=== PATIENT | female | born 1960 | race Caucasian/White ===

== ENCOUNTER → 2019-12-03 14:00 | Outpatient (BNVA) | payer MEDICAID, SELFPAY | PROVIDERS: PCP Nurse Practitioner Gerontology; Visit Provider Nurse Practitioner | DX: Z76.89 Persons encountering health services in other specified circumstances (principal) | CPT/HCPCS: 99203 ==

== ENCOUNTER 2019-12-21 09:37 | Outpatient (REF) | payer MEDICAID, SELFPAY ==
--- NOTE | 2019-12-21 09:49 | US_ITS ---
EXAMINATION: US ABDOMEN WITH LIVER ELASTOGRAPHY CLINICAL INFORMATION: Abnormal LFTs COMPARISON: CT abdomen and pelvis without contrast 10/10/2015 TECHNIQUE: Limited right upper abdominal ultrasound was performed FINDINGS: The liver is normal size, shape and contour. Normal average densities noted. Right lobe measures 1.4 cm in length and the left lobe measures 7.7 cm in length. There is no intrahepatic ductal dilatation or solid lesion. No cyst seen either. There is normal hepatopedal flow seen in the portal vein on Doppler exam. On liver Elastography, the median value is 1.31 with an IQR/median of 0.14 cm. The gallbladder has been surgically removed. The CBD measures 0.28 cm. The right kidney measures 11.2 cm. The pancreas is homogeneous in echotexture and appears unremarkable. IMPRESSION: 1. Unremarkable appearing liver, right kidney and pancreas. 2. On Elastography, there is normal to mild fibrosis, stage F0 - F1.
== END 2019-12-21 09:38 | disposition home or self-care (01) ==
LOC: HO.US 09:37
PROVIDERS: Visit Provider Nurse Practitioner
DX: R94.5 Abnormal results of liver function studies (principal)
CPT/HCPCS: 76705; 76981

== ENCOUNTER → 2020-01-24 09:56 | Outpatient (BNVA) | payer MEDICAID, SELFPAY | PROVIDERS: Visit Provider Nurse Practitioner Gerontology | DX: Z76.89 Persons encountering health services in other specified circumstances (principal) ==

== ENCOUNTER 2020-02-03 09:12 | Outpatient (REF) | payer MEDICAID, SELFPAY ==
[2020-02-03 10:30] LABS: Estimated Average Glucose 240 mg/dL
[2020-02-03 10:52] LABS: Alanine Aminotransferase 239 U/L (0-31); Albumin Level 3.8 g/dL (3.5-5.0); Alkaline Phosphatase 137 U/L (39-117); Anion Gap 11 (12-20); Aspartate Amino Transferase 102 U/L (5-31); Bilirubin Total 0.5 mg/dL (0.0-1.0); Blood Urea Nitrogen 26 mg/dL (9-16); Calcium 8.9 mg/dL (8.4-10.2); Carbon Dioxide 27 mmol/L (22-29); Chloride 106 mmol/L (96-108); Estimated Glomerular Filt Rate 53; Glucose Fasting 200 mg/dL (60-99); Potassium 4.9 mmol/l (3.3-5.1); Sodium 139 mmol/L (135-145); Total Protein 6.9 g/dL (6.5-8.0)
[2020-02-03 11:03] LABS: Creatinine Urine 71.16 mg/dL; Ferritin 53 ng/mL (10-250); Microalbum/Creatinine Ratio Ur 46.3 ug/mg cr
[2020-02-03 11:12] LABS: Vitamin D 25-OH Total 33.9 ng/mL (>30)
[2020-02-08 15:13] LABS: Alpha Fetoprotein 3.3 ng/mL
[2020-02-10 14:28] LABS: Fructosamine 354 umol/L (205-285)
== END 2020-02-03 09:13 | disposition home or self-care (01) ==
LOC: HO.LAB 09:12
PROVIDERS: Absent Provider Nurse Practitioner; Visit Provider Nurse Practitioner Gerontology
DX: E11.22 Type 2 diabetes mellitus with diabetic chronic kidney disease (principal); E11.65 Type 2 diabetes mellitus with hyperglycemia; E11.42 Type 2 diabetes mellitus with diabetic polyneuropathy; I12.9 Hypertensive chronic kidney disease with stage 1 through stage 4 chronic kidney disease, or unspecified chronic kidney disease; R79.89 Other specified abnormal findings of blood chemistry; N18.9 Chronic kidney disease, unspecified; E55.9 Vitamin D deficiency, unspecified; Z79.899 Other long term (current) drug therapy; Z79.4 Long term (current) use of insulin
CPT/HCPCS: 80053; 82043; 82105; 82306; 82728; 82985; 83036; 93005; 99212

== ENCOUNTER 2020-02-08 13:27 | Outpatient (REF) | payer MEDICAID, SELFPAY ==
[2020-02-10 14:28] LABS: Anti Nuclear Antibody Screen NEGATIVE (NEGATIVE)
[2020-02-11 08:45] LABS: HBS Num1 0.19 mIU/mL (0-7.99); Hepatitis A Antibody IgM 0.32 Index (0-0.79); ~HepC Num1 0.07 S/CO (0.00-0.79); ~Hepatitis A Antibody IgM Nonreactive (Nonreactive); ~Hepatitis B Surface Antibody NONREACTIVE (Nonreactive); ~Hepatitis C Antibody Nonreactive (Nonreactive)
[2020-02-11 09:35] LABS: HBc Num1 0.12 S/CO (0.00-0.79); HBsAGNum1 0.23 S/CO (0.00-0.99); Hepatitis B Core Antibody Nonreactive (Nonreactive); Hepatitis B Surface Antigen Negative (Negative)
[2020-02-11 15:07] LABS: Mitochondrial Antibodies NEGATIVE (NEGATIVE)
[2020-02-12 13:13] LABS: Smooth Muscle Antibody <20 U (<20)
== END 2020-02-08 13:28 | disposition home or self-care (01) ==
LOC: HO.LAB 13:27
PROVIDERS: Visit Provider Nurse Practitioner
DX: R94.5 Abnormal results of liver function studies (principal); R79.89 Other specified abnormal findings of blood chemistry
CPT/HCPCS: 36415; 86038; 86039; 86255; 86256; 86704; 86706; 86709; 86803; 87340

== ENCOUNTER 2020-02-09 09:33 | Outpatient (REF) | payer MEDICAID, SELFPAY | END 2020-02-09 09:34 | disposition home or self-care (01) | LOC: HO.LNP 09:33 | DX: Z13.89 Encounter for screening for other disorder (principal) | CPT/HCPCS: 86256 ==

== ENCOUNTER 2020-02-15 14:59 | Outpatient (REF) | payer MEDICAID, SELFPAY | END 2020-02-15 15:00 | disposition home or self-care (01) | LOC: HO.LAB 14:59 | PROVIDERS: Visit Provider Internal Medicine | DX: Z20.828 Contact with and (suspected) exposure to other viral communicable diseases (principal) | CPT/HCPCS: C9803; U0003 ==

== ENCOUNTER → 2020-05-11 11:07 | Outpatient (BNVA) | payer MEDICAID, SELFPAY | PROVIDERS: Visit Provider Nurse Practitioner Gerontology ==

== ENCOUNTER → 2020-07-21 11:29 | Outpatient (BNVA) | payer MEDICAID, SELFPAY | PROVIDERS: Visit Provider Nurse Practitioner Gerontology ==

== ENCOUNTER 2020-12-29 08:51 | Outpatient (REF) | payer MEDICAID, SELFPAY ==
[2020-12-29 10:05] LABS: Estimated Average Glucose 203 mg/dL; Hemoglobin A1c % 8.7 %
[2020-12-29 10:06] LABS: Cholesterol 350 mg/dL; Glucose Fasting 120 mg/dL (60-99); HDL Cholesterol 46 mg/dL; LDL Cholesterol Calculated 259 mg/dl; Triglycerides 225 mg/dL
[2020-12-30 09:46] LABS: LDL Cholesterol Direct 256 mg/dL (<100)
[2020-12-31 04:37] LABS: C Peptide 0.56 ng/mL (0.80-3.85)
[2021-01-03 15:21] LABS: Fructosamine 281 umol/L (205-285)
[2021-01-04 21:21] LABS: Glutamic acid decarboxylase Ab <5 IU/mL (<5)
[2021-01-15 01:41] LABS: Islet Cell Antibody Screen NEGATIVE (NEGATIVE)
== END 2020-12-29 08:52 | disposition home or self-care (01) ==
LOC: HO.LAB 08:51
PROVIDERS: Visit Provider Nurse Practitioner Gerontology
DX: E11.42 Type 2 diabetes mellitus with diabetic polyneuropathy (principal); E11.22 Type 2 diabetes mellitus with diabetic chronic kidney disease; N18.9 Chronic kidney disease, unspecified; Z79.4 Long term (current) use of insulin
CPT/HCPCS: 36415; 80061; 82947; 82985; 83036; 83721; 84681; 86255; 86341

== ENCOUNTER 2021-01-15 21:58 | Emergency (ER) | payer MEDICAID, SELFPAY ==
[2021-01-15 22:09] VITALS: BP 176/106; O2SAT 98
--- NOTE | 2021-01-15 22:12 | PC.NURSE ---
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
[2021-01-15 22:14] VITALS: BP 199/88; PULSE 83; RESP 18; TEMP 36.7; O2SAT 98; BMI 47.5
--- NOTE | 2021-01-16 00:54 | ECG_ITS ---
Test Reason : cp Blood Pressure : / mmHG Vent. Rate : 079 BPM Atrial Rate : 079 BPM P-R Int : 164 ms QRS Dur : 080 ms QT Int : 394 ms P-R-T Axes : 049 047 025 degrees QTc Int : 451 ms Normal sinus rhythm Normal ECG When compared with ECG of 17-OCT-2017 20:10, No significant change was found Heart rate has decreased Referred By: Kateryna Vides Electronically Signed By:MARISSA LOO MD
[2021-01-16 01:11] VITALS: BP 176/81; PULSE 79; RESP 18; TEMP 36.9; O2SAT 96
--- NOTE | 2021-01-16 01:45 | PC.NURSE ---
LABS DRAWN TO LAB, MEGAN OBTAINED TO
[2021-01-16 01:46] LABS: MANUAL DIFF FLAG NO
[2021-01-16 01:57] LABS: Basophils Percent Auto 0.2 % (0-2); Eosinophils Percent Auto 0.2 % (0-4); Hematocrit 38.3 % (37.0-47.0); Hemoglobin 12.7 g/dl (12.0-16.0); Imm Gran Abs Auto 0.01 X10*3/uL (0.00-0.03); Imm Gran Pct Auto 0.1 % (0.0-0.4); Lymphocytes Absolute Auto 2.1 X10*3/uL (1.2-4.9); Lymphocytes Percent Auto 26.4 % (20-40); Mean Corpuscular HGB Conc 33.2 g/dl (31.0-35.0); Mean Corpuscular Hemoglobin 28.3 pg (27.0-33.0); Mean Corpuscular Volume 85.5 fL (80.0-98.0); Mean Platelet Volume 9.1 fL (9.4-12.3); Monocytes Absolute Auto 0.5 X10*3/uL (0.1-1.2); Monocytes Percent Auto 6.4 % (2-11); Neutrophils Absolute Auto 5.4 x10*3/uL (2.0-8.3); Neutrophils Percent Auto 66.7 % (45-73); Platelet Count 320 X10*3/uL (160-400); Red Blood Count 4.48 X10*6/uL (4.20-5.50); Red Cell Distribution Width 14.3 % (11.0-16.0); White Blood Count 8.1 X10*3/uL (4.8-10.8)
--- NOTE | 2021-01-16 02:06 | ED.GENADULT ---
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 Currently, patient denies any headache. Related Data Home Medications Medication Instructions Recorded Confirmed aspirin 81 mg tablet,delayed 81 mg PO DAILY 01/24/20 07/21/20 release blood sugar diagnostic (FreeStyle #10 ea 01/24/20 07/21/20 Lite Strips) clonazepam 1 mg tablet 1 mg PO BID 01/24/20 07/21/20 duloxetine 20 mg capsule,delayed 20 mg PO BID 01/24/20 07/21/20 release hydroxyzine pamoate 25 mg capsule 25 mg PO BID PRN 01/24/20 07/21/20 (Vistaril) lancets 28 gauge (FreeStyle #100 ea 01/24/20 07/21/20 Lancets) lisinopril 10 mg tablet 10 mg PO DAILY 01/24/20 07/21/20 metoprolol tartrate 50 mg tablet 50 mg PO BID 01/24/20 07/21/20 mirtazapine 15 mg tablet 15 mg PO BEDTIME 01/24/20 07/21/20 aripiprazole 2 mg tablet 2 mg PO BEDTIME 07/21/20 07/21/20 trazodone 100 mg tablet 100 mg PO BEDTIME 07/21/20 07/21/20 Previous Rx's Medication Instructions Recorded pen needle, diabetic 32 gauge x #120 ea 05/15/20 (BD Ultra-Fine Martha Pen Needle) blood-glucose meter (FreeStyle #1 ea 06/12/20 Lite Meter) insulin aspart U-100 100 unit/mL 10 unit (0.1 mL) SUBCUT TID #15 ml 08/04/20 (3 mL) subcutaneous pen (Novolog Flexpen U-100 Insulin aspart) insulin glargine 100 unit/mL (3 18 unit (0.18 mL) SUBCUT QPM #15 ml 09/20/20 mL) subcutaneous pen (Lantus Solostar U-100 Insulin) cholecalciferol (vitamin D3) 50 50 mcg PO DAILY 30 Days #30 cap 10/18/20 mcg (2,000 unit) capsule rosuvastatin 40 mg tablet 40 mg PO DAILY #30 tab 10/18/20 ezetimibe 10 mg tablet 10 mg PO DAILY #30 tab 12/22/20 gabapentin 600 mg tablet 600 mg PO TID #90 tab 12/22/20 metformin 500 mg tablet,extended 500 mg PO BID #60 tab 12/22/20 release 24 hr hydrochlorothiazide 12.5 mg capsule 12.5 mg PO DAILY #7 cap 01/16/21 Allergies Allergy/AdvReac Type Severity Reaction Status Date / Time No Known Allergies Allergy Verified 01/15/21 22:14 [No Known Allergies*] Review of Systems Review of Systems: Pertinent positives and negatives as stated in HPI 10 point review of systems is otherwise negative. 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 Type 2 diabetes mellitus with hyperglycemia, with long-term current use of insulin Vitamin D deficiency Surgical History History of cholecystectomy Hx of cataract surgery Family History Family History Father Prostate cancer Diabetes Mother Uterine cancer, sarcoma Brain bleed Diabetes CAD (coronary artery disease) Social History Social History Alcohol intake: current Alcohol intake frequency: does not drink Advance Directives: No Advance Directives Information Provided: Yes Physical Exam Vital Signs: Vital Signs: Last Vital Signs Temp 98.5 F 01/16/21 01:11 Pulse 79 01/16/21 03:20 Resp 16 01/16/21 03:20 BP 172/65 H 01/16/21 03:20 Pulse Ox 97 01/16/21 03:20 Body Mass Index 47.5 VITAL SIGNS: Reviewed. GENERAL: Well developed, well nourished, in no acute distress. HEAD: Normocephalic/atraumatic EYES: PERRLA, EOMI OROPHARYNX: no oral lesions noted, posterior pharynx clear NECK: Supple, no adenopathy LUNGS: Normal breath sounds. No adventitious sounds or accessory muscle use. SpO2<96> CARDIOVASCULAR: Regular rate and rhythm without noted murmurs, no JVD or lower extremity edema. ABDOMEN: Soft, non-tender, non-distended with bowel sounds. SKIN: Inspection of the skin reveals no rashes NEUROLOGIC: Alert and oriented x 4. Strength and sensation to light touch were grossly intact x 4, no pronator drift, no facial asymmetry, cranial nerves 2-12 grossly intact. Course Course Course Narrative: This is a 60-year-old female with history and clinical presentation consistent with headache related to high blood pressure without neurological deficits. Review of all investigations otherwise negative for DEVAN, significant protein in the urine, and EKG without acute changes. Serial troponins are detectable but not clinically significant. Patient has follow-up appointment with her primary care provider this Friday. Medical Decision Making Lab Data Result diagrams: 01/16/21 01:41 01/16/21 01:41 Labs: Lab Results 01/16/21 01/16/21 01/16/21 Range/Units 01:41 01:41 01:41 WBC 8.1 (4.8-10.8) X10*3/uL RBC 4.48 (4.20-5.50) X10*6/uL Hgb 12.7 (12.0-16.0) g/dl Hct 38.3 (37.0-47.0) % MCV 85.5 (80.0-98.0) fL MCH 28.3 (27.0-33.0) pg MCHC 33.2 (31.0-35.0) g/dl RDW 14.3 (11.0-16.0) % Plt Count 320 (160-400) X10*3/uL MPV 9.1 L (9.4-12.3) fL Immature Gran % (Auto) 0.1 (0.0-0.4) % Neut % (Auto) 66.7 (45-73) % Lymph % (Auto) 26.4 (20-40) % Edwards % (Auto) 6.4 (2-11) % Eos % (Auto) 0.2 (0-4) % Baso % (Auto) 0.2 (0-2) % Lymph # (Auto) 2.1 (1.2-4.9) X10*3/uL Edwards # (Auto) 0.5 (0.1-1.2) X10*3/uL Eos # (Auto) 0.0 (0.0-0.4) X10*3/uL Baso # (Auto) 0.0 (0.0-0.2) X10*3/uL Abs Immat Gran (auto) 0.01 (0.00-0.03) X10*3/uL Absolute Neuts (auto) 5.4 (2.0-8.3) x10*3/uL Absolute Nucleated RBC 0.000 (0.0-0.012) X10*3/uL Nucleated RBC % (auto) 0.0 (0.0-0.2) /100WBC Sodium 141 (135-145) mmol/L Potassium 3.9 (3.3-5.1) mmol/L Chloride 108 (96-108) mmol/L Carbon Dioxide 19 L (22-29) mmol/L Anion Gap 18 (12-20) BUN 16 (9-16) mg/dL Creatinine 0.94 (0.5-1.4) mg/dL Estim Creat Clear Calc 77.5 Estimated GFR > 60 POC Glucose (60-115) mg/dL Random Glucose 224 H (60-115) mg/dL Calcium 9.4 (8.4-10.2) mg/dL Total Bilirubin 0.3 (0.0-1.0) mg/dL AST 19 D (5-31) U/L ALT 21 (0-31) U/L Alkaline Phosphatase 108 D (39-117) U/L Troponin I High Sens 4.5 (<3.5-17.0) ng/L Total Protein 7.5 (6.5-8.0) g/dL Albumin 4.0 (3.5-5.0) g/dL Urine Color Urine Appearance Urine pH (5.0-8.0) Ur Specific [place] (1.005-1.025) Urine Protein (NEG-TRACE) MG/DL Urine Glucose (UA) (NEG) MG/DL Urine Ketones (NEG) MG/DL Urine Blood (NEG) Urine Nitrite (NEG) Ur Leukocyte Esterase (NEG) Urine RBC (0) /HPF Urine WBC (0-4) /HPF Ur Squamous Epith Cells /LPF Urine Bacteria /LPF 01/16/21 01/16/21 01/16/21 Range/Units 02:39 02:41 03:17 WBC (4.8-10.8) X10*3/uL RBC (4.20-5.50) X10*6/uL Hgb (12.0-16.0) g/dl Hct (37.0-47.0) % MCV (80.0-98.0) fL MCH (27.0-33.0) pg MCHC (31.0-35.0) g/dl RDW (11.0-16.0) % Plt Count (160-400) X10*3/uL MPV (9.4-12.3) fL Immature Gran % (Auto) (0.0-0.4) % Neut % (Auto) (45-73) % Lymph % (Auto) (20-40) % Edwards % (Auto) (2-11) % Eos % (Auto) (0-4) % Baso % (Auto) (0-2) % Lymph # (Auto) (1.2-4.9) X10*3/uL Edwards # (Auto) (0.1-1.2) X10*3/uL Eos # (Auto) (0.0-0.4) X10*3/uL Baso # (Auto) (0.0-0.2) X10*3/uL Abs Immat Gran (auto) (0.00-0.03) X10*3/uL Absolute Neuts (auto) (2.0-8.3) x10*3/uL Absolute Nucleated RBC (0.0-0.012) X10*3/uL Nucleated RBC % (auto) (0.0-0.2) /100WBC Sodium (135-145) mmol/L Potassium (3.3-5.1) mmol/L Chloride (96-108) mmol/L Carbon Dioxide (22-29) mmol/L Anion Gap (12-20) BUN (9-16) mg/dL Creatinine (0.5-1.4) mg/dL Estim Creat Clear Calc Estimated GFR POC Glucose 189 H (60-115) mg/dL Random Glucose (60-115) mg/dL Calcium (8.4-10.2) mg/dL Total Bilirubin (0.0-1.0) mg/dL AST (5-31) U/L ALT (0-31) U/L Alkaline Phosphatase (39-117) U/L Troponin I High Sens 4.3 (<3.5-17.0) ng/L Total Protein (6.5-8.0) g/dL Albumin (3.5-5.0) g/dL Urine Color YELLOW Urine Appearance CLEAR Urine pH 6.0 (5.0-8.0) Ur Specific [place] 1.020 (1.005-1.025) Urine Protein TRACE (NEG-TRACE) MG/DL Urine Glucose (UA) 100 H (NEG) MG/DL Urine Ketones NEG (NEG) MG/DL Urine Blood TRACE (NEG) Urine Nitrite NEG (NEG) Ur Leukocyte Esterase NEG (NEG) Urine RBC 1-4 (0) /HPF Urine WBC 0-2 (0-4) /HPF Ur Squamous Epith Cells 1+ /LPF Urine Bacteria 1+ /LPF ECG Data Attestation: I personally reviewed and interpreted this ECG as follows: Prior ECG tracings: not available for review Interpretation: Normal sinus rhythm, HR-79, no STEMI, NE/QRS/QTC are within normal limits. Discharge Plan Discharge Clinical Impression: Hypertension, Headache Patient Disposition: Home, Self-Care Instructions: DASH Eating Plan (ED), Hypertension (ED) Additional Instructions: Reanude los medicamentos caseros seg?n lo prescrito. Rohit un seguimiento con humphrey proveedor de atenci?n primaria seg?n lo programado. Regrese a la juan de emergencias por un empeoramiento juani de los s?ntomas. Prescriptions: New hydrochlorothiazide 12.5 mg capsule 12.5 mg PO DAILY Qty: 7 RF: 0 No Action (DME) pen needle, diabetic [BD Ultra-Fine Martha Pen Needle] 32 gauge x 5/32 needle See Rx Instructions .ROUTE .MEDSUPPLY Qty: 120 RF: 3 (DME) blood-glucose meter [FreeStyle Lite Meter] Kit See Rx Instructions .ROUTE .MEDSUPPLY Qty: 1 RF: 0 insulin aspart U-100 [Novolog Flexpen U-100 Insulin] 100 unit/mL (3 mL) insulin pen 10 unit subcut TID Qty: 15 RF: 3 insulin glargine [Lantus Solostar U-100 Insulin] 100 unit/mL (3 mL) insulin pen 18 unit subcut QPM Qty: 15 RF: 1 cholecalciferol (vitamin D3) 50 mcg (2,000 unit) capsule 50 mcg PO DAILY 30 Days Qty: 30 RF: 3 rosuvastatin 40 mg tablet 40 mg PO DAILY Qty: 30 RF: 11 ezetimibe 10 mg tablet 10 mg PO DAILY Qty: 30 RF: 3 metformin 500 mg tablet extended release 24 hr 500 mg PO BID Qty: 60 RF: 3 gabapentin 600 mg tablet 600 mg PO TID Qty: 90 RF: 1 (DME) lancets [FreeStyle Lancets] 28 gauge misc See Rx Instructions .ROUTE .MEDSUPPLY Qty: 100 RF: 0 lisinopril 10 mg tablet 10 mg PO DAILY RF: 0 metoprolol tartrate 50 mg tablet 50 mg PO BID RF: 0 aspirin 81 mg tablet,delayed release (DR/EC) 81 mg PO DAILY RF: 0 clonazepam 1 mg tablet 1 mg PO BID RF: 0 hydroxyzine pamoate [Vistaril] 25 mg capsule 25 mg PO BID PRNRF: 0 mirtazapine 15 mg tablet 15 mg PO BEDTIME RF: 0 duloxetine 20 mg capsule,delayed release(DR/EC) 20 mg PO BID RF: 0 (DME) FreeStyle Lite Strips Strip See Rx Instructions .ROUTE .MEDSUPPLY Qty: 10 RF: 0 trazodone 100 mg tablet 100 mg PO BEDTIME RF: 0 aripiprazole 2 mg tablet 2 mg PO BEDTIME RF: 0 Referrals: [facility] [Primary Care Provider] - 2 days Print Language: Yi
[2021-01-16 02:10] LABS: Alanine Aminotransferase 21 U/L (0-31); Alkaline Phosphatase 108 U/L (39-117); Anion Gap 18 (12-20); Aspartate Amino Transferase 19 U/L (5-31); Bilirubin Total 0.3 mg/dL (0.0-1.0); Blood Urea Nitrogen 16 mg/dL (9-16); Calcium 9.4 mg/dL (8.4-10.2); Carbon Dioxide 19 mmol/L (22-29); Chloride 108 mmol/L (96-108); Creatinine Clr Calc Pharmacy 77.5; Estimated Glomerular Filt Rate > 60; Glucose Random 224 mg/dL (60-115); Potassium 3.9 mmol/L (3.3-5.1); Sodium 141 mmol/L (135-145); Total Protein 7.5 g/dL (6.5-8.0)
[2021-01-16 02:43] LABS: Glucose, Whole Blood 189 mg/dL (60-115)
[2021-01-16 02:47] LABS: Appearance Urine CLEAR; Color Urine YELLOW; Glucose Urine UA 100 MG/DL (NEG); Leukocyte Esterase Urine NEG (NEG); Nitrite Urine NEG (NEG); UACC Culture Trigger NO; Urine Blood TRACE (NEG); Urine Ketones NEG (NEG); Urine Protein TRACE MG/DL (NEG-TRACE)
[2021-01-16 02:49] LABS: Troponin-I High Sensitivity 4.5 ng/L (<3.5-17.0)
[2021-01-16 02:58] LABS: Bacteria Urine 1+ /LPF; Squamous Epithelial Cell Urine 1+ /LPF; WBC Urine 0-2 /HPF (0-4)
[2021-01-16] MEDS: hydroCHLOROthiazide 12.5 MG TABLET PO (03:18)
[2021-01-16 03:20] VITALS: BP 172/65; PULSE 79; RESP 16; O2SAT 97
--- NOTE | 2021-01-16 03:20 | PC.NURSE ---
pt medicated as per emar for b/p.
[2021-01-16 03:44] LABS: Troponin-I High Sensitivity 4.3 ng/L (<3.5-17.0)
[2021-01-16 03:54] VITALS: BP 159/48; PULSE 78; RESP 18; O2SAT 98
== END 2021-01-16 03:57 | disposition home or self-care (01) ==
PROVIDERS: Emergency Provider Student in an Organized Health Care Education/Training Program
DX: I10 Essential (primary) hypertension (principal); R51.9 Headache, unspecified; E11.9 Type 2 diabetes mellitus without complications; Z79.4 Long term (current) use of insulin
CPT/HCPCS: 36415; 80053; 81001; 82947; 84484; 85025; 93005; 99283; 99284

== ENCOUNTER → 2021-01-29 13:55 | Outpatient (BNVA) | payer MEDICAID, SELFPAY | PROVIDERS: Visit Provider Nurse Practitioner Gerontology | DX: E11.65 Type 2 diabetes mellitus with hyperglycemia (principal); E11.42 Type 2 diabetes mellitus with diabetic polyneuropathy; E11.21 Type 2 diabetes mellitus with diabetic nephropathy; I10 Essential (primary) hypertension; E78.5 Hyperlipidemia, unspecified; E55.9 Vitamin D deficiency, unspecified; Z79.4 Long term (current) use of insulin; Z79.84 Long term (current) use of oral hypoglycemic drugs; Z79.899 Other long term (current) drug therapy | CPT/HCPCS: 82947; 99212 ==

== ENCOUNTER 2021-04-17 13:50 | Outpatient (REF) | payer MEDICAID, SELFPAY ==
[2021-04-17 16:30] LABS: Vitamin D 25-OH Total 30.7 ng/mL (>30)
[2021-04-17 19:32] LABS: Creatinine Urine 37.32 mg/dL; Microalbum/Creatinine Ratio Ur 182.2 ug/mg cr
== END 2021-04-17 13:51 | disposition home or self-care (01) ==
LOC: HO.LAB 13:50
PROVIDERS: Nurse Practitioner Gerontology; PCP Registered Nurse Community Health; Referring Provider Registered Nurse Community Health; Visit Provider Nurse Practitioner Family
DX: R07.9 Chest pain, unspecified (principal); I10 Essential (primary) hypertension; E78.5 Hyperlipidemia, unspecified; E55.9 Vitamin D deficiency, unspecified; E11.21 Type 2 diabetes mellitus with diabetic nephropathy; Z79.4 Long term (current) use of insulin
CPT/HCPCS: 36415; 82043; 82306; 99212

== ENCOUNTER 2021-07-06 14:35 | Outpatient (REF) | payer MEDICAID, SELFPAY ==
--- NOTE | ~2021-07-06 | MM_ITS ---
EXAMINATION: MM SCREENING DIGITAL BREAST TOMOSYNTHESIS, BILATERAL CLINICAL INFORMATION: Screening. Asymptomatic. Prior outside mammography from [place] currently unavailable. Age 60. No known family history breast cancer. The lifetime risk of breast cancer based on the Tyrer-Cuzick Model is 7%. COMPARISON: None. TECHNIQUE: Digital breast tomosynthesis is performed in both the craniocaudal and mediolateral oblique views along with computer-aided detection (CAD). Synthesized 2D images are generated from the tomosynthesis. FINDINGS: There are scattered areas of fibroglandular density (ACR BI-RADS breast composition Category b). There is fine fibronodular parenchymal pattern. There is no mass or architectural abnormality. The axilla and skin contours are unremarkable. There is parenchymal asymmetry anterior upper outer left breast. This may represent new baseline, patient will be recalled in order to obtain additional views to fully characterize the asymmetry. There are scattered calcifications in each breast. Right breast has grouped calcifications mid 3:00 position, possibly vascular or early ductal secretory. These will also be reassessed at time of recall. MM/MM tomosynthesis screening BI IMPRESSION: Right: -Grouped calcifications mid 3:00 position, possibly vascular or early ductal secretory. Left: -Parenchymal asymmetry anterior upper outer breast. ASSESSMENT: BI-RADS 0: Incomplete - Need Additional Imaging Evaluation RECOMMENDATION: 1. Additional views of the RIGHT breast: Magnification CC, magnification LM. 2. Additional views of the LEFT breast: Rolled CC x2; ML. Targeted ultrasound if warranted after review of the additional views. 3. Radiology department staff will contact the patient for additional imaging. This patient's information was entered into a reminder system with a target due date for their next mammogram.
== END 2021-07-06 14:36 | disposition home or self-care (01) ==
LOC: HO.MAMMO 14:35
PROVIDERS: PCP Registered Nurse Community Health; Visit Provider Registered Nurse Community Health
DX: Z12.31 Encounter for screening mammogram for malignant neoplasm of breast (principal)
CPT/HCPCS: 77063; 77067

== ENCOUNTER 2021-07-24 14:27 | Outpatient (REF) | payer MEDICAID, SELFPAY ==
--- NOTE | ~2021-07-24 | MM_ITS ---
EXAMINATION: MM DIAGNOSTIC DIGITAL BREAST TOMOSYNTHESIS, BILATERAL CLINICAL INFORMATION: Recall from screening for parenchymal asymmetry anterior upper outer left breast and grouped calcifications mid 3:00 right breast. Prior outside mammography from [place] currently unavailable. TC score 7%. COMPARISON: Mammography 07/06/2021. TECHNIQUE: Digital breast tomosynthesis is performed. 2D images are generated from the tomosynthesis. The following views are obtained: Right: Magnification CC, magnification LM x2. Left: Rolled CC x2, ML, spot CC x2, spot MLO. FINDINGS: Additional magnification views right breast demonstrate loosely grouped probable benign calcifications mid inner breast, some may be vascular or early ductal secretory. There are 2 other tightly grouped calcifications in the central inner right breast which are relatively coarse and likely fibroadenomatous change. Additional views left breast demonstrate probable benign parenchymal asymmetry upper outer breast. There is no underlying mass or architectural abnormality. Results are discussed with the patient at time of visit, using an clinical dermatologist. In the absence of prior outside mammography, the bilateral findings will be reassessed again with diagnostic mammography in 6 months. If prior outside mammography is made available, additional comparison will be made in an addendum report. MM/MM tomosynthesis added view BI IMPRESSION: Right: -Probable benign calcifications mid medial right breast and central inner right breast. Chronicity unknown. Left: -Probable benign parenchymal asymmetry anterior upper outer left breast. Chronicity unknown. ASSESSMENT: BI-RADS 3: Probably Benign RECOMMENDATION: Diagnostic bilateral mammography in 6 months. This patient's information was entered into a reminder system with a target due date for their next mammogram.
== END 2021-07-24 14:28 | disposition home or self-care (01) ==
LOC: HO.MAMMO 14:27
PROVIDERS: PCP Registered Nurse Community Health; Visit Provider Registered Nurse Community Health
DX: R92.1 Mammographic calcification found on diagnostic imaging of breast (principal)
CPT/HCPCS: 77062; 77066

== ENCOUNTER 2022-02-19 15:03 | Outpatient (REF) | payer MEDICAID, SELFPAY ==
--- NOTE | ~2022-02-19 | MM_ITS ---
EXAMINATION: MM DIAGNOSTIC DIGITAL BREAST TOMOSYNTHESIS, BILATERAL CLINICAL INFORMATION: Short interval six-month follow-up new baseline mammography for parenchymal asymmetry anterior upper outer left breast and calcifications mid 3:00 right breast. The lifetime risk of breast cancer based on the Tyrer-Cuzick Model is 7%. COMPARISON: Mammography: 07/24/2021, 07/06/2021 (BI-RADS 0, new baseline). TECHNIQUE: Digital breast tomosynthesis is performed in both the craniocaudal and mediolateral oblique views along with computer-aided detection (CAD). Synthesized 2D images are generated from the tomosynthesis. Additional magnification right CC and magnification right LM views are obtained. FINDINGS: There are scattered areas of fibroglandular density (ACR BI-RADS breast composition Category b). Parenchymal pattern is similar to prior studies. The parenchymal asymmetry anterior upper outer left breast is stable. There is no developing density or interval mass or interval architectural abnormality. The axilla and skin contours are unremarkable. Right breast calcifications for follow-up are stable. Both breasts will be reassessed again at time of annual bilateral mammography, due in 6 months. Results are provided to the patient at time of visit by the technologist. MM/MM tomosynthesis diagnostic BI IMPRESSION: No significant changes from prior new baseline exam. ASSESSMENT: BI-RADS 3: Probably Benign RECOMMENDATION: Diagnostic mammography at time of annual bilateral exam, due in 6 months. This patient's information was entered into a reminder system with a target due date for their next mammogram.
== END 2022-02-19 15:04 | disposition home or self-care (01) ==
LOC: HO.MAMMO 15:03
PROVIDERS: PCP Registered Nurse; Visit Provider Registered Nurse
DX: R92.1 Mammographic calcification found on diagnostic imaging of breast (principal)
CPT/HCPCS: 77062; 77066

== ENCOUNTER 2022-08-30 09:25 | Outpatient (REF) | payer MEDICAID, SELFPAY ==
--- NOTE | ~2022-08-30 | US_ITS ---
EXAMINATION: US ABDOMEN COMPLETE CLINICAL INFORMATION: Left-sided abdominal pain. Constipation. COMPARISON: Limited abdominal ultrasound with elastography 12/21/2019. CT abdomen and pelvis 10/09/2017. TECHNIQUE: Real-time imaging of the abdominal viscera. Limited visualization due to bowel gas and body habitus. FINDINGS: PANCREAS: Limited visualization of pancreatic tail and head. Imaged portion of pancreatic body is unremarkable. ABDOMINAL AORTA: Limited visualization. Imaged portions of mid to distal abdominal aorta are nonaneurysmal. INFERIOR VENA CAVA: Visualized portions are normal. LIVER: Severely limited visualization of the liver due to body habitus. Diffuse increase in echogenicity of the liver is characteristic of primary hepatocellular disease, possibly due to hepatic steatosis and further limits visualization. GALLBLADDER: Surgically absent. COMMON BILE DUCT: Normal in caliber measuring 0.5 cm in diameter. RIGHT KIDNEY: Right renal 0.3 cm mid pole echogenic focus may represent a small calculus. No hydronephrosis. Limited visualization.The kidney measures 9.6 cm in maximum dimension. LEFT KIDNEY: No hydronephrosis. No renal calculi. Limited visualization. The kidney measures 10.0 cm in maximum dimension. SPLEEN: Normal. The spleen measures 8.7 cm in maximum dimension. FREE FLUID: None. US/US abdomen complete IMPRESSION: 1. Gallbladder surgically absent. 2. Right renal 0.3 cm mid pole echogenic focus may represent a small calculus. No hydronephrosis. 3. Severely limited visualization of the liver due to body habitus. Diffuse increase in echogenicity of the liver is characteristic of primary hepatocellular disease, possibly due to hepatic steatosis and further limits visualization.
== END 2022-08-30 09:26 | disposition home or self-care (01) ==
LOC: HO.US 09:25
PROVIDERS: PCP Registered Nurse; Visit Provider Registered Nurse
DX: R10.9 Unspecified abdominal pain (principal)
CPT/HCPCS: 76700

== ENCOUNTER 2022-09-12 13:56 | Outpatient (REF) | payer MEDICAID, SELFPAY | END 2022-09-12 13:57 | disposition home or self-care (01) | LOC: HO.HHCL 13:56 | PROVIDERS: Visit Provider Registered Nurse | DX: Z13.89 Encounter for screening for other disorder (principal) ==

== ENCOUNTER 2022-09-12 14:31 | Outpatient (REF) | payer MEDICAID, SELFPAY ==
[2022-09-12 16:05] LABS: Cholesterol 321 mg/dL; HDL Cholesterol 44 mg/dL; LDL Cholesterol Calculated 246 mg/dl; Triglycerides 157 mg/dL
[2022-09-12 16:14] LABS: B Type Natriuretic Peptide 44 pg/mL (<100)
== END 2022-09-12 14:32 | disposition home or self-care (01) ==
LOC: HO.LAB 14:31
PROVIDERS: Visit Provider Registered Nurse
DX: Z00.00 Encounter for general adult medical examination without abnormal findings (principal); M79.89 Other specified soft tissue disorders; E78.2 Mixed hyperlipidemia
CPT/HCPCS: 36415; 80061; 83880

== ENCOUNTER 2022-11-20 12:55 | Outpatient (REF) | payer MEDICAID, SELFPAY ==
--- NOTE | ~2022-11-20 | MM_ITS ---
EXAMINATION: MM DIAGNOSTIC DIGITAL BREAST TOMOSYNTHESIS, BILATERAL CLINICAL INFORMATION: 6 month follow-up for right breast calcifications. Patient also due for bilateral screening mammography. COMPARISON: Mammography: 02/19/2022, 07/24/2021, 07/06/2021. TECHNIQUE: Digital breast tomosynthesis is performed in both the craniocaudal and mediolateral oblique views along with computer-aided detection (CAD). Synthesized 2D images are generated from the tomosynthesis. In addition, 2-D magnification right cc views x2, and right LM views x2 were performed. Additional left CC, right CC, and large paddle spot compression right MLO views were obtained. FINDINGS: There are scattered areas of fibroglandular density (ACR BI-RADS breast composition Category b). The 3 groups of somewhat coarse appearing microcalcifications in the central right breast extending laterally are entirely unchanged from prior examinations in both morphology of calcifications, and number. These remain probably benign. There has been no aggressive change. The left breast demonstrates a stable parenchymal asymmetry in the upper outer quadrant, without change from prior exams. There is otherwise no suspicious abnormality in the left breast. There are no axillary or skin changes. The parenchymal pattern is unchanged from prior exams. MM/MM tomosynthesis diagnostic BI IMPRESSION: There are no significant changes from prior study. Stable probably benign calcifications right breast, for which additional 12 month follow-up magnification views recommended to verify stability. Stable probably benign parenchymal asymmetry upper outer left breast, for which 12 month interval follow-up also recommended to include standard 3-D full-field left CC and MLO views. ASSESSMENT: BI-RADS BI-RADS 3 - Probably benign finding(s) - 12 month follow-up suggested RECOMMENDATION: 12 month diagnostic follow up Results were provided to the patient at time of visit by the technologist. This patient's information was entered into a reminder system with a target due date for their next mammogram.
== END 2022-11-20 12:56 | disposition home or self-care (01) ==
LOC: HO.MAMMO 12:55
PROVIDERS: PCP Registered Nurse; Visit Provider Registered Nurse
DX: R92.1 Mammographic calcification found on diagnostic imaging of breast (principal); N64.89 Other specified disorders of breast
CPT/HCPCS: 77062; 77066

== ENCOUNTER → 2022-11-20 13:00 | Outpatient (BNV) | payer MEDICAID, SELFPAY | PROVIDERS: PCP Registered Nurse; Visit Provider Radiology Diagnostic Radiology | DX: R92.1 Mammographic calcification found on diagnostic imaging of breast (principal); R92.2 Inconclusive mammogram | CPT/HCPCS: 77062; 77066 ==

== ENCOUNTER 2023-12-19 11:02 | Outpatient (REF) | payer MEDICAID, SELFPAY ==
[2023-12-19 12:17] LABS: Hematocrit 38.9 % (37.0-47.0); Hemoglobin 12.4 g/dl (12.0-16.0); Mean Corpuscular HGB Conc 31.9 g/dl (31.0-35.0); Mean Corpuscular Hemoglobin 28.5 pg (27.0-33.0); Mean Corpuscular Volume 89.4 fL (80.0-98.0); Mean Platelet Volume 9.5 fL (9.4-12.3); Platelet Count 375 X10*3/uL (160-400); Red Blood Count 4.35 X10*6/uL (4.20-5.50); Red Cell Distribution Width 13.4 % (11.0-16.0); White Blood Count 6.1 X10*3/uL (4.8-10.8)
[2023-12-19 13:19] LABS: Estimated Average Glucose 180 mg/dL; Hemoglobin A1C 202.2122 umol/L; Hemoglobin A1c % 7.9 % (<6.0); Total Hemoglobin (HGBA1C) 3191.6241 umol/L
[2023-12-19 13:40] LABS: Alanine Aminotransferase 13 U/L (0-31); Albumin Level 3.7 g/dL (3.5-5.0); Alkaline Phosphatase 102 U/L (39-117); Anion Gap 11 (12-20); Aspartate Amino Transferase 16 U/L (5-31); Bilirubin Total 0.3 mg/dL (0.0-1.0); Blood Urea Nitrogen 18 mg/dL (9-16); Calcium 9.5 mg/dL (8.4-10.2); Carbon Dioxide 27 mmol/L (22-29); Chloride 109 mmol/L (96-108); Cholesterol 350 mg/dL (<200); Estimated Glomerular Filt Rate 51; Glucose Random 150 mg/dL (60-115); HDL Cholesterol 47 mg/dL (>40); LDL Cholesterol Calculated 256 mg/dL (<100); Potassium 4.3 mmol/L (3.3-5.1); Sodium 143 mmol/L (135-145); Triglycerides 239 mg/dL (<150)
[2023-12-19 13:43] LABS: Vitamin D 25-OH Total 24.2 ng/mL (>30)
[2023-12-19 14:01] LABS: Folate 10.1 ng/mL (> or = 4.0); Vitamin B12 303 pg/mL (200-900)
[2023-12-19 15:44] LABS: CT PCR NOT DETECTED (Not Detect.); NG PCR NOT DETECTED (Not Detect.)
[2023-12-21 03:50] LABS: Syphilis Screen Nonreactive (Nonreactive)
[2023-12-21 03:57] LABS: HBS Num1 0.12 mIU/mL (0-7.99); HBc Num1 0.12 S/CO (0.00-0.79); HIV AB/AG Nonreactive (Nonreactive); HIV Num 1 0.09 S/CO (0.00-0.99); Hepatitis B Core Antibody Nonreactive (Nonreactive); ~HepC Num1 0.11 S/CO (0.00-0.79); ~Hepatitis B Surface Antibody NONREACTIVE (Nonreactive); ~Hepatitis C Antibody Nonreactive (Nonreactive)
== END 2023-12-19 11:03 | disposition home or self-care (01) ==
LOC: HO.CHCLDS 11:02
PROVIDERS: Visit Provider Student in an Organized Health Care Education/Training Program
DX: Z00.00 Encounter for general adult medical examination without abnormal findings (principal)
CPT/HCPCS: 36415; 80053; 80061; 82306; 82607; 82746; 83036; 84443; 85027; 86704; 86706; 86780; 86803; 87389; 87491; 87591

== ENCOUNTER 2024-01-07 10:05 | Outpatient (REF) | payer MEDICAID, SELFPAY ==
[2024-01-07 12:23] LABS: Alanine Aminotransferase 17 U/L (0-31); Albumin Level 3.8 g/dL (3.5-5.0); Alkaline Phosphatase 108 U/L (39-117); Anion Gap 13 (12-20); Aspartate Amino Transferase 19 U/L (5-31); Bilirubin Total 0.3 mg/dL (0.0-1.0); Blood Urea Nitrogen 22 mg/dL (9-16); Calcium 9.3 mg/dL (8.4-10.2); Carbon Dioxide 25 mmol/L (22-29); Chloride 106 mmol/L (96-108); Estimated Glomerular Filt Rate 59; Glucose Random 231 mg/dL (60-115); Potassium 3.8 mmol/L (3.3-5.1); Sodium 140 mmol/L (135-145); Total Protein 7.6 g/dL (6.5-8.0)
== END 2024-01-07 10:06 | disposition home or self-care (01) ==
LOC: HO.HHCL 10:05
PROVIDERS: Visit Provider Student in an Organized Health Care Education/Training Program
DX: E78.5 Hyperlipidemia, unspecified (principal)
CPT/HCPCS: 36415; 80053

== ENCOUNTER 2024-01-12 12:19 | Outpatient (REF) | payer MEDICAID, SELFPAY ==
--- NOTE | ~2024-01-12 | MM_ITS ---
EXAMINATION: MM DIAGNOSTIC DIGITAL BREAST TOMOSYNTHESIS, BILATERAL CLINICAL INFORMATION: 1 year follow-up for right breast calcifications. Patient also due for bilateral screening mammography. COMPARISON: Mammography: 11/20/2022, 02/19/2022, 07/24/2021, 07/06/2021 (BI-RADS 0). TECHNIQUE: Digital breast tomosynthesis is performed in both the craniocaudal and mediolateral oblique views along with computer-aided detection (CAD). Synthesized 2D images are generated from the tomosynthesis. In addition, 2-D spot magnification right CC x2 and right ML x2 views were also obtained of the calcifications in question. FINDINGS: There are scattered areas of fibroglandular density (ACR BI-RADS breast composition Category b). The 3 groups of somewhat coarse appearing microcalcifications in the central right breast extending laterally are entirely unchanged from prior examinations in both morphology and number. These have been stable over two-year period and are thus benign. No further follow-up recommended. Otherwise, there are stable benign type calcifications in both breasts. There are no suspicious masses, developing suspicious grouped calcifications, or areas of architectural distortion in either breast. The parenchymal pattern is stable from prior exams. There is no skin or axillary abnormality. MM/MM tomosynthesis diagnostic BI IMPRESSION: There are no findings suspicious for malignancy in either breast. -Right breast calcifications have been stable over a two-year period, and are hence benign. No further follow-up recommended. /Recommend the patient resume routine annual screening mammography. ASSESSMENT: BI-RADS BI-RADS 2 - Benign Findings RECOMMENDATION: 1 year F/U Results were provided to the patient at time of visit by the technologist. This patient's information was entered into a reminder system with a target due date for their next mammogram. Electronically signed by: Tio Gilman MD 01/12/2024 02:59 PM [facility]
== END 2024-01-12 12:20 | disposition home or self-care (01) ==
LOC: HO.MAMMO 12:19
PROVIDERS: PCP Student in an Organized Health Care Education/Training Program; Visit Provider Student in an Organized Health Care Education/Training Program
DX: R92.1 Mammographic calcification found on diagnostic imaging of breast (principal)
CPT/HCPCS: 77062; 77066

== ENCOUNTER → 2024-01-12 14:00 | Outpatient (BNV) | payer MEDICAID, SELFPAY | PROVIDERS: PCP Student in an Organized Health Care Education/Training Program; Visit Provider Radiology Diagnostic Radiology | DX: R92.1 Mammographic calcification found on diagnostic imaging of breast (principal) | CPT/HCPCS: 77062; 77066 ==

== ENCOUNTER 2024-04-01 14:42 | Outpatient (AMB) | payer MEDICAID, SELFPAY ==
[2024-04-01 15:25] VITALS: BP 122/62; PULSE 70; BMI 28.5
--- NOTE | 2024-04-01 15:25 | A.OFFVIS_ITS ---
Vital Signs 04/01/24 15:25 Height 5 ft 2 in Weight 155 lb 10.342 oz BMI 28.5 BP 122/62 Blood Pressure Location Lt brachial Position Sitting Pulse 70 Pulse Source Monitor Intake Visit Reasons: f/u appt per pcp dx: hyperlipidemia Program Development Specialist Required: Yes Program Development Specialist Language: Hr Specialist Name: voice Allergies No Known Allergies [No Known Allergies*] Allergy (Verified 04/01/24 15:27) Medication List - Last Reconciled 04/01/24 by YOVANI PichardoC aripiprazole 2 mg PO BEDTIME aspirin 81 mg PO DAILY atorvastatin 20 mg PO DAILY blood sugar diagnostic (FreeStyle Lite Strips) As directed blood-glucose meter (FreeStyle Lite Meter kit) As directed to test blood glucose 4x/day cholecalciferol (vitamin D3) 50 mcg PO DAILY 30 days clonazepam 1 mg PO BID dulaglutide (Trulicity) mg subcut QWEEK duloxetine 20 mg PO BID evolocumab (Repatha SureClick) 140 mg subcut Q2W ezetimibe 10 mg PO DAILY gabapentin 600 mg PO TID insulin aspart U-100 (Novolog FlexPen U-100 Insulin aspart) 8 units (0.08 mL) subcut TID insulin glargine (Lantus Solostar U-100 Insulin) 18 units (0.18 mL) subcut QPM lancets (FreeStyle Lancets) As directed lisinopril 10 mg PO DAILY metformin ER 500 mg PO BID metoprolol tartrate 100 mg PO ONCE pen needle, diabetic (BD Ultra-Fine Martha Pen Needle) As directed three times a day trazodone 100 mg PO BEDTIME HPI HPI f/u appt per pcp dx: hyperlipidemia: Details: Paty is a 63-year-old female with past medical history of hypertension, hyperlipidemia, diabetes, chronic kidney disease, prior reports of chest discomfort who was referred back to Cardiology for evaluation and treatment of her hyperlipidemia. Her last prior visit to our office was 04/17/21. Today she reports she has been feeling well with no concerning symptoms. She has no chest discomfort at rest or with activity. No shortness of breath, palpitations, dizziness, presyncope, syncope, PND, orthopnea or edema. She says her cholesterol has been high for many years. She believes the cholesterol- lowering medications caused issues with her liver. She is taking Repatha shots every 14 days and reports compliance. Certified cut in worker used. [facility] Medical History Type 2 diabetes mellitus with hyperglycemia, with long-term current use of insulin Long-term current use of insulin for diabetes mellitus Type 2 diabetes mellitus with diabetic nephropathy Vitamin D deficiency Hyperlipidemia LDL goal <100 Type 2 diabetes mellitus with diabetic polyneuropathy Palpitations Depression with anxiety Surgical History Hx of cataract surgery History of cholecystectomy Family History Father Prostate cancer Diabetes Mother Uterine cancer, sarcoma Brain bleed Diabetes CAD (coronary artery disease) Social History Household Members: None Alcohol intake: current Alcohol intake frequency: does not drink Patient Tobacco Use Status: Never used Tobacco Review of Systems Const All systems reviewed & are unremarkable except as noted in HPI and below ENT Denies dizziness Card Denies chest pain, Denies chest pain at rest, Denies chest pain with activity, Denies rapid heart rate, Denies pedal edema, Denies edema, Denies leg edema, Denies lightheadedness, Denies palpitations, Denies dyspnea, Denies dyspnea on exertion and Denies orthopnea Resp Denies cough, Denies dyspnea and Denies dyspnea on exertion GI Denies hematochezia and Denies change in stool character Musc Denies abnormal gait, Denies limited range of motion, Denies muscle cramps, Denies muscle weakness, Denies numbness, Denies radiating pain into limb, Denies stiffness and Denies tingling Neuro Denies abnormal gait, Denies dizziness, Denies numbness and Denies tingling Endo Denies palpitations Physical Exam Vital Signs: Last Vital Signs Pulse 70 04/01/24 15:25 BP 122/62 04/01/24 15:25 BMI result Body Mass Index 28.5 Const General: cooperative, healthy appearing, comfortable and no acute distress Orientation/consciousness: patient oriented x3 Neck Neck: Yes normal visual inspection and Yes no JVD Resp Effort & Inspection: normal respiratory effort Auscultation: clear to auscultation bilaterally, no crackles, no rales, no rhonchi and no wheezes Cardio Rate: regular rate Rhythm: regular rhythm Heart sounds: S1 normal heart sound present, S2 normal heart sound present, no murmurs and no rubs Neuro General: patient oriented x3 Extrem General: Yes normal to inspection, No no pedal edema and No calf tenderness Psych Appearance: grossly normal Mental Status: mental status grossly normal Speech and movement: Normal speech and movement present Office Procedures EKG Details: Today, read by me, normal sinus rhythm, rate 70, QTC 442 milliseconds [id number], Complete Assessment & Plan Assessment & Plan (1) Hyperlipidemia LDL goal <100: Code(s): E78.5 - Hyperlipidemia, unspecified Category: Medical Plan: [place] LDL goal less than 70 in patient with diabetes. She is currently on atorvastatin 20 mg daily and Repatha injections Q 14 days. Labs done 12/19/2023 showed LDL 256. Patient reports compliance with her medications. She recalls having liver issues with cholesterol-lowering pills. She does not believe she is taking Zetia. Will need to check with her pharmacy. - at this time I will confirm her medications. Will have her recheck a fasting lipid profile. If her LDL is not controlled then I will consider changing her Repatha to Praluent. - decision to be made once labs are available. (2) Chest pain: Code(s): R07.9 - Chest pain, unspecified Category: Medical Plan: Prior reports of chest discomfort and heart palpitations with cardiac eval 2018 without findings. Nuclear stress test done 12/18/2017 shows normal myocardial perfusion imaging with EF 70%. EKG done 01/16/2021 shows normal sinus rhythm with no acute ST or T-wave abnormalities, rate 79. She does have multiple cardiac risk factors of hypertension, hyperlipidemia, diabetes, chronic kidney disease. She has no known history of coronary artery disease. She has no reports of anginal sounding symptoms at this time. She reports good activity the tolerance. Spent time reviewing the need for cardiac risk factor modification with her. (3) Hypertension: Code(s): I10 - Essential (primary) hypertension Category: Medical Qualifiers: Hypertension type: essential hypertension Qualified Code(s): I10 - Essential (primary) hypertension Plan: Well controlled at present time. No medication changes made Plan Time spent on chart review, documentation, interview and assessment Orders: Orders Lipid Panel Today E78.5 - Hyperlipidemia, unspecified Comprehensive Met. Panel Today E78.5 - Hyperlipidemia, unspecified Coding Level of Care Code Est Pt Level 4 (03222) Complex EM visit Add On G2211 Diagnoses Hyperlipidemia LDL goal <100 E78.5 Chest pain R07.9 Essential hypertension I10 Hypertension type: essential hypertension CPT Codes EKG - CPT: [id number], Complete ([id number]) Time Spent (min) 30
--- OUTSIDE RECORDS SUMMARY | 2024-04-01 18:37 | XMS_ITS | Encounter Summary ---
Author Organization [employer] Address [address] [facility] 7t [place] [address] Care Team Providers Care Community Affairs Director Name Role Phone Neena Machuca Primary Care Provider +1- [phone] Caity Gray MD Primary Care Pro vider Reason for Visit * Reason Onset Date Comments Prior Authorization 06/27/2022 Encounter Details Date Type Department Care Team ([facility] st Contact Info) Description 06/27/2022 Telephone [facility] MEDICINE [address] [place] [address] Neena Machuca FNP [address] [facility] Dept [place] [address] Prior Authorization Social History Tobacco Use Types Packs/Day Years Used Date Smoking Tobacco: Never Assessed Depression Answer Date Recorded Patient Health Questionnaire-9 Score 9 02/27/2023 Patient Health Questionnaire-9 Score 9 02/27/2023 Last PHQ-9: Questionnaire Data Not on file 1 04/30/2022 Housing Stability Answer Date Recorded What is your housing situation today? I have kiran velázquez 12/30/[address] you li ve. Do you have problems with any of the following? None of the above 12/30/2022 Food Insecurity Answer Date Recorded Within the past 12 months, y ou worried that your food would run out before you got money to buy more: Never True 02/27/2023 Within the past 12 months,th e food you bought just didn't last and you didn't have enough money to get more: Never True Transportation Answer Date Recorded In the past 12 months, has l ack of transportation kept you from medical appts, meetings, work or from getting things needed for daily living? No 12/30/2022 Utilities Answer Date Recorded In the past 12 months, has t he electric, gas, oil or water company threatened to shut off services in your home? No 12/30/2022 Depression Answer Date Recorded Patient Health Questionnaire-2 Score 3 02/27/2023 Comments Unknown Sex and Gender Information Value Date Recorded Sex Assigned at Female 12/31/2021 10:33 AM EDT Legal Sex Female 10:33 AM EDT Gender Identity Female 12/31/2021 10:33 AM EDT Sexual Orientation Lesbian or Herman 12/31/2021 10 :33 AM EDT COVID-19 Exposure Response Date Recorded In the last 10 days, have yo u been in contact with someone who was confirmed or suspected to have Coronavirus/COVID-19? No / Unsure 08/15/2022 2:28 PM EDT documented as of this encounter Miscellaneous Notes * Telephone Encounter - Catalino Preciado - 06/27/2022 1:03 PM EDT TC from pt requesting a new script for a BP machine, Pt states current one no longer works. Please contact at [phone] documented in this encounter Plan of Treatment Not on file documented as of this encounter Visit Diagnoses Not on filedocumented in this encounter Care Teams Community Affairs Director Relationship Specialty Start Date End Date Neena Machuca FNP PCP - General Family Medicine 10/30/21 11/12/22 Caity Gray MD [address] [place] [address] PCP - General Internal Medicine 11/13/22 Vero Pineda Historian Dramatic ArtsRubber Off 03/17/24 documented as of this encounter
--- OUTSIDE RECORDS SUMMARY | 2024-04-01 18:37 | XMS_ITS | Encounter Summary ---
Author Organization [employer] Address [address] [facility] 7t [place] [address] Care Team Providers Care Traffic Ii Manager Name Role Phone Caity Gray MD Primary Care Pro vider Reason for Visit * Reason Onset Date Comments Nurse Triage 01/02/2024 Encounter Details Date Type Department Care Team ([facility] st Contact Info) Description 01/02/2024 Telephone [facility] MEDICINE [address] [place] [address] Caity Gray MD [address] [place] [address] Nurse Triage Social History Tobacco Use Types Packs/Day Years Used Date Smoking Tobacco: Never Smokeless Tobacco: Never Alcohol Use Standard Drinks/Week Comments Never 0 (1 standard drink = 0.6 oz pur e alcohol) Depression Answer Date Recorded Patient Health Questionnaire-9 [...] or Herman 12/31/2021 10 :33 AM EDT documented as of this encounter Miscellaneous Notes * Telephone Encounter - Yasmeen Vásquez RN - 01/02/2024 3:13 PM EDT called pt to triage, spoke to pt. through [employer] prosthodontist/owner. pt states had a minor fall yesterday. pt denies significant injury, severe bruising, inability to stand or walk, or other associated symptoms. pt also states missed an appt this morning and would like to reschedule. pt had follow up appt regarding labs and advised [place] will reschedule this visit. will task to team [place] to follow up and reschedule. advised home care: rest, ice, heat, OTC pain reliever as needed, and call back if worsening or new concerns. pt understands and agree with plan. insurance verified. Protocol Used: Falls and Falling (Adult) Protocol-Based Disposition: Home Care Positive Triage Question: * Small bruise is present * All higher-acuity triage questions were negative Care Advice Discussed: * Reassurance and Education - No Injury * Reasons To Call Back - You become worse. * Telephone Encounter - Leonardo Gallegos - 01/02/2024 2:41 PM EDT Symptom: Fall Outcome: Schedule an appointment to be seen within 24 hours Reason: Caller denied all higher acuity questions Bolivian Speaker (Accepted Paint Pourer) documented in this encounter Plan of Treatment Not on file documented as of this encounter Visit Diagnoses Not on filedocumented in this encounter Additional Health Concerns Assessment Noted Time PHQ-9 Depression Total Score: 9 02/28/20 23 2:29 PM EST documented as of this encounter Care Teams Traffic Ii Manager Relationship Specialty Start Date End Date Caity Gray MD [address] [place] [address] PCP - General Internal Medicine 11/13/22 Vero Pineda Power Saw OperatorCrate Icer 03/17/24 documented as of this encounter
--- OUTSIDE RECORDS SUMMARY | 2024-04-01 18:37 | XMS_ITS | Encounter Summary ---
Author Organization [employer] Address 75 [facility] 7 [place] [address] Care Team Providers Care Director Of Collections And Archives Name Role Phone Caity Gray MD Primary Care Pro vider Reason for Visit * Reason Onset Date Comments Care Coordination 03/17/2024 ICP Care Plan Encounter Details Date Type Department Care Team ([facility] st Contact Info) Description 03/17/2024 Telephone [facility] [place] [facility] MEDICINE [address] [place] [address] Caity Gray MD [address] [place] [address] Care Coordination (ICP Care Plan) Social History Tobacco Use Types Packs/Day Years [...] * Telephone Encounter - Catalino Preciado - 03/17/2024 1:36 PM EST PCP Designee has received and reviewed Care Plan from [facility] Partners: Anode Builder: Vero Pineda Contact Information: [phone] Care Plan scanned into patient's EHR and notification sent to PCP. documented in this encounter Plan of Treatment Not on file documented as of this encounter Visit Diagnoses Not on filedocumented in this encounter Additional Health Concerns Assessment Noted Time PHQ-9 Depression Total Score: 9 02/28/20 23 2:29 PM EST documented as of this encounter Care Teams Director Of Collections And Archives Relationship Specialty Start Date End Date Caity Gray MD [address] [place] [address] PCP - General Internal Medicine 11/13/22 Vero Pineda Phosphorus Processing SupervisorTire Mold Tester 03/17/24 documented as of this encounter
--- OUTSIDE RECORDS SUMMARY | 2024-04-01 18:37 | XMS_ITS | Encounter Summary ---
Author Organization [employer] Address [address] [place] [address] 7 [place] [address] Care Team Providers Care Accredited Legal Secretary Name Role Phone Neena Machuca Primary Care Provider + [phone] Caity Gray MD Primary Care Pro vider Reason for Visit * Reason Comments Med Refill Encounter Details Date Type Department Care Team ([facility] st Contact Info) Description 03/20/[address] [facility] MEDICINE [address] [place] [address] Neena Machuca FNP [address] [place] [address] Dept of [place] [address] Diabetic polyneuropathy associated with type 2 diabetes mellitus (CMS/HCC) Social History Tobacco Use Types Packs/Day Years Used Date Smoking Tobacco: Never Assessed Comments Unknown Sex and Gender Information Value Date Recorded Sex Assigned at Female 12/31/2021 10:33 AM EDT Legal Sex Female 10:33 AM EDT Gender Identity Female 12/31/2021 10:33 AM EDT Sexual Orientation Lesbian or Herman 12/31/2021 10 :33 AM EDT documented as of this encounter Plan of Treatment Not on file documented as of this encounter Visit Diagnoses Diagnosis Diabetic polyneuropathy associated with type 2 diabetes mellitus (CMS/HCC) documented in this encounter Care Teams Accredited Legal Secretary Relationship Specialty Start Date End Date Neena Machuca FNP PCP - General Family Medicine 10/30/21 11/12/22 Caity Gray MD [address] [place] [address] PCP - General Internal Medicine 11/13/22 Vero Pineda Laboratory InspectorSupervisor Metal Hanging 03/17/24 documented as of this encounter
--- OUTSIDE RECORDS SUMMARY | 2024-04-01 18:37 | XMS_ITS | Encounter Summary ---
Author Organization [employer] Address 75 [facility] 7 [place] [address] Care Team Providers Care Service Bar Cashier Name Role Phone Neena Machuca Primary Care Provider +- [phone] Caity Gray MD Primary Care Pro vider Reason for Visit * Reason Comments Med Refill Encounter Details Date Type Department Care Team (Late st Contact Info) Description 05/21/2022 Refill [facility] MEDICINE [address] [place] [address] Neena Machuca FNP [address] [place] [address] Dept [place] [address] Essential hypertension Social History Tobacco Use Types Packs/Day Years [...] as of this encounter Visit Diagnoses Diagnosis Essential hypertension Unspecified essential hypertension documented in this encounter Care Teams Service Bar Cashier Relationship Specialty Start Date End Date Neena Machuca FNP PCP - General Family Medicine 10/30/21 11/12/22 Caity Gray MD 230 [place] [address] PCP - General Internal Medicine 11/13/22 Vero Pineda Steam Press OperatorReel Winder 03/17/24 documented as of this encounter
--- OUTSIDE RECORDS SUMMARY | 2024-04-01 18:37 | XMS_ITS | Encounter Summary ---
Author Organization [employer] [facility] Address 75 [facility] 7t [place] [address] Care Team Providers Care Test Operator Name Role Phone Neena Machuca Primary Care Provider +- [phone] Caity Gray MD Primary Care Pro vider Encounter Details Date Type Department Care Team (Late st Contact Info) Description 04/30/2022 Telephone [facility] MEDICINE [address] [place] [address] Neena Machuca FNP [address] [place] [address] Dept [place] [address] Social History Tobacco Use Types Packs/Day Years [...] suspected to have Coronavirus/COVID-19? No / Unsure 04/10/2022 3:04 PM EST documented as of this encounter Plan of Treatment Not on file documented as of this encounter Visit Diagnoses Not on filedocumented in this encounter Care Teams Test Operator Relationship Specialty Start Date End Date Neena Machuca FNP PCP - General Family Medicine 10/30/21 11/12/22 Caity Gray MD [address] [place] [address] PCP - General Internal Medicine 11/13/22 Vero Pineda Smelter OperatorExtern 03/17/24 documented as of this encounter
--- OUTSIDE RECORDS SUMMARY | 2024-04-01 18:37 | XMS_ITS | Encounter Summary ---
Author Organization [employer] Address [address] [facility] 7t [place] [address] Care Team Providers Care Line Installer Name Role Phone Neena Machuca Primary Care Provider +1- [phone] Caity Gray MD Primary Care Pro vider Reason for Visit * Reason Onset Date Comments Med Refill 02/27/2022 Encounter Details Date Type Department Care Team (Late st Contact Info) Description 02/27/[address] [facility] MEDICINE [address] [place] [address] Neena Machuca FNP [address] [facility] Dept [place] [address] Med Refill Social History Tobacco Use Types Packs/Day Years [...] * Telephone Encounter - Catalino Preciado - 02/27/2022 3:32 PM EST Tc from pt requesting a medication refill for Gabapentin 600 mg, States script was prescribed by instant powder supervisor however states provider is no longer working in endro office. Pt would like to know ifPCP can sign off on script. Please contact at [phone] Speaks Japanese. documented in this encounter Plan of Treatment Not on file documented as of this encounter Visit Diagnoses Not on filedocumented in this encounter Care Teams Line Installer Relationship Specialty Start Date End Date Neena Machuca FNP PCP - General Family Medicine 10/30/21 11/12/22 Caity Gray MD [address] [place] [address] PCP - General Internal Medicine 11/13/22 Vero Pineda Cold Rolling Machine SetterHunter Skin Diver 03/17/24 documented as of this encounter
--- OUTSIDE RECORDS SUMMARY | 2024-04-01 18:37 | XMS_ITS | Encounter Summary ---
Author Organization [employer] Address 75 [facility] 7 [place] [address] Care Team Providers Care Applied Researcher Name Role Phone Caiyt Gray MD Primary Care Pro vider Reason for Visit * Reason Onset Date Comments Med Refill 07/24/2023 Encounter Details Date Type Department Care Team ([facility] Contact Info) Description 07/24/2023 Telephone [facility] MEDICINE [address] [place] [address] Caity Gray MD [address] [place] [address] Med Refill Social History Tobacco Use Types [...] encounter Miscellaneous Notes * Telephone Encounter - Claudette Coles LPN - 07/24/2023 3:42 PM EDT Medication was sent to [facility] on 07/16/23 with 2 refills. * Telephone Encounter - Eladio Rowe - 07/24/2023 3:40 PM EDT TC from pt requesting medication refill. Medications needing refill : evolocumab (Repatha SureClick) 140 MG/ML injection To be sent to: [facility] [place], [place] [facility] [address] [facility] documented in this encounter Plan of Treatment Not on file documented as of this encounter Visit Diagnoses Not on filedocumented in this encounter Additional Health Concerns Assessment Noted Time PHQ-9 Depression Total Score: 9 02/28/20 2:29 PM EST documented as of this encounter Care Teams Applied Researcher Relationship Specialty Start Date End Date Caity Gray MD [address] [place] [address] PCP - General Internal Medicine 11/13/22 Vero Pineda Onion TopperBill Hiker 03/17/24 documented as of this encounter
--- OUTSIDE RECORDS SUMMARY | 2024-04-01 18:37 | XMS_ITS | Encounter Summary ---
Author Organization [employer] Address [address] [place] [address] 7 [place] [address] Care Team Providers Care Rocket Engine Component Mechanic Name Role Phone Neena Machuca Primary Care Provider + [phone] Caity Gray MD Primary Care Pro vider Reason for Visit * Reason Comments Med Refill Encounter Details Date Type Department Care Team ([facility] st Contact Info) Description 06/24/2022 Refill [facility] MEDICINE [address] [place] [address] Neena Machuca FNP [address] [place] [address] Dept [place] [address] Diabetic polyneuropathy associated with type 2 diabetes [...] (CMS/HCC) documented in this encounter Care Teams Rocket Engine Component Mechanic Relationship Specialty Start Date End Date Neena Machuca FNP PCP - General Family Medicine 10/30/21 11/12/22 Caity Gray MD [address] [place] [address] PCP - General Internal Medicine 11/13/22 Vero Pineda Tongue And Groove Machine SetterMutuel Department Manager 03/17/24 documented as of this encounter
--- OUTSIDE RECORDS SUMMARY | 2024-04-01 18:37 | XMS_ITS | Encounter Summary ---
Author Organization [employer] Address [address] [facility] 7t [place] [address] Care Team Providers Care Melter Supervisor Electric Arc Furnace Name Role Phone Caity Gray MD Primary Care Pro vider Reason for Visit * Reason Comments Med Refill Encounter Details Date Type Department Care Team ([facility] Contact Info) Description 04/01/2024 Refill [facility] MEDICINE [address] [place] [address] Caity Gray MD [address] [place] [address] Social History Tobacco Use Types Packs/Day Years [...] documented as of this encounter Care Teams Melter Supervisor Electric Arc Furnace Relationship Specialty Start Date End Date Caity Gray MD [address] [place] [address] PCP - General Internal Medicine 11/13/22 Vero Pineda Spool SanderAssessment Consultant 03/17/24 documented as of this encounter
--- OUTSIDE RECORDS SUMMARY | 2024-04-01 18:37 | XMS_ITS | Encounter Summary ---
Author Organization [employer] Address [address] [facility] [address] [place] [address] Care Team Providers Care Marketing Finance Manager Name Role Phone Caity Gray MD Primary Care Pro vider Reason for Visit * Reason Onset Date Comments Medication Question 08/14/2023 Encounter Details Date Type Department Care Team ([facility] Contact Info) Description 08/14/2023 Telephone [facility] MEDICINE [address] [place] [address] Caity Gray MD [address] [place] [address] Medication Question Social History Tobacco Use Types Packs/Day Years [...] encounter Miscellaneous Notes * Telephone Encounter - Vivian Toribio RN - 08/18/2023 11:02 AM EDT TC placed to [facility], [place] to update and clarify on pt prescription for NovoLOG 100 UNIT/ML. RN told [place] that per PCP the pt was to start on Trulicity. If the pt is on Trulicity 0.75 mg weekly then continue Novolog 8 units in the AM and decrease to 4 from 6 in the PM. Continue Lantus 16 units. If pt has not started Trulicity then keep Insulin script as before which is 8 units with breakfastand 6 at night. The pt has reported to not be using the Trulicity due to side effects. [place] is requesting an updated prescription for the Novolog stating the dose without Trulicity usage and also a max dose of insulin the pt can take in one day. [place] also wants to inform that the prescription for Repatha was denied a PA. * Telephone Encounter - Catalino Preciado - 08/14/2023 3:00 PM EDT Tc from [facility] with [place] requesting clarification on script for insulin aspart FlexPen (NovoLOG)100 UNIT/ML pen, states per pt they were advised pt does 8 units throughout the day and 6 units at bed time and another couple units as needed if sugars are high, states attempted to override howeverinsurance declined. Please contact at [phone] documented in this encounter Plan of Treatment Not on file documented as of this encounter Visit Diagnoses Not on filedocumented in this encounter Additional Health Concerns Assessment Noted Time PHQ-9 Depression Total Score: 9 02/28/20 23 2:29 PM EST documented as of this encounter Care Teams Marketing Finance Manager Relationship Specialty Start Date End Date Caity Gray MD [address] [place] [id number] PCP - General Internal Medicine 11/13/22 documented as of this encounter
--- OUTSIDE RECORDS SUMMARY | 2024-04-01 18:37 | XMS_ITS | Encounter Summary ---
Author Organization [employer] Address [address] [facility] [address] [place] [address] Care Team Providers Care Pressure Tester Name Role Phone Caity Gray MD Primary Care Pro vider Reason for Visit * Reason Onset Date Comments PT-1 09/17/2023 Encounter Details Date Type Department Care Team ([facility] st Contact Info) Description 09/17/2023 Telephone [facility] MEDICINE [address] [place] [address] Caity Gray MD [address] [place] [address] PT-1 Social History Tobacco Use Types Packs/Day Years [...] encounter Miscellaneous Notes * Telephone Encounter - Leonardo Gallegos - 09/17/2023 11:11 AM EDT Patient calling requesting PT1 Home Address verified: Y/N: Yes Provider name or facility name: [facility] Facility Address: [address] [facility] Escort needed: Y/N: No Do you have a wheelchair: Y/N: No If yes- Manual or electric: (Uses Cane) Visits: 6 Times yearly Patient calling requesting PT1 Home Address verified: Y/N: Yes Provider name or facility name: [facility] Facility Address: [address] [facility] Escort needed: Y/N: No Do you have a wheelchair: Y/N: No If yes- Manual or electric: Uses cane Visits: 6 times yearly Patient calling requesting PT1 Home Address verified: Y/N: Yes Provider name or facility name: [facility] Facility Address: [address] [facility] Escort needed: Y/N: No Do you have a wheelchair: Y/N: No If yes- Manual or electric: Uses Cane Visits: Every 3 months documented in this encounter Plan of Treatment Not on file documented as of this encounter Visit Diagnoses Not on filedocumented in this encounter Additional Health Concerns Assessment Noted Time PHQ-9 Depression Total Score: 9 02/28/20 23 2:29 PM EST documented as of this encounter Care Teams Pressure Tester Relationship Specialty Start Date End Date Caity Gray MD [address] [place] [id number] PCP - General Internal Medicine 11/13/22 Vero Pineda Supervisor [employer] 03/17/24 documented as of this encounter
--- OUTSIDE RECORDS SUMMARY | 2024-04-01 18:37 | XMS_ITS | Clinical Summary ---
Author Organization [employer] Address [address] [place] [address] Care Team Providers Care Isotope Hydrologist Name Role Phone Caity Gray MD Primary Care Pro vider Allergies No known active allergies Medications aspirin 81 MG EC tablet Take 1 tablet by mouth in the morning. 018 Active clonazePAM (KlonoPIN) 1 MG tablet Take 1 tablet by mouth if needed each day for anxiety. Active DULoxetine (Cymbalta) [address] capsule Take 1 capsule by mouth at bed time. Active hydrOXYzine pamoate (Vistaril) 25 MG capsule Take 1 capsule by mouth every 6 (six) hours. Active traZODone (Desyrel) 50 MG tablet Take 1 tablet by mouth at bed time. Active zoster vaccine-recombina nt adjuvanted (Shingrix) 50 MCG/0.5ML vaccine Inject 0.5 mL into the shoulder, thigh, or buttocks. 022 Active Alcohol Swabs (Alcohol Prep) 70 % padsIndications:T ype 2 diabetes mellitus with diabetic polyneuropathy, with long-term current use of insulin ([facility]) Use 5 times a day when checking blood sugar 100 each 11 022 Active Blood Pressure Monitor kit 1 each 2 times daily. 1 kit 023 Active triamcinolone (Kenalog) 0.1 % creamIndications: Lichen nitidus Apply topically 2 times daily. Mix with CeraVe cream as directed and use after bathing. 80 g 2 023 Active Continuous Blood Gluc Analytics Analyst ([employer]Style Daryn 2 [place]) deviceIndications :Type 2 diabetes mellitus without complication, unspecified whether joint terminal attack controller insulin use ([facility]) 1 EACH IF NEEDED EACH DAY (GLUCOSE CONTROL). 1 each 023 Active docusate sodium (Colace) 100 MG capsule Take 1 tab po bid prn constipation 60 capsule 3 023 Active glucose blood (FREESTYLE LITE) test strip USE TO TEST BLOOD SUGAR THREE TIMES DAILY 100 each 3 024 Active Continuous Glucose Sensor (FreeStyle Daryn 2 Sensor) miscIndications:T ype 2 diabetes mellitus without complication, unspecified whether joint terminal attack controller insulin use ([facility]) 1 each if needed (Glucose control). 4 each 5 024 Active glucose 4 g chewable tablet Chew 4 tablets (16 g) if needed for low blood sugar. 50 tablet 12 024 2024 Active lidocaine (Lidoderm) 5 % patch Apply 1 patch topically Once per day. Remove & discard patch within 12 hours or as directed by MD. 30 patch 1 Active lisinopril-hydroC HLOROthiazide 10-12.5 MG tabletIndications :Essential hypertension TAKE 1 TABLET BY MOUTH DAILY 90 tablet 1 024 Active metoprolol succinate XL (Toprol-XL) 100 MG 24 hr tabletIndications :Essential hypertension TAKE 1 TABLET BY MOUTH EVERY MORNING 90 tablet 1 024 Active cholecalciferol (Vitamin D3) 25 MCG (1000 UT) tabletIndications :Vitamin D deficiency Take 1 tablet (1,000 Units) by mouth Once per day. 90 tablet 1 024 Active psyllium (Metamucil Smooth Texture) 58.6 % powder Take 5.12 g (3 g of fiber) by mouth 2 times daily. 283 g 2 024 2024 Active evolocumab (Repatha SureClick) 140 MG/ML injectionIndicati ons:Type 2 diabetes mellitus with diabetic nephropathy, with long-term current use of insulin ([facility]) INJECT 1 ML (140MG) UNDER THE SKIN EVERY 14 DAYS 2.1 mL 2 Active atorvastatin (Lipitor) 20 MG tabletIndications :Hyperlipidemia, unspecified hyperlipidemia type Take 1 tablet (20 mg) by mouth Once per day. 90 tablet 024 2024 Active insulin aspart FlexPen (NovoLOG) 100 UNIT/ML penIndications:Di abetic polyneuropathy associated with type 2 diabetes mellitus (CMS/HCC) INJECT 8 UNITS SUBCUTANEOUSLY WITH BREAKFAST AND 6 UNITS AT NIGHT 15 mL 3 024 Active gabapentin (Neurontin) 600 MG tabletIndications :Diabetic polyneuropathy associated with type 2 diabetes mellitus (CMS/HCC) TAKE 1 TABLET BY MOUTH THREE TIMES A DAY 90 tablet 2 024 Active insulin glargine (Lantus SoloStar) 100 UNIT/ML penIndications:Di abetic polyneuropathy associated with type 2 diabetes mellitus (CMS/HCC) Inject 12 Units under the skin at bedtime. INJECT 12 UNITS SUBCUTANEOUSLY EVERY NIGHT 15 mL 5 024 Active Trulicity 3 MG/0.5ML solution auto-injector INJECT ONE PEN (= 3MG) SUBCUTANEOUSLY ONCE A WEEK DIRECTED 2 mL 2 025 Active Dulaglutide 3 MG/0.5ML solution auto-injector Inject 3 mg under the skin 1 (one) time per week. 0.5 mL 2 024 2024 Discontinued Active Problems Problem Noted Date Diagnosed Date Chronic lower back pain 10/21/2023 Overweight (BMI 25.0-29.9) 01/11/2023 Lichen nitidus 01/11/2023 History of uterine fibroid 01/11/2023 Mixed hyperlipidemia 09/01/2022 Overview (09/01/2022): Treating with Repatha 140mg every 2 weeks Assessment & Plan (11/13/2022 12:15 PM EDT): Will task RN to check on Repatha Rx at [facility] Previous PA approved by insurance Unknown why not filling F/u PRN Assessment & Plan (09/22/2022 11:39 PM EDT): Holding repatha did not improve rash Will restart repatha, sent refill F/U PRN Assessment & Plan (09/01/2022 10:09 PM EDT): Possible rash on forearms reported Educated pt to hold Repatha x 1 month = 2 injections to see if rash improves Notify clinic if rash has no improvement Followup 1 month or sooner PRN Constipation 09/01/2022 Overview (11/13/2022): Chronic constipation Chronic abd pain US 08/30/22 1. Gallbladder surgically absent. 2. Right renal 0.3 cm mid pole echogenic focus may represent a small calculus. No hydronephrosis. 3. Severely limited visualization of the liver due to body habitus. Diffuse increase in echogenicity of the liver is characteristic of primary hepatocellular disease, possibly due to hepatic steatosis and further limits visualization. Treating with Miralax Assessment & Plan (11/13/2022 12:19 PM EDT): Educated pt and family to use Miralax daily If stooling daily this may help abd pain RTC if pain continues May need further eval of liver per US 08/30/22 Assessment & Plan (09/01/2022 10:11 PM EDT): Rx miralax for constipation Followup 1 month or sooner PRN Health care maintenance 09/01/2022 Overview (09/22/2022): Routine Health Maintenance: Immunizations: Due PCV 20, discuss next visit HIV: Nonreactive 04/02/2017 Hep C: Nonreactive 04/02/2017 Hepatitis B: Nonreactive surface antibodies 04/02/2017, due booster vaccine series Pap Smear: Shared decision-making guidelines. ACS: age 25-65 HPV swab every 5 years. USPSTF: age 21-25 cytology only q 3 y; age 25-29 cytology w/ reflex HPV q 3 y; age 30-65 PAP w/ HPV cotest q 5 years. Mammogram: 02/19/22 BIRADS 3, repeat 6 months BMD: >age 65 Colonoscopy: FIT 04/10/22, pending. Will order again for [facility] lab 09/12/22 Lung cancer: Never smoker, no screening necessary CKD stage 3 due to type 2 diabetes mellitus 08/03 Overview (08/30/2022): Confirmed w/ CMP on 08/15/22 Diabetic retinopathy 01/07/2022 Diabetic polyneuropathy 03/31/2017 Assessment & Plan (09/01/2022 10:19 PM EDT): Treating w/ Gabapentin 600 mg TID Followup 1 month or sooner PRN Essential hypertension 03/31/2017 Mixed anxiety and depressive disorder 03/31/2017 Type 2 diabetes mellitus 03/31/2017 Overview (11/13/2022): A1c 8.7 08/15/22; 8.6 on 03/26/22; 8.4 on 08/10/21 Glucose 217 08/15/22; 182 on 04/10/22 Pt having episodes of hypoglycemia Current Regimen - Decreased Lantus to 18 units at bedtime - Decrease Novolog to 6 units with each meals. Educated Pt needs to take Novolog with each meal Glucose tabs not covered by insurance in the case of hypoglycemia < 70, eat candies, applie juice. recheck sugars in 15 minutes Discontinue Metformin due to GI upset on 04/10/22 -Continue regular BS monitoring. CGM approved -C/W to adhere to a low sugar diet, encourage about medication compliance, counseled about weight loss. Microalbumin/Cr:Alb: Normal to mild 04/24/22 Lipids: Elevated TC 325 04/24/22 Eye exam: last seen December 2020, needs eye exam PNA (PPSV, then PCV 13): PPSV23 administered 08/10/21, PCV 20 discuss at next visit TDap/Td: administered 08/10/21 Foot exam/peripheral pulses: significant loss of sensation bilaterally 08/10/21 ERIKA/ARB: lisinopril 10 mg Statin: no, previous elevation in LFTs. Approved repatha Assessment & Plan (11/13/2022 12:13 PM EDT): Educated pt on hypoglycemia care 10/16/22 Decrease Lantus to 18 units Decrease Novolog 10 units before each meal Labile readings Refer Endo for management STAT F/u with PCP in 2-3 months Assessment & Plan (09/01/2022 10:19 PM EDT): Order CMP, notify results Increase Lantus to 25 units to improve fasting AM glucose Increase 10 units before each meal Followup 1 month or sooner PRN Encounters Date Type Department Care Team Description 04/01/2024 Refill [facility] [address], [place] [address] Caity Gray MD 03/17/2024 Telephone [facility] [address] [place] [address] Caity Gray MD Care Coordination (ICP Care Plan) 03/02/2024 Telephone [facility] [address], [place] [address] Caity Gray MD 02/05/2024 Orders Only [facility] [address] [place] [address] Caity Gray MD Diabetic polyneuropathy associated with type 2 diabetes mellitus ([facility]/HCC) 02/05/2024 Refill [facility] [address] [place] [address] Caity Gray MD Diabetic polyneuropathy associated with type 2 diabetes mellitus ([facility]/HCC) 01/23/2024 Refill [facility] [address], [place] [address] Caity Gray MD Diabetic polyneuropathy associated with type 2 diabetes mellitus ([facility]) 01/22/2024 Telephone [facility] [address], [place] [address] Caity Gray MD Med Refill 01/22/2024 Refill [facility] [address], [place] [address] Caity Gray MD Diabetic polyneuropathy associated with type 2 diabetes mellitus ([facility]/HCC) 01/12/2024 Orders Only [facility] [address], [place] [address] Caity Gray MD 01/07/2024 9:00 AM EST Office Visit [facility] [address] [place] [address] Caity Gray MD Essential hypertension (Primary Dx); Type 2 diabetes mellitus with diabetic nephropathy, with long-term current use of insulin ([facility]); Hyperlipidemia, unspecified hyperlipidemia type; CKD stage 3 due to type 2 diabetes mellitus ([facility]); Health care maintenance; Mixed anxiety and depressive disorder; Mixed hyperlipidemia 01/07/2024 Travel 01/02/2024 Telephone [facility] [address] [place] [address] Caity Gray MD Nurse Triage 01/02/2024 Telephone [facility] [address] [place], [place] [phone] Caity Gray MD No Show 12/31/2023 Telephone [facility] [address] [place] [address], [place] [phone] Caity Gray MD Prior Authorization ( PA: Pito 3MG) from Last 3 Months Immunizations Name Administration Dates Next Due Influenza Injectable Quadriv alant Preservative Free IIV4 MDCK 01/08/2021,02/01/2020 Influenza injectable quadrivalent preservative f ree 01/08/2023 Influenza, seasonal, injectable, preservative fr ee 12/25/2023 Pfizer Covid-19 Vaccine 12+ 12/25/2023, Pneumococcal Conjugate PCV 20 01/08/2023 Pneumococcal Polysaccharide PPSV23 08/10/2021 RSV Bivalent 12/25/2023 TD (adult), 2 Lf tetanus tox oid, preservative free, adsorbed 08/10/2021 Zoster, Recombinant 07/17/2023,08/16/2021 Family History Medical History Relation Name Comments DM2,prostate ca Father Uterine cancer Mother Relation Name Status Comments Father Mother Social History Tobacco Use Types Packs/Day Years Used Date Smoking Tobacco: Never Smokeless Tobacco: Never Tobacco Cessation:Counseling Given: Not Answered Alcohol Use Standard Drinks/Week Comments Never 0 [...] or Herman 12/31/2021 10 :33 AM EDT Last Filed Vital Signs Vital Sign Reading Time Taken Comments Blood Pressure 126/69 01/07/2024 9:07 AM EST Pulse 75 01/07/2024 9:07 AM EST Temperature 36.3 ??C (97.4 ??F) 01/07/2024 9:07 AM ES T Respiratory Rate 20 01/07/2024 9:07 AM EST Oxygen Saturation 98% 01/07/2024 9:07 AM EST Inhaled Oxygen Concentration - - Weight 70.1 kg (154 lb 9.6 oz) 01/07/2024 9:07 A M EST Height 160 cm (5' 3 ) 01/07/2024 9:07 AM EST Body Mass Index 27.39 01/07/2024 9:07 AM EST Plan of Treatment Health Maintenance Due Date Last Done Comments CT Colonography 1960 Colonoscopy 1960 FIT 1960 FOBT 1960 Sigmoidoscopy 1960 Diabetes: Foot Exam 1970 Eye Exam 1970 Alcohol/Substance Use Screening 1972 Pap Smear 1981 Cervical Cancer Screening 1990 HPV/Cotest 1990 DTaP/Tdap/Td Vaccines (1 - Tdap) 08/11/2021 08/10/2021 Depression Monitoring (PHQ-9) 08/29/2023 02/27/2023, 02/27/2023 Depression Screening 02/28/2024 02/27/2023, 02/28/20 SDOH Screening 02/28/2024 02/27/2023 Diabetes: Hemoglobin A1C 03/20/2024 024, 01/08/2023, 08/15/2022, Additional history exists Mammogram 07/11/2024 01/12/2024, 11/02, 02/19/2022, Additional history exists Lipid Panel 12/18/2024 12/19/2023, 0705/2022, 04/24/2022, Additional history exists Tobacco Screening 01/06/2025 01/07/2024 Colorectal Cancer Screening 11/17/2026 FIT DNA/Cologuard 11/17/2026 11/18/2023 Pneumococcal Vaccine: 50+ Years Completed 01/08/2023, 08/10/2021 Zoster Vaccines Completed 07/17/2023, 08/16/2021 HIV Screening Completed 12/19/2023 Hepatitis C Screening Completed 12/19/2023 COVID-19 Vaccine Completed 12/25/2023, , 01/28/2022, Additional history exists Influenza Vaccine Completed 12/25/2023, , 01/08/2021, Additional history exists RSV Patients and Patients Aged 60 years or older Completed 12/25/2023 HIB Vaccines Aged Out No longer eligi ble based on patient's age to complete this topic HPV Vaccines Aged Out No longer eligi ble based on patient's age to complete this topic Hepatitis A Vaccines Aged Out No long er eligible based on patient's age to complete this topic Hepatitis B Vaccines Aged Out No long er eligible based on patient's age to complete this topic IPV Vaccines Aged Out No longer eligi ble based on patient's age to complete this topic Meningococcal Vaccine Aged Out No pinky froilan eligible based on patient's age to complete this topic RSV under 20 months Aged Out No longe r eligible based on patient's age to complete this topic Rotavirus Vaccines Aged Out No longer eligible based on patient's age to complete this topic Procedures Procedure Name Priority Date/Time Associated Diagnosis Comments BI MAMMOGRAM DIAGNOSTIC TOMOSYNTHESIS BILATERAL Routine 01/12/2024 2:00 PM EST COMPREHENSIVE METABOLIC PANEL Routine 01/07/2024 10:12 AM EST Hyperlipidemia, unspecified hyperlipidemia type HEPATITIS C AB W/REFL TO HCV RNA, QN, PCR Routine 12/19/2023 11:05 AM EDT Annual physical exam HIV 1/2 ANTIGEN/ANTIBODY, FOURTH GENERATION W/RFL Routine 12/19/2023 11:05 AM EDT Annual physical exam HEMOGLOBIN A1C Routine 12/19/2023 11:05 AM EDT Annual physical exam LIPID PANEL, STANDARD Routine 12/19/2023 11:05 AM EDT Annual physical exam LAB COLOGUARD?? COLON CANCER SCREEN Routine 11/18/2023 12:00 AM EDT Colon cancer screening from Last 3 Months or Most Recently Relevant to Health Maintenance Results * BI Mammogram Diagnostic Tomosynthesis Bilateral (01/12/2024 2:00 PM EST) Anatomical Region Laterality Modality Breast Bilateral Mammography 01/12/2024 2:00 PM EST Narrative 01/12/2024 3:02 PM EST ? [facility] ? [address] ?[place] [address] ? Mammography Report ? Signed ? Patient: Aurelio,Payt ?MR#: [id number] ?? [id number] ? : 1960 ?Acct:[id number] ? Age/Sex: 63 / F ?ADM Date: 11/11/24 ? Loc: HO.MAMMO ? Attending Dr: Caity Birnk MD ? Ordering Physician: Caity Gray MD ?Re ?? sults: 2Benign Findings ? Date of Service: 01/12/24 ?Follow Up: 1 Year From Orig ?? inal Mammogram ? Procedure(s): MM tomosynthesis diagnostic BI ?? Accession Number(s): [id number] ? cc: Caity Gray MD ? EXAMINATION: ?? MM DIAGNOSTIC DIGITAL BREAST TOMOSYNTHESIS, BILATERAL ? CLINICAL INFORMATION: ? 1 year follow-up for right breast calcifications. Patient also due for ?? bilateral screening mammography. ? COMPARISON: ?? Mammography: 11/20/2022, 02/19/2022, 07/24/2021, 07/06/2021 (BI-RADS 0). ? TECHNIQUE: ?? Digital breast tomosynthesis is performed in both the craniocaudal and ?? mediolateral oblique views along with computer-aided detection (CAD). ?? Synthesized 2D images are generated from the tomosynthesis. In ?? addition, 2-D spot magnification right CC x2 and right ML x2 views were ?? also obtained of the calcifications in question. ? FINDINGS: ?? There are scattered areas of fibroglandular density (ACR BI-RADS breast ?? composition Category b). ? The 3 groups of somewhat coarse appearing microcalcifications in the ?? central right breast extending laterally are entirely unchanged from ?? prior examinations in both morphology and number. These have been ?? stable over two-year period and are thus benign. No further follow-up ?? recommended. ? Otherwise, there are stable benign type calcifications in both breasts. ?? There are no suspicious masses, developing suspicious grouped ?? calcifications, or areas of architectural distortion in either breast. ?? The parenchymal pattern is stable from prior exams. There is no skin or ?? axillary abnormality. ? MM/MM tomosynthesis diagnostic BI ?? IMPRESSION: ?? There are no findings suspicious for malignancy in either breast. ? -Right breast calcifications have been stable over a two-year period, ?? and are hence benign. No further follow-up recommended. ? /Recommend the patient resume routine annual screening mammography. ? ASSESSMENT: ? BI-RADS BI-RADS 2 - Benign Findings ? RECOMMENDATION: ?? 1 year F/U ? Results were provided to the patient at time of visit by the ?? technologist. ? This patient's information was entered into a reminder system with a ?? target due date for their next mammogram. ? Electronically signed by: ??Tio Gilman MD ??01/12/2024 02:59 PM EST RP ? Dictated By: ?Tio Gilman MD ? Signed By: ?<Electronically signed by Tio Gilman MD in OV> ?01/12/24 1459 ? DD/ 1400 ? TD/TT: 01/12/24 1422 ? Timber Setter: ? Procedure Note Everettvaishalijenniferjaden, Image - 01/12/2024 [facility] [address] [place] [address] Mammography Report Signed Patient: Paty Carey#: [id number] : 1960cct:[id number] Age/Sex: 63 / FADM Date: 01/12/24 Loc: RL Attending Dr: Caity Brink MD Ordering Physician: Caity Gray sults: 2Benign Findings Date of Service: 01/12/24Follow Up: 1 Year From Orig inal Mammogram Procedure(s): MM tomosynthesis diagnostic BI Accession Number(s): [id number] cc: Caity Gray MD EXAMINATION: MM DIAGNOSTIC DIGITAL BREAST TOMOSYNTHESIS, BILATERAL CLINICAL INFORMATION: 1 year follow-up for right breast calcifications. Patient also due for bilateral screening mammography. COMPARISON: Mammography: 11/20/2022, 02/19/2022, 07/24/2021, 07/06/2021 (BI-RADS 0). TECHNIQUE: Digital breast tomosynthesis is performed in both the craniocaudal and mediolateral oblique views along with computer-aided detection (CAD). Synthesized 2D images are generated from the tomosynthesis. In addition, 2-D spot magnification right CC x2 and right ML x2 views were also obtained of the calcifications in question. FINDINGS: There are scattered areas of fibroglandular density (ACR BI-RADS breast composition Category b). The 3 groups of somewhat coarse appearing microcalcifications in the central right breast extending laterally are entirely unchanged from prior examinations in both morphology and number. These have been stable over two-year period and are thus benign. No further follow-up recommended. Otherwise, there are stable benign type calcifications in both breasts. There are no suspicious masses, developing suspicious grouped calcifications, or areas of architectural distortion in either breast. The parenchymal pattern is stable from prior exams. There is no skin or axillary abnormality. MM/MM tomosynthesis diagnostic BI IMPRESSION: There are no findings suspicious for malignancy in either breast. -Right breast calcifications have been stable over a two-year period, and are hence benign. No further follow-up recommended. /Recommend the patient resume routine annual screening mammography. ASSESSMENT: BI-RADS BI-RADS 2 - Benign Findings RECOMMENDATION: 1 year F/U Results were provided to the patient at time of visit by the technologist. This patient's information was entered into a reminder system with a target due date for their next mammogram. Electronically signed by: Tio Gilman MD 01/12/2024 02:59 PM [facility] Dictated By: Tio Gilman MD Signed By: <Electronically signed by Tio Gilman MD in OV> 01/12/24 1459 DD/ 1400 TD/TT: 01/12/24 1422 Timber Setter: Caity Brink MD IMG BI PROCEDURES Final Result * (ABNORMAL) Comprehensive Metabolic Panel (01/07/2024 10:12 AM EST) Sodium 140 135 - 145 mmol/L [facility] Potassium 3.8 3.3 - 5.1 mmol/L [facility] Chloride 106 96 - 108 mmol/L [facility] Carbon Dioxide 25 22 - 29 mmol/L [facility] Anion Gap 13 12 - 20 [facility] Urea Nitrogen (BUN) 22(H) 9 - 16 mg/dL [facility] Creatinine, Serum 0.95 0.5 - 1.4 mg/dL [facility] Estimated Glomerular Filt Rate 59 [facility] Comment:NOTE: For -Am erican individuals, multiply the result by 1.210.Chronic Kidney Disease: Estimated GFR < 60 mL/min/1.48m2Ycqfna Kidney Disease: Estimated GFR < 15 mL/min/1.73m2 Glucose 231(H) 60 - 115 mg/dL [facility] Calcium 9.3 8.4 - 10.2 mg/dL [facility] Bilirubin, Total 0.3 0.0 - 1.0 mg/dL [facility] Aspartate Amino Transferase 19 5 - 31 U/L [facility] Alanine Aminotransferase 17 0 - 31 U/L [facility] Total Protein 7.6 6.5 - 8.0 g/dL [facility] Albumin Level 3.8 3.5 - 5.0 g/dL [facility] Alkaline Phosphatase 108 39 - 117 U/L [facility] Blood Venous blood specimen / Unknown 01/07/2024 10:12 AM EST 01/07/2024 11:32 AM EST us Caity Brink MD LAB BLOOD ORDERAB LES Final Result [facility] [address] [place] [phone] * Hepatitis C Antibody with Reflex to HCV, RNA, Quantitative, Real-Time PCR (12/19/2023 11:05 AM EDT) Hepatitis C Antibody Nonreactive Nonreactive [facility] Comment:Antibodies to HCV no t detected; does not exclude early acuteHCV infection. Blood Venous blood specimen / Unknown 12/19/2023 11:05 AM EDT 12/19/2023 11:42 AM EDT Caity Brink MD LAB BLOOD ORDERAB LES Final Result Performing Organization Address City/[facility]/ZIP Co de Phone Number [facility] [address] [place] [phone] * HIV-1/2 Antigen and Antibodies, Fourth Generation, with Reflexes (12/19/2023 11:05 AM EDT) [facility] HIV AB/AG Nonreactive Nonreactive [facility] Comment:HIV-1 p24 Ag and/or HIV-1/HIV-2 Ab not detected.A test result that is nonreactive does not exclude thepossibility of exposure to or infection with HIV-1 and/orHIV-2. Nonreactive results in this assay for individualswith prior exposure to HIV-1 and/or HIV-2 may be due toantigen and antibody levels that are below the limit ofdetection of this assay.The [employer]stream MedianiNexamp HIV Ag/Ab Combo assay result andsupplemental assay results should be interpreted inconjunction with the patient's clinical presentation,history and other laboratory results. If the results areinconsistent with clinical evidence, additional testing issuggested to confirm the result. Blood Venous blood specimen / Unknown 12/19/2023 11:05 AM EDT 12/19/2023 11:42 AM EDT Caity Brink MD LAB BLOOD ORDERAB LES Final Result Performing Organization Address City/[facility]/ZIP Co de Phone Number [facility] [address] [place] [address] [phone] * (ABNORMAL) Hemoglobin A1c (12/19/2023 11:05 AM EDT) [facility] Hemoglobin A1c 7.9(H) <6.0 % [facility] Comment:Hemoglobin A1C Refer ence Range Adults: 4.8 - 6.0 % Non diabetic: < 6.0 % Goal: < 7.0 %Additional Action Suggested: > 8.0 %Note: Hemoglobin A1c results are invalid for patients with abnormal amounts of HbF. Blood transfusions may impact the HbA1c concentration in the patient sample. Estimated Average Glucose 180 mg/dL [facility] Comment:eAG = Estimated ave rage glucose which is %A1C expressed asaverage glucose, using the formula of the Y2L-EwspnjyScqcruw Glucose study (ADAG), Diabetes Care, Vol.31,#8,Oct. 2007 Blood Venous blood specimen / Unknown 12/19/2023 11:05 AM EDT 12/19/2023 11:42 AM EDT us Caity Brink MD LAB BLOOD ORDERAB LES Final Result [facility] [address] [place] [phone] * (ABNORMAL) Lipid Panel, Standard (12/19/2023 11:05 AM EDT) Triglycerides 239(H) <150 mg/dL [facility] Comment:Desirable Triglyceri de: less than 150 mg/dLBorderline High Triglyceride 150-199 mg/dLHigh Triglyceride: 200-499 mg/dLVery High Triglyceride: greater than or equal to 5OO mg/dL Cholesterol 350(H) <200 mg/dL [facility] Comment:Desirable Cholestero l: less than 200 mg/dLBorderline High Cholesterol: 200-239 mg/dLHigh Cholesterol: greater than 239 mg/dL LDL Cholesterol Calculated 256(H) <100 mg/dL [facility] Comment:Desirable LDL: less than 100 mg/dLNear Optimal/Above Optimal LDL: 110- 129 mg/dLBorderline High LDL: 130-159 mg/dLHigh LDL: 160-189 mg/dLVery High LDL: greater than or equal to 190 mg/dL HDL Cholesterol 47 >40 mg/dL [facility] Comment:Desirable HDL: great er than 40 mg/dL Note: This HDL assay may give artificially low results in patients with liver disease. Blood Venous blood specimen / Unknown 12/19/2023 11:05 AM EDT 12/19/2023 11:42 AM EDT Caity Brink MD LAB BLOOD ORDERAB LES Final Result [facility] [address] [place] [phone] * Cologuard?? colon cancer screening (11/18/2023 12:00 AM EDT) Cologuard Result Negative Negative 11/26/19 5:47 PM EDT [employer] (CLIA #:[id number]) Comment: NEGATIVE TEST RESULT. A negative Cologuard result indicates a low likelihood that a colorectal cancer (CRC) or advanced adenoma (adenomatous polyps with more advanced pre-malignant features) ??is present. The chance that a person with a negative Cologuard test has a colorectal cancer is less than 1 in 1500 (negative predictive value >99.9%) or has an ??advanced adenoma is less than ??5.3% (negative predictive value 94.7%). These data are based on a prospective cross-sectional study of 10,000 individuals at average risk for colorectal cancer who were screened with both Cologuard and colonoscopy. (Enmanuel Lee. et al, N Engl J Med 2014;370(14):1286- 1297) The normal value (reference range) for this assay is negative. COLOGUARD RE-SCREENING RECOMMENDATION: Periodic colorectal cancer screening is an important part of preventive healthcare for asymptomatic individuals at average risk for colorectal cancer. ??Following a negative Cologuard result, the [place] Cancer Society and U.S. Multi-Society Task Force screening guidelines recommend a Cologuard re-screening interval of 3 years. References: [place] [employer] Guideline for Colorectal Cancer Screening: https://www.cancer.org/cancer/btkot-mekvcz-imxfal/hwecplwli-yowngompk-rxoavsp/ac s-rec ommendations.html.; [place] DK, Liang CLOUD, Edda AnayaK, Colorectal Cancer Screening: Recommendations for Physicians and Patients from the U.S. Multi-Society Task Force on Colorectal Cancer Screening , Am J Gastroenterology 2017; 112:1927-1437. TEST DESCRIPTION: Composite algorithmic analysis of stool DNA-biomarkers with hemoglobin immunoassay. ?? Quantitative values of individual biomarkers are not reportable and are not associated with individual biomarker result reference ranges. Cologuard is intended for colorectal cancer screening of adults of either sex, 45 years or older, who are at average-risk for colorectal cancer (CRC). Cologuard has been approved for use by the U.S. FDA. The performance of Cologuard was established in a cross sectional study of average-risk adults aged 50-84. Cologuard performance in patients ages 45 to 49 years was estimated by sub-group analysis of near-age groups. Colonoscopies performed for a positive result may find as the most clinically significant lesion: colorectal cancer [4.0%], advanced adenoma (including sessile serrated polyps greater than or equal to 1cm diameter) [20%] or non- advanced adenoma [31%]; or no colorectal neoplasia [45%]. These estimates are derived from a prospective cross-sectional screening study of 10,000 individuals at average risk for colorectal cancer who were screened with both Cologuard and colonoscopy. (Enmanuel Coy al, N Engl J Med 2014;370(14):9231-2454.) Cologuard may produce a false negative or false positive result (no colorectal cancer or precancerous polyp present at colonoscopy follow up). A negative Cologuard test result does not guarantee the absence of CRC or advanced adenoma (pre-cancer). The current Cologuard screening interval is every 3 years. ([place] Cancer Society and U.S. Multi-Society Task Force). Cologuard performance data in a 10,000 patient pivotal study using colonoscopy as the reference method can be accessed at the following location: www.[employer]/results. Additional description of the Cologuard test process, warnings and precautions can be found at www.Medication Reviewrd.com. Stool specimen (specimen) Rectal contents / Unknown 11/18/2023 11/19/2023 2:41 PM EDT Caity Brink MD LAB MOLECULAR PEDRO GNOSTICS ORDERABLES Final Result [employer] (CLIA #:[id number]) [place] [address], [place] [phone] from Last 3 Months or Most Recently Relevant to Health Maintenance Insurance [employer] C3 Care Teams Isotope Hydrologist Relationship Specialty Start Date End Date Caity Gray MD [address] [place] [phone] PCP - General Internal Medicine 11/13/22 Vero Pineda City Carrier AssistantStone Unloader 03/17/24
--- OUTSIDE RECORDS SUMMARY | 2024-04-01 18:37 | XMS_ITS | Encounter Summary ---
Author Organization [employer] Address [address] [facility] 7 [place] [address] Care Team Providers Care Green Meat Packer Name Role Phone Caity Gray MD Primary Care Pro vider Reason for Visit * Reason Onset Date Comments Appointment Request 04/07/2023 Encounter Details Date Type Department Care Team ([facility] Contact Info) Description 04/07/2023 Telephone [facility] [address] [place] [address] Caity Gray MD [address] [place] [address] Appointment Request Social History Tobacco Use Types Packs/Day Years [...] encounter Miscellaneous Notes * Telephone Encounter - Eladio Rowe - 04/07/2023 12:10 PM EST Tc from patient calling to cancel and reschedule appt for 2/5 states is not feeling well comic book writer didcancel however there was no availability at the moment comic book writer did ask if the patient would like a message to be sent to triage but patient refuses. documented in this encounter Plan of Treatment Not on file documented as of this encounter Visit Diagnoses Not on filedocumented in this encounter Additional Health Concerns Assessment Noted Time PHQ-9 Depression Total Score: 9 02/28/20 23 2:29 PM EST documented as of this encounter Care Teams Green Meat Packer Relationship Specialty Start Date End Date Caity Gray MD [address] [place] [phone] PCP - General Internal Medicine 11/13/22 Vero Pineda Skiff OperatorGizzard Skin Remover 03/17/24 documented as of this encounter
--- OUTSIDE RECORDS SUMMARY | 2024-04-01 18:37 | XMS_ITS | Encounter Summary ---
Author Organization [employer] Address [address] [facility] 7 [place] [address] Care Team Providers Care Ivory Carver Name Role Phone Caity Gray MD Primary Care Pro vider Reason for Visit * Reason Onset Date Comments PT1 04/10/2023 Encounter Details Date Type Department Care Team ([facility] st Contact Info) Description 04/10/2023 Telephone [facility] MEDICINE [address] [place] [address] Caity Gray MD [address] [place] [address] PT1 Social History Tobacco Use Types Packs/Day Years [...] encounter Miscellaneous Notes * Telephone Encounter - Marsha Marino - 04/10/2023 12:27 PM EST PT1 needed Date: waiting for appt date Time: n/a Visits: every 2 months Address: [address] [place] [address] [address] [address] Facility: [facility] Wheel Chair: no Framework Developer Needed: no Date: 05/07/23 Time: 1:30 pm Visits: her fist appt and is unsure Address: [address] [place] [address] [address] [place] [address] Facility: [facility] Wheel Chair: no Framework Developer Needed: no Date: 05/08/23 Time: 2:15 pm Visits: yearly Address: [address] [place] [address] Facility: [facility] Wheel Chair: no Framework Developer Needed: no documented in this encounter Plan of Treatment Not on file documented as of this encounter Visit Diagnoses Not on filedocumented in this encounter Additional Health Concerns Assessment Noted Time PHQ-9 Depression Total Score: 9 02/28/20 23 2:29 PM EST documented as of this encounter Care Teams Ivory Carver Relationship Specialty Start Date End Date Caity Gray MD [address] [place] [phone] PCP - General Internal Medicine 11/13/22 Vero Pineda Lamp MechanicSoft Work Wrapper Examiner 03/17/24 documented as of this encounter
--- OUTSIDE RECORDS SUMMARY | 2024-04-01 18:37 | XMS_ITS | Encounter Summary ---
Author Organization [employer] Address [address] [facility] 7t [place] [address] Care Team Providers Care Claims Sorter Name Role Phone Caity Gray MD Primary Care Pro vider Encounter Details Date Type Department Care Team ([facility] st Contact Info) Description 03/02/2024 Telephone [facility] MEDICINE [address] [place] [address] Caity Gray MD [address] [place] [address] Social History Tobacco Use Types Packs/Day Years [...] documented as of this encounter Care Teams Claims Sorter Relationship Specialty Start Date End Date Caity Gray MD [address] [place] [phone] PCP - General Internal Medicine 11/13/22 documented as of this encounter
--- OUTSIDE RECORDS SUMMARY | 2024-04-01 18:37 | XMS_ITS | Encounter Summary ---
Author Organization [employer] Address [address] [facility] 7t [place] [address] Care Team Providers Care Real Estate Agency Principal Name Role Phone Caity Gray MD Primary Care Pro vider Reason for Visit * Reason Comments Med Refill Encounter Details Date Type Department Care Team ([facility] Contact Info) Description 02/27/2023 Refill [facility] MED[facility]INE [address] [place] [address] Caity Gray MD [address] [place] [address] Diabetic polyneuropathy associated with type 2 diabetes [...] encounter Miscellaneous Notes * Telephone Encounter - Caity Brink MD - 02/27/2023 6:01 PM EST Med already sent today documented in this encounter Plan of Treatment Not on file documented as of this encounter Visit Diagnoses Diagnosis Diabetic polyneuropathy associated with type 2 diabetes mellitus (CMS/HCC) documented in this encounter Additional Health Concerns Assessment Noted Time PHQ-9 Depression Total Score: 9 02/28/20 23 2:29 PM EST documented as of this encounter Care Teams Real Estate Agency Principal Relationship Specialty Start Date End Date Caity Gray MD [address] [place] [phone] PCP - General Internal Medicine 11/13/22 Vero Pineda Commission AssociateBass Viol Repairer 03/17/24 documented as of this encounter
== END 2024-04-01 15:59 | disposition home or self-care (01) ==
PROVIDERS: PCP Student in an Organized Health Care Education/Training Program; Visit Provider Nurse Practitioner Family
DX: E78.5 Hyperlipidemia, unspecified (principal); R07.9 Chest pain, unspecified; I10 Essential (primary) hypertension
CPT/HCPCS: 93010; 99214

== ENCOUNTER → 2024-04-01 14:42 | Outpatient (BNVA) | payer MEDICAID, SELFPAY | PROVIDERS: PCP Student in an Organized Health Care Education/Training Program; Visit Provider Nurse Practitioner Family | DX: I12.9 Hypertensive chronic kidney disease with stage 1 through stage 4 chronic kidney disease, or unspecified chronic kidney disease (principal); E78.5 Hyperlipidemia, unspecified; E11.22 Type 2 diabetes mellitus with diabetic chronic kidney disease; N18.9 Chronic kidney disease, unspecified; R07.9 Chest pain, unspecified | CPT/HCPCS: 93005; 99212 ==

== ENCOUNTER 2024-07-06 12:31 | Outpatient (AMB) | payer MEDICAID, SELFPAY ==
[2024-07-06 12:49] VITALS: BP 132/60; PULSE 67; BMI 27.1
--- NOTE | 2024-07-06 12:49 | A.OFFVIS_ITS ---
Vital Signs 07/06/24 12:49 Height 5 ft 2 in Weight 148 lb 2.41 oz BMI 27.1 BP 132/60 Blood Pressure Location Lt brachial Position Sitting Pulse 67 Pulse Source Pulse Oximeter Intake Visit Reasons: r/s 06/24-07/02 2-3 mos followup Sand Conditioner Required: Yes Sand Conditioner Language: Opener Tender Name: voice flores [phone] Allergies No Known Allergies [No Known Allergies*] Allergy (Verified 07/06/24 12:53) Medication List - Last Reconciled 07/06/24 by MARIN Pichardo aripiprazole 2 mg PO BEDTIME aspirin 81 mg PO DAILY atorvastatin 20 mg PO DAILY blood sugar diagnostic (FreeStyle Lite Strips) As directed blood-glucose meter (FreeStyle Lite Meter kit) As directed to test blood glucose 4x/day cholecalciferol (vitamin D3) 50 mcg PO DAILY 30 days clonazepam 1 mg PO BID dulaglutide (Trulicity) mg subcut QWEEK duloxetine 20 mg PO BID evolocumab (Repatha SureClick) 140 mg subcut Q2W gabapentin 600 mg PO TID insulin aspart U-100 (Novolog FlexPen U-100 Insulin aspart) 8 units (0.08 mL) subcut TID insulin glargine (Lantus Solostar U-100 Insulin) 18 units (0.18 mL) subcut QPM lancets (FreeStyle Lancets) As directed lisinopril 10 mg PO DAILY metformin ER 500 mg PO BID metoprolol tartrate 100 mg PO ONCE pen needle, diabetic (BD Ultra-Fine Martha Pen Needle) As directed three times a day trazodone 100 mg PO BEDTIME HPI HPI r/s 06/24-07/02 2-3 mos followup: Details: Paty is a 63-year-old female with past medical history of hypertension, hyperlipidemia, diabetes, chronic kidney disease, prior evaluation for chest discomfort without cardiac findings who was recently who was referred back to Cardiology for evaluation and treatment of her hyperlipidemia. On last visit she was instructed to have lipids rechecked and this was not completed. Today she reports she has been feeling physically well. She has been experiencing depression and has a counselor that she is seeling. She has no chest discomfort at rest or with activity. No shortness of breath, palpitations, dizziness, presyncope, syncope, PND, orthopnea or edema. She reports compliance with meds including Repatha and atorvastatin. She believes the cholesterol-lowering medications caused issues with her liver in the past. She goes for walks frequently, which she tolerates well. Certified bindery machine feeder offbearer used. [facility] Medical History Type 2 diabetes mellitus with hyperglycemia, with long-term current use of insulin Long-term current use of insulin for diabetes mellitus Type 2 diabetes mellitus with diabetic nephropathy Vitamin D deficiency Hyperlipidemia LDL goal <100 Type 2 diabetes mellitus with diabetic polyneuropathy Palpitations Depression with anxiety Surgical History Hx of cataract surgery History of cholecystectomy Family History Father Prostate cancer Diabetes Mother Uterine cancer, sarcoma Brain bleed Diabetes CAD (coronary artery disease) Social History Household Members: None Alcohol intake: current Alcohol intake frequency: does not drink Patient Tobacco Use Status: Never used Tobacco Review of Systems Const All systems reviewed & are unremarkable except as noted in HPI and below ENT Denies dizziness Card Denies chest pain, Denies chest pain at rest, Denies chest pain with activity, Denies rapid heart rate, Denies pedal edema, Denies edema, Denies leg edema, Denies lightheadedness, Denies palpitations, Denies dyspnea, Denies dyspnea on exertion and Denies orthopnea Resp Denies cough, Denies dyspnea and Denies dyspnea on exertion GI Denies hematochezia and Denies change in stool character Musc Denies abnormal gait, Denies limited range of motion, Reports muscle cramps, Denies muscle weakness, Denies numbness, Denies radiating pain into limb, Denies stiffness and Denies tingling Neuro Denies abnormal gait, Denies dizziness, Denies numbness and Denies tingling Endo Denies palpitations Physical Exam Vital Signs: BMI result Body Mass Index 27.1 Const General: cooperative, healthy appearing, comfortable and no acute distress Orientation/consciousness: patient oriented x3 Neck Neck: Yes normal visual inspection and Yes no JVD Resp Effort & Inspection: normal respiratory effort Auscultation: clear to auscultation bilaterally, no crackles, no rales, no rhonchi and no wheezes Cardio Rate: regular rate Rhythm: regular rhythm Heart sounds: S1 normal heart sound present, S2 normal heart sound present, no murmurs and no rubs Neuro General: patient oriented x3 Extrem General: Yes normal to inspection, No no pedal edema and No calf tenderness Psych Appearance: grossly normal Mental Status: mental status grossly normal Speech and movement: Normal speech and movement present Assessment & Plan Assessment & Plan (1) Hyperlipidemia LDL goal <100: Code(s): E78.5 - Hyperlipidemia, unspecified Category: Medical Plan: [employer] LDL goal less than 70 in patient with diabetes. She is currently on atorvastatin 20 mg daily and Repatha injections Q 14 days. Labs done 12/19/2023 showed LDL 256. Patient reports compliance with her medications. She recalls having liver issues with cholesterol-lowering pills. Will have her recheck a lipid profile today. Changes to med management will be made based on readings. Plan to call her with results. Reviewed low fat diet, weigth control and staying physically active. (2) Chest pain: Code(s): R07.9 - Chest pain, unspecified Category: Medical Plan: Nuclear stress test done for chest discomfort 12/18/2017 shows normal myocardial perfusion imaging with EF 70%. She does have multiple cardiac risk factors of hypertension, hyperlipidemia, diabetes, chronic kidney disease. She has no known history of coronary artery disease. Discussed ongoing cardiac risk factor modification with her. (3) Hypertension: Code(s): I10 - Essential (primary) hypertension Category: Medical Qualifiers: Hypertension type: essential hypertension Qualified Code(s): I10 - Essential (primary) hypertension Plan: BP goal < 130/80. Well controlled at present time. No medication changes made Plan Time spent on chart review, documentation, interview and assessment Medications: Discontinued ezetimibe Discontinued Reason: Patient no longer taking 10 mg PO DAILY 30 tabs 5RF Patient Instructions: - After this visit, go to the hospital?s registration desk for blood testing. - Continue taking your medications as prescribed. - Remain active and adjust your walking as needed for comfort. - Follow up with your psychiatrist or counselor as scheduled. - Report any new or worsening symptoms to your healthcare provider. Coding Level of Care Code Est Pt Level 3 (51828) Complex EM visit Add On G2211 Diagnoses Hyperlipidemia LDL goal <100 E78.5 Chest pain R07.9 Essential hypertension I10 Hypertension type: essential hypertension Time Spent (min) 24
--- OUTSIDE RECORDS SUMMARY | 2024-07-06 13:47 | XMS_ITS | Encounter Summary ---
Author Organization [employer] Address [address] [facility] 7t [place] [address] Care Team Providers Care Bike Mechanic Name Role Phone Caity Gray MD Primary Care Pro vider Reason for Visit * Reason Onset Date Comments Nurse Triage 01/02/2024 Encounter Details Date Type Department Care Team ([facility] Contact Info) Description 01/02/2024 Telephone [facility] [address] [place] [address] Caity Gray MD [address] [place] [address] Nurse Triage Social History Tobacco Use Types [...] pt to triage, spoke to pt. through [email or web address] non destructive testing supervisor. pt states had a minor fall yesterday. [...] Reason: Caller denied all higher acuity questions Mohawk Speaker (Accepted Analyst Microbiology Lab) documented in this encounter Plan of Treatment Upcoming Encounters Date Type Department Care Team (Late st Contact Info) Description 08/12/2024 11:15 AM EDT Office Visit [facility] [address] [place] [address] Caity Gray MD [address] [place] [address] documented as of this encounter Visit Diagnoses Not on filedocumented in this encounter Additional Health Concerns Assessment Noted Time PHQ-9 Depression Total Score: 9 02/28/20 23 2:29 PM EST documented as of this encounter Care Teams Bike Mechanic Relationship Specialty Start Date End Date Caity Gray MD [address] [place] [address] [phone] PCP - General Internal Medicine 11/13/22 Vero Pineda Dough Mixer HelperCharter Representative 03/17/24 documented as of this encounter
--- OUTSIDE RECORDS SUMMARY | 2024-07-06 13:47 | XMS_ITS | Encounter Summary ---
Author Organization [employer] Address [address] [facility] 7t [place] [address] Care Team Providers Care Fork Operator Name Role Phone Caity Gray MD Primary Care Pro vider Reason for Visit * Reason Onset Date Comments Appointment Request 04/07/2023 Encounter Details Date Type Department Care Team ([facility] Contact Info) Description 04/07/2023 Telephone [facility] MEDICINE [address] [place] [address] Caity Gray MD [address] [place] [address] Appointment Request Social History Tobacco Use Types [...] for 2/5 states is not feeling well junior underwriter didcancel however there was no availability at the moment junior underwriter did ask if the patient would like a message to be sent to triage but patient refuses. documented in this encounter Plan of Treatment Upcoming Encounters Date Type Department Care Team (Late st Contact Info) Description 08/12/2024 11:15 AM EDT Office Visit [facility] MED[facility]INE [address] [place] [phone] Caity Gray MD [address] [place] [phone] documented as of this encounter Visit Diagnoses Not on filedocumented in this encounter Additional Health Concerns Assessment Noted Time PHQ-9 Depression Total Score: 9 02/28/20 23 2:29 PM EST documented as of this encounter Care Teams Fork Operator Relationship Specialty Start Date End Date Caity Gray MD [address] [place] [phone] PCP - General Internal Medicine 11/13/22 Vero Pineda Intellectual Property Legal AssistantFruit Bar Maker 03/17/24 documented as of this encounter
--- OUTSIDE RECORDS SUMMARY | 2024-07-06 13:47 | XMS_ITS | Encounter Summary ---
Author Organization [employer] Address [address] [facility] 7 [place] [address] Care Team Providers Care Noc Engineer Name Role Phone Caity Gray MD Primary Care Pro vider Reason for Visit * Reason Onset Date Comments PT-1 09/17/2023 Encounter Details Date Type Department Care Team ([facility] Contact Info) Description 09/17/2023 Telephone [facility] [address] [place] [address] Caity Gray MD [address] [place] [address] PT-1 Social History Tobacco Use Types Packs/Day [...] Y/N: Yes Provider name or facility name: [facility] Facility Address: [address] [facility] Escort needed: Y/N: No Do you have a wheelchair: Y/N: No If yes- Manual or electric: (Uses Cane) Visits: 6 Times yearly Patient calling requesting PT1 Home Address verified: Y/N: Yes Provider name or facility name: [facility] Facility Address: [address] [facility] Escort needed: Y/N: No Do you have a wheelchair: Y/N: No If yes- Manual or electric: Uses cane Visits: 6 times yearly Patient calling requesting PT1 Home Address verified: Y/N: Yes Provider name or facility name: [facility] Facility Address: [address] [facility] Escort needed: Y/N: No Do you have a wheelchair: Y/N: No If yes- Manual or electric: Uses Cane Visits: Every 3 months documented in this encounter Plan of Treatment Upcoming Encounters Date Type Department Care Team ([facility] st Contact Info) Description 08/12/2024 11:15 AM EDT Office Visit [facility] [address] [place] [address] Caity Gray MD [address] [place] [address] documented as of this encounter Visit Diagnoses Not on filedocumented in this encounter Additional Health Concerns Assessment Noted Time PHQ-9 Depression Total Score: 9 02/28/20 23 2:29 PM EST documented as of this encounter Care Teams Noc Engineer Relationship Specialty Start Date End Date Caity Gray MD [address] [place] [address] PCP - General Internal Medicine 11/13/22 Vero Pineda Detention AttendantInspector Golf Ball 03/17/24 documented as of this encounter
--- OUTSIDE RECORDS SUMMARY | 2024-07-06 13:47 | XMS_ITS | Encounter Summary ---
Author Organization [employer] Address [address] [place] [address] 7 [place] [address] Care Team Providers Care Clock Repair Technician Name Role Phone Neena Machuca Primary Care Provider +- [phone] Caity Gray MD Primary Care Pro vider Reason for Visit * Reason Comments Med Refill Encounter Details Date Type Department Care Team (Late st Contact Info) Description 05/21/2022 Refill [facility] [address] [place] [address] Neena Machuca FNP [address] [place] [address] Dept [place] [address] Essential hypertension Social History Tobacco Use Types Packs/Day Years Used Date Smoking Tobacco: Never Assessed Comments Unknown Sex and Gender Information Value Date Recorded Sex Assigned at Female 12/31/2021 10:33 AM EDT Legal Sex Female 10:33 AM EDT Gender Identity Female 12/31/2021 10:33 AM EDT Sexual Orientation Lesbian or Herman 12/31/2021 10 :33 AM EDT documented as of this encounter Plan of Treatment Upcoming Encounters Date Type Department Care Team (Late st Contact Info) Description 08/12/2024 11:15 AM EDT Office Visit [facility] [address] [place] [address] [phone] Caity Gray MD [address] [place], [place] [phone] documented as of this encounter Visit Diagnoses Diagnosis Essential hypertension Unspecified essential hypertension documented in this encounter Care Teams Clock Repair Technician Relationship Specialty Start Date End Date Neena Machuca FNP PCP - General Family Medicine 10/30/21 11/12/22 Caity Gray MD [address] [place] [address] PCP - General Internal Medicine 11/13/22 Vero Pineda Test And Turn Up TechnicianRoving Frame Tender 03/17/24 documented as of this encounter
--- OUTSIDE RECORDS SUMMARY | 2024-07-06 13:47 | XMS_ITS | Encounter Summary ---
Author Organization [employer] Address [address] [facility] 7t [place] [address] Care Team Providers Care Relief Map Modeler Name Role Phone Caity Gray MD Primary Care Pro vider Reason for Visit * Reason Onset Date Comments PT1 04/10/2023 Encounter Details Date Type Department Care Team ([facility] Contact Info) Description 04/10/2023 Telephone [facility] [address] [place] [address] Caity Gray MD [address] [place] [address] PT1 Social History Tobacco Use Types Packs/Day [...] Time: n/a Visits: every 2 months Address: [address] [place] [address] [address] [address] Facility: [facility] Wheel Chair: no Disease Management Nurse Needed: no Date: 05/07/23 Time: 1:30 pm Visits: her fist appt and is unsure Address: [address] [place] [address] Dr [address] Floor, [place] [address] Facility: [facility] Wheel Chair: no Disease Management Nurse Needed: no Date: 05/08/23 Time: 2:15 pm Visits: yearly Address: [address] [place] [address] Facility: [facility] Wheel Chair: no Disease Management Nurse Needed: no documented in this encounter Plan of Treatment Upcoming Encounters Date Type Department Care Team (Late st Contact Info) Description 08/12/2024 11:15 AM EDT Office Visit [facility] [address] [place] [address] [phone] Caity Gray MD [address] [place] [address] documented as of this encounter Visit Diagnoses Not on filedocumented in this encounter Additional Health Concerns Assessment Noted Time PHQ-9 Depression Total Score: 9 02/28/20 23 2:29 PM EST documented as of this encounter Care Teams Relief Map Modeler Relationship Specialty Start Date End Date Caity Gray MD [address] [place] [address] PCP - General Internal Medicine 11/13/22 Vero Pineda Business Area ManagerDomestic Maid 03/17/24 documented as of this encounter
--- OUTSIDE RECORDS SUMMARY | 2024-07-06 13:47 | XMS_ITS | Encounter Summary ---
Author Organization [employer] Address [address] [facility] 7 [place] [address] Care Team Providers Care Transaction Advisory Services Manager Name Role Phone Caity Gray MD Primary Care Pro vider Reason for Visit * Reason Onset Date Comments Med Refill 07/24/2023 Encounter Details Date Type Department Care Team ([facility] Contact Info) Description 07/24/2023 Telephone [facility] [address] [place] [address] Caity Gray MD [address] [place] [address] Med Refill Social History Tobacco Use Types [...] 3:42 PM EDT Medication was sent to [facility] on 07/16/23 with 2 refills. * Telephone Encounter - Eladio Rowe - 07/24/2023 3:40 PM EDT TC from pt requesting medication refill. Medications needing refill : evolocumab (Repatha SureClick) 140 MG/ML injection To be sent to: [facility] [place] [address] - [address] documented in this encounter Plan of Treatment Upcoming Encounters Date Type Department Care Team (Late st Contact Info) Description 08/12/2024 11:15 AM EDT Office Visit [facility] [address] [place] [address] Caity Gray MD [address] [place] [address] documented as of this encounter Visit Diagnoses Not on filedocumented in this encounter Additional Health Concerns Assessment Noted Time PHQ-9 Depression Total Score: 9 02/28/20 23 2:29 PM EST documented as of this encounter Care Teams Transaction Advisory Services Manager Relationship Specialty Start Date End Date Caity Gray MD [address] [place] [address] PCP - General Internal Medicine 11/13/22 Vero Pineda Roll CarrierLeather Production Worker 03/17/24 documented as of this encounter
--- OUTSIDE RECORDS SUMMARY | 2024-07-06 13:47 | XMS_ITS | Encounter Summary ---
Author Organization [employer] Address [address] [place] [address] 7 [place] [address] Care Team Providers Care Manager Managed Care Name Role Phone Neena Machuca Primary Care Provider +1- [phone] Caity Gray MD Primary Care Pro vider Reason for Visit * Reason Comments Med Refill Encounter Details Date Type Department Care Team ([facility] Contact Info) Description 03/20/2022 Refill [facility] MED[facility]INE [address] [place] [address] Neena Machuca FNP [address] [place] [address] Dept [place] [address] Diabetic polyneuropathy associated with type 2 diabetes [...] Upcoming Encounters Date Type Department Care Team ([facility] Contact Info) Description 08/12/2024 11:15 AM EDT Office Visit [facility] [address] [place] [address] [phone] Caity Gray MD [address] [place], [place] [phone] documented as of this encounter Visit Diagnoses Diagnosis Diabetic polyneuropathy associated with type 2 diabetes mellitus (CMS/HCC) documented in this encounter Care Teams Manager Managed Care Relationship Specialty Start Date End Date Neena Machuca FNP PCP - General Family Medicine 10/30/21 11/12/22 Caity Gray MD [address] [place] [address] PCP - General Internal Medicine 11/13/22 Vero Pineda Commission Agent LivestockFacilities Locator 03/17/24 documented as of this encounter
--- OUTSIDE RECORDS SUMMARY | 2024-07-06 13:47 | XMS_ITS | Encounter Summary ---
Author Organization [employer] Address [address] [facility] 7t [place] [address] Care Team Providers Care 2Nd Grade Teacher Name Role Phone Caity Gray MD Primary Care Pro vider Reason for Visit * Reason Comments Med Refill Encounter Details Date Type Department Care Team ([facility] Contact Info) Description 06/25/2024 Refill [facility] [address] [place] [address] Caiyt Gray MD [address] [place] [address] Hyperlipidemia, unspecified hyperlipidemia type Social History Tobacco Use Types Packs/Day Years [...] Description 08/12/2024 11:15 AM EDT Office Visit [facility] MED[facility]INE [address] [place] [address] Caity Gray MD [address] [place] [address] documented as of this encounter Visit Diagnoses Diagnosis Hyperlipidemia, unspecified hyperlipidemia type documented in this encounter Additional Health Concerns Assessment Noted Time PHQ-9 Depression Total Score: 9 02/28/20 23 2:29 PM EST documented as of this encounter Care Teams 2Nd Grade Teacher Relationship Specialty Start Date End Date Caity Gray MD [address] [place] [address] PCP - General Internal Medicine 11/13/22 Vero Pineda Firmware Software Verification EngineerTerminal Computer Operator 03/17/24 documented as of this encounter
--- OUTSIDE RECORDS SUMMARY | 2024-07-06 13:47 | XMS_ITS | Encounter Summary ---
Author Organization [employer] Address [address] [place] [address] 7 [place] [address] Care Team Providers Care Direct Selling Counselor Name Role Phone Neena Machuca PRESS TENDER Primary Care Provider +1- [phone] Caity Gray MD Primary Care Pro vider Encounter Details Date Type Department Care Team (Late Contact Info) Description 04/30/2022 Telephone [facility]INE [address] [place] [phone] Neena Machuca FNP [address] [place] [address] Dept of Internal [place] [address] Social History Tobacco Use Types Packs/Day Years [...] Encounters Date Type Department Care Team (Late Contact Info) Description 08/12/2024 11:15 AM EDT Office Visit [facility] [address] [place] [address] [phone] Caity Gray MD [address] [place] [address] [phone] documented as of this encounter Visit Diagnoses Not on filedocumented in this encounter Care Teams Direct Selling Counselor Relationship Specialty Start Date End Date Neena Machuca FNP PCP - General Family Medicine 10/30/21 11/12/22 Caity Gray MD [address] [place] [address] PCP - General Internal Medicine 11/13/22 Vero Pineda Connection WorkerRobotic Maintenance Technician 03/17/24 documented as of this encounter
--- OUTSIDE RECORDS SUMMARY | 2024-07-06 13:47 | XMS_ITS | Encounter Summary ---
Author Organization [employer] Address [address] [place] [address] 7 [place] [address] Care Team Providers Care Machine Programmer Name Role Phone Neena Machuca Primary Care Provider +1- [phone] Caity Gray MD Primary Care Pro vider Reason for Visit * Reason Comments Med Refill Encounter Details Date Type Department Care Team ([facility] Contact Info) Description 06/24/2022 Refill [facility] MEDICINE [address] [place] [address] Neena Machuca FNP [address] [place] [address] Dept of [place] [address] Diabetic polyneuropathy associated with type 2 diabetes [...] Upcoming Encounters Date Type Department Care Team ([facility] Contact Info) Description 08/12/2024 11:15 AM EDT Office Visit [facility] MEDICINE [address] [place] [address] [phone] Caity Gray MD [address] [place], [place] [phone] documented as of this encounter Visit Diagnoses Diagnosis Diabetic polyneuropathy associated with type 2 diabetes mellitus (CMS/HCC) documented in this encounter Care Teams Machine Programmer Relationship Specialty Start Date End Date Neena Machuca FNP PCP - General Family Medicine 10/30/21 11/12/22 Caity Gray MD [address] [place] [address] PCP - General Internal Medicine 11/13/22 Vero Pineda Landscape Horticulture InstructorCreeler 03/17/24 documented as of this encounter
--- OUTSIDE RECORDS SUMMARY | 2024-07-06 13:47 | XMS_ITS | Clinical Summary ---
Author Organization [employer] Address 75 [facility] 7t [place] [address] Care Team Providers Care Property Consultant Name Role Phone Caity Gray MD Primary [...] by mouth at bed time. Active zoster vaccine-recombin ant adjuvanted (Shingrix) 50 MCG/0.5ML vaccine Inject 0.5 mL into the shoulder, thigh, or buttocks. 022 Active Alcohol Swabs (Alcohol Prep) 70 % padsIndications: Type 2 diabetes mellitus with diabetic polyneuropathy, with long-term current use of insulin ([facility]) Use 5 times a day when checking blood sugar 100 each 022 Active Blood Pressure Monitor kit 1 each 2 times daily. 1 kit 023 Active triamcinolone (Kenalog) 0.1 % creamIndications :Lichen nitidus Apply topically 2 times daily. Mix with CeraVe cream as directed and use after bathing. 80 g 2 023 Active Continuous Blood Gluc Aed Trainer (FreeStyle Daryn 2 Morrison) deviceIndication s:Type 2 diabetes mellitus without complication, unspecified whether shelter insulin use (CMS/HCC) 1 EACH IF NEEDED EACH DAY (GLUCOSE CONTROL). 1 each 023 Active docusate sodium (Colace) 100 MG capsule Take 1 tab po bid prn constipation 60 capsule 3 023 Active glucose blood (FREESTYLE LITE) test strip USE TO TEST BLOOD SUGAR THREE TIMES DAILY 100 each 3 024 Active Continuous Glucose Sensor (FreeStyle Daryn 2 Sensor) miscIndications: Type 2 diabetes mellitus without complication, unspecified whether laborer marine terminal insulin use ([facility]) 1 each if needed (Glucose control). 4 each 5 024 Active glucose 4 g chewable tablet Chew 4 tablets (16 g) if needed for low blood sugar. 50 tablet 12 024 2024 Active lidocaine (Lidoderm) 5 % patch Apply 1 patch topically Once per day. Remove & discard patch within 12 hours or as directed by MD. 30 patch 1 024 Active lisinopril-hydro CHLOROthiazide 10-12.5 MG tabletIndication s:Essential hypertension TAKE 1 TABLET BY MOUTH DAILY 90 tablet 1 024 Active metoprolol succinate XL (Toprol-XL) 100 MG 24 hr tabletIndication s:Essential hypertension TAKE 1 TABLET BY MOUTH EVERY MORNING 90 tablet 1 024 Active cholecalciferol (Vitamin D3) 25 MCG (1000 UT) tabletIndication s:Vitamin D deficiency Take 1 tablet (1,000 Units) by mouth Once per day. 90 tablet 1 024 Active psyllium (Metamucil Smooth Texture) 58.6 % powder Take 5.12 g (3 g of fiber) by mouth 2 times daily. 283 g 2 024 2024 Active insulin aspart FlexPen (NovoLOG) 100 UNIT/ML penIndications:D iabetic polyneuropathy associated with type 2 diabetes mellitus ([facility]) INJECT 8 UNITS SUBCUTANEOUSLY WITH BREAKFAST AND 6 UNITS AT NIGHT 15 mL 3 024 Active insulin glargine (Lantus SoloStar) 100 UNIT/ML penIndications:D iabetic polyneuropathy associated with type 2 diabetes mellitus ([facility]) Inject 12 Units under the skin at bedtime. INJECT 12 UNITS SUBCUTANEOUSLY EVERY NIGHT 15 mL 5 024 Active evolocumab (Repatha SureClick) 140 MG/ML injectionIndicat ions:Type 2 diabetes mellitus with diabetic nephropathy, with long-term current use of insulin (CMS/HCC) INJECT 1 ML SUBCUTANEOUSLY EVERY 14 DAYS 2 mL 2 025 Active gabapentin (Neurontin) 600 MG tabletIndication s:Diabetic polyneuropathy associated with type 2 diabetes mellitus (CMS/HCC) TAKE 1 TABLET BY MOUTH THREE TIMES A DAY 90 tablet 1 025 Active Trulicity 3 MG/0.5ML solution auto-injector INJECT ONE PEN (= 3MG) SUBCUTANEOUSLY ONCE A WEEK DIRECTED 2 mL 2 025 Active atorvastatin (Lipitor) 20 MG tabletIndication s:Hyperlipidemia , unspecified hyperlipidemia type Take 1 tablet (20 mg) by mouth Once per day. 90 tablet 025 2025 Active atorvastatin (Lipitor) 20 MG tabletIndication s:Hyperlipidemia , unspecified hyperlipidemia type Take 1 tablet (20 mg) by mouth Once per day. 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 Will order again for [facility] lab 09/12/22 Lung cancer: Never [...] Encounters Date Type Department Care Team Description 06/28/2024 Refill [facility] [address] [place], [place] [phone] Caity Gray MD Hyperlipidemia, unspecified hyperlipidemia type 06/25/2024 Refill [facility] MEDICINE [address] [place] [address] Caity Gray MD Hyperlipidemia, unspecified hyperlipidemia type 06/25/2024 Refill [facility] [address] [place] [address] Kristopher Serrano MD 05/24/2024 Telephone [facility] [address] [place], [place] [phone] Caity Gray MD chart prep 05/14/2024 Population Health Risk Score [facility] ([facility]) Department [address] [facility] [address] [place] [address] Provider, Population Health Generic 05/04/2024 Refill [facility] MED[facility] [address] [place] [address] Caity Gray MD Hyperlipidemia, unspecified hyperlipidemia type; Diabetic polyneuropathy associated with type 2 diabetes mellitus ([facility]) 04/29/2024 Orders Only [facility] MED[facility] [address] [place], [place] [phone] Mary Haider ANP 04/28/2024 Refill [facility] [address] [place], [place] [phone] Caity Gray MD Type 2 diabetes mellitus with diabetic nephropathy, with long-term current use of insulin ([facility]) from Last 3 Months Immunizations Name Administration [...] 01/07/2024 9:07 AM EST Plan of Treatment Upcoming Encounters Date Type Department Care Team (Late st Contact Info) Description 08/12/2024 11:15 AM EDT Office Visit [facility] [address] [place], [place] [phone] Caity Gray MD [address] [place] [address] Health Maintenance Due Date Last Done Comments CT Colonography 1960 Colonoscopy 1960 FIT 1960 FOBT 1960 Sigmoidoscopy 1960 Diabetes: Foot Exam 1970 Eye Exam 1970 Alcohol/Substance Use Screening 1972 Pap Smear 1981 Cervical Cancer Screening 1990 HPV/Cotest 1990 DTaP/Tdap/Td Vaccines (1 - Tdap) 08/11/2021 08/10/2021 Depression Screening 02/28/2024 02/27/2023, 02/28/20 23 SDOH Screening 02/28/2024 02/27/2023 Diabetes: Hemoglobin A1C [...] TOMOSYNTHESIS BILATERAL Routine 01/12/2024 2:00 PM EST HEPATITIS C AB W/REFL TO HCV RNA, [...] EST Narrative 01/12/2024 3:02 PM EST ? [facility] ? [address] ?[place] [address] ? Mammography Report ? Signed ? Patient: AurelioPaty ?MR#: [id number] ?? [id number] ? : 1960 ?Acct:[id number] ? Age/Sex: 63 / F ?ADM Date: 01/12/24 ? Loc: HO.MAMMO ? Attending Dr: Caity Brink MD ? Ordering Physician: Caity Gray MD ?Re ?? sults: 2Benign Findings ? Date of Service: 01/12/24 ?Follow Up: 1 Year From Orig ?? inal Mammogram ? Procedure(s): MM tomosynthesis diagnostic BI ?? Accession Number(s): [id number] ? cc: Caity Gray MD ? EXAMINATION: [...] signed by Tio Gilman MD in OV> ?01/12/249 ? DD/ 1400 ? TD/TT: 01/12/24 1422 ? Electronic Imaging System Operator: ? Procedure Note Donotuseinterpreter, Image - 01/12/2024 [facility] [address] [place] [address] Mammography Report Signed Patient: Paty CareyMR#: [id number] : 1960cct:[id number] Age/Sex: 63 / FADM Date: 01/12/24 Loc: HO.MAMMO Attending Dr: Caity Brink MD Ordering Physician: Caity Gray sults: 2Benign Findings Date of Service: 01/12/24Follow Up: 1 Year From Orig inal Mammogram Procedure(s): MM tomosynthesis diagnostic BI Accession Number(s): [id number] cc: Caity Gray MD EXAMINATION: MM DIAGNOSTIC [...] by: Tio Gilman MD 01/12/2024 02:59 PM [facility] Dictated By: Tio Gilman MD Signed By: <Electronically signed by Tio Gilman MD in OV> 01/12/24 1459 DD/ 1400 TD/TT: 01/12/24 1422 Electronic Imaging System Operator: us Caity Brink MD IMG BI PROCEDURES Final Result * Hepatitis C Antibody with Reflex to HCV, RNA, Quantitative, Real-Time PCR (12/19/2023 11:05 AM EDT) Hepatitis C Antibody Nonreactive Nonreactive [facility] Comment:Antibodies to HCV no t detected; does not exclude early acuteHCV infection. Blood Venous blood specimen / Unknown 12/19/2023 11:05 AM EDT 12/19/2023 11:42 AM EDT us Caity Brink MD LAB BLOOD ORDERAB LES Final Result [facility] [address] [place] [phone] * HIV-1/2 Antigen and Antibodies, Fourth Generation, with Reflexes (12/19/2023 11:05 AM EDT) HIV AB/AG Nonreactive Nonreactive [facility] Comment:HIV-1 p24 Ag and/or HIV-1/HIV-2 Ab not detected.A test result that is nonreactive does not exclude thepossibility of exposure to or infection with HIV-1 and/orHIV-2. Nonreactive results in this assay for individualswith prior exposure to HIV-1 and/or HIV-2 may be due toantigen and antibody levels that are below the limit ofdetection of this assay.The [employer]ated World HIV Ag/Ab Combo assay result andsupplemental assay results should be interpreted inconjunction with the patient's clinical presentation,history and other laboratory results. If the results areinconsistent with clinical evidence, additional testing issuggested to confirm the result. Blood Venous blood specimen / Unknown 12/19/2023 11:05 AM EDT 12/19/2023 11:42 AM EDT Caity Brink MD LAB BLOOD ORDERAB LES Final Result [facility] [address] [place] [phone] * (ABNORMAL) Hemoglobin A1c (12/19/2023 11:05 AM EDT) Hemoglobin A1c 7.9(H) <6.0 % [facility] Comment:Hemoglobin A1C Refer ence Range Adults: 4.8 - 6.0 % Non diabetic: < 6.0 % Goal: < 7.0 %Additional Action Suggested: > 8.0 %Note: Hemoglobin A1c results are invalid for patients with abnormal amounts of HbF. Blood transfusions may impact the HbA1c concentration in the patient sample. Estimated Average Glucose 180 mg/dL [facility] Comment:eAG = Estimated ave rage glucose which is %A1C expressed asaverage glucose, using the formula of the X2M-WzzhywsXvejqgj Glucose study (ADAG), Diabetes Care, Vol.31,#8,Oct. 2007 Blood Venous blood specimen / Unknown 12/19/2023 11:05 AM EDT 12/19/2023 11:42 AM EDT us Caity Brink MD LAB BLOOD ORDERAB LES Final Result [facility] [address] [place] [phone] * (ABNORMAL) Lipid Panel, Standard (12/19/2023 11:05 AM EDT) Triglycerides 239(H) <150 mg/dL [facility] Comment:Desirable Triglyceri de: less than 150 mg/dLBorderline High Triglyceride 150-199 mg/dLHigh Triglyceride: 200-499 mg/dLVery High Triglyceride: greater than or equal to 5OO mg/dL Cholesterol 350(H) <200 mg/dL [facility] Comment:Desirable Cholestero l: less than 200 mg/dLBorderline High Cholesterol: 200-239 mg/dLHigh Cholesterol: greater than 239 mg/dL LDL Cholesterol Calculated 256(H) <100 mg/dL [facility] Comment:Desirable LDL: less than 100 mg/dLNear Optimal/Above Optimal LDL: 110- 129 mg/dLBorderline High LDL: 130-159 mg/dLHigh LDL: 160-189 mg/dLVery High LDL: greater than or equal to 190 mg/dL HDL Cholesterol 47 >40 mg/dL [facility] Comment:Desirable HDL: great er than 40 mg/dL Note: This HDL assay may give artificially low results in patients with liver disease. Blood Venous blood specimen / Unknown 12/19/2023 11:05 AM EDT 12/19/2023 11:42 AM EDT us Caity Brink MD LAB BLOOD ORDERAB LES Final Result [facility] [address] [place] [phone] * Cologuard?? colon cancer screening (11/18/2023 12:00 AM EDT) Cologuard Result Negative Negative 11/26/19 24 5:47 PM EDT [facility] (CLIA #:[id number]) Comment: NEGATIVE TEST RESULT. A negative Cologuard [...] (Enmanuel Coy al, N Engl J Med 2014;370(14):1286- 1297) The normal value (reference range) for this assay is negative. COLOGUARD RE-SCREENING RECOMMENDATION: Periodic colorectal cancer screening is an important part of preventive healthcare for asymptomatic individuals at average risk for colorectal cancer. ??Following a negative Cologuard result, the British Cancer Society and U.S. Multi-Society Task Force screening guidelines recommend a Cologuard re-screening interval of 3 years. References: British Cancer Society Guideline for Colorectal Cancer Screening: https://www.cancer.org/cancer/fwhef-gwtscq-nwibnn/tyhgcwdwk-uezsffxgh-pctkolq/ac s-rec ommendations.html.; [place] DK, Liang CR, Edda AnayaK, Colorectal Cancer Screening: Recommendations for Physicians and Patients from the U.S. Multi-Society Task Force on Colorectal Cancer Screening , Am J Gastroenterology 2017; 112:4121-7019. TEST DESCRIPTION: Composite algorithmic analysis of stool [...] screened with both Cologuard and colonoscopy. (Enmanuel Seymour et al, N Engl J Med 2014;370(14):8722-3202.) Cologuard may produce a false negative or false positive result (no colorectal cancer or precancerous polyp present at colonoscopy follow up). A negative Cologuard test result does not guarantee the absence of CRC or advanced adenoma (pre-cancer). The current Cologuard screening interval is every 3 years. (British Cancer Society and U.S. Multi-Society Task Force). Cologuard performance data in a 10,000 patient pivotal study using colonoscopy as the reference method can be accessed at the following location: www.The Exchange.Enviance/results. Additional description of the Cologuard test process, warnings and precautions can be found at www.Biocontrolrd.Enviance. Stool specimen (specimen) Rectal contents / Unknown 11/18/2023 11/19/2023 2:41 PM EDT Caity Brink MD LAB MOLECULAR PEDRO GNOSTICS ORDERABLES Final Result [facility] (CLIA #:[id number]) [place] [address] [address], [place] [phone] from Last 3 Months or Most Recently Relevant to Health Maintenance Insurance [address] [place] [id number] [email or web address] Care Teams Property Consultant Relationship Specialty Start Date End Date Caity Gray MD [address] [place] [address] PCP - General Internal Medicine 11/13/22 Vero Pineda Certified Scrub TechFulfillment Specialist 03/17/24
--- OUTSIDE RECORDS SUMMARY | 2024-07-06 13:47 | XMS_ITS | Encounter Summary ---
Author Organization [employer] Address [address] [facility] 7t [place] [address] Care Team Providers Care Precision Lens Technician Name Role Phone Caity Gray MD Primary Care Pro vider Reason for Visit * Reason Comments Med Refill Encounter Details Date Type Department Care Team ([facility] Contact Info) Description 02/27/2023 Refill [facility] MED[facility] [address] [place] [address] Caity Gray MD [address] [place] [address] Diabetic polyneuropathy associated with type 2 diabetes [...] 10:33 AM EDT Sexual Orientation Lesbian or Hreman 12/31/2021 10 :33 AM EDT documented as of this encounter Miscellaneous Notes * Telephone Encounter - Caity Brink MD - 02/27/2023 6:01 PM EST Med already sent today documented in this encounter Plan of Treatment Upcoming Encounters Date Type Department Care Team (Late st Contact Info) Description 08/12/2024 11:15 AM EDT Office Visit [facility] MEDICINE [address] [place] [address] Caity Gray MD [address] [place] [phone] documented as of this encounter Visit Diagnoses Diagnosis Diabetic polyneuropathy associated with type 2 diabetes mellitus (CMS/HCC) documented in this encounter Additional Health Concerns Assessment Noted Time PHQ-9 Depression Total Score: 9 02/28/20 23 2:29 PM EST documented as of this encounter Care Teams Precision Lens Technician Relationship Specialty Start Date End Date Caity Gray MD [address] [place] [address] [phone] PCP - General Internal Medicine 11/13/22 Vero Pineda Quality Assurance AssociateTelecommunications Network Engineer 03/17/24 documented as of this encounter
--- OUTSIDE RECORDS SUMMARY | 2024-07-06 13:47 | XMS_ITS | Encounter Summary ---
Author Organization [employer] Address [address] [facility] [address]t [place] [address] Care Team Providers Care Reel Fed Printer Name Role Phone Caity Gray MD Primary Care Pro vider Encounter Details Date Type Department Care Team ([facility] Contact Info) Description 04/29/2024 Orders Only [facility] MEDICINE [address] [place] [address] Mary Haider, ANP [address] [place] [address] Social History Tobacco Use Types Packs/Day Years [...] Description 08/12/2024 11:15 AM EDT Office Visit [facility] MEDICINE [address] [place] [phone] Caity Gray MD [address] [place] [phone] documented as of this encounter Visit Diagnoses Not on filedocumented in this encounter Additional Health Concerns Assessment Noted Time PHQ-9 Depression Total Score: 9 02/28/20 23 2:29 PM EST documented as of this encounter Care Teams Reel Fed Printer Relationship Specialty Start Date End Date Caity Gray MD [address] [place] [phone] PCP - General Internal Medicine 11/13/22 Vero Pineda Demurrage ClerkCloth Neutralizer 03/17/24 documented as of this encounter
== END 2024-07-06 13:12 | disposition home or self-care (01) ==
LOC: HO.HCS 12:32
PROVIDERS: PCP Student in an Organized Health Care Education/Training Program; Visit Provider Nurse Practitioner Family
DX: E78.5 Hyperlipidemia, unspecified (principal); R07.9 Chest pain, unspecified; I10 Essential (primary) hypertension
CPT/HCPCS: 99213

== ENCOUNTER 2024-07-06 12:31 | Outpatient (REF) | payer MEDICAID, SELFPAY ==
--- OUTSIDE RECORDS SUMMARY | 2024-07-06 14:36 | XMS_ITS | Encounter Summary ---
Author Organization [employer] Address [address] [facility] [address] [place] [address] Care Team Providers Care Engineering And Development Director Name Role Phone Caity Gray MD Primary Care Pro vider Encounter Details Date Type Department Care Team ([facility] Contact Info) Description 04/29/2024 Orders Only [facility] MEDICINE [address] [place] [address] Mary Haider, ANP [address] [place] [address] Social History Tobacco Use Types Packs/Day Years [...] Office Visit [facility] MEDICINE [address] [place] [address] Caity Gray MD [address] [place] [phone] documented as of this encounter Visit Diagnoses Not on filedocumented in this encounter Additional Health Concerns Assessment Noted Time PHQ-9 Depression Total Score: 9 02/28/20 23 2:29 PM EST documented as of this encounter Care Teams Engineering And Development Director Relationship Specialty Start Date End Date Caity Gray MD [address] [place] [phone] PCP - General Internal Medicine 11/13/22 Vero Pineda Dial MounterLicensed Bondsman 03/17/24 documented as of this encounter
--- OUTSIDE RECORDS SUMMARY | 2024-07-06 14:36 | XMS_ITS | Encounter Summary ---
Author Organization [facility] [employer] Address [address] [place] [address] 7 [place] [address] Care Team Providers Care Greens Or Grounds Superintendent Name Role Phone Neena Machcua Primary Care Provider [phone]- [phone] Caity Gray MD Primary Care Pro vider Reason for Visit * Reason Comments Med Refill Encounter Details Date Type Department Care Team (Late st Contact Info) Description 05/21/2022 Refill [facility] MEDICINE [address] [place] [phone] Neena Machuca FNP [address] [place] [address] Dept [place] [address] Essential hypertension Social History Tobacco Use Types [...] Description 08/12/2024 11:15 AM EDT Office Visit [facility] MEDICINE [address] [place] [address] [phone] Caity Gray MD [address] [place], [place] [phone] documented as of this encounter Visit Diagnoses Diagnosis Essential hypertension Unspecified essential hypertension documented in this encounter Care Teams Greens Or Grounds Superintendent Relationship Specialty Start Date End Date Neena Machuca FNP PCP - General Family Medicine 10/30/21 11/12/22 Caity Gray MD [address] [place] [phone] PCP - General Internal Medicine 11/13/22 Vero Pineda Lead TeacherChemical Laboratory Tester 03/17/24 documented as of this encounter
--- OUTSIDE RECORDS SUMMARY | 2024-07-06 14:36 | XMS_ITS | Encounter Summary ---
Author Organization [employer] Address 75 [facility] 7t [place] [address] Care Team Providers Care Benefits Coordinator Name Role Phone Caity Gray MD Primary Care Pro vider Reason for Visit * Reason Onset Date Comments Nurse Triage 01/02/2024 Encounter Details Date Type Department Care Team ([facility] Contact Info) Description 01/02/[address] [facility] MEDICINE [address] [place] [address] Caity Gray MD [address] [place] [address] Nurse Triage Social History Tobacco Use Types [...] pt to triage, spoke to pt. through Pain Doctor language interpreter. pt states had a minor fall yesterday. [...] Reason: Caller denied all higher acuity questions Telugu Speaker (Accepted Hose Coupling Joiner) documented in this encounter Plan of Treatment Upcoming Encounters Date Type Department Care Team (Late st Contact Info) Description 08/12/2024 11:15 AM EDT Office Visit [facility] MEDICINE [address] [place] [address] Caity Gray MD [address] [place] [address] documented as of this encounter Visit Diagnoses Not on filedocumented in this encounter Additional Health Concerns Assessment Noted Time PHQ-9 Depression Total Score: 9 02/28/20 23 2:29 PM EST documented as of this encounter Care Teams Benefits Coordinator Relationship Specialty Start Date End Date Caity Gray MD [address] [place] [phone] PCP - General Internal Medicine 11/13/22 Vero Pineda Authorization RepWindow Air Conditioner Installer 03/17/24 documented as of this encounter
--- OUTSIDE RECORDS SUMMARY | 2024-07-06 14:36 | XMS_ITS | Encounter Summary ---
Author Organization [employer] Address [address] [facility] 7t [place] [address] Care Team Providers Care Security Orderly Name Role Phone Caity Gray MD Primary Care Pro vider Reason for Visit * Reason Onset Date Comments PT1 04/10/2023 Encounter Details Date Type Department Care Team ([facility] Contact Info) Description 04/10/2023 Telephone [facility] [address] [place] [address] Caity Gray MD [address] [place] [address] PT1 Social History Tobacco Use Types Packs/Day [...] Time: n/a Visits: every 2 months Address: [address] [place] [address] [address] [address] Facility: [facility] Wheel Chair: no Conservation Science Teacher Needed: no Date: 05/07/23 Time: 1:30 pm Visits: her fist appt and is unsure Address: [address] [place] [address] Dr [address] Floor, [place] [address] Facility: [facility] Gastroenterology Wheel Chair: no Conservation Science Teacher Needed: no Date: 05/08/23 Time: 2:15 pm Visits: yearly Address: [address] [place] [address] Facility: [facility] Wheel Chair: no Conservation Science Teacher Needed: no documented in this encounter Plan of Treatment Upcoming Encounters Date Type Department Care Team (Late st Contact Info) Description 08/12/2024 11:15 AM EDT Office Visit [facility] [address] [place] [address] [phone] Caity Gray MD [address] [place] [address] documented as of this encounter Visit Diagnoses Not on filedocumented in this encounter Additional Health Concerns Assessment Noted Time PHQ-9 Depression Total Score: 9 02/28/20 23 2:29 PM EST documented as of this encounter Care Teams Security Orderly Relationship Specialty Start Date End Date Caity Gray MD [address] [place] [phone] PCP - General Internal Medicine 11/13/22 Vero Pineda Alarm SignalerUltrasound Coordinator 03/17/24 documented as of this encounter
--- OUTSIDE RECORDS SUMMARY | 2024-07-06 14:36 | XMS_ITS | Encounter Summary ---
Author Organization [employer] Address [address] [facility] 7t [place] [address] Care Team Providers Care Chisel Grinder Name Role Phone Caity Gray MD Primary Care Pro vider Reason for Visit * Reason Comments Med Refill Encounter Details Date Type Department Care Team ([facility] Contact Info) Description 02/27/2023 Refill [facility] [address] [place] [address] Caity Gray MD [address] [place] [address] Diabetic polyneuropathy associated with type 2 diabetes [...] Description 08/12/2024 11:15 AM EDT Office Visit [facility] [address] [place] [address] Caity Gray MD [address] [place] [address] documented as of this encounter Visit Diagnoses Diagnosis Diabetic polyneuropathy associated with type 2 diabetes mellitus (CMS/HCC) documented in this encounter Additional Health Concerns Assessment Noted Time PHQ-9 Depression Total Score: 9 02/28/20 23 2:29 PM EST documented as of this encounter Care Teams Chisel Grinder Relationship Specialty Start Date End Date Caity Gray MD [address] [place] [address] [phone] PCP - General Internal Medicine 11/13/22 Vero Pineda Sql Report WriterAuto Service Representative 03/17/24 documented as of this encounter
--- OUTSIDE RECORDS SUMMARY | 2024-07-06 14:36 | XMS_ITS | Encounter Summary ---
Author Organization [employer] Address [address] [facility] 7t [place] [address] Care Team Providers Care Code Official Name Role Phone Caity Gray MD Primary Care Pro vider Reason for Visit * Reason Onset Date Comments Appointment Request 04/07/2023 Encounter Details Date Type Department Care Team ([facility] Contact Info) Description 04/07/2023 Telephone [facility] [address] [place] [address] Caity Gray MD [address] [place] [address] Appointment Request Social History Tobacco Use Types [...] for 2/5 states is not feeling well radio news writer didcancel however there was no availability at the moment radio news writer did ask if the patient would like a message to be sent to triage but patient refuses. documented in this encounter Plan of Treatment Upcoming Encounters Date Type Department Care Team (Late st Contact Info) Description 08/12/2024 11:15 AM EDT Office Visit [facility] [address] [place] [address] Caity Gray MD [address] [place] [phone] documented as of this encounter Visit Diagnoses Not on filedocumented in this encounter Additional Health Concerns Assessment Noted Time PHQ-9 Depression Total Score: 9 02/28/20 23 2:29 PM EST documented as of this encounter Care Teams Code Official Relationship Specialty Start Date End Date Caity Gray MD [address] [place] [phone] PCP - General Internal Medicine 11/13/22 Vero Pineda Drugless PhysicianOven Press Tender 03/17/24 documented as of this encounter
--- OUTSIDE RECORDS SUMMARY | 2024-07-06 14:36 | XMS_ITS | Encounter Summary ---
Author Organization [employer] Address [address] [place] [address] 7 [place] [address] Care Team Providers Care Director Process Name Role Phone Neena Machuca Primary Care Provider +1- [phone] Caity Gray MD Primary Care Pro vider Reason for Visit * Reason Comments Med Refill Encounter Details Date Type Department Care Team ([facility] Contact Info) Description 03/20/2022 Refill [facility] [address] [place] [address] Neena Machuca FNP [address] [place] [address] Dept [place] [address] Diabetic polyneuropathy associated with type 2 diabetes [...] Upcoming Encounters Date Type Department Care Team ([facility] Contact Info) Description 08/12/2024 11:15 AM EDT Office Visit [facility] [address] [place] [address] [phone] Caity Gray MD [address] [place], [place] [phone] documented as of this encounter Visit Diagnoses Diagnosis Diabetic polyneuropathy associated with type 2 diabetes mellitus (CMS/HCC) documented in this encounter Care Teams Director Process Relationship Specialty Start Date End Date Neena Machuca FNP PCP - General Family Medicine 10/30/21 11/12/22 Caity Gray MD [address] [place] [address] PCP - General Internal Medicine 11/13/22 Vero Pineda Service CaptainCloud Consultant 03/17/24 documented as of this encounter
--- OUTSIDE RECORDS SUMMARY | 2024-07-06 14:36 | XMS_ITS | Clinical Summary ---
Author Organization [employer] Address 75 [facility] 7t [place] [address] Care Team Providers Care Freight Checker Name Role Phone Caity Gray MD Primary [...] polyneuropathy, with long-term current use of insulin ([facility]) Use 5 times a day when checking blood sugar 100 each 022 Active Blood Pressure Monitor kit 1 each 2 times daily. 1 kit 023 Active triamcinolone (Kenalog) 0.1 % creamIndications :Lichen nitidus Apply topically 2 times daily. Mix with CeraVe cream as directed and use after bathing. 80 g 2 023 Active Continuous Blood Gluc Seat Nailer (FreeStyle Daryn 2 [place]) deviceIndication s:Type 2 diabetes mellitus without complication, unspecified whether chcf insulin use (CMS/HCC) 1 EACH IF NEEDED [...] 2 diabetes mellitus without complication, unspecified whether terminal make up operator insulin use ([facility]) 1 each if needed (Glucose control). 4 [...] polyneuropathy associated with type 2 diabetes mellitus ([facility]) INJECT 8 UNITS SUBCUTANEOUSLY WITH BREAKFAST AND 6 UNITS AT NIGHT 15 mL 3 024 Active insulin glargine (Lantus SoloStar) 100 UNIT/ML penIndications:D iabetic polyneuropathy associated with type 2 diabetes mellitus ([facility]) Inject 12 Units under the skin at [...] RN to check on Repatha Rx at [place] [facility] Previous PA approved by insurance Unknown [...] FIT 04/10/22, pending. Will order again for [facility] 09/12/22 Lung cancer: Never smoker, no [...] Type Department Care Team Description 06/28/2024 Refill [facility] [address] [place], [place] [phone] Caity Gray MD Hyperlipidemia, unspecified hyperlipidemia type 06/25/2024 Refill [facility] [address] [place] [address] Caity Gray MD Hyperlipidemia, unspecified hyperlipidemia type 06/25/2024 Refill [facility] [address] [place] [address] Kristopher Serrano MD 05/24/2024 Telephone [facility] [address] [place], [place] [phone] Caity Gray MD chart prep 05/14/2024 Population Health Risk Score Community [facility] (C[facility]) Department [address] [facility] 7 [place] [address] Provider, Population Health Generic 05/04/2024 Refill [facility] [address] [place] [address] Caity Gray MD Hyperlipidemia, unspecified hyperlipidemia type; Diabetic polyneuropathy associated with type 2 diabetes mellitus ([facility]) 04/29/2024 Orders Only [facility] [address] [place], [place] [phone] Mary Haider ANP 04/28/2024 Refill [facility] [address] [place], [place] [phone] Caity Gray MD Type 2 diabetes mellitus with diabetic nephropathy, with long-term current use of insulin ([facility]) from Last 3 Months Immunizations Name Administration [...] Description 08/12/2024 11:15 AM EDT Office Visit [facility] [address] [place], [place] [phone] Caity Gray MD [address] [place] [address] Health Maintenance Due Date Last Done Comments [...] EST Narrative 01/12/2024 3:02 PM EST ? [facility] ? [address] ?[place] [address] ? Mammography Report ? Signed ? Patient: AurelioPaty ?MR#: [id number] ?? [id number] ? : 1960 ?Acct:[id number] ? Age/Sex: 63 / F ?ADM Date: 01/12/24 ? Loc: HO.MAMMO ? Attending Dr: Caity Brink MD ? Ordering Physician: Caity Gray MD ?Re ?? sults: 2Benign Findings ? Date of Service: 01/12/24 ?Follow Up: 1 Year From Orig ?? inal Mammogram ? Procedure(s): MM tomosynthesis diagnostic BI ?? Accession Number(s): [id number] ? cc: Caity Gray MD ? EXAMINATION: [...] DD/ 1400 ? TD/TT: 01/12/24 1422 ? Software Requirements Engineer: ? Procedure Note Donotuseinterpreter, Image - 01/12/2024 [facility] [address] [place] [address] Mammography Report Signed Patient: Paty CareyMR#: [id number] : 1960cct:[id number] Age/Sex: 63 / FADM Date: 01/12/24 Loc: HO.MAMMO Attending Dr: Caity Brink MD Ordering Physician: Caity Gray sults: 2Benign Findings Date of Service: 01/12/24Follow Up: 1 Year From Orig inal Mammogram Procedure(s): MM tomosynthesis diagnostic BI Accession Number(s): [id number] cc: Caity Gray MD EXAMINATION: MM DIAGNOSTIC [...] by: Tio Gilman MD 01/12/2024 02:59 PM [facility] Dictated By: Tio Gilman MD Signed By: <Electronically signed by Tio Gilman MD in OV> 01/12/24 1459 DD/ 1400 TD/TT: 01/12/24 1422 Software Requirements Engineer: us Caity Birnk MD IMG BI PROCEDURES Final Result * Hepatitis C Antibody with Reflex to HCV, RNA, Quantitative, Real-Time PCR (12/19/2023 11:05 AM EDT) Hepatitis C Antibody Nonreactive Nonreactive [facility] Comment:Antibodies to HCV no t detected; does not exclude early acuteHCV infection. Blood Venous blood specimen / Unknown 12/19/2023 11:05 AM EDT 12/19/2023 11:42 AM EDT us Caity Brink MD LAB BLOOD ORDERAB LES Final Result [facility] [address] [place] [phone] * HIV-1/2 Antigen and Antibodies, Fourth Generation, with Reflexes (12/19/2023 11:05 AM EDT) HIV AB/AG Nonreactive Nonreactive [facility] Comment:HIV-1 p24 Ag and/or HIV-1/HIV-2 Ab not detected.A test result that is nonreactive does not exclude thepossibility of exposure to or infection with HIV-1 and/orHIV-2. Nonreactive results in this assay for individualswith prior exposure to HIV-1 and/or HIV-2 may be due toantigen and antibody levels that are below the limit ofdetection of this assay.The [employer] HIV Ag/Ab Combo assay result andsupplemental assay results should be interpreted inconjunction with the patient's clinical presentation,history and other laboratory results. If the results areinconsistent with clinical evidence, additional testing issuggested to confirm the result. Blood Venous blood specimen / Unknown 12/19/2023 11:05 AM EDT 12/19/2023 11:42 AM EDT Caity Brink MD LAB BLOOD ORDERAB LES Final Result [facility] [address] [place] [phone] * (ABNORMAL) Hemoglobin A1c (12/19/2023 11:05 AM EDT) Hemoglobin A1c 7.9(H) <6.0 % [facility] Comment:Hemoglobin A1C Refer ence Range Adults: 4.8 - 6.0 % Non diabetic: < 6.0 % Goal: < 7.0 %Additional Action Suggested: > 8.0 %Note: Hemoglobin A1c results are invalid for patients with abnormal amounts of HbF. Blood transfusions may impact the HbA1c concentration in the patient sample. Estimated Average Glucose 180 mg/dL [facility] Comment:eAG = Estimated ave rage glucose which is %A1C expressed asaverage glucose, using the formula of the G3Y-WrjesxqQnkkoez Glucose study (ADAG), Diabetes Care, Vol.31,#8,Oct. 2007 Blood Venous blood specimen / Unknown 12/19/2023 11:05 AM EDT 12/19/2023 11:42 AM EDT us Caity Brink MD LAB BLOOD ORDERAB LES Final Result [facility] [address] [place] [phone] [phone] * (ABNORMAL) Lipid Panel, Standard (12/19/2023 11:05 AM EDT) Triglycerides 239(H) <150 mg/dL [facility] Comment:Desirable Triglyceri de: less than 150 mg/dLBorderline High Triglyceride 150-199 mg/dLHigh Triglyceride: 200-499 mg/dLVery High Triglyceride: greater than or equal to 5OO mg/dL Cholesterol 350(H) <200 mg/dL [facility] Comment:Desirable Cholestero l: less than 200 mg/dLBorderline High Cholesterol: 200-239 mg/dLHigh Cholesterol: greater than 239 mg/dL LDL Cholesterol Calculated 256(H) <100 mg/dL [facility] Comment:Desirable LDL: less than 100 mg/dLNear Optimal/Above Optimal LDL: 110- 129 mg/dLBorderline High LDL: 130-159 mg/dLHigh LDL: 160-189 mg/dLVery High LDL: greater than or equal to 190 mg/dL HDL Cholesterol 47 >40 mg/dL [facility] Comment:Desirable HDL: great er than 40 mg/dL Note: This HDL assay may give artificially low results in patients with liver disease. Blood Venous blood specimen / Unknown 12/19/2023 11:05 AM EDT 12/19/2023 11:42 AM EDT us Caity Brink MD LAB BLOOD ORDERAB LES Final Result [facility] [address] [place] [address] [phone] * Cologuard?? colon cancer screening (11/18/2023 12:00 AM EDT) Cologuard Result Negative Negative 11/26/19 24 5:47 PM EDT [facility] (CLIA #:[id number]) Comment: NEGATIVE TEST RESULT. A negative Cologuard [...] cancer. ??Following a negative Cologuard result, the [place] Cancer Society and U.S. Multi-Society Task Force screening guidelines recommend a Cologuard re-screening interval of 3 years. References: [place] Cancer Society Guideline for Colorectal Cancer Screening: https://www.cancer.org/cancer/bedud-hooxvf-tdecna/rrlhebyjo-zgvdhlaqg-przysud/ac s-rec ommendations.html.; [place] DK, Liang CR, Edda AnayaK, Colorectal Cancer Screening: Recommendations for Physicians and Patients from the U.S. Multi-Society Task Force on Colorectal Cancer Screening , Am J Gastroenterology 2017; 112:8064-4804. TEST DESCRIPTION: Composite algorithmic analysis of stool [...] Seymour et al, N Engl J Med 2014;370(14):2770-0407.) Cologuard may produce a false negative or false positive result (no colorectal cancer or precancerous polyp present at colonoscopy follow up). A negative Cologuard test result does not guarantee the absence of CRC or advanced adenoma (pre-cancer). The current Cologuard screening interval is every 3 years. ([place] Cancer Society and U.S. Multi-Society Task Force). Cologuard performance data in a 10,000 patient pivotal study using colonoscopy as the reference method can be accessed at the following location: www.[employer]aptee[employer]Mind Candy/results. Additional description of the Cologuard test process, warnings and precautions can be found at www.ActiveTrakrd.Mind Candy. Stool specimen (specimen) Rectal contents / Unknown 11/18/2023 11/19/2023 2:41 PM EDT Caity Brink MD LAB MOLECULAR PEDRO GNOSTICS ORDERABLES Final Result [facility] (CLIA #:[id number]) [place] [address], [place] [phone] from Last 3 Months or Most Recently Relevant to Health Maintenance Insurance [address] [place] [id number] [facility] Care Teams Freight Checker Relationship Specialty Start Date End Date Caity Gray MD [address] [place] [address] PCP - General Internal Medicine 11/13/22 Vero Pineda Protein ScientistBiodiesel Processing Technician 03/17/24
--- OUTSIDE RECORDS SUMMARY | 2024-07-06 14:36 | XMS_ITS | Encounter Summary ---
Author Organization [employer] Address [address] [place] [address] 7 [place] [address] Care Team Providers Care Auto Engine Mechanic Name Role Phone Neena Machuca Primary Care Provider +1- [phone] Caity Gray MD Primary Care Pro vider Reason for Visit * Reason Comments Med Refill Encounter Details Date Type Department Care Team ([facility] Contact Info) Description 06/24/2022 Refill [facility] [address] [place] [phone] Neena Machuca FNP [address] [place] [address] Dept [place] [address] Diabetic polyneuropathy associated with type 2 diabetes [...] Upcoming Encounters Date Type Department Care Team ([facility] Contact Info) Description 08/12/2024 11:15 AM EDT Office Visit [facility] [address] [place] [address] [phone] Ciaty Gray MD [address] [place], [place] [phone] documented as of this encounter Visit Diagnoses Diagnosis Diabetic polyneuropathy associated with type 2 diabetes mellitus (CMS/HCC) documented in this encounter Care Teams Auto Engine Mechanic Relationship Specialty Start Date End Date Neena Machuca FNP PCP - General Family Medicine 10/30/21 11/12/22 Caity Gray MD [address] [place] [address] PCP - General Internal Medicine 11/13/22 Vero Pineda Robotic Weld TechnicianBag Worker 03/17/24 documented as of this encounter
--- OUTSIDE RECORDS SUMMARY | 2024-07-06 14:36 | XMS_ITS | Encounter Summary ---
Author Organization [employer] Address [address] [facility] 7 [place] [address] Care Team Providers Care Distribution Tech Name Role Phone Caity Gray MD Primary Care Pro vider Reason for Visit * Reason Onset Date Comments PT-1 09/17/2023 Encounter Details Date Type Department Care Team ([facility] Contact Info) Description 09/17/2023 Telephone [facility] [address] [place] [address] Caity Gray MD [address] [place] [address] PT-1 Social History Tobacco Use Types Packs/Day [...] Y/N: Yes Provider name or facility name: [facility] Facility Address: [address] [facility] Escort needed: Y/N: No Do you have a wheelchair: Y/N: No If yes- Manual or electric: (Uses Cane) Visits: 6 Times yearly Patient calling requesting PT1 Home Address verified: Y/N: Yes Provider name or facility name: [facility] Facility Address: [address] [facility] Escort needed: Y/N: No Do you have a wheelchair: Y/N: No If yes- Manual or electric: Uses cane Visits: 6 times yearly Patient calling requesting PT1 Home Address verified: Y/N: Yes Provider name or facility name: [facility] Facility Address: [address] [facility] Escort needed: Y/N: No Do you have a wheelchair: Y/N: No If yes- Manual or electric: Uses Cane Visits: Every 3 months documented in this encounter Plan of Treatment Upcoming Encounters Date Type Department Care Team ([facility] st Contact Info) Description 08/12/2024 11:15 AM EDT Office Visit [facility] [address] [place] [address] Caity Gray MD [address] [place] [address] documented as of this encounter Visit Diagnoses Not on filedocumented in this encounter Additional Health Concerns Assessment Noted Time PHQ-9 Depression Total Score: 9 02/28/20 23 2:29 PM EST documented as of this encounter Care Teams Distribution Tech Relationship Specialty Start Date End Date Caity Gray MD [address] [place] [address] PCP - General Internal Medicine 11/13/22 Vero Pineda School Bus Driver/CustodianFurniture Rental Consultant 03/17/24 documented as of this encounter
--- OUTSIDE RECORDS SUMMARY | 2024-07-06 14:36 | XMS_ITS | Encounter Summary ---
Author Organization [employer] Address [address] [place] [address] 7 [place] [address] Care Team Providers Care Hand Printed Circuit Board Assembler Name Role Phone Neena Machuca DISPENSARY ATTENDANT Primary Care Provider +1- [phone] Caity Gray MD Primary Care Pro vider Encounter Details Date Type Department Care Team (Late Contact Info) Description 04/30/2022 Telephone [facility] [address] [place] [phone] Neena Machuca FNP [address] [place] [address] [place] [address] Social History Tobacco Use Types Packs/Day Years [...] AM EDT Office Visit [facility] [address] [place] [address] [phone] Caity Gray MD [address] [place] [address] [phone] documented as of this encounter Visit Diagnoses Not on filedocumented in this encounter Care Teams Hand Printed Circuit Board Assembler Relationship Specialty Start Date End Date Neena Machuca FNP PCP - General Family Medicine 10/30/21 11/12/22 Caity Gray MD [address] [place] [address] PCP - General Internal Medicine 11/13/22 Vero Pineda Camp Maintenance SupervisorHandle Sander Operator 03/17/24 documented as of this encounter
--- OUTSIDE RECORDS SUMMARY | 2024-07-06 14:36 | XMS_ITS | Encounter Summary ---
Author Organization [employer] Address 75 [facility] 7 [place] [address] Care Team Providers Care Electrical Accessories Assembler Name Role Phone Caity Gray MD Primary Care Pro vider Reason for Visit * Reason Onset Date Comments Med Refill 07/24/2023 Encounter Details Date Type Department Care Team ([facility] Contact Info) Description 07/24/2023 Telephone [facility] [address] [place] [address] Caity Gray MD 230 [place] [address] Med Refill Social History Tobacco Use Types [...] 3:42 PM EDT Medication was sent to [facility] on 07/16/23 with 2 refills. * Telephone Encounter - Eladio Rowe - 07/24/2023 3:40 PM EDT TC from pt requesting medication refill. Medications needing refill : evolocumab (Repatha SureClick) 140 MG/ML injection To be sent to: [facility] [place] [address] - [address] documented in this encounter Plan of Treatment Upcoming Encounters Date Type Department Care Team (Late st Contact Info) Description 08/12/2024 11:15 AM EDT Office Visit [facility] [address] [place] [address] Caity Gray MD 230 [place] [address] documented as of this encounter Visit Diagnoses Not on filedocumented in this encounter Additional Health Concerns Assessment Noted Time PHQ-9 Depression Total Score: 9 02/28/20 23 2:29 PM EST documented as of this encounter Care Teams Electrical Accessories Assembler Relationship Specialty Start Date End Date Caity Gray MD [address] [place] [address] PCP - General Internal Medicine 11/13/22 Vero Pineda Rail Car Painter/SandblasterMechanical Shop Laborer 03/17/24 documented as of this encounter
--- OUTSIDE RECORDS SUMMARY | 2024-07-06 14:36 | XMS_ITS | Encounter Summary ---
Author Organization [employer] Address 75 [facility] 7t [place] [address] Care Team Providers Care Supervisor Gate Services Name Role Phone Caity Gray MD Primary Care Pro vider Reason for Visit * Reason Comments Med Refill Encounter Details Date Type Department Care Team ([facility] Contact Info) Description 06/25/2024 Refill [facility] [address] [place] [address] Caity Gray MD 230 [place] [address] Hyperlipidemia, unspecified hyperlipidemia type Social History Tobacco [...] Description 08/12/2024 11:15 AM EDT Office Visit [facility] [address] [place] [address] Caity Gray MD [address] [place] [address] documented as of this encounter Visit Diagnoses Diagnosis Hyperlipidemia, unspecified hyperlipidemia type documented in this encounter Additional Health Concerns Assessment Noted Time PHQ-9 Depression Total Score: 9 02/28/20 23 2:29 PM EST documented as of this encounter Care Teams Supervisor Gate Services Relationship Specialty Start Date End Date Caity Gray MD [address] [place] [address] PCP - General Internal Medicine 11/13/22 Vero Pineda Windows Technical SpecialistPorter Baggage 03/17/24 documented as of this encounter
[2024-07-06 18:22] LABS: Alanine Aminotransferase 23 U/L (0-31); Alkaline Phosphatase 105 U/L (39-117); Anion Gap 12 (12-20); Aspartate Amino Transferase 28 U/L (5-31); Bilirubin Total 0.2 mg/dL (0.0-1.0); Blood Urea Nitrogen 26 mg/dL (9-16); Calcium 9.4 mg/dL (8.4-10.2); Carbon Dioxide 26 mmol/L (22-29); Chloride 107 mmol/L (96-108); Cholesterol 228 mg/dL (<200); Estimated Glomerular Filt Rate 46; Glucose Random 169 mg/dL (60-115); HDL Cholesterol 49 mg/dL (>40); LDL Cholesterol Calculated 154 mg/dL (<100); Potassium 4.2 mmol/L (3.3-5.1); Sodium 141 mmol/L (135-145); Total Protein 7.5 g/dL (6.5-8.0); Triglycerides 127 mg/dL (<150)
== END 2024-07-06 12:32 | disposition home or self-care (01) ==
LOC: HO.LAB 12:31
PROVIDERS: PCP Student in an Organized Health Care Education/Training Program; Visit Provider Nurse Practitioner Family
DX: E78.5 Hyperlipidemia, unspecified (principal); I10 Essential (primary) hypertension; R07.9 Chest pain, unspecified
CPT/HCPCS: 36415; 80053; 80061; 99212

== ENCOUNTER 2024-07-12 15:12 | Outpatient (REF) | payer MEDICAID, SELFPAY ==
--- NOTE | ~2024-07-12 | XR_ITS ---
EXAMINATION: XR ABDOMEN KUB CLINICAL INDICATION: constipation burden? COMPARISON: None available. TECHNIQUE: AP view of the abdomen. FINDINGS: Abundant stool, right hemicolon. No intestinal dilatation. No air-fluid levels. Punctate calcifications overlapping the sacrococcyx. Vascular clips in the right upper quadrant abdomen. Marginal osteophyte formation L4-5. XR/XR KUB IMPRESSION: No intestinal obstruction pattern. Consider calcified uterine fibroids. Probable status post post cholecystectomy. Electronically signed by: Juan Jenkins MD 07/12/2024 03:52 PM EDT RP
--- OUTSIDE RECORDS SUMMARY | 2024-07-12 15:16 | XMS_ITS | Encounter Summary ---
Author Organization [employer] Address [address] [place] [address] 7t [place] [address] Care Team Providers Care Steel Rule Die Maker Name Role Phone Neena Machuca Primary Care Provider +1- [phone] Caity Gray MD Primary Care Pro vider Reason for Visit * Reason Comments Med Refill Encounter Details Date Type Department Care Team ([facility] Contact Info) Description 06/24/2022 Refill [facility] [address] [place] [phone] Neena Machuca FNP [address] [place] [address] Dept [place] [address] Diabetic polyneuropathy associated with type 2 diabetes mellitus ([facility]) Social History Tobacco Use Types Packs/Day Years [...] Encounters Date Type Department Care Team ([facility] Contact Info) Description 07/12/2024 3:20 PM EDT Office Visit [facility] [address] [place] [address] [phone] Abdominal pain, unspecified abdominal location (Primary Dx); Dietary counseling; Exercise counseling; Overweight; Screening for cervical cancer 08/12/2024 11:15 AM EDT Office Visit [facility] [address] [place] [address] [phone] Caity Gray MD 230 [place] [address] documented as of this encounter Visit Diagnoses Diagnosis Diabetic polyneuropathy associated with type 2 diabetes mellitus (CMS/HCC) Abdominal pain, unspecified abdominal location- Primary Dietary counseling Dietary surveillance and counseling Exercise counseling Overweight Screening for cervical cancer Screening for malignant neoplasm of the cervix documented in this encounter Care Teams Steel Rule Die Maker Relationship Specialty Start Date End Date Neena Machuca FNP PCP - General Family Medicine 10/30/21 11/12/22 Caity Gray MD 230 [place] [address] PCP - General Internal Medicine 11/13/22 Vero Pineda Cap Machine OperatorFurnace Filler 03/17/24 documented as of this encounter
--- OUTSIDE RECORDS SUMMARY | 2024-07-12 15:16 | XMS_ITS | Encounter Summary ---
Author Organization [employer] Address [address] [facility] [address] 7t [place] [address] Care Team Providers Care Riverboat Captain Name Role Phone Caity Gray MD Primary Care Pro vider Reason for Visit * Reason Comments Abdominal Pain Encounter Details Date Type Department Care Team ([facility] Contact Info) Description 07/12/2024 3:20 PM EDT Office Visit [facility] 230 [place] [address] Abdominal pain, unspecified abdominal location (Primary Dx); Dietary counseling; Exercise counseling; Overweight; Screening for cervical cancer Social History Tobacco Use Types Packs/Day Years [...] AM EDT documented as of this encounter Last Filed Vital Signs Vital Sign Reading Time Taken Comments Blood Pressure 146/80 07/12/2024 2:26 PM EDT Pulse 64 07/12/2024 2:26 PM EDT Temperature 36.8 ??C (98.3 ??F) 07/12/2024 2:26 PM ED T Respiratory Rate 17 07/12/2024 2:26 PM EDT Oxygen Saturation 98% 07/12/2024 2:26 PM EDT Inhaled Oxygen Concentration - - Weight 67.9 kg (149 lb 12.8 oz) 07/12/2024 2:26 PM EDT Height - - Body Mass Index 26.54 01/07/2024 9:07 AM EST documented in this encounter Plan of Treatment Upcoming Encounters Date Type Department Care Team (Late st Contact Info) Description 08/12/2024 11:15 AM EDT Office Visit [facility] [address] [place] [address] Caity Gray MD 230 [place] [address] Scheduled Orders Name Type Priority Associated Diagnoses Order Schedule XR KUB and Upright 2 Views Imaging Routine Abdominal pain, unspecified abdominal location Expected: 07/12/2024, Expires: 07/12/2025 ThinPrep Imaging Pap and HPV mRNA E6/E7 with Reflex to HPV 16,18/45 Pathology and Cytology Routine Screening for cervical cancer Expected: 07/12/2024 (Approximate), Expires: 07/12/2025 Chlamydia/N. Gonorrhoeae RNA, TMA, Urogenitial Microbiology Routine Screening for cervical cancer Ordered: 07/12/2024 documented as of this encounter Visit Diagnoses Diagnosis Abdominal pain, unspecified abdominal location- Primary Dietary counseling Dietary surveillance and counseling Exercise counseling Overweight Screening for cervical cancer Screening for malignant neoplasm of the cervix documented in this encounter Additional Health Concerns Assessment Noted Time PHQ-9 Depression Total Score: 9 02/28/20 23 2:29 PM EST documented as of this encounter Care Teams Riverboat Captain Relationship Specialty Start Date End Date Caity Gray MD [address] [place] [address] PCP - General Internal Medicine 11/13/22 Vero Pineda HammererBlender Conveyor Operator 03/17/24 documented as of this encounter
--- OUTSIDE RECORDS SUMMARY | 2024-07-12 15:16 | XMS_ITS | Encounter Summary ---
Author Organization [employer] Address [address] [facility] [address] 7t [place] [address] Care Team Providers Care Supervisor Ski Production Name Role Phone Caity Gray MD Primary Care Pro vider Encounter Details Date Type Department Care Team ([facility] Contact Info) Description 04/29/2024 Orders Only [facility] 230 [place] [address] Mray Haider, ANP [address] [place] [address] Social History Tobacco Use Types Packs/Day Years [...] Care Team (Late st Contact Info) Description 07/12/2024 3:20 PM EDT Office Visit [facility] [address] [place] [phone] Abdominal pain, unspecified abdominal location (Primary Dx); Dietary counseling; Exercise counseling; Overweight; Screening for cervical cancer 08/12/2024 11:15 AM EDT Office Visit [facility] [address] [place] [address] Caity Gray MD [address] [place] [address] documented as of this encounter Visit Diagnoses Not on filedocumented in this encounter Additional Health Concerns Assessment Noted Time PHQ-9 Depression Total Score: 9 02/28/20 23 2:29 PM EST documented as of this encounter Care Teams Supervisor Ski Production Relationship Specialty Start Date End Date Caity Gray MD [address] [place] [address] PCP - General Internal Medicine 11/13/22 Vero Pineda Leather TogglerFuneral Driver 03/17/24 documented as of this encounter
--- OUTSIDE RECORDS SUMMARY | 2024-07-12 15:16 | XMS_ITS | Encounter Summary ---
Author Organization [employer] Address [address] [place] [address] 7 [place] [address] Care Team Providers Care Bread Wrapper Operator Name Role Phone Neena Machuca Primary Care Provider +1- [phone] Caity Gray MD Primary Care Pro vider Reason for Visit * Reason Comments Med Refill Encounter Details Date Type Department Care Team (Late st Contact Info) Description 05/21/2022 Refill [facility] [address] [place] [address] Neena Machuca FNP [address] [place] [address] Dept [place] [address] Essential hypertension Social History Tobacco Use Types [...] Department Care Team (Late Contact Info) Description 07/12/2024 3:20 PM EDT Office Visit [facility] [address] [place] [address] [phone] Abdominal pain, unspecified abdominal location (Primary Dx); Dietary counseling; Exercise counseling; Overweight; Screening for cervical cancer 08/12/2024 11:15 AM EDT Office Visit [facility] [address] [place] [address] Caity Gray MD [address] [place] [address] [place] [address] documented as of this encounter Visit Diagnoses Diagnosis Essential hypertension Unspecified essential hypertension Abdominal pain, unspecified abdominal location- Primary Dietary counseling Dietary surveillance and counseling Exercise counseling Overweight Screening for cervical cancer Screening for malignant neoplasm of the cervix documented in this encounter Care Teams Bread Wrapper Operator Relationship Specialty Start Date End Date Neena Machuca FNP PCP - General Family Medicine 10/30/21 11/12/22 Caity Gray MD 230 [place] [address] PCP - General Internal Medicine 11/13/22 Vero Pineda Instrumentation Engineering TechnicianHealthcare Consulting Manager 03/17/24 documented as of this encounter
--- OUTSIDE RECORDS SUMMARY | 2024-07-12 15:16 | XMS_ITS | Encounter Summary ---
Author Organization [employer] Address 75 [facility] 7t [place] [address] Care Team Providers Care Support Manager Name Role Phone Caity Gray MD Primary Care Pro vider Reason for Visit * Reason Onset Date Comments Appointment Request 04/07/2023 Encounter Details Date Type Department Care Team ([facility] Contact Info) Description 04/07/2023 Telephone [facility] 230 [place] [address] Caity Gray MD 230 [place] [address] Appointment Request Social History Tobacco Use Types [...] for 2/5 states is not feeling well science writer didcancel however there was no availability at the moment science writer did ask if the patient would like a message to be sent to triage but patient refuses. documented in this encounter Plan of Treatment Upcoming Encounters Date Type Department Care Team (Late st Contact Info) Description 07/12/2024 3:20 PM EDT Office Visit [facility] [address] [place] [address] [phone] Abdominal pain, unspecified abdominal location (Primary Dx); Dietary counseling; Exercise counseling; Overweight; Screening for cervical cancer 08/12/2024 11:15 AM EDT Office Visit [facility] [address] [place] [address] [phone] Caity Gray MD [address] [place] [address] [phone] documented as of this encounter Visit Diagnoses Not on filedocumented in this encounter Additional Health Concerns Assessment Noted Time PHQ-9 Depression Total Score: 9 02/28/20 23 2:29 PM EST documented as of this encounter Care Teams Support Manager Relationship Specialty Start Date End Date Caity Gray MD [address] [place] [address] PCP - General Internal Medicine 11/13/22 Vero Pineda Aboriginal Community Council MemberBeater Engineer [place]per 03/17/24 documented as of this encounter
--- OUTSIDE RECORDS SUMMARY | 2024-07-12 15:16 | XMS_ITS | Encounter Summary ---
Author Organization [employer] Address 75 [facility] 7t [place] [address] Care Team Providers Care Canvassing Manager Name Role Phone Caity Gray MD Primary Care Pro vider Reason for Visit * Reason Onset Date Comments PT1 04/10/2023 Encounter Details Date Type Department Care Team ([facility] Contact Info) Description 04/10/2023 Telephone [facility] 230 [place] [address] Caity Gray MD 230 [place] [address] PT1 Social History Tobacco Use Types Packs/Day [...] Time: n/a Visits: every 2 months Address: [address] [place] [address] [address] [address] Facility: [facility] Wheel Chair: no Pediatric Hospitalist Needed: no Date: 05/07/23 Time: 1:30 pm Visits: her fist appt and is unsure Address: [address] [place] [address] Dr [address] Floor, [place] [address] Facility: [facility] Wheel Chair: no Pediatric Hospitalist Needed: no Date: 05/08/23 Time: 2:15 pm Visits: yearly Address: [address] [place] [address] Facility: [facility] Wheel Chair: no Pediatric Hospitalist Needed: no documented in this encounter Plan of Treatment Upcoming Encounters Date Type Department Care Team (Late st Contact Info) Description 07/12/2024 3:20 PM EDT Office Visit [facility] [address] [place] [address] [phone] Abdominal pain, unspecified abdominal location (Primary Dx); Dietary counseling; Exercise counseling; Overweight; Screening for cervical cancer 08/12/2024 11:15 AM EDT Office Visit [facility] [address] [place] [address] [phone] Caity Gray MD [address] [place] [address] documented as of this encounter Visit Diagnoses Not on filedocumented in this encounter Additional Health Concerns Assessment Noted Time PHQ-9 Depression Total Score: 9 02/28/20 23 2:29 PM EST documented as of this encounter Care Teams Canvassing Manager Relationship Specialty Start Date End Date Caity Gray MD [address] [place] [address] [place] [address] PCP - General Internal Medicine 11/13/22 Vero Pineda Straddle Truck DriverCoding Assistant 03/17/24 documented as of this encounter
--- OUTSIDE RECORDS SUMMARY | 2024-07-12 15:16 | XMS_ITS | Encounter Summary ---
Author Organization [employer] Address 75 [facility] 7t [place] [address] Care Team Providers Care Acute Coordinator Name Role Phone Neena Machuca Primary Care Provider +1- [phone] Caity Gray MD Primary Care Pro vider Encounter Details Date Type Department Care Team (Late Contact Info) Description 04/30/2022 Telephone [facility] [address] [place] [address] Neena Machuca FNP [address] [place] [address] Dept [place] [address] Social History Tobacco Use Types Packs/Day Years [...] Description 07/12/2024 3:20 PM EDT Office Visit [facility] 230 [place] [address] Abdominal pain, unspecified abdominal location (Primary Dx); Dietary counseling; Exercise counseling; Overweight; Screening for cervical cancer 08/12/2024 11:15 AM EDT Office Visit [facility] [address] [place] [address] Caity Gray MD 230 [place] [address] documented as of this encounter Visit Diagnoses Not on filedocumented in this encounter Care Teams Acute Coordinator Relationship Specialty Start Date End Date Neena Machuca FNP PCP - General Family Medicine 10/30/21 11/12/22 Caity Gray MD 230 [place] [address] PCP - General Internal Medicine 11/13/22 Vero Pineda Ferry OperatorManager Books 03/17/24 documented as of this encounter
--- OUTSIDE RECORDS SUMMARY | 2024-07-12 15:16 | XMS_ITS | Encounter Summary ---
Author Organization [employer] Address 75 [facility] 7t [place] [address] Care Team Providers Care Construction Stonemason Name Role Phone Caity Gray MD Primary Care Pro vider Reason for Visit * Reason Comments Med Refill Encounter Details Date Type Department Care Team ([facility] Contact Info) Description 06/25/2024 Refill [facility] 230 [place] [address] Caity Gray MD 230 [place] [address] Hyperlipidemia, unspecified hyperlipidemia type Social History Tobacco [...] Description 07/12/2024 3:20 PM EDT Office Visit [facility] [address] [place] [address] Abdominal pain, unspecified abdominal location (Primary Dx); Dietary counseling; Exercise counseling; Overweight; Screening for cervical cancer 08/12/2024 11:15 AM EDT Office Visit [facility] [address] [place] [address] Caity Gray MD [address] [place] [address] documented as of this encounter Visit Diagnoses Diagnosis Hyperlipidemia, unspecified hyperlipidemia type Abdominal pain, unspecified abdominal location- Primary Dietary counseling Dietary surveillance and counseling Exercise counseling Overweight Screening for cervical cancer Screening for malignant neoplasm of the cervix documented in this encounter Additional Health Concerns Assessment Noted Time PHQ-9 Depression Total Score: 9 02/28/20 23 2:29 PM EST documented as of this encounter Care Teams Construction Stonemason Relationship Specialty Start Date End Date Caity Gray MD [address] [place] [address] PCP - General Internal Medicine 11/13/22 Vero Pineda Water Taxi CaptainReal Estate Listing Consultant 03/17/24 documented as of this encounter
--- OUTSIDE RECORDS SUMMARY | 2024-07-12 15:16 | XMS_ITS | Encounter Summary ---
Author Organization [employer] Address 75 [facility] 7 [place] [address] Care Team Providers Care Textile Converter Name Role Phone Caity Gray MD Primary Care Pro vider Reason for Visit * Reason Onset Date Comments Med Refill 07/24/2023 Encounter Details Date Type Department Care Team ([facility] Contact Info) Description 07/24/2023 Telephone [facility] 230 [place] [address] Caity Gray MD 230 [place] [address] Med Refill Social History Tobacco Use Types [...] 3:42 PM EDT Medication was sent to [facility] on 07/16/23 with 2 refills. * Telephone Encounter - Eladio Rowe - 07/24/2023 3:40 PM EDT TC from pt requesting medication refill. Medications needing refill : evolocumab (Repatha SureClick) 140 MG/ML injection To be sent to: [facility] [place] [address] - [address] [facility] documented in this encounter Plan of Treatment Upcoming Encounters Date Type Department Care Team (Late st Contact Info) Description 07/12/2024 3:20 PM EDT Office Visit [facility] [address] [place] [phone] Abdominal pain, unspecified abdominal location (Primary Dx); Dietary counseling; Exercise counseling; Overweight; Screening for cervical cancer 08/12/2024 11:15 AM EDT Office Visit [facility] [address] [place] [address] Caity Gray MD [address] [place] [address] documented as of this encounter Visit Diagnoses Not on filedocumented in this encounter Additional Health Concerns Assessment Noted Time PHQ-9 Depression Total Score: 9 02/28/20 23 2:29 PM EST documented as of this encounter Care Teams Textile Converter Relationship Specialty Start Date End Date Caity Gray MD [address] [place] [address] [phone] PCP - General Internal Medicine 11/13/22 Vero Pineda Fitter MechanicDirector Of Rehabilitative Services 03/17/24 documented as of this encounter
--- OUTSIDE RECORDS SUMMARY | 2024-07-12 15:16 | XMS_ITS | Encounter Summary ---
Author Organization [employer] Address 75 [facility] 7t [place] [address] Care Team Providers Care Cook Frozen Dessert Name Role Phone Caity Gray MD Primary Care Pro vider Reason for Visit * Reason Onset Date Comments PT-1 09/17/2023 Encounter Details Date Type Department Care Team ([facility] Contact Info) Description 09/17/2023 Telephone [facility] [address] [place] [address] Caity Gray MD 230 [place] [address] PT-1 Social History Tobacco Use Types Packs/Day [...] Y/N: Yes Provider name or facility name: [facility] Facility Address: [address] [facility] Escort needed: Y/N: No Do you have a wheelchair: Y/N: No If yes- Manual or electric: (Uses Cane) Visits: 6 Times yearly Patient calling requesting PT1 Home Address verified: Y/N: Yes [facility] Address: [address] [facility] Escort needed: Y/N: No Do you have a wheelchair: Y/N: No If yes- Manual or electric: Uses cane Visits: 6 times yearly Patient calling requesting PT1 Home Address verified: Y/N: Yes Provider name or facility name: [facility] Facility Address: [address] [place] [address] Escort needed: Y/N: No Do you have a wheelchair: Y/N: No If yes- Manual or electric: Uses Cane Visits: Every 3 months documented in this encounter Plan of Treatment Upcoming Encounters Date Type Department Care Team ([facility] st Contact Info) Description 07/12/2024 3:20 PM EDT Office Visit [facility] [address] [place] [address] [phone] Abdominal pain, unspecified abdominal location (Primary Dx); Dietary counseling; Exercise counseling; Overweight; Screening for cervical cancer 08/12/2024 11:15 AM EDT Office Visit [facility] [address] [place] [address] Caity Gray MD 230 [place] [address] documented as of this encounter Visit Diagnoses Not on filedocumented in this encounter Additional Health Concerns Assessment Noted Time PHQ-9 Depression Total Score: 9 02/28/20 23 2:29 PM EST documented as of this encounter Care Teams Cook Frozen Dessert Relationship Specialty Start Date End Date Caity Gray MD [address] [place] [address] PCP - General Internal Medicine 11/13/22 Vero Pineda Drug Abuse Treatment SpecialistSales Development Manager 03/17/24 documented as of this encounter
--- OUTSIDE RECORDS SUMMARY | 2024-07-12 15:16 | XMS_ITS | Encounter Summary ---
Author Organization [employer] Address [address] [facility] 7t [place] [address] Care Team Providers Care Fur Floor Worker Name Role Phone Caity Gray MD Primary Care Pro vider Reason for Visit * Reason Comments Med Refill Encounter Details Date Type Department Care Team ([facility] Contact Info) Description 02/27/2023 Refill [facility] [address] [place] [address] Caity Gray MD [address] [place] [address] Diabetic polyneuropathy associated with type 2 diabetes [...] Description 07/12/2024 3:20 PM EDT Office Visit [facility] [address] [place] [phone] Abdominal pain, unspecified abdominal location (Primary Dx); Dietary counseling; Exercise counseling; Overweight; Screening for cervical cancer 08/12/2024 11:15 AM EDT Office Visit [facility] [address] [place] [address] Caity Gray MD [address] [place] [phone] documented as of this encounter Visit Diagnoses [...] documented as of this encounter Care Teams Fur Floor Worker Relationship Specialty Start Date End Date Caity Gray MD [address] [place] [phone] PCP - General Internal Medicine 11/13/22 Vero Pineda Ophthalmic TechnologistWraparound Facilitator 03/17/24 documented as of this encounter
--- OUTSIDE RECORDS SUMMARY | 2024-07-12 15:16 | XMS_ITS | Clinical Summary ---
Author Organization [employer] Address [address] [facility] 7t [place] [address] Care Team Providers Care Fire Claims Adjuster Name Role Phone Caity Gray MD Primary [...] tablet by mouth at bed time. Active Alcohol Swabs (Alcohol Prep) 70 % padsIndications: Type 2 diabetes mellitus with diabetic polyneuropathy, with long-term current use of insulin (CMS/HCC) Use 5 times a day when checking blood sugar 100 each 11 022 Active Blood Pressure Monitor kit 1 each 2 times daily. 1 kit 023 Active triamcinolone (Kenalog) 0.1 % creamIndications :Lichen nitidus Apply topically 2 times daily. Mix with CeraVe cream as directed and use after bathing. 80 g 2 023 Active Continuous Blood Gluc Clinical Psychologist (FreeStyle Daryn 2 [place]) deviceIndication s:Type 2 diabetes mellitus without complication, [...] 2 diabetes mellitus without complication, unspecified whether marketing sales supervisor insulin use ([facility]) 1 each if needed (Glucose control). 4 [...] polyneuropathy associated with type 2 diabetes mellitus ([facility]) INJECT 8 UNITS SUBCUTANEOUSLY WITH BREAKFAST AND 6 UNITS AT NIGHT 15 mL 3 024 Active insulin glargine (Lantus SoloStar) 100 UNIT/ML penIndications:D iabetic polyneuropathy associated with type 2 diabetes mellitus ([facility]) Inject 12 Units under the skin at bedtime. INJECT 12 UNITS SUBCUTANEOUSLY EVERY NIGHT 15 mL 5 024 Active evolocumab (Repatha SureClick) 140 MG/ML injectionIndicat ions:Type 2 diabetes mellitus with diabetic nephropathy, with long-term current use of insulin ([facility]) INJECT 1 ML SUBCUTANEOUSLY EVERY 14 DAYS 2 mL 2 025 Active gabapentin (Neurontin) 600 MG tabletIndication s:Diabetic polyneuropathy associated with type 2 diabetes mellitus ([facility]) TAKE 1 TABLET BY MOUTH THREE TIMES A DAY 90 tablet 1 025 Active Trulicity 3 MG/0.5ML solution auto-injector INJECT ONE PEN (= 3MG) SUBCUTANEOUSLY ONCE A WEEK DIRECTED 2 mL 2 025 Active atorvastatin (Lipitor) 20 MG tabletIndication s:Hyperlipidemia , unspecified hyperlipidemia type Take 1 tablet (20 mg) by mouth Once per day. 90 tablet 025 2025 Active brimonidine (AlphaGAN) 0.2 % ophthalmic solution instill 1 drop in each eye twice daily 025 Active latanoprost (Xalatan) 0.005 % ophthalmic solution INSTILL 1 DROP IN EACH EYE EVERY NIGHT 025 Active Pred Forte 1 % ophthalmic suspension INSTILL 1 DROP INTO IN THE RIGHT EYE FOUR TIMES DAILY FOR 14 DAYS 024 Active zoster vaccine-recombin ant adjuvanted (Shingrix) 50 MCG/0.5ML vaccine Inject 0.5 mL into the shoulder, thigh, or buttocks. 022 2024 Discontinued(T herapy completed) atorvastatin (Lipitor) 20 MG tabletIndication s:Hyperlipidemia , [...] RN to check on Repatha Rx at [place] [facility] Previous PA approved by insurance Unknown [...] FIT 04/10/22, pending. Will order again for [facility] 09/12/22 Lung cancer: Never smoker, no [...] Encounters Date Type Department Care Team Description 07/12/2024 3:20 PM EDT Office Visit [facility] [address] [place] [address] Abdominal pain, unspecified abdominal location (Primary Dx); Dietary counseling; Exercise counseling; Overweight; Screening for cervical cancer 07/06/2024 Orders Only GENERIC EXTERNAL DATA DEPARTMENT Provider, Generic External Data 06/28/2024 Refill [facility] [address] [place], [place] [phone] Caity Gray MD Hyperlipidemia, unspecified hyperlipidemia type 06/25/2024 Refill [facility] [address] [place] [address] Caity Gray MD Hyperlipidemia, unspecified hyperlipidemia type 06/25/2024 Refill [facility] [address] [place] [address] Kristopher Serrano MD 05/24/2024 Telephone [facility] [address] [place] [address] Caity Gray MD chart prep 05/14/2024 Population Health Risk Score [facility] Department [address] [phone] Provider, Population Health Generic 05/04/2024 Refill [facility] [address] [place] [address] Caity Gray MD Hyperlipidemia, unspecified hyperlipidemia type; Diabetic polyneuropathy associated with type 2 diabetes mellitus ([facility]) 04/29/2024 Orders Only [facility] [address] [place] [address] Mary Haider ANP 04/28/2024 Refill [facility] [address] [place] [address] Caity Gray MD Type 2 diabetes mellitus with diabetic nephropathy, with long-term current use of insulin ([facility]) from Last 3 Months Immunizations Name Administration [...] 12.8 oz) 07/12/2024 2:26 PM EDT Height 160 cm (5' 3 ) 01/07/2024 9:07 AM EST Body Mass Index 26.54 01/07/2024 9:07 AM EST Plan of Treatment Upcoming Encounters Date Type Department Care Team (Late st Contact Info) Description 07/12/2024 3:20 PM EDT Office Visit [facility] [address] [place] [phone] Abdominal pain, unspecified abdominal location (Primary Dx); Dietary counseling; Exercise counseling; Overweight; Screening for cervical cancer 08/12/2024 11:15 AM EDT Office Visit [facility] [address] [place] [address] Caity Gray MD [address] [place] [address] Health Maintenance Due Date Last Done Comments [...] 11/02, 02/19/2022, Additional history exists Lipid Panel 07/06/2025 07/06/2024, 12/01, 09/12/2022, Additional history exists Tobacco Screening 07/12/2025 07/12/2024 Colorectal Cancer Screening 11/17/2026 FIT DNA/Cologuard 11/17/2026 [...] Procedure Name Priority Date/Time Associated Diagnosis Comments LIPID PANEL, STANDARD Routine 07/06/2024 1:27 PM EDT COMPREHENSIVE METABOLIC PANEL Routine 07/06/2024 1:27 PM EDT BI MAMMOGRAM DIAGNOSTIC TOMOSYNTHESIS BILATERAL Routine 01/12/2024 [...] Recently Relevant to Health Maintenance Results * (ABNORMAL) Lipid Panel, Standard (07/06/2024 1:27 PM EDT) Triglycerides 127 <150 mg/dL [facility] Comment:Desirable Triglyceri de: less than 150 mg/dLBorderline High Triglyceride 150-199 mg/dLHigh Triglyceride: 200-499 mg/dLVery High Triglyceride: greater than or equal to 5OO mg/dL Cholesterol 228(H) <200 mg/dL [facility] Comment:Desirable Cholestero l: less than 200 mg/dLBorderline High Cholesterol: 200-239 mg/dLHigh Cholesterol: greater than 239 mg/dL LDL Cholesterol Calculated 154(H) <100 mg/dL [facility] Comment:Desirable LDL: less than 100 mg/dLNear Optimal/Above Optimal LDL: 110- 129 mg/dLBorderline High LDL: 130-159 mg/dLHigh LDL: 160-189 mg/dLVery High LDL: greater than or equal to 190 mg/dL HDL Cholesterol 49 >40 mg/dL [facility] Comment:Desirable HDL: great er than 40 mg/dL Note: This HDL assay may give artificially low results in patients with liver disease. 07/06/2024 1:27 PM EDT 07/06/2024 1:27 PM EDT us Generic External Data Provider LAB BLOOD ORDERAB LES Final Result [facility] [address] [place] [address] [phone] * (ABNORMAL) Comprehensive Metabolic Panel (07/06/2024 1:27 PM EDT) Sodium 141 135 - 145 mmol/L [facility] Potassium 4.2 3.3 - 5.1 mmol/L [facility] Chloride 107 96 - 108 mmol/L [facility] Carbon Dioxide 26 22 - 29 mmol/L [facility] Anion Gap 12 12 - 20 [facility] Urea Nitrogen (BUN) 26(H) 9 - 16 mg/dL [facility] Creatinine, Serum 1.18 0.5 - 1.4 mg/dL [facility] Estimated Glomerular Filt Rate 46 [facility] Comment:Chronic Kidney Disea se: Estimated GFR < 60 mL/min/1.51d3Nzpixj Kidney Disease: Estimated GFR < 15 mL/min/1.73m2 Glucose 169(H) 60 - 115 mg/dL [facility] Calcium 9.4 8.4 - 10.2 mg/dL [facility] Bilirubin, Total 0.2 0.0 - 1.0 mg/dL [facility] Aspartate Amino Transferase 28 5 - 31 U/L [facility] Alanine Aminotransferase 23 0 - 31 U/L [facility] Total Protein 7.5 6.5 - 8.0 g/dL [facility] Albumin Level 4.0 3.5 - 5.0 g/dL [facility] Alkaline Phosphatase 105 39 - 117 U/L [facility] 07/06/2024 1:27 PM EDT 07/06/2024 1:27 PM EDT us Generic External Data Provider LAB BLOOD ORDERAB LES Final Result [facility] [address] [place] [address] [phone] * BI Mammogram Diagnostic Tomosynthesis Bilateral (01/12/2024 2:00 PM EST) Anatomical Region Laterality Modality Breast Bilateral Mammography 01/12/2024 2:00 PM EST Narrative 01/12/2024 3:02 PM EST ? [facility] [place] ? [address] ?[place] [address] ? Mammography Report ? Signed ? Patient: Aurelio,Paty ?MR#: [id number] ?? [id number] ? : 1960 ?Acct:[id number] ? Age/Sex: 63 / F ?ADM Date: 01/12/24 ? Loc: HO.MAMMO ? Attending Dr: Caity Brink MD ? Ordering Physician: Caity Gray MD ?Re ?? sults: 2Benign Findings ? Date of Service: 01/12/24 ?Follow Up: 1 Year From Orig ?? inal Mammogram ? Procedure(s): MM tomosynthesis diagnostic BI ?? Accession Number(s): [id number] ? cc: Caity Gray MD ? EXAMINATION: [...] DD/ 1400 ? TD/TT: 01/12/24 1422 ? Prepared Foods Team Leader: ? Procedure Note Avilater, Image - [facility] [address] [place] [address] Mammography Report Signed Patient: Paty CareyMR#: [id number] : 1960cct:[id number] Age/Sex: 63 / FADM Date: 01/12/24 Loc: [facility] Attending Dr: Caity Brink MD Ordering Physician: Caity Gray sults: 2Benign Findings Date of Service: 01/12/24Follow Up: 1 Year From Orig inal Mammogram Procedure(s): MM tomosynthesis diagnostic BI Accession Number(s): [id number] cc: Caity Gray MD EXAMINATION: MM DIAGNOSTIC [...] by: Tio Gilman MD 01/12/2024 02:59 PM [facility] Dictated By: Tio Gilman MD Signed By: <Electronically signed by Tio Gilman MD in OV> 01/12/24 1459 DD/ 1400 TD/TT: 01/12/24 1422 Prepared Foods Team Leader: Caity Brink MD IMG BI PROCEDURES Final Result * Hepatitis C Antibody with Reflex to HCV, RNA, Quantitative, Real-Time PCR (12/19/2023 11:05 AM EDT) Hepatitis C Antibody Nonreactive Nonreactive [facility] Comment:Antibodies to HCV no t detected; does not exclude early acuteHCV infection. Blood Venous blood specimen / Unknown 12/19/2023 11:05 AM EDT 12/19/2023 11:42 AM EDT Caity Brink MD LAB BLOOD ORDERAB LES Final Result Performing Organization Address City/[facility]/ZIP Co de Phone Number [facility] [address] [place] [address] [phone] * HIV-1/2 Antigen and Antibodies, Fourth Generation, with Reflexes (12/19/2023 11:05 AM EDT) HIV AB/AG Nonreactive Nonreactive [facility] Comment:HIV-1 p24 Ag and/or HIV-1/HIV-2 Ab not detected.A test result that is nonreactive does not exclude thepossibility of exposure to or infection with HIV-1 and/orHIV-2. Nonreactive results in this assay for individualswith prior exposure to HIV-1 and/or HIV-2 may be due toantigen and antibody levels that are below the limit ofdetection of this assay.[employer] HIV Ag/Ab Combo assay result andsupplemental assay results should be interpreted inconjunction with the patient's clinical presentation,history and other laboratory results. If the results areinconsistent with clinical evidence, additional testing issuggested to confirm the result. Blood Venous blood specimen / Unknown 12/19/2023 11:05 AM EDT 12/19/2023 11:42 AM EDT us Caity Brink MD LAB BLOOD ORDERAB LES Final Result Performing Organization Address [facility]/ZIP Co de Phone Number [facility] [address] [place] [address] [phone] * (ABNORMAL) Hemoglobin A1c (12/19/2023 11:05 AM EDT) Hemoglobin A1c 7.9(H) <6.0 % [facility] Comment:Hemoglobin A1C Refer ence Range Adults: 4.8 - 6.0 % Non diabetic: < 6.0 % Goal: < 7.0 %Additional Action Suggested: > 8.0 %Note: Hemoglobin A1c results are invalid for patients with abnormal amounts of HbF. Blood transfusions may impact the HbA1c concentration in the patient sample. Estimated Average Glucose 180 mg/dL [facility] Comment:eAG = Estimated ave rage glucose which is %A1C expressed asaverage glucose, using the formula of the H5U-VggpedjMlogqaw Glucose study (ADAG), Diabetes Care, Vol.31,#8,Oct. 2007 Blood Venous blood specimen / Unknown 12/19/2023 11:05 AM EDT 12/19/2023 11:42 AM EDT Caity Brink MD LAB BLOOD ORDERAB LES Final Result [facility] [address] [place] [address] [phone] * Cologuard?? colon cancer screening (11/18/2023 12:00 AM EDT) Cologuard Result Negative Negative 11/26/19 5:47 PM EDT [facility] (CLIA #:[id number]) Comment: NEGATIVE TEST RESULT. A negative Cologuard [...] ??Following a negative Cologuard result, the [place] [employer] and U.S. Multi-Society Task Force screening guidelines recommend a Cologuard re-screening interval of 3 years. References: [place] [employer] Guideline for Colorectal Cancer Screening: https://www.cancer.org/cancer/gdgdx-icznsw-hxtgdh/nwwndmeuh-wyantheve-mlqwqns/ac s-rec ommendations.html.; [place] DK, Liang CR, Edda AnayaK, Colorectal Cancer Screening: Recommendations for Physicians and Patients from the U.S. Multi-Society Task Force on Colorectal Cancer Screening , Am J Gastroenterology 2017; 112:4811-4280. TEST DESCRIPTION: Composite algorithmic analysis of stool [...] Seymour et al, N Engl J Med 2014;370(14):2306-0767.) Cologuard may produce a false negative or false positive result (no colorectal cancer or precancerous polyp present at colonoscopy follow up). A negative Cologuard test result does not guarantee the absence of CRC or advanced adenoma (pre-cancer). The current Cologuard screening interval is every 3 years. ([place] [employer] and U.S. Multi-Society Task Force). Cologuard performance data in a 10,000 patient pivotal study using colonoscopy as the reference method can be accessed at the following location: www.Breadtrip.CorkShare/results. Additional description of the Cologuard test process, warnings and precautions can be found at www.BovControl.com. Stool specimen (specimen) Rectal contents / Unknown 11/18/2023 11/19/2023 2:41 PM EDT Caity Brink MD LAB MOLECULAR PEDRO GNOSTICS ORDERABLES Final Result [facility] (CLIA #:[id number]) [place] [address], from Last 3 Months or Most Recently Relevant to Health Maintenance Insurance [employer] C3 Care Teams Fire Claims Adjuster Relationship Specialty Start Date End Date Caity Gray MD [address] [place] [address] PCP - General Internal Medicine 11/13/22 Vero Pineda Settlement WorkerCullet Washer 03/17/24
--- OUTSIDE RECORDS SUMMARY | 2024-07-12 15:16 | XMS_ITS | Encounter Summary ---
Author Organization [employer] Address [address] [facility] 7t [place] [address] Care Team Providers Care Tiller Worker Name Role Phone Caity Gray MD Primary Care Pro vider Reason for Visit * Reason Onset Date Comments Nurse Triage 01/02/2024 Encounter Details Date Type Department Care Team ([facility] Contact Info) Description 01/02/2024 Telephone [facility] [address] [place] [address] Caity Gray MD [address] [place] [address] Nurse Triage Social History Tobacco Use Types [...] pt to triage, spoke to pt. through appCREAR aviation electrical technician. pt states had a minor fall yesterday. [...] Reason: Caller denied all higher acuity questions Palauan Speaker (Accepted Patent Prosecution Paralegal) documented in this encounter Plan of Treatment Upcoming Encounters Date Type Department Care Team (Late st Contact Info) Description 07/12/2024 3:20 PM EDT Office Visit [facility] [address] [place] [phone] Abdominal pain, unspecified abdominal location (Primary Dx); Dietary counseling; Exercise counseling; Overweight; Screening for cervical cancer 08/12/2024 11:15 AM EDT Office Visit [facility] [address] [place] [address] Caity Gray MD [address] [place] [phone] documented as of this encounter Visit Diagnoses Not on filedocumented in this encounter Additional Health Concerns Assessment Noted Time PHQ-9 Depression Total Score: 9 02/28/20 23 2:29 PM EST documented as of this encounter Care Teams Tiller Worker Relationship Specialty Start Date End Date Caity Gray MD [address] [place] [phone] PCP - General Internal Medicine 11/13/22 Vero Pineda Insurance Examining ClerkChopper Feeder 03/17/24 documented as of this encounter
--- OUTSIDE RECORDS SUMMARY | 2024-07-12 15:16 | XMS_ITS | Encounter Summary ---
Author Organization [employer] Address [address] [place] [address] 7t [place] [address] Care Team Providers Care Channel Lip Wetter Name Role Phone Neena Machuca Primary Care Provider [phone] Caity Gray MD Primary Care Pro vider Reason for Visit * Reason Comments Med Refill Encounter Details Date Type Department Care Team ([facility] Contact Info) Description 03/20/2022 Refill [facility] [address] [place] [phone] Neena Machuca FNP [address] [place] [address] Dept [place] [address] Diabetic polyneuropathy associated with type 2 diabetes mellitus ([facility]) Social History Tobacco Use Types Packs/Day Years [...] Upcoming Encounters Date Type Department Care Team ([facility] Contact Info) Description 07/12/2024 3:20 PM EDT Office Visit [facility] [address] [place] [address] [phone] Abdominal pain, unspecified abdominal location (Primary Dx); Dietary counseling; Exercise counseling; Overweight; Screening for cervical cancer 08/12/2024 11:15 AM EDT Office Visit [facility] [address] [place] [address] [phone] aCity Gray MD [address] [place] [address] documented as of this encounter Visit Diagnoses Diagnosis Diabetic polyneuropathy associated with type 2 diabetes mellitus (CMS/HCC) Abdominal pain, unspecified abdominal location- Primary Dietary counseling Dietary surveillance and counseling Exercise counseling Overweight Screening for cervical cancer Screening for malignant neoplasm of the cervix documented in this encounter Care Teams Channel Lip Wetter Relationship Specialty Start Date End Date Neena Machuca FNP PCP - General Family Medicine 10/30/21 11/12/22 Caity Gray MD [address] [place] [address] PCP - General Internal Medicine 11/13/22 Vero Pineda Melt House Centrifugal OperatorZigzagger 03/17/24 documented as of this encounter
== END 2024-07-12 15:13 | disposition home or self-care (01) ==
LOC: HO.HHCX 15:12
PROVIDERS: Visit Provider General Practice
DX: R10.9 Unspecified abdominal pain (principal)
CPT/HCPCS: 74018

== ENCOUNTER → 2024-07-12 15:12 | Outpatient (BNV) | payer MEDICAID, SELFPAY | PROVIDERS: Visit Provider Radiology Diagnostic Radiology | DX: K59.00 Constipation, unspecified (principal) | CPT/HCPCS: 74018 ==

== ENCOUNTER 2024-07-12 16:36 | Outpatient (REF) | payer MEDICAID, SELFPAY ==
--- OUTSIDE RECORDS SUMMARY | 2024-07-12 16:38 | XMS_ITS | Encounter Summary ---
Author Organization [employer] Address [address] [facility] 7t [place] [address] Care Team Providers Care Sales Assoc Name Role Phone Caity Gray MD Primary Care Pro vider Reason for Visit * Reason Onset Date Comments PT-1 09/17/2023 Encounter Details Date Type Department Care Team ([facility] Contact Info) Description 09/17/2023 Telephone [facility] [address] [place] [address] Caity Gray MD [address] [place] [address] PT-1 Social History Tobacco Use Types Packs/Day [...] Y/N: Yes Provider name or facility name: [facility] Facility Address: [address] [facility] Escort needed: Y/N: No Do you have a wheelchair: Y/N: No If yes- Manual or electric: (Uses Cane) Visits: 6 Times yearly Patient calling requesting PT1 Home Address verified: Y/N: Yes Provider name or facility name: [facility] Facility Address: [address] [facility] Escort needed: Y/N: No Do you have a wheelchair: Y/N: No If yes- Manual or electric: Uses cane Visits: 6 times yearly Patient calling requesting PT1 Home Address verified: Y/N: Yes Provider name or facility name: [facility] Facility Address: [address] [facility] Escort needed: Y/N: No Do you have a wheelchair: Y/N: No If yes- Manual or electric: Uses Cane Visits: Every 3 months documented in this encounter Plan of Treatment Upcoming Encounters Date Type Department Care Team ([facility] st Contact Info) Description 08/12/2024 11:15 AM EDT Office Visit [facility] [address] [place] [phone] Caity Gray MD [address] [place] [address] documented as of this encounter Visit Diagnoses Not on filedocumented in this encounter Additional Health Concerns Assessment Noted Time PHQ-9 Depression Total Score: 9 02/28/20 23 2:29 PM EST documented as of this encounter Care Teams Sales Assoc Relationship Specialty Start Date End Date Caity Gray MD [address] [place] [address] PCP - General Internal Medicine 11/13/22 Vero Pineda Job Order ClerkModel Home Sales Greeter 03/17/24 documented as of this encounter
--- OUTSIDE RECORDS SUMMARY | 2024-07-12 16:38 | XMS_ITS | Clinical Summary ---
Author Organization [employer] Address [address] [facility] 7t [place] [address] Care Team Providers Care Obstetric Anaesthetist Name Role Phone Caity Gray MD Primary [...] g 2 023 Active Continuous Blood Gluc Lens Grinder (FreeStyle Daryn 2 [place]) deviceIndication s:Type 2 diabetes mellitus without complication, unspecified whether halfway insulin use (CMS/HCC) 1 EACH IF NEEDED [...] 2 diabetes mellitus without complication, unspecified whether longshore equipment operator insulin use ([facility]) 1 each if needed (Glucose control). 4 [...] polyneuropathy associated with type 2 diabetes mellitus ([facility]) INJECT 8 UNITS SUBCUTANEOUSLY WITH BREAKFAST AND 6 UNITS AT NIGHT 15 mL 3 024 Active insulin glargine (Lantus SoloStar) 100 UNIT/ML penIndications:D iabetic polyneuropathy associated with type 2 diabetes mellitus ([facility]) Inject 12 Units under the skin at bedtime. INJECT 12 UNITS SUBCUTANEOUSLY EVERY NIGHT 15 mL 5 024 Active evolocumab (Repatha SureClick) 140 MG/ML injectionIndicat ions:Type 2 diabetes mellitus with diabetic nephropathy, with long-term current use of insulin ([facility]) INJECT 1 ML SUBCUTANEOUSLY EVERY 14 DAYS 2 mL 2 025 Active gabapentin (Neurontin) 600 MG tabletIndication s:Diabetic polyneuropathy associated with type 2 diabetes mellitus ([facility]) TAKE 1 TABLET BY MOUTH THREE TIMES [...] RN to check on Repatha Rx at [place] [facility] Previous PA approved by insurance Unknown [...] FIT 04/10/22, pending. Will order again for [facility] [place] 09/12/22 Lung cancer: Never [...] Description 07/12/2024 3:20 PM EDT Office Visit [facility] [address] [place] [address] Abdominal pain, unspecified abdominal location (Primary Dx); Dietary counseling; Exercise counseling; Overweight; Screening for cervical cancer 07/06/2024 Orders Only GENERIC EXTERNAL DATA DEPARTMENT Provider, Generic External Data 06/28/[address] [facility] [address] [place], [place] [phone] Caity Gray MD Hyperlipidemia, unspecified hyperlipidemia type 06/25/[address] [facility] [address] [place] [address] Caity Gray MD Hyperlipidemia, unspecified hyperlipidemia type 06/25/[address] [facility] [address] [place] [address] Kristopher Serrano MD 05/24/[address] [facility] [address] [place] [address] Caity Gray MD chart prep 05/14/2024 Population Health Risk Score [facility] Department [address] [phone] Provider, Population Health Generic 05/04/[address] [facility] [address] [place] [address] Caity Gray MD Hyperlipidemia, unspecified hyperlipidemia type; Diabetic polyneuropathy associated with type 2 diabetes mellitus ([facility]) 04/29/[address] [facility] [address] [place] [address] Mary Haider ANP 04/28/[address] [facility] [address] [place] [address] Caity Gray MD Type 2 diabetes mellitus with diabetic nephropathy, with long-term current use of insulin ([facility]) from Last 3 Months Immunizations Name Administration [...] Description 08/12/2024 11:15 AM EDT Office Visit [facility] [address] [place] [phone] Caity Gray MD [address] [place] [address] Health Maintenance Due Date Last Done Comments CT Colonography 1960 Colonoscopy 1960 FIT 1960 FOBT 1960 Sigmoidoscopy 1960 Diabetes: Foot Exam 1970 Eye Exam 1970 Alcohol/Substance Use Screening 1972 Pap Smear 1981 Cervical Cancer Screening 1990 HPV/Cotest 1990 DTaP/Tdap/Td Vaccines (1 - Tdap) 08/11/2021 08/10/2021 Depression Screening 02/28/2024 02/27/2023, 02/28/20 SDOH Screening [...] Procedure Name Priority Date/Time Associated Diagnosis Comments XR KUB AND UPRIGHT 2 VIEWS Routine 07/12/2024 3:12 PM EDT Abdominal pain, unspecified abdominal location LIPID PANEL, STANDARD Routine 07/06/2024 1:27 PM [...] Recently Relevant to Health Maintenance Results * XR KUB and Upright 2 Views (07/12/2024 3:12 PM EDT) Anatomical Region Laterality Modality Radiographic Constance ging 07/12/2024 3:12 PM EDT Narrative 07/12/2024 3:55 PM EDT ?[facility] ?[address] ?[place] [address] ?XRay Report ? Signed ? Patient: Aurelio,Paty ?MR#: [id number] ?? [id number] ? : 1960 ?Acct:[id number] ? Age/Sex: 63 / F ?ADM Date: 05/12/25 ? Loc: HO.HHCX ? Attending Dr: Laura Gallardo MD ? Ordering Physician: Laura Gallardo ?? Date of Service: 07/12/24 ?? Procedure(s): XR KUB ?? Accession Number(s): [id number] ? cc: Laura Gallardo ? EXAMINATION: ?? XR ABDOMEN KUB ? CLINICAL INDICATION: ?? constipation burden? COMPARISON: ?? None available. ? TECHNIQUE: ?? AP view of the abdomen. ? FINDINGS: ?? Abundant stool, right hemicolon. ?? No intestinal dilatation. ?? No air-fluid levels. ?? Punctate calcifications overlapping the sacrococcyx. ?? Vascular clips in the right upper quadrant abdomen. ?? Marginal osteophyte formation L4-5. ? XR/XR KUB ?? IMPRESSION: ?? No intestinal obstruction pattern. ?? Consider calcified uterine fibroids. ?? Probable status post post cholecystectomy. ? Electronically signed by: ??Juan Jenkins MD ??07/12/2024 03:52 PM ?? EDT RP ? Dictated By: ?Juan Roajs MD ? Signed By: ?<Electronically signed by Juan Moctezuma MD in OV> ? 07/12/24 1552 ? DD/ 1512 ? TD/TT: 07/12/24 1546 ? Melon Packer: ? Procedure Note Rinku, Ebony - 07/12/[address] [address] XRay Report Signed Patient: Paty CareyMR#: [id number] : 1960cct:[id number] Age/Sex: 63 / FADM Date: 07/12/24 Loc: HO.HHCX Attending Dr: Laura Gallardo MD Ordering Physician: Laura Gallardo Date of Service: 07/12/24 Procedure(s): XR KUB Accession Number(s): [id number] cc: Laura Gallardo EXAMINATION: XR ABDOMEN KUB CLINICAL INDICATION: constipation burden? COMPARISON: None available. TECHNIQUE: AP view of the abdomen. FINDINGS: Abundant stool, right hemicolon. No intestinal dilatation. No air-fluid levels. Punctate calcifications overlapping the sacrococcyx. Vascular clips in the right upper quadrant abdomen. Marginal osteophyte formation L4-5. XR/XR KUB IMPRESSION: No intestinal obstruction pattern. Consider calcified uterine fibroids. Probable status post post cholecystectomy. Electronically signed by: uJan Jenkins MD 07/12/2024 03:52 PM EDT RP Dictated By: Juan Rojas MD Signed By: <Electronically signed by Juan Moctezuma MDin OV> 07/12/24 1552 DD/ 1512 TD/TT: 07/12/24 1546 Melon Packer: us Laura Gallardo MD IMG XR PROCEDURES Final Result * (ABNORMAL) Lipid Panel, Standard (07/06/2024 1:27 PM EDT) Triglycerides 127 <150 mg/dL [facility] Comment:Desirable Triglyceri de: less than 150 mg/dLBorderline High Triglyceride 150-199 mg/dLHigh Triglyceride: 200-499 mg/dLVery High Triglyceride: greater than or equal to 5OO mg/dL Cholesterol 228(H) <200 mg/dL [facility] Comment:Desirable Cholestero l: less than 200 mg/dLBorderline High Cholesterol: 200-239 mg/dLHigh Cholesterol: greater than 239 mg/dL LDL Cholesterol Calculated 154(H) <100 mg/dL [facility] Comment:Desirable LDL: less than 100 mg/dLNear Optimal/Above Optimal LDL: 110- 129 mg/dLBorderline High LDL: 130-159 mg/dLHigh LDL: 160-189 mg/dLVery High LDL: greater than or equal to 190 mg/dL HDL Cholesterol 49 >40 mg/dL [facility] Comment:Desirable HDL: great er than 40 mg/dL Note: This HDL assay may give artificially low results in patients with liver disease. 07/06/2024 1:27 PM EDT 07/06/2024 1:27 PM EDT us Generic External Data Provider LAB BLOOD ORDERAB LES Final Result [facility] [address] [place] [phone] * (ABNORMAL) Comprehensive Metabolic Panel (07/06/2024 1:27 PM EDT) Sodium 141 135 - 145 mmol/L [facility] Potassium 4.2 3.3 - 5.1 mmol/L [facility] Chloride 107 96 - 108 mmol/L [facility] Carbon Dioxide 26 22 - 29 mmol/L [facility] Anion Gap 12 12 - 20 [facility] Urea Nitrogen (BUN) 26(H) 9 - 16 mg/dL [facility] Creatinine, Serum 1.18 0.5 - 1.4 mg/dL [facility] Estimated Glomerular Filt Rate 46 [facility] Comment:Chronic Kidney Disea se: Estimated GFR < 60 mL/min/1.58c9Flspsi Kidney Disease: Estimated GFR < 15 mL/min/1.73m2 Glucose 169(H) 60 - 115 mg/dL [facility] Calcium 9.4 8.4 - 10.2 mg/dL [facility] Bilirubin, Total 0.2 0.0 - 1.0 mg/dL [facility] Aspartate Amino Transferase 28 5 - 31 U/L [facility] Alanine Aminotransferase 23 0 - 31 U/L [facility] Total Protein 7.5 6.5 - 8.0 g/dL [facility] Albumin Level 4.0 3.5 - 5.0 g/dL [facility] Alkaline Phosphatase 105 39 - 117 U/L [facility] 07/06/2024 1:27 PM EDT 07/06/2024 1:27 PM EDT us Generic External Data Provider LAB BLOOD ORDERAB LES Final Result [facility] [address] [place] [phone] * BI Mammogram Diagnostic Tomosynthesis Bilateral (01/12/2024 2:00 PM EST) Anatomical Region Laterality Modality Breast Bilateral Mammography 01/12/2024 2:00 PM EST Narrative 01/12/2024 3:02 PM EST ? [facility] ? [address] ?[place], [place] [address] ? Mammography Report ? Signed ? Patient: Aurelio,Paty ?MR#: [id number] ?? [id number] ? : 1960 ?Acct:[id number] ? Age/Sex: 63 / F ?ADM Date: 01/12/24 ? Loc: HO.MAMMO ? Attending Dr: Caity Brink MD ? Ordering Physician: Caity Gray MD ?Re ?? sults: 2Benign Findings ? Date of Service: 01/12/24 ?Follow Up: 1 Year From Orig ?? inal Mammogram ? Procedure(s): MM tomosynthesis diagnostic BI ?? Accession Number(s): [id number] ? cc: Caity Gray MD ? EXAMINATION: [...] DD/ 1400 ? TD/TT: 01/12/24 1422 ? Melon Packer: ? Procedure Note Rinku, Ebony - 01/12/2024 [facility] [address] [place] [address] [place], [place] [address] Mammography Report Signed Patient: Paty CareyMR#: [id number] : 1Acct:[id number] Age/Sex: 63 / FADM Date: 01/12/24 Loc: HO.MAMMO Attending Dr: Caity Brink MD Ordering Physician: Caity Gray sults: 2Benign Findings Date of Service: 01/12/24Follow Up: 1 Year From Orig ina Mammogram Procedure(s): MM tomosynthesis diagnostic BI Accession Number(s): [id number] cc: Caity Gray MD EXAMINATION: MM DIAGNOSTIC [...] by: Tio Gilman MD 01/12/2024 02:59 PM EST Dictated By: Tio Gilman MD Signed By: <Electronically signed by Tio Gilman MD in OV> 01/12/24 1459 DD/ 1400 TD/TT: 01/12/24 1422 Melon Packer: Caity Brink MD IMG BI PROCEDURES Final Result * Hepatitis C Antibody with Reflex to HCV, RNA, Quantitative, Real-Time PCR (12/19/2023 11:05 AM EDT) Hepatitis C Antibody Nonreactive Nonreactive [facility] Comment:Antibodies to HCV no t detected; does not exclude early acuteHCV infection. Blood Venous blood specimen / Unknown 12/19/2023 11:05 AM EDT 12/19/2023 11:42 AM EDT us Caity Brink MD LAB BLOOD ORDERAB LES Final Result [facility] [address] [place] [phone] * HIV-1/2 Antigen and Antibodies, Fourth Generation, with Reflexes (12/19/2023 11:05 AM EDT) HIV AB/AG Nonreactive Nonreactive [facility] Comment:HIV-1 p24 Ag and/or HIV-1/HIV-2 Ab not detected.A test result that is nonreactive does not exclude thepossibility of exposure to or infection with HIV-1 and/orHIV-2. Nonreactive results in this assay for individualswith prior exposure to HIV-1 and/or HIV-2 may be due toantigen and antibody levels that are below the limit ofdetection of this assay.The [email or web address] HIV Ag/Ab Combo assay result andsupplemental assay results should be interpreted inconjunction with the patient's clinical presentation,history and other laboratory results. If the results areinconsistent with clinical evidence, additional testing issuggested to confirm the result. Blood Venous blood specimen / Unknown 12/19/2023 11:05 AM EDT 12/19/2023 11:42 AM EDT us Caity Brink MD LAB BLOOD ORDERAB LES Final Result Performing Organization Address [facility] Co de Phone Number [facility] [address] [place] [phone] * (ABNORMAL) Hemoglobin A1c (12/19/2023 11:05 AM EDT) Hemoglobin A1c 7.9(H) <6.0 % [facility] Comment:Hemoglobin A1C Refer ence Range Adults: 4.8 - 6.0 % Non diabetic: < 6.0 % Goal: < 7.0 %Additional Action Suggested: > 8.0 %Note: Hemoglobin A1c results are invalid for patients with abnormal amounts of HbF. Blood transfusions may impact the HbA1c concentration in the patient sample. Estimated Average Glucose 180 mg/dL [facility] Comment:eAG = Estimated ave rage glucose which is %A1C expressed asaverage glucose, using the formula of the Y6Y-QuhvnvoBartixj Glucose study (ADAG), Diabetes Care, Vol.31,#8,Oct. 2007 Blood Venous blood specimen / Unknown 12/19/2023 11:05 AM EDT 12/19/2023 11:42 AM EDT us Caity Brink MD LAB BLOOD ORDERAB LES Final Result Performing Organization Address [facility] Co de Phone Number [facility] [address] [place] [phone] * Cologuard?? colon cancer screening (11/18/2023 12:00 AM EDT) Cologuard Result Negative Negative 11/26/19 24 5:47 PM EDT [facility] (CLIA #:[id number]) Comment: NEGATIVE TEST RESULT. A negative Cologuard [...] cancer. ??Following a negative Cologuard result, the [place] [employer] Society and U.S. Multi-Society Task Force screening guidelines recommend a Cologuard re-screening interval of 3 years. References: [place] [employer] Guideline for Colorectal Cancer Screening: https://www.cancer.org/cancer/gihzf-nploqn-kbjiqj/lptzpeoep-kbxizugfm-xmnrsss/ac s-rec ommendations.html.; [place] DK, Liang CR, Edda AnayaK, Colorectal Cancer Screening: Recommendations for Physicians and Patients from the U.S. Multi-Society Task Force on Colorectal Cancer Screening , Am J Gastroenterology 2017; 112:3776-9162. TEST DESCRIPTION: Composite algorithmic analysis of stool [...] (Enmanuel Coy al, N Engl J Med 2014;370(14):5222-0776.) Cologuard may produce a false negative or false positive result (no colorectal cancer or precancerous polyp present at colonoscopy follow up). A negative Cologuard test result does not guarantee the absence of CRC or advanced adenoma (pre-cancer). The current Cologuard screening interval is every 3 years. ([place] [employer] Society and U.S. Multi-Society Task Force). Cologuard performance data in a 10,000 patient pivotal study using colonoscopy as the reference method can be accessed at the following location: www.[employer]/results. Additional description of the Cologuard test process, warnings and precautions can be found at [email or web address]. Stool specimen (specimen) Rectal contents / Unknown 11/18/2023 11/19/2023 2:41 PM EDT Caity Brink MD LAB MOLECULAR PEDRO GNOSTICS ORDERABLES Final Result [facility] (CLIA #:[id number]) [place] [address] [place] [address], [place] [phone] from Last 3 Months or Most Recently Relevant to Health Maintenance Insurance [facility] C3 Care Teams Obstetric Anaesthetist Relationship Specialty Start Date End Date Caity Gray MD [address] [place] [address] PCP - General Internal Medicine 11/13/22 Vero Pineda Desktop Support SpecialistBag End Sewer 03/17/24
--- OUTSIDE RECORDS SUMMARY | 2024-07-12 16:38 | XMS_ITS | Encounter Summary ---
Author Organization [employer] Address [address] [facility] 7t [place] [address] Care Team Providers Care Maintenance Manager Name Role Phone Caity Gray MD Primary Care Pro vider Reason for Visit * Reason Onset Date Comments Nurse Triage 01/02/2024 Encounter Details Date Type Department Care Team ([facility] Contact Info) Description 01/02/2024 Telephone [facility] [address] [place] [address] Caity Gray MD [address] [place] [address] Nurse Triage Social History Tobacco Use Types [...] pt to triage, spoke to pt. 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 pt states had a minor fall yesterday. [...] Reason: Caller denied all higher acuity questions Comoran Speaker (Accepted Bench Worker Apprentice) documented in this encounter Plan of Treatment Upcoming Encounters Date Type Department Care Team (Late st Contact Info) Description 08/12/2024 11:15 AM EDT Office Visit [facility] [address] [place] [address] Caity Gray MD [address] [place] [address] documented as of this encounter Visit Diagnoses Not on filedocumented in this encounter Additional Health Concerns Assessment Noted Time PHQ-9 Depression Total Score: 9 02/28/20 23 2:29 PM EST documented as of this encounter Care Teams Maintenance Manager Relationship Specialty Start Date End Date Caity Gray MD [address] [place] [address] [phone] PCP - General Internal Medicine 11/13/22 Vero Pineda Investor Relations DirectorFundraising Officer 03/17/24 documented as of this encounter
--- OUTSIDE RECORDS SUMMARY | 2024-07-12 16:38 | XMS_ITS | Encounter Summary ---
Author Organization [employer] Address [address] [facility] 7 [place] [address] Care Team Providers Care Receiving Checker Name Role Phone Caity Gray MD Primary Care Pro vider Reason for Visit * Reason Onset Date Comments Med Refill 07/24/2023 Encounter Details Date Type Department Care Team ([facility] Contact Info) Description 07/24/2023 Telephone [facility] [address] [place] [address] Caity Gray MD [address] [place] [address] Med Refill Social History Tobacco Use Types [...] 3:42 PM EDT Medication was sent to [facility] on 07/16/23 with 2 refills. * Telephone Encounter - Eladio Rowe - 07/24/2023 3:40 PM EDT TC from pt requesting medication refill. Medications needing refill : evolocumab (Repatha SureClick) 140 MG/ML injection To be sent to: [facility] [place] [address] - [address] documented in this encounter Plan of Treatment Upcoming Encounters Date Type Department Care Team (Late st Contact Info) Description 08/12/2024 11:15 AM EDT Office Visit [facility] [address] [place] [address] Caity Gray MD [address] [place] [address] documented as of this encounter Visit Diagnoses Not on filedocumented in this encounter Additional Health Concerns Assessment Noted Time PHQ-9 Depression Total Score: 9 02/28/20 23 2:29 PM EST documented as of this encounter Care Teams Receiving Checker Relationship Specialty Start Date End Date Caity Gray MD [address] [place] [phone] PCP - General Internal Medicine 11/13/22 Vero Pineda Manager SoftwareManager Port 03/17/24 documented as of this encounter
--- OUTSIDE RECORDS SUMMARY | 2024-07-12 16:38 | XMS_ITS | Encounter Summary ---
Author Organization [employer] Address [address] [facility] 7t [place] [address] Care Team Providers Care Jewel Lathe Operator Name Role Phone Caity Gray MD Primary Care Pro vider Reason for Visit * Reason Comments Med Refill Encounter Details Date Type Department Care Team ([facility] Contact Info) Description 06/25/2024 Refill [facility] [address] [place] [address] Caity Gray MD [address] [place] [address] Hyperlipidemia, unspecified hyperlipidemia type Social History Tobacco [...] 08/12/2024 11:15 AM EDT Office Visit [facility] [address] [place] [phone] Caity Gray MD [address] [place] [phone] documented as of this encounter Visit Diagnoses Diagnosis Hyperlipidemia, unspecified hyperlipidemia type documented in this encounter Additional Health Concerns Assessment Noted Time PHQ-9 Depression Total Score: 9 02/28/20 23 2:29 PM EST documented as of this encounter Care Teams Jewel Lathe Operator Relationship Specialty Start Date End Date Caity Gray MD [address] [place] [phone] PCP - General Internal Medicine 11/13/22 Vero Pineda Content AdministratorTeacher Public Health 03/17/24 documented as of this encounter
--- OUTSIDE RECORDS SUMMARY | 2024-07-12 16:38 | XMS_ITS | Encounter Summary ---
Author Organization [employer] Address [address] [place] [address] 7 [place] [address] Care Team Providers Care Line Department Supervisor Name Role Phone Neena Machuca Primary Care Provider [phone] Caity Gray MD Primary Care Pro vider Reason for Visit * Reason Comments Med Refill Encounter Details Date Type Department Care Team ([facility] Contact Info) Description 03/20/2022 Refill [facility] [address] [place] [phone] Neena Machuca FNP [address] [place] [address] Dept [place] [address] Diabetic polyneuropathy associated with type 2 diabetes [...] Upcoming Encounters Date Type Department Care Team ([facility] Contact Info) Description 08/12/2024 11:15 AM EDT Office Visit [facility] [address] [place] [phone] Caity Gray MD [address] [place], [place] [phone] documented as of this encounter Visit Diagnoses Diagnosis Diabetic polyneuropathy associated with type 2 diabetes mellitus (CMS/HCC) documented in this encounter Care Teams Line Department Supervisor Relationship Specialty Start Date End Date Neena Machuca FNP PCP - General Family Medicine 10/30/21 11/12/22 Caity Gray MD [address] [place] [phone] PCP - General Internal Medicine 11/13/22 Vero Pineda Financial Services OfficerHalf Backer 03/17/24 documented as of this encounter
--- OUTSIDE RECORDS SUMMARY | 2024-07-12 16:38 | XMS_ITS | Encounter Summary ---
Author Organization [employer] Address [address] [facility] [place] [address] Care Team Providers Care Labor Relations Supervisor Name Role Phone Caity Gray MD Primary Care Pro vider Encounter Details Date Type Department Care Team ([facility] Contact Info) Description 04/29/2024 Orders Only [facility] [address] [place] [address] Mary Haider, ANP [address] [place] [address] Social History Tobacco Use Types Packs/Day Years [...] Description 08/12/2024 11:15 AM EDT Office Visit [facility] [address] [place] [phone] Caity Gray MD [address] [place] [address] documented as of this encounter Visit Diagnoses Not on filedocumented in this encounter Additional Health Concerns Assessment Noted Time PHQ-9 Depression Total Score: 9 02/28/20 23 2:29 PM EST documented as of this encounter Care Teams Labor Relations Supervisor Relationship Specialty Start Date End Date Caity Gray MD [address] [place] [phone] PCP - General Internal Medicine 11/13/22 Vero Pineda Director Of Mechanical EngineeringSales Account Leader 03/17/24 documented as of this encounter
--- OUTSIDE RECORDS SUMMARY | 2024-07-12 16:39 | XMS_ITS | Encounter Summary ---
Author Organization [employer] Address [address] [place] [address] 7 [place] [address] Care Team Providers Care Beaver Trapper Name Role Phone Neena Machuca Primary Care Provider +- [phone] Caity Gray MD Primary Care Pro vider Reason for Visit * Reason Comments Med Refill Encounter Details Date Type Department Care Team (Late st Contact Info) Description 05/21/2022 Refill [facility] MEDICINE [address] [place] [phone] Neena Machuca FNP [address] [place] [address] Dept [place] [address] Essential hypertension Social History Tobacco Use Types [...] 11:15 AM EDT Office Visit [facility] MEDICINE [address] [place] [address] [phone] Caity Gray MD 230 [place], [place] [phone] documented as of this encounter Visit Diagnoses Diagnosis Essential hypertension Unspecified essential hypertension documented in this encounter Care Teams Beaver Trapper Relationship Specialty Start Date End Date Neena Machuca FNP PCP - General Family Medicine 10/30/21 11/12/22 Caity Gray MD [address] [place] [address] PCP - General Internal Medicine 11/13/22 Vero Pineda Motor Tune Up SpecialistGeriatric Physical Therapist 03/17/24 documented as of this encounter
--- OUTSIDE RECORDS SUMMARY | 2024-07-12 16:39 | XMS_ITS | Encounter Summary ---
Author Organization [employer] Address [address] [facility] 7t [place] [address] Care Team Providers Care Staffing Associate Name Role Phone Caity Gray MD Primary Care Pro vider Reason for Visit * Reason Onset Date Comments Appointment Request 04/07/2023 Encounter Details Date Type Department Care Team ([facility] Contact Info) Description 04/07/2023 Telephone [facility] MEDICINE 230 [place] [address] Caity Gray MD 230 [place] [address] Appointment Request Social History Tobacco Use Types [...] for 2/5 states is not feeling well mortgage loan underwriter didcancel however there was no availability at the moment mortgage loan underwriter did ask if the patient would like a message to be sent to triage but patient refuses. documented in this encounter Plan of Treatment Upcoming Encounters Date Type Department Care Team (Late st Contact Info) Description 08/12/2024 11:15 AM EDT Office Visit [facility] MEDICINE [address] [place] [address] Caity Gray MD [address] [place] [address] documented as of this encounter Visit Diagnoses Not on filedocumented in this encounter Additional Health Concerns Assessment Noted Time PHQ-9 Depression Total Score: 9 02/28/20 23 2:29 PM EST documented as of this encounter Care Teams Staffing Associate Relationship Specialty Start Date End Date Caity Gray MD [address] [place] [address] PCP - General Internal Medicine 11/13/22 Vero Pineda Driver/GuideWater Truck Driver 03/17/24 documented as of this encounter
--- OUTSIDE RECORDS SUMMARY | 2024-07-12 16:39 | XMS_ITS | Encounter Summary ---
Author Organization [employer] Address [address] [place] [address] 7 [place] [address] Care Team Providers Care Custom Bow Maker Name Role Phone Neena Machuca Primary Care Provider +1- [phone] Caity Gray MD Primary Care Pro vider Reason for Visit * Reason Comments Med Refill Encounter Details Date Type Department Care Team ([facility] Contact Info) Description 06/24/2022 Refill [facility] MEDICINE [address] [place] [phone] Neena Machuca FNP [address] [place] [address] Dept [place] [address] Diabetic polyneuropathy associated with type 2 diabetes [...] Upcoming Encounters Date Type Department Care Team ([facility] Contact Info) Description 08/12/2024 11:15 AM EDT Office Visit [facility] MEDICINE [address] [place] [address] [phone] Caity Gray MD 230 [place], [place] [phone] documented as of this encounter Visit Diagnoses Diagnosis Diabetic polyneuropathy associated with type 2 diabetes mellitus (CMS/HCC) documented in this encounter Care Teams Custom Bow Maker Relationship Specialty Start Date End Date Neena Machuca FNP PCP - General Family Medicine 10/30/21 11/12/22 Caity Gray MD [address] [place] [address] PCP - General Internal Medicine 11/13/22 Vero Pineda Employment CoordinatorCampaign Associate 03/17/24 documented as of this encounter
--- OUTSIDE RECORDS SUMMARY | 2024-07-12 16:39 | XMS_ITS | Encounter Summary ---
Author Organization [employer] Address [address] [facility] 7t [place] [address] Care Team Providers Care Rejogger Name Role Phone Caity Gray MD Primary Care Pro vider Reason for Visit * Reason Onset Date Comments PT1 04/10/2023 Encounter Details Date Type Department Care Team ([facility] Contact Info) Description 04/10/2023 Telephone [facility] MEDICINE 230 [place] [address] Caity Gray MD 230 [place] [address] PT1 Social History Tobacco Use Types Packs/Day [...] Time: n/a Visits: every 2 months Address: [address] [place] [address] [address] [address] Facility: [facility] Wheel Chair: no Real Estate Acquisition Analyst Needed: no Date: 05/07/23 Time: 1:30 pm Visits: her fist appt and is unsure Address: [address] [place] [address] Dr [address] Floor, [place] [address] Facility: [facility] Wheel Chair: no Real Estate Acquisition Analyst Needed: no Date: 05/08/23 Time: 2:15 pm Visits: yearly Address: [address] [place] [address] Facility: [facility] Wheel Chair: no Real Estate Acquisition Analyst Needed: no documented in this encounter Plan of Treatment Upcoming Encounters Date Type Department Care Team (Late st Contact Info) Description 08/12/2024 11:15 AM EDT Office Visit [facility] MEDICINE [address] [place] [address] [phone] Caity Gray MD 230 [place] [address] documented as of this encounter Visit Diagnoses Not on filedocumented in this encounter Additional Health Concerns Assessment Noted Time PHQ-9 Depression Total Score: 9 02/28/20 23 2:29 PM EST documented as of this encounter Care Teams Rejogger Relationship Specialty Start Date End Date Caity Gray MD [address] [place] [phone] PCP - General Internal Medicine 11/13/[address] OperatorSteam Blocker 03/17/24 documented as of this encounter
--- OUTSIDE RECORDS SUMMARY | 2024-07-12 16:39 | XMS_ITS | Encounter Summary ---
Author Organization [employer] Address [address] [place] [address] 7 [place] [address] Care Team Providers Care Distillery Worker General Name Role Phone Neena Machuca PULPWOOD CONTRACTOR Primary Care Provider +1- [phone] Caity Gray MD Primary Care Pro vider Encounter Details Date Type Department Care Team (Late Contact Info) Description 04/30/2022 Telephone [facility] MEDICINE [address] [place] [phone] Neena Machuca FNP [address] [place] [address] Dept [place] [address] Social History Tobacco Use Types Packs/Day Years [...] Description 08/12/2024 11:15 AM EDT Office Visit [facility] MEDICINE [address] [place] [address] [phone] Caity Gray MD [address] [place] [address] [phone] documented as of this encounter Visit Diagnoses Not on filedocumented in this encounter Care Teams Distillery Worker General Relationship Specialty Start Date End Date Neena Machuca FNP PCP - General Family Medicine 10/30/21 11/12/22 Caity Gray MD [address] [place] [address] PCP - General Internal Medicine 11/13/22 Vero Pineda Senior Enterprise ArchitectCollar Trimmer 03/17/24 documented as of this encounter
--- OUTSIDE RECORDS SUMMARY | 2024-07-12 16:39 | XMS_ITS | Encounter Summary ---
Author Organization [employer] Address [address] [facility] 7t [place] [address] Care Team Providers Care Sole Stitcher Hand Name Role Phone Caity Gray MD Primary Care Pro vider Reason for Visit * Reason Comments Med Refill Encounter Details Date Type Department Care Team ([facility] Contact Info) Description 02/27/2023 Refill [facility] MEDICINE 230 [place] [address] Caity Gray MD 230 [place] [address] Diabetic polyneuropathy associated with type 2 diabetes [...] Office Visit [facility] MEDICINE [address] [place] [address] Caity Gray MD [address] [place] [address] documented as of this encounter Visit Diagnoses Diagnosis Diabetic polyneuropathy associated with type 2 diabetes mellitus (CMS/HCC) documented in this encounter Additional Health Concerns Assessment Noted Time PHQ-9 Depression Total Score: 9 02/28/20 23 2:29 PM EST documented as of this encounter Care Teams Sole Stitcher Hand Relationship Specialty Start Date End Date Caity Gray MD [address] [place] [address] [phone] PCP - General Internal Medicine 11/13/22 Vero Pineda Control Center OperatorBottle Selector 03/17/24 documented as of this encounter
[2024-07-14 20:18] LABS: C. trachomatis RNA TMA NOT DETECTED (NOT DETECTED); N. gonorrhoeae RNA TMA NOT DETECTED (NOT DETECTED); Trichomonas (NAAT) NOT DETECTED (NOT DETECTED)
[2024-07-15 13:54] LABS: HPV Genotype 16 Negative (Negative); HPV Genotype 18 Negative (Negative); HPV High Risk Negative (Negative)
== END 2024-07-12 16:37 | disposition home or self-care (01) ==
LOC: HO.HHCLNP 16:36
PROVIDERS: Visit Provider General Practice
DX: Z12.4 Encounter for screening for malignant neoplasm of cervix (principal)
CPT/HCPCS: 87491; 87591; 87626; 87661; 88175

== ENCOUNTER 2024-08-12 14:40 | Outpatient (REF) | payer MEDICAID, SELFPAY ==
--- NOTE | ~2024-08-12 | XR_ITS ---
EXAMINATION: XR HIP 2 OR MORE VIEWS LEFT HISTORY: left hip pain COMPARISON: There are no prior studies available for comparison. FINDINGS: Two views of the left hip are submitted. Osseous mineralization is normal. There is no fracture or dislocation. There is mild joint space narrowing. Multiple calcified masses in the pelvis likely represent uterine fibroids. There are vascular calcifications. XR/XR hip LT min 2V IMPRESSION: Mild joint space narrowing. Electronically signed by: Deo Ireland MD 08/12/2024 03:19 PM EDT
--- NOTE | ~2024-08-12 | XR_ITS ---
EXAMINATION: XR KNEE 3 VIEWS LEFT HISTORY: left knee pain COMPARISON: Comparison is made with the prior examination dated 01/26/2019. FINDINGS: Three views of the left knee are submitted. Osseous mineralization is normal. There is no fracture or dislocation. The joint spaces are preserved. There are vascular calcifications. There is no joint effusion. XR/XR knee LT 3V IMPRESSION: Unremarkable examination of the left knee. Electronically signed by: Deo Ireland MD 08/12/2024 03:20 PM EDT
--- OUTSIDE RECORDS SUMMARY | 2024-08-12 17:15 | XMS_ITS | Encounter Summary ---
Author Organization [employer] Address [address] [place] [address] 7 [place] [address] Care Team Providers Care Aircraft Engine Assembler Name Role Phone Neena Machuca MARKETING SALES SUPERVISOR Primary Care Provider +1- [phone] Caity Gray MD Primary Care Pro vider Reason for Visit * Reason Comments Med Refill Encounter Details Date Type Department Care Team (Late st Contact Info) Description 03/20/2022 Refill [facility] MEDICINE [address] [place] [address] Neena Machuca [address] Dept [place] [address] Diabetic polyneuropathy associated with type 2 diabetes mellitus ([facility]) Social History Tobacco Use Types Packs/Day Years [...] Care Team (Late st Contact Info) Description 09/24/2024 10:30 AM EDT Medication Management [facility] MEDICINE [address] [place] [address] Christina Schmitz, PharmD 230 [place] [address] 10/15/2024 1:00 PM EDT Office Visit [facility] MEDICINE [address] [place] [address] Caity Gray MD 230 [place] [address] documented as of this encounter Visit Diagnoses Diagnosis Diabetic polyneuropathy associated with type 2 diabetes mellitus ([facility]) documented in this encounter Care Teams Aircraft Engine Assembler Relationship Specialty Start Date End Date Neena Machuca FNP PCP - General Family Medicine 10/30/21 11/12/22 Caity Gray MD 230 [place], [place] [phone] PCP - General Internal Medicine 11/13/22 Vero Pineda Tobacco Warehouse AgentDental Biller 03/17/24 documented as of this encounter
== END 2024-08-12 14:41 | disposition home or self-care (01) ==
LOC: HO.HHCX 14:40
PROVIDERS: Visit Provider Student in an Organized Health Care Education/Training Program
DX: M25.552 Pain in left hip (principal); M25.562 Pain in left knee
CPT/HCPCS: 73502; 73562

== ENCOUNTER → 2024-08-12 14:41 | Outpatient (BNV) | payer MEDICAID, SELFPAY | PROVIDERS: Visit Provider Radiology Diagnostic Radiology | DX: M25.552 Pain in left hip (principal); M25.562 Pain in left knee | CPT/HCPCS: 73502; 73562 ==

== ENCOUNTER 2024-08-30 12:04 | Outpatient (REF) | payer MEDICAID, SELFPAY ==
--- NOTE | ~2024-08-30 | US_ITS ---
EXAMINATION: US PELVIS TRANSABDOMINAL AND TRANSVAGINAL HISTORY: pelvic pain, calcified uterus COMPARISON: Correlation is made with an unenhanced CT of the pelvis dated 10/19/2017. TECHNIQUE: Transabdominal real-time 2D lees-scale ultrasound was performed. FINDINGS: Uterus: The uterus measures approximately 10.2 x 7.5 x 9.8 cm. There is diffuse shadowing from the uterus consistent with multiple calcified fibroids. Individual fibroids are not discernible. Endometrium: The endometrial stripe not identified. Right ovary: The right ovary is not identified. Left ovary: The left ovary is not identified. Pelvic fluid: none. US/US pelvic and transvaginal IMPRESSION: Diffuse shadowing from the uterus consistent with multiple calcified fibroids. Individual fibroids cannot be discerned. If evaluation of the uterine fibroids is necessary, MRI could be performed. The ovaries are not identified. Electronically signed by: Deo Ireland MD 08/30/2024 01:04 PM EDT
--- OUTSIDE RECORDS SUMMARY | 2024-08-30 12:43 | XMS_ITS | Encounter Summary ---
Author Organization [employer] Address [address] [place] [address] 7 [place] [address] Care Team Providers Care Physical Education Teacher Name Role Phone Neena Machuca HEALTH TYPE TECHNICIAN Primary Care Provider +1- [phone] Caity Gray MD Primary Care Pro vider Reason for Visit * Reason Comments Med Refill Encounter Details Date Type Department Care Team (Late st Contact Info) Description 03/20/2022 Refill [facility] MEDICINE [address] [place] [address] Neena Machuca [address] Dept [place] [address] Diabetic polyneuropathy associated with type 2 diabetes mellitus ([facility]) Social History Tobacco Use Types Packs/Day Years [...] Description 09/24/2024 10:30 AM EDT Medication Management [facility] MEDICINE [address] [place] [phone] Christina Schmitz, PharmD 230 [place] [address] 10/15/2024 1:00 PM EDT Office Visit [facility] MEDICINE [address] [place] [address] Caity Gray MD 230 [place] [address] documented as of this encounter Visit Diagnoses Diagnosis Diabetic polyneuropathy associated with type 2 diabetes mellitus ([facility]) documented in this encounter Care Teams Physical Education Teacher Relationship Specialty Start Date End Date Neena Machuca FNP PCP - General Family Medicine 10/30/21 11/12/22 Caity Gray MD [address] [place], [place] [phone] PCP - General Internal Medicine 11/13/22 Vero Pineda Duct LayerTerritory Account Executive 03/17/24 documented as of this encounter
== END 2024-08-30 12:05 | disposition home or self-care (01) ==
LOC: HO.US 12:04
PROVIDERS: Visit Provider General Practice
DX: R10.9 Unspecified abdominal pain (principal)
CPT/HCPCS: 76830; 76856

== ENCOUNTER → 2024-08-30 12:11 | Outpatient (BNV) | payer MEDICAID, SELFPAY | PROVIDERS: Visit Provider Radiology Diagnostic Radiology | DX: N85.8 Other specified noninflammatory disorders of uterus (principal) | CPT/HCPCS: 76830; 76856 ==

== ENCOUNTER 2024-09-17 14:53 | Outpatient (AMB) | payer MEDICAID, SELFPAY ==
--- NOTE | 2024-09-17 14:55 | A.OFFVIS_ITS ---
Vital Signs 09/17/24 14:58 Height 5 ft 2 in Weight 145 lb 8.081 oz BMI 26.6 BP 126/70 Blood Pressure Location Rt brachial Position Sitting Pulse 75 Pulse Source Pulse Oximeter Pulse Oximetry (%) 99 Oxygen Delivery Method Room Air Intake Visit Reasons: T2DM w/diabetic nephropahy Intake Note: NEW Patient presents today to establish treatment for Type 2 Diabetes Mellitus/ Diabetic Nephropathy: Last Diabetic eye exam was on: 08/2024, has an liz coming up 09/27/2024, patient has glaucoma Last Podiatry exam was on: Patient has an appt coming soon in Sep Most recent HbA1c: 8.0%, 09/17/2024 Random Glucose: 109 mg/dL Mds Manager Required: Yes Mds Manager Language: Machine Maintenance Mechanic Name: NICHOLE Hdez Accompanied by: Self / Same As Patient Allergies No Known Allergies (No Known Allergies*) Allergy (Verified 07/06/24 12:53) Medication List - Last Reconciled 09/17/24 by Carol Reyes PA-C aripiprazole 2 mg PO BEDTIME aspirin 81 mg PO DAILY atorvastatin 20 mg PO DAILY blood sugar diagnostic (FreeStyle Lite Strips) As directed blood-glucose meter (FreeStyle Lite Meter kit) As directed to test blood glucose 4x/day cholecalciferol (vitamin D3) 50 mcg PO DAILY 30 days clonazepam 1 mg PO BID dulaglutide (Trulicity) 3 mg subcut QWEEK duloxetine 20 mg PO BID evolocumab (Repatha SureClick) 140 mg subcut Q2W ezetimibe (Zetia) 10 mg PO DAILY gabapentin 600 mg PO TID insulin aspart U-100 (Novolog FlexPen U-100 Insulin aspart) 8 units (0.08 mL) subcut TID insulin glargine (Lantus Solostar U-100 Insulin) 16 units subcut QPM lancets (FreeStyle Lancets) As directed lisinopril 10 mg PO DAILY metoprolol tartrate 100 mg PO ONCE pen needle, diabetic (BD Ultra-Fine Martha Pen Needle) As directed three times a day trazodone 100 mg PO BEDTIME HPI HPI T2DM w/diabetic nephropahy: Details: Patient is a 63-year-old female with a significant past medical history of type 2 diabetes, hyperlipidemia, hypertension, polyneuropathy and nephropathy presenting today to establish care regarding her diabetes. Becka here today for translation. Endo: Was diagnosed with diabetes 40 years ago. Her A1c today is 8. Currently Lantus 18 units nightly, NovoLog 8 units 3 times a day, Trulicity 3 mg weekly. -in the past treated with metformin but it caused a lot of GI discomfort. She does not like taking the Trulicity as it does cause some nausea. She states that despite taking the insulin her blood sugars remain just very elevated. Sometimes at night they do go low. CGM-very hyperglycemic 100% Has had hypoglycemia in the past and treats his glucose tabs. Has this at home. Understands the rule of 15. States that most of her family members are diabetics. She has a couple type 2 diabetics but most of them are type 1 diabetics. She states that her diet is overall very balanced. She does not want to see a dietitian or inclusion paraeducator. She is up-to-date with Ophthalmology. Has an appointment scheduled with Podiatry in November. Has 2 calluses on her feet. The skin she says is intact but the calluses are uncomfortable. CV: Blood pressure today in the office is 126/70. She is currently on lisinopril 10 mg daily, metoprolol 100 mg. Cholesterol is managed with Repatha, atorvastatin and Zetia. She follows closely with Cardiology as she has significant hyperlipidemia. [facility]MERLY [facility], [facility] Medical History Type 2 diabetes mellitus with hyperglycemia, with long-term current use of insulin Long-term current use of insulin for diabetes mellitus Type 2 diabetes mellitus with diabetic nephropathy Vitamin D deficiency Hyperlipidemia LDL goal <100 Type 2 diabetes mellitus with diabetic polyneuropathy Palpitations Depression with anxiety Surgical History Hx of cataract surgery History of cholecystectomy Family History Father Prostate cancer Diabetes Mother Uterine cancer, sarcoma Brain bleed Diabetes CAD (coronary artery disease) Social History Household Members: None Alcohol intake: current Alcohol intake frequency: does not drink Patient Tobacco Use Status: Never used Tobacco Physical Exam Vital Signs: Last Vital Signs Pulse 75 09/17/24 14:58 BP 126/70 09/17/24 14:58 Pulse Ox 99 09/17/24 14:58 Oxygen Delivery Method Room Air 09/17/24 14:58 BMI result Body Mass Index 26.6 Const Orientation/consciousness: patient oriented x3 Neck Neck: Yes no lymphadenopathy Thyroid: Thyroid normal Carotids: no bruits Resp Auscultation: clear to auscultation bilaterally Cardio Rate: regular rate Rhythm: regular rhythm Heart sounds: S1 normal heart sound present and S2 normal heart sound present Peripheral pulses: dorsalis pedis present Neuro General: patient oriented x3, gait normal and no focal motor deficits Extrem Other: Monofilament sensation diminished bilaterally. Vibratory sensation intact bilaterally. Skin intact. callus noted on plantar aspect bilaterally. General: Yes normal to inspection Results AMB Hemoglobin A1c AMB Hemoglobin A1c 8.0 % Last Edit by NICHOLE Hdez on 09/17/24 15:37 Assessment & Plan Assessment & Plan (1) Type 2 diabetes mellitus with diabetic polyneuropathy: Code(s): E11.42 - Type 2 diabetes mellitus with diabetic polyneuropathy Category: Medical Qualifiers: Diabetes mellitus long term care pharmacist insulin use: with penitentiary use Qualified Code(s): E11.42 - Type 2 diabetes mellitus with diabetic polyneuropathy; Z79.4 - USP (current) use of insulin Plan: 50 minutes spent in [id number] time reviewing diabetes, the differences between type 1 and type 2 diabetes, the pathophysiology of diabetes and complications associated with diabetes including but not limited to increased risk of stroke, heart attack, blindness, kidney disease, neuropathy etc.. Labs ordered today given the extensive family history of type 1 diabetes switch from trulicity (ineffective and nausea) to ozempic increase lantus to 25 units increase humalog to 10 units TID reviewed rule of 15s has glucose tabs at home Ordered sensors today. We will upgrade to the 3+. Back up testing supplies ordered Short term follow up in 3-4 weeks. Sooner if needed. (2) Type 2 diabetes mellitus with diabetic nephropathy: Code(s): E11.21 - Type 2 diabetes mellitus with diabetic nephropathy Category: Medical Qualifiers: Diabetes mellitus long term care pharmacist insulin use: with long term care pharmacist use Qualified Code(s): E11.21 - Type 2 diabetes mellitus with diabetic nephropathy; Z79.4 - equipment operator intermodal yard (current) use of insulin Plan: Labs ordered. We will follow up pending test results. Discussed possibly adding SGLT2 pending labs. This has been stable. (3) Hypertension: Code(s): I10 - Essential (primary) hypertension Category: Medical Qualifiers: Hypertension type: essential hypertension Qualified Code(s): I10 - Essential (primary) hypertension Plan: WNL. Continue current regimen (4) High cholesterol: Code(s): E78.00 - Pure hypercholesterolemia, unspecified Category: Medical Plan: Following with cardiology Orders: Orders C Peptide Today E11.21 - Type 2 diabetes mellitus with diabetic nephropathy, E11.42 - Type 2 diabetes mellitus with diabetic polyneuropathy, Z79.4 - USP (current) use of insulin Islet Cell Antibody Scrn/Titer Today E11.21 - Type 2 diabetes mellitus with diabetic nephropathy, E11.42 - Type 2 diabetes mellitus with diabetic polyneuropathy, Z79.4 - USP (current) use of insulin Glutamic acid decarboxylase Ab Today E11.21 - Type 2 diabetes mellitus with di abetic nephropathy, E11.42 - Type 2 diabetes mellitus with diabetic polyneuropathy, Z79.4 - equipment operator intermodal yard (current) use of insulin AMB Hemoglobin A1c Today E11.42 - Type 2 diabetes mellitus with diabetic polyneuropathy, Z79.4 - equipment operator intermodal yard (current) use of insulin Basic Metabolic Panel Today E11.21 - Type 2 diabetes mellitus with diabetic nephropathy, E11.42 - Type 2 diabetes mellitus with diabetic polyneuropathy, Z79.4 - equipment operator intermodal yard (current) use of insulin Medications: New semaglutide (Ozempic) 0.25 mg (0.368 mL) subcut QWEEK 3 mL 4RF semaglutide (Ozempic) 0.25 mg (0.368 mL) subcut QWEEK 3 mL 4RF blood-glucose sensor (FreeStyle Daryn 3 Plus Sensor device) Use daily As directed to monitor glucose 2 ea 5RF E08.29 - Diabetes mellitus due to underlying condition with other diabetic kidney complication, R80.9 - Proteinuria, unspecified, Z79.4 - USP (current) use of insulin lancets (FreeStyle Lancets) use daily as directed to check blood glucose 100 ea 3RF E11.65 - Type 2 diabetes mellitus with hyperglycemia blood sugar diagnostic (FreeStyle Lite Strips) Use daily As directed to check blood glucose 100 ea 3RF E11.9 - Type 2 diabetes mellitus without complications insulin glargine (Lantus Solostar U-100 Insulin) 25 units (0.25 mL) subcut QPM 15 mL 4RF E11.65 - Type 2 diabetes mellitus with hyperglycemia, Z79.4 - equipment operator intermodal yard (current) use of insulin Changed From insulin aspart U-100 (Novolog FlexPen U-100 Insulin aspart) + 2 units for blood glucose >200 8 units (0.08 mL) subcut TID 15 mL 4RF E11.65 - Type 2 diabetes mellitus with hyperglycemia, Z79.4 - USP (current) use of insulin To insulin aspart U-100 (Novolog FlexPen U-100 Insulin aspart) + 2 units for blood glucose >200 10 units (0.1 mL) subcut TID 15 mL 4RF E11.65 - Type 2 diabetes mellitus with hyperglycemia, Z79.4 - equipment operator intermodal yard (current) use of insulin Refilled insulin aspart U-100 (Novolog FlexPen U-100 Insulin aspart) + 2 units for blood glucose >200 10 units (0.1 mL) subcut TID 15 mL 4RF E11.65 - Type 2 diabetes mellitus with hyperglycemia, Z79.4 - equipment operator intermodal yard (current) use of insulin Coding Level of Care Code New Pt Level 5 (68999) Complex EM visit Add On G2211 Diagnoses Type 2 diabetes mellitus with diabetic polyneuropathy, with long-term current use of insulin E11.42; Z79.4 Diabetes mellitus long term care pharmacist insulin use: with long term care pharmacist use Type 2 diabetes mellitus with diabetic nephropathy, with long-term current use of insulin E11.21; Z79.4 Diabetes mellitus penitentiary insulin use: with penitentiary use Essential hypertension I10 Hypertension type: essential hypertension High cholesterol E78.00
[2024-09-17 14:58] VITALS: BP 126/70; PULSE 75; O2SAT 99; BMI 26.6
[2024-09-17 15:07] LABS: Glucose, Whole Blood 105 mg/dL (60-115)
== END 2024-09-17 15:41 | disposition home or self-care (01) ==
LOC: HO.ENCR 14:53
PROVIDERS: PCP Student in an Organized Health Care Education/Training Program; Visit Provider Physician Assistant
DX: E11.42 Type 2 diabetes mellitus with diabetic polyneuropathy (principal); Z79.4 Long term (current) use of insulin; E11.21 Type 2 diabetes mellitus with diabetic nephropathy; I10 Essential (primary) hypertension; E78.00 Pure hypercholesterolemia, unspecified

== ENCOUNTER → 2024-09-17 14:53 | Outpatient (BNVA) | payer MEDICAID, SELFPAY | PROVIDERS: PCP Student in an Organized Health Care Education/Training Program; Visit Provider Physician Assistant | DX: E11.42 Type 2 diabetes mellitus with diabetic polyneuropathy (principal); E11.21 Type 2 diabetes mellitus with diabetic nephropathy; I10 Essential (primary) hypertension; E78.00 Pure hypercholesterolemia, unspecified; Z79.4 Long term (current) use of insulin; Z79.84 Long term (current) use of oral hypoglycemic drugs | CPT/HCPCS: 82947; 83036; 99212 ==

== ENCOUNTER 2024-10-25 14:12 | Outpatient (AMB) | payer MEDICAID, SELFPAY ==
[2024-10-25 14:16] VITALS: BP 116/64; PULSE 75; O2SAT 99; BMI 26.4
--- NOTE | 2024-10-25 14:16 | MHC.OFFVIS ---
Vital Signs 10/25/24 14:16 Height 5 ft 2 in Weight 144 lb 9.972 oz BMI 26.4 BP 116/64 Blood Pressure Location Lt brachial Position Sitting Pulse 75 Pulse Source Pulse Oximeter Pulse Oximetry (%) 99 Oxygen Delivery Method Room Air Intake Visit Reasons: dm Intake Note: Patient present today for Type 2 Diabetes Mellitus Last Diabetic eye exam: 10/18/2024 Last Podiatry Visit: Has first appt coming up in November Random Glucose: 148 mg/dl HgA1C: 8.0% 09/17/24 Inside Sales Advertising Executive Required: Yes Inside Sales Advertising Executive Language: Business Operations Director Services: Inside Sales Advertising Executive Present Inside Sales Advertising Executive Name: Dean [id number] Information Interpreted: non-clinical & clinical Accompanied by: Self / Same As Patient Allergies No Known Allergies (No Known Allergies*) Allergy (Verified 10/25/24 14:21) Medication List - Last Reconciled 10/25/24 by Carol Reyes PA-C aripiprazole 2 mg PO BEDTIME aspirin 81 mg PO DAILY atorvastatin 20 mg PO DAILY blood sugar diagnostic (FreeStyle Lite Strips) As directed blood sugar diagnostic (FreeStyle Lite Strips) Use daily As directed to check blood glucose blood-glucose meter (FreeStyle Lite Meter kit) As directed to test blood glucose 4x/day blood-glucose sensor (FreeStyle Daryn 3 Plus Sensor device) Use daily As directed to monitor glucose cholecalciferol (vitamin D3) 50 mcg PO DAILY 30 days clonazepam 1 mg PO BID duloxetine 20 mg PO BID evolocumab (Repatha SureClick) 140 mg subcut Q2W ezetimibe (Zetia) 10 mg PO DAILY gabapentin 600 mg PO TID insulin aspart U-100 (Novolog FlexPen U-100 Insulin aspart) 10 units (0.1 mL) subcut TID insulin glargine (Lantus Solostar U-100 Insulin) 25 units (0.25 mL) subcut QPM lancets (FreeStyle Lancets) As directed lancets (FreeStyle Lancets) use daily as directed to check blood glucose lisinopril 10 mg PO DAILY metoprolol tartrate 100 mg PO ONCE pen needle, diabetic (BD Ultra-Fine Martha Pen Needle) As directed three times a day semaglutide (Ozempic) 0.25 mg (0.368 mL) subcut QWEEK trazodone 100 mg PO BEDTIME HPI HPI dm: Details: Patient is a 63-year-old female with a significant past medical history of type 2 diabetes, hyperlipidemia, hypertension, polyneuropathy and nephropathy presenting today to establish care regarding her diabetes. -forgot to get labs done Phone: Tulio today for translation. Endo: Was diagnosed with diabetes 40 years ago. Her most recent A1c today was 8. Currently Lantus 16 units (supposed to be taking 25 units nightly), NovoLog 4-8 (supposed to take 10 units) 3 times a day, and trulicity (she was supposed to be on ozempic 0.25 mg weekly) -never started the ozempic. states the pharmacy told her she only had trulicity. She did not call us. -in the past treated with metformin but it caused a lot of GI discomfort. She does not like taking the Trulicity as it does cause some nausea. She states that despite taking the insulin her blood sugars remain just very elevated. Sometimes at night they do go low. CGM- hyperglycemic 29%, in range 71 %, 0% hypoglycemic --last visit she was 100% hyperglycemic -notes that blood sugars first thing in the morning feel low sometimes and will respond to food. Has had hypoglycemia in the past and treats his glucose tabs. Has this at home. Understands the rule of 15. States that most of her family members are diabetics. She has a couple type 2 diabetics but most of them are type 1 diabetics. She states that her diet is overall very balanced. She does not want to see a dietitian or operations supervisor 2nd shift. She is up-to-date with Ophthalmology. Has an appointment scheduled with Podiatry in November. CV: Blood pressure today in the office is 116/64. She is currently on lisinopril 10 mg daily, metoprolol 100 mg. Cholesterol is managed with Repatha, atorvastatin and Zetia. She follows closely with Cardiology as she has significant hyperlipidemia. [facility] Medical History Type 2 diabetes mellitus with hyperglycemia, with long-term current use of insulin Long-term current use of insulin for diabetes mellitus Type 2 diabetes mellitus with diabetic nephropathy Vitamin D deficiency Hyperlipidemia LDL goal <100 Type 2 diabetes mellitus with diabetic polyneuropathy Palpitations Depression with anxiety Surgical History Hx of cataract surgery History of cholecystectomy Family History Father Prostate cancer Diabetes Mother Uterine cancer, sarcoma Brain bleed Diabetes CAD (coronary artery disease) Social History Household Members: None Alcohol intake: current Alcohol intake frequency: does not drink Patient Tobacco Use Status: Never used Tobacco Physical Exam Vital Signs: Last Vital Signs Pulse 75 10/25/24 14:16 BP 116/64 10/25/24 14:16 Pulse Ox 99 10/25/24 14:16 Oxygen Delivery Method Room Air 10/25/24 14:16 BMI result Body Mass Index 26.4 Assessment & Plan Assessment & Plan (1) Type 2 diabetes mellitus with diabetic nephropathy: Code(s): E11.21 - Type 2 diabetes mellitus with diabetic nephropathy Category: Medical Qualifiers: Diabetes mellitus long distance operator insulin use: with mcc use Qualified Code(s): E11.21 - Type 2 diabetes mellitus with diabetic nephropathy; Z79.4 - terminal operations supervisor (current) use of insulin Plan: increase lantus to 20 units reduce novolog 4 with meals start ozempic 0.25 mg weekly stop trulicity short term follow up 2-3 or sooner if needed months reminded to get labs (2) Hypertension: Code(s): I10 - Essential (primary) hypertension Category: Medical Qualifiers: Hypertension type: essential hypertension Qualified Code(s): I10 - Essential (primary) hypertension Plan: WNL. Continue current regimen Medications: Changed From insulin glargine (Lantus Solostar U-100 Insulin) 25 units (0.25 mL) subcut QPM 15 mL 4RF E11.65 - Type 2 diabetes mellitus with hyperglycemia, Z79.4 - terminal operations supervisor (current) use of insulin To insulin glargine (Lantus Solostar U-100 Insulin) 20 units (0.2 mL) subcut QPM 15 mL 4RF E11.65 - Type 2 diabetes mellitus with hyperglycemia, Z79.4 - jail (current) use of insulin From insulin aspart U-100 (Novolog FlexPen U-100 Insulin aspart) + 2 units for blood glucose >200 10 units (0.1 mL) subcut TID 15 mL 4RF E11.65 - Type 2 diabetes mellitus with hyperglycemia, Z79.4 - jail (current) use of insulin To insulin aspart U-100 (Novolog FlexPen U-100 Insulin aspart) 4 units (0.04 mL) subcut TID 15 mL 4RF E11.65 - Type 2 diabetes mellitus with hyperglycemia, Z79.4 - jail (current) use of insulin Refilled semaglutide (Ozempic) 0.25 mg (0.368 mL) subcut QWEEK 3 mL 4RF Coding Level of Care Code Est Pt Level 4 (01952) Complex EM visit Add On G2211 Diagnoses Type 2 diabetes mellitus with diabetic nephropathy, with long-term current use of insulin E11.21; Z79.4 Diabetes mellitus long distance operator insulin use: with long distance operator use Essential hypertension I10 Hypertension type: essential hypertension
[2024-10-25 14:29] LABS: Glucose, Whole Blood 148 mg/dL (60-115)
--- OUTSIDE RECORDS SUMMARY | 2024-10-25 15:39 | XMS_ITS | Encounter Summary ---
Author Organization [employer] Address [address] [place] [address] 7 [place] [address] Care Team Providers Care Engine Testing Supervisor Name Role Phone Neena Machuca Primary Care Provider Caity Cortez MD Primary Care Pro vider Reason for Visit * Reason Comments Med Refill Encounter Details Date Type Department Care Team ([facility] Contact Info) Description 03/20/2022 Refill [facility] [address] [place] [id number] Neena Machuca FNP Diabetic polyneuropathy associated with type 2 diabetes [...] Upcoming Encounters Date Type Department Care Team ([facility] Contact Info) Description 12/23/2024 10:30 AM EDT Office Visit [facility] [address] [place] [address] [phone] Caity Gray MD [address] [place], [place] [phone] documented as of this encounter Visit Diagnoses Diagnosis Diabetic polyneuropathy associated with type 2 diabetes mellitus (CMS/HCC) documented in this encounter Care Teams Engine Testing Supervisor Relationship Specialty Start Date End Date Neena Machuca FNP PCP - General Family Medicine 8/30/22 9/12/23 Caity Gray MD [address] [place] [id number] PCP - General Internal Medicine 11/13/22 Vero Pineda Medical Equipment RepairerCrop Specialist 03/17/24 documented as of this encounter
--- OUTSIDE RECORDS SUMMARY | 2024-10-25 15:39 | XMS_ITS | Encounter Summary ---
Author Organization [employer] Address [address] [place] [address] Care Team Providers Care Database Dba Name Role Phone Caity Gray MD Primary Care Pro vider Reason for Visit * Reason Onset Date Comments PT1 09/15/2024 Encounter Details Date Type Department Care Team ([facility] Contact Info) Description 09/15/2024 Telephone [facility] [address] [place], [place] [phone] Caity Gray MD [address] [place] [address] PT1 Social History Tobacco Use Types Packs/Day Years Used Date Smoking Tobacco: Never Passive Smoke Exposure: Never Smokeless Tobacco: Never Alcohol Use Standard Drinks/Week Comments Never 0 (1 standard drink = 0.6 oz pur e alcohol) Depression Answer Date Recorded Patient Health Questionnaire-9 Score 4 08/12/2024 Patient Health Questionnaire-9 Score 4 08/12/2024 Last PHQ-9: Questionnaire Data Not on file 0 08/12/2024 Housing Stability Answer Date Recorded What is your housing situation today? I have kiran velázquez 08/12/[address] you li ve. Do you have problems with any of the following? None of the above 08/12/2024 Food Insecurity Answer Date Recorded Within the past 12 months, y ou worried that your food would run out before you got money to buy more: Never True 08/12/2024 Within the past 12 months,th e food you bought just didn't last and you didn't have enough money to get more: Never True 01/2025 Transportation Answer Date Recorded In the past 12 months, has l ack of transportation kept you from medical appts, meetings, work or from getting things needed for daily living? No 08/12/2024 Utilities Answer Date Recorded In the past 12 months, has t he electric, gas, oil or water company threatened to shut off services in your home? No 08/12/2024 Depression Answer Date Recorded Patient Health Questionnaire-2 Score 1 08/12/2024 Internet Access Answer Date Recorded Internet Access Q1 No 08/12/2024 Internet Access Q2 I do not want or need it 08/01 Comments Unknown Sex and Gender Information Value Date Recorded Sex Assigned at Female 12/31/2021 10:33 AM EDT Legal Sex Female 10:33 AM EDT Gender Identity Female 12/31/2021 10:33 AM EDT Sexual Orientation Lesbian or Herman 12/31/2021 10 :33 AM EDT documented as of this encounter Miscellaneous Notes * Telephone Encounter - Mark Roberts - 09/15/2024 10:02 AM EDT Patient calling requesting PT1 Home Address verified: Y/N: Yes Provider name or facility name: [facility] Escort needed: Y/N: No Do you have a wheelchair: Y/N: No Visits: (2x month ) documented in this encounter Plan of Treatment Upcoming Encounters Date Type Department Care Team (Late st Contact Info) Description 12/23/2024 10:30 AM EDT Office Visit [facility] [address] [place] [address] Caity Gray MD [address] [place] [address] documented as of this encounter Visit Diagnoses Not on filedocumented in this encounter Additional Health Concerns Assessment Noted Time PHQ-9 Depression Total Score: 4 08/13/19 25 11:28 AM EDT documented as of this encounter Care Teams Database Dba Relationship Specialty Start Date End Date Caity Gray MD [address] [place] [id number] PCP - General Internal Medicine 11/13/22 Vero Pineda Electric Motor RepairerKerfer Machine Operator 03/17/24 documented as of this encounter
--- OUTSIDE RECORDS SUMMARY | 2024-10-25 15:39 | XMS_ITS | Clinical Summary ---
Author Organization [employer] Address [address] [facility] [address] [place] [address] Care Team Providers Care Scrap Hooker Name Role Phone Caity Gray MD Primary [...] polyneuropathy, with long-term current use of insulin ([facility]) Use 5 times a day when checking blood sugar 100 each 11 022 Active Blood Pressure Monitor kit 1 each 2 times daily. 1 kit 023 Active glucose blood (FREESTYLE LITE) test strip USE TO TEST BLOOD SUGAR THREE TIMES DAILY 100 each 3 024 Active lidocaine (Lidoderm) 5 % patch Apply 1 patch topically Once per day. Remove & discard patch within 12 hours or as directed by MD. 30 patch 1 024 Active Trulicity 3 MG/0.5ML solution auto-injector INJECT ONE PEN (= 3MG) SUBCUTANEOUSLY ONCE A WEEK DIRECTED 2 mL 2 025 Active brimonidine (AlphaGAN) 0.2 % ophthalmic solution instill 1 drop in each eye twice daily Active latanoprost (Xalatan) 0.005 % ophthalmic solution INSTILL 1 DROP IN EACH EYE EVERY NIGHT Active Pred Forte 1 % ophthalmic suspension INSTILL 1 DROP INTO IN THE RIGHT EYE FOUR TIMES DAILY FOR 14 DAYS Active psyllium (Metamucil Smooth Texture) 58.6 % powder Take 5.12 g (3 g of fiber) by mouth 2 times daily. 283 g 2 025 2025 Active docusate sodium (Colace) 100 MG capsule Take 1 capsule (100 mg) by mouth 2 times daily. 90 capsule 3 025 2024 Active cholecalciferol (Vitamin D3) 25 MCG (1000 UT) tabletIndication s:Vitamin D deficiency Take 1 tablet (1,000 Units) by mouth Once per day. 90 tablet 1 Active lisinopril-hydro CHLOROthiazide 10-12.5 MG tabletIndication s:Essential hypertension Take 1 tablet by mouth Once per day. 90 tablet 1 Active Repatha SureClick 140 MG/ML injectionIndicat ions:Type 2 diabetes mellitus with diabetic nephropathy, with long-term current use of insulin ([facility]) INJECT 1 ML SUBCUTANEOUSLY EVERY 14 DAYS 2 mL 2 Active pen needle 32G x 4 mm misc Use as instructed 100 each 2 Active ezetimibe (Zetia) 10 MG tablet Take 10 mg by mouth Once per day. Active glucose 4 g chewable tablet Chew 4 tablets (16 g) if needed for low blood sugar. 50 tablet 12 025 2025 Active Continuous Glucose Workers Compensation Coordinator (FreeStyle Daryn 3 [place]) device 1 each Once per day. Use as directed for CGM 1 each Active Continuous Glucose Sensor (FreeStyle Daryn 3 Plus Sensor) misc 1 each every 15 days. Apply 1 every 15 days as directed for CGM 2 each Active Diclofenac Sodium 1 % gel Apply 1 Application topically if needed each day (knee pain). 50 g 025 Active insulin aspart FlexPen (NovoLOG) 100 UNIT/ML penIndications:D iabetic polyneuropathy associated with type 2 diabetes mellitus (CMS/HCC) INJECT 10 UNITS SUBCUTANEOUSLY WITH Breakfast AND 6 UNITS AT NIGHT 15 mL 3 025 Active insulin glargine (Lantus SoloStar) 100 UNIT/ML penIndications:D iabetic polyneuropathy associated with type 2 diabetes mellitus (CMS/HCC) INJECT 14 UNITS SUBCUTANEOUSLY EVERY NIGHT 15 mL 5 025 Active metoprolol succinate XL (Toprol-XL) 50 MG 24 hr tabletIndication s:Essential hypertension Take 1 tablet (50 mg) by mouth in the morning. 90 tablet 025 Active atorvastatin (Lipitor) 20 MG tabletIndication s:Hyperlipidemia , unspecified hyperlipidemia type TAKE 1 TABLET BY MOUTH EVERY DAY 90 tablet 1 025 Active Blood Glucose Monitoring Suppl (FreeStyle [place] Lite) w/Device kitIndications:T ype 2 diabetes mellitus with retinopathy, with long-term current use of insulin, macular edema presence unspecified, unspecified laterality, unspecified retinopathy severity ([facility]) Use to test blood sugar 3 times daily 1 kit 025 Active FREESTYLE LITE test stripIndications :Type 2 diabetes mellitus with retinopathy, with long-term current use of insulin, macular edema presence unspecified, unspecified laterality, unspecified retinopathy severity ([facility]/HCC) Use to test blood sugar 3 times daily 100 each 12 025 2025 Active Alcohol Swabs 70 % padsIndications: Type 2 diabetes mellitus with retinopathy, with long-term current use of insulin, macular edema presence unspecified, unspecified laterality, unspecified retinopathy severity ([facility]/HCC) Use to test blood sugar 3 times daily 100 each 025 Active Lancets miscIndications: Type 2 diabetes mellitus with retinopathy, with long-term current use of insulin, macular edema presence unspecified, unspecified laterality, unspecified retinopathy severity (CMS/HCC) Use to test blood sugar 3 times daily 100 each 025 Active gabapentin (Neurontin) 600 MG tabletIndication s:Diabetic polyneuropathy associated with type 2 diabetes mellitus (CMS/HCC) TAKE 1 TABLET BY MOUTH THREE TIMES A DAY 90 tablet 2 025 Active gabapentin (Neurontin) 600 MG tabletIndication s:Diabetic polyneuropathy associated with type 2 diabetes mellitus (CMS/HCC) TAKE 1 TABLET BY MOUTH THREE TIMES A DAY 90 tablet 1 025 2024 Discontinued(R eorder (will not trigger notification to Pharmacy)) Active Problems Problem Noted Date Diagnosed Date Left hip pain 08/12/2024 Left knee pain 08/12/2024 Abdominal pain 07/12/2024 Assessment & Plan (07/15/2024 11:27 AM EDT): Likely combination of constipation and fibroids - will recommend Colace and fiber daily - Miralax prn - repeat pelvic US, consider surgical consult - pap smear negative for HPV/normal cells Chronic lower back pain 10/21/2023 Overweight (BMI 25.0-29.9) 01/11/2023 Lichen nitidus 01/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 Will order again for [facility] lab 09/12/22 Lung cancer: Never [...] Encounters Date Type Department Care Team Description 10/25/2024 Orders Only GENERIC EXTERNAL DATA DEPARTMENT Provider, Generic External Data 10/20/2024 Refill [facility] [address] [place] [phone] Caity Gray MD Diabetic polyneuropathy associated with type 2 diabetes mellitus ([facility]) 10/15/2024 Telephone [facility] [address] [place] [phone] Caity Gray MD No Show 10/14/[address] [address] Caity Gray MD Chart Prep 09/29/[address] [address] Caity Gray MD Type 2 diabetes mellitus with retinopathy, with long-term current use of insulin, macular edema presence unspecified, unspecified laterality, unspecified retinopathy severity (CMS/HCC) 09/29/2024 Results Follow-Up [address] [address] Laura Gallardo MD US Pelvis Transvaginal 09/19/2024 Refill [facility] [address] [place], [place] [phone] Paz Sutherland MD Hyperlipidemia, unspecified hyperlipidemia type 09/17/2024 Orders Only GENERIC EXTERNAL DATA DEPARTMENT Provider, Generic External Data 09/15/2024 Patient Outreach [address] [address] Caity Gray MD Care Coordination ([facility] outreach for SDOH PT-1 and food needs-referral completed /) 09/15/[address] [address] Caity Gray MD PT1 08/12/2024 11:15 AM EDT Office Visit [address] [address] Caity Gray MD Foot callus (Primary Dx); Type 2 diabetes mellitus with diabetic nephropathy, with long-term current use of insulin (CMS/HCC); Knee pain, unspecified chronicity, unspecified laterality; Left hip pain; Diabetic polyneuropathy associated with type 2 diabetes mellitus (CMS/HCC); Essential hypertension; History of uterine fibroid; Abdominal pain, unspecified abdominal location; Health care maintenance; Chronic pain of left knee 08/12/2024 Results Follow-Up [address] [phone] Caity Gray MD XR Knee 3 Views Left 08/12/2024 Telephone [facility] [address] [place] [address] Caity Gray MD 08/12/2024 Travel 08/11/2024 Telephone [facility] [address] [place] [address] Eloisa Buchanan MA chart prep 08/09/2024 Refill [facility] [address] [place] [address] Caity Gray MD Type 2 diabetes mellitus without complication, unspecified whether intermediate insulin use ([facility]) 07/30/2024 Orders Only [facility] [address] [place] [address] Caity Gray MD from Last 3 Months Immunizations Immunization Administration Dates Next Due Influenza Injectable Quadriv alant Preservative Free IIV4 MDCK 01/08/2021,02/01/2020 Influenza injectable quadrivalent preservative f ree 01/08/2023 Influenza, seasonal, injectable, preservative fr ee 12/25/2023 Pfizer Covid-19 Vaccine 12+ 12/25/2023, 3 Pneumococcal Conjugate PCV 20 01/08/2023 Pneumococcal Polysaccharide [...] Passive Smoke Exposure: Never Smokeless Tobacco: Never Tobacco Cessation:Counseling Given: [...] Sign Reading Time Taken Comments Blood Pressure 119/60 08/12/2024 11:05 AM EDT Pulse 74 08/12/2024 11:05 AM EDT Temperature 37 C (98.6 F) 08/12/2024 11:05 AM EDT Respiratory Rate 17 08/12/2024 11:0 5 AM EDT Oxygen Saturation 98% 08/12/2024 11: 05 AM EDT Inhaled Oxygen Concentration - - Weight 67.5 kg (148 lb 12.8 oz) 025 11:05 AM EDT Height 160 cm (5' 3 ) 08/12/2024 11:05 AM EDT Body Mass Index 26.36 08/12/2024 11:05 AM EDT Plan of Treatment Upcoming Encounters Date Type Department Care Team (Late st Contact Info) Description 12/23/2024 10:30 AM EDT Office Visit [facility] [address] [place] [address] Caity Gray MD [address] [place], [place] [phone] Health Maintenance Due Date Last Done Comments CT Colonography 1960 Colonoscopy 1960 FIT 1960 FOBT 1960 Sigmoidoscopy 1960 Disability Screening 1960 Diabetes: Foot Exam 1970 Eye Exam 1970 DTaP/Tdap/Td Vaccines (1 - Tdap) 08/11/2021 08/10/2021 Mammogram 07/11/2024 01/12/2024, 11/02, 02/19/2022, Additional history exists Influenza Vaccine (#1) 2024 , 01/08/2023, 01/08/2021, Additional history exists Diabetes: Hemoglobin A1C 11/12/2024 025, 12/19/2023, 01/08/2023, Additional history exists Lipid Panel 07/06/2025 07/06/2024, 12/01, 09/12/2022, Additional history exists Alcohol/Substance Use Screening 08/12/2025 08/12/2024 Depression Screening 08/12/2025 08/12/2024, 08/13/19 25 SDOH Screening 08/12/2025 08/12/2024 Tobacco Screening 08/12/2025 08/12/2024 Colorectal Cancer Screening 11/17/2026 FIT DNA/Cologuard 11/17/2026 11/18/2023 Pap Smear 07/13/2027 07/12/2024 Cervical Cancer Screening 07/12/2029 HPV/Cotest 07/12/2029 07/12/2024 Pneumococcal Vaccine: 50+ Years Completed 01/08/2023, 08/10/2021 Zoster Vaccines Completed 07/17/2023, 08/16/2021 HIV Screening Completed 12/19/2023 Hepatitis C Screening Completed 12/19/2023 COVID-19 Vaccine Completed 12/25/2023, , 01/28/2022, Additional history exists RSV Patients and Patients [...] patient's age to complete this topic Meningococcal B Vaccine Aged Out No l onger eligible based on patient's age to complete [...] Procedure Name Priority Date/Time Associated Diagnosis Comments GLUCOSE, WHOLE BLOOD Routine 10/25/2024 2:23 PM EDT GLUCOSE, WHOLE BLOOD Routine 09/17/2024 3:03 PM EDT US PELVIS TRANSVAGINAL Routine 12:39 PM EDT Abdominal pain, unspecified abdominal location XR KNEE 3 VIEWS LEFT Routine 08/12/2024 2:03 PM EDT Knee pain, unspecified chronicity, unspecified laterality XR HIP 2 OR 3 VIEWS LEFT Routine 08/12/2024 2:00 PM EDT Left hip pain ECG 12-LEAD Routine 08/12/2024 12:03 PM EDT Type 2 diabetes mellitus with diabetic nephropathy, with long-term current use of insulin ([facility]) POCT GLYCATED HEMOGLOBIN, TOTAL Routine 08/12/2024 11:07 AM EDT Type 2 diabetes mellitus with diabetic nephropathy, with long-term current use of insulin ([facility]) POCT GLUCOSE Routine 08/12/2024 11:06 AM EDT Type 2 diabetes mellitus with diabetic nephropathy, with long-term current use of insulin (CMS/HCC) ECG 12-LEAD Routine 08/12/2024 Type 2 diabetes mellitus with diabetic nephropathy, with long-term current use of insulin (CMS/HCC) HPV DNA, LOW/HIGH RISK Routine 3:25 PM EDT PAP SMEAR Routine 07/12/2024 3:25 PM EDT LIPID PANEL, STANDARD Routine 07/06/2024 1:27 PM EDT BI MAMMOGRAM DIAGNOSTIC TOMOSYNTHESIS BILATERAL Routine 01/12/2024 2:00 PM EST HEPATITIS C AB W/REFL TO HCV RNA, QN, PCR Routine 12/19/2023 11:05 AM EDT Annual physical exam HIV 1/2 ANTIGEN/ANTIBODY, FOURTH GENERATION W/RFL Routine 12/19/2023 11:05 AM EDT Annual physical exam LAB COLOGUARD COLON CANCER SCREEN Routine 11/18/2023 12:00 AM EDT Colon cancer screening from Last 3 Months or Most Recently Relevant to Health Maintenance Results * (ABNORMAL) Glucose, Whole Blood (10/25/2024 2:23 PM EDT) Only the most recent of2 resultswithin the time period is included. Glucose, Whole Blood 148(H) 60 - 115 mg/dL [facility] Comment:METER #: [id number] 0Testing performed in the Endocrinology Department [address] , [address], [place]. 10/25/2024 2:23 PM EDT 10/25/2024 2:29 PM EDT us Generic External Data Provider LAB BLOOD ORDERAB LES Final Result [facility] [address] [place] [phone] * US Pelvis Transvaginal (08/30/2024 12:39 PM EDT) Anatomical Region Laterality Modality Pelvis Ultrasound 08/30/2024 12:3 9 PM EDT Narrative 08/30/2024 1:07 PM EDT [address] [address] Ultrasound Report Signed Patient: Paty Carey MR#: [id number] : 1960 Acct:[id number] Age/Sex: 63 / F ADM Date: 08/30/24 Loc: HO.US Attending Dr: Lauar Gallardo MD Ordering Physician: Laura Gallardo Date of Service: 08/30/24 Procedure(s): US pelvic and transvaginal Accession Number(s): [id number] cc: Laura Gallardo EXAMINATION: US PELVIS TRANSABDOMINAL AND TRANSVAGINAL HISTORY: pelvic pain, calcified uterus COMPARISON: Correlation is made with an unenhanced CT of the pelvis dated 10/19/2017. TECHNIQUE: Transabdominal real-time 2D lees-scale ultrasound was performed. FINDINGS: Uterus: The uterus measures approximately 10.2 x 7.5 x 9.8 cm. There is diffuse shadowing from the uterus consistent with multiple calcified fibroids. Individual fibroids are not discernible. Endometrium: The endometrial stripe not identified. Right ovary: The right ovary is not identified. Left ovary: The left ovary is not identified. Pelvic fluid: none. US/US pelvic and transvaginal IMPRESSION: Diffuse shadowing from the uterus consistent with multiple calcified fibroids. Individual fibroids cannot be discerned. If evaluation of the uterine fibroids is necessary, MRI could be performed. The ovaries are not identified. Electronically signed by: Deo Ireland MD 08/30/2024 01:04 PM EDT Dictated By: Deo Ireland MD Signed By: <Electronically signed by Deo Ireland MD in OV> 08/30/24 1304 DD/ 1239 TD/TT: 08/30/24 1242 Counter Waitress/Waiter: Procedure Note Donotuseinterpreter, Image - 08/30/[address] [address] Ultrasound Report Signed Patient: Paty CareyMR#: [id number] : 1960cct:[id number] Age/Sex: 63 / FADM Date: 08/30/24 Loc: HO.US Attending Dr: Laura Gallardo MD Ordering Physician: Laura Gallardo Date of Service: 08/30/24 Procedure(s): US pelvic and transvaginal Accession Number(s): [id number] cc: Laura Gallardo EXAMINATION: US PELVIS TRANSABDOMINAL AND TRANSVAGINAL HISTORY: pelvic pain, calcified uterus COMPARISON: Correlation is made with an unenhanced CT of the pelvis dated 10/19/2017. TECHNIQUE: Transabdominal real-time 2D lees-scale ultrasound was performed. FINDINGS: Uterus: The uterus measures approximately 10.2 x 7.5 x 9.8 cm. There is diffuse shadowing from the uterus consistent with multiple calcified fibroids. Individual fibroids are not discernible. Endometrium: The endometrial stripe not identified. Right ovary: The right ovary is not identified. Left ovary: The left ovary is not identified. Pelvic fluid: none. US/US pelvic and transvaginal IMPRESSION: Diffuse shadowing from the uterus consistent with multiple calcified fibroids. Individual fibroids cannot be discerned. If evaluation of the uterine fibroids is necessary, MRI could be performed. The ovaries are not identified. Electronically signed by: Deo Ireland MD 08/30/2024 01:04 PM EDT Dictated By: Deo Ireland MD Signed By: <Electronically signed by Deo Ireland MD in OV> 08/30/24 1304 DD/ 1239 TD/TT: 08/30/24 1242 Counter Waitress/Waiter: us Laura Gallardo MD IMG US PROCEDURES Final Result * XR Knee 3 Views Left (08/12/2024 2:03 PM EDT) Anatomical Region Laterality Modality Lower Extremities, Knee Left Radiogra phic Imaging 08/12/2024 2:03 PM EDT Narrative 08/12/2024 3:22 PM EDT [address] [address] XRay Report Signed Patient: Paty Carey MR#: [id number] : 1960 Acct:[id number] Age/Sex: 63 / F ADM Date: 08/12/24 Loc: .HHCX Attending Dr: Caity Brink MD Ordering Physician: Caity Gray MD Date of Service: 08/12/24 Procedure(s): XR knee LT 3V Accession Number(s): [id number] cc: Caity Gray MD EXAMINATION: XR KNEE 3 VIEWS LEFT HISTORY: left knee pain COMPARISON: Comparison is made with the prior examination dated 01/26/2019. FINDINGS: Three views of the left knee are submitted. Osseous mineralization is normal. There is no fracture or dislocation. The joint spaces are preserved. There are vascular calcifications. There is no joint effusion. XR/XR knee LT 3V IMPRESSION: Unremarkable examination of the left knee. Electronically signed by: Deo Ireland MD 08/12/2024 03:20 PM EDT Dictated By: Deo Ireland MD Signed By: <Electronically signed by Deo Ireland MD in OV> 08/12/24 1520 DD/ 1403 TD/TT: 08/12/24 1420 Counter Waitress/Waiter: Procedure Note Donotuseinterpreter, Image - 08/12/[address] [address] XRay Report Signed Patient: Paty CareyMR#: [id number] : 1960cct:[id number] Age/Sex: 63 / FADM Date: 08/12/24 Loc: HO.CX Attending Dr: Caity Brink MD Ordering Physician: Caity Gray MD Date of Service: 08/12/24 Procedure(s): XR knee LT 3V Accession Number(s): [id number] cc: Caity Gray MD EXAMINATION: XR KNEE 3 VIEWS LEFT HISTORY: left knee pain COMPARISON: Comparison is made with the prior examination dated 01/26/2019. FINDINGS: Three views of the left knee are submitted. Osseous mineralization is normal. There is no fracture or dislocation. The joint spaces are preserved. There are vascular calcifications. There is no joint effusion. XR/XR knee LT 3V IMPRESSION: Unremarkable examination of the left knee. Electronically signed by: Deo Ireland MD 08/12/2024 03:20 PM EDT RP Dictated By: Deo Ireland MD Signed By: <Electronically signed by Deo Ireland MD in OV> 08/12/24 1520 DD/ 1403 TD/TT: 08/12/24 1420 Counter Waitress/Waiter: Caity Brink MD IMG XR PROCEDURES Final Result * XR Hip 2 or 3 Views Left (08/12/2024 2:00 PM EDT) Anatomical Region Laterality Modality Lower Extremities, Hip Left Radiograp hic Imaging 08/12/2024 2:00 PM EDT Narrative 08/12/2024 3:21 PM EDT [address] [address] XRay Report Signed Patient: Paty Carey MR#: [id number] : 1960 Acct:[id number] Age/Sex: 63 / F ADM Date: 08/12/24 Loc: HO.HHCX Attending Dr: Caity Brink MD Ordering Physician: Caity Gray MD Date of Service: 08/12/24 Procedure(s): XR hip LT min 2V Accession Number(s): [id number] cc: Caity Gray MD EXAMINATION: XR HIP 2 OR MORE VIEWS LEFT HISTORY: left hip pain COMPARISON: There are no prior studies available for comparison. FINDINGS: Two views of the left hip are submitted. Osseous mineralization is normal. There is no fracture or dislocation. There is mild joint space narrowing. Multiple calcified masses in the pelvis likely represent uterine fibroids. There are vascular calcifications. XR/XR hip LT min 2V IMPRESSION: Mild joint space narrowing. Electronically signed by: Deo Ireland MD 08/12/2024 03:19 PM EDT RP Dictated By: Deo Ireland MD Signed By: <Electronically signed by Deo Ireland MD in OV> 08/12/24 1519 DD/ 1400 TD/TT: 08/12/24 1420 Counter Waitress/Waiter: Procedure Note Donotuseinterpreter, Image - 08/12/2024 [place] [address] XRay Report Signed Patient: Paty CareyMR#: [id number] : 1960cct:[id number] Age/Sex: 63 / FADM Date: 08/12/24 Loc: HO.HHCX Attending Dr: Caity Brink MD Ordering Physician: Caity Gray MD Date of Service: 08/12/24 Procedure(s): XR hip LT min 2V Accession Number(s): [id number] cc: Caity Gray MD EXAMINATION: XR HIP 2 OR MORE VIEWS LEFT HISTORY: left hip pain COMPARISON: There are no prior studies available for comparison. FINDINGS: Two views of the left hip are submitted. Osseous mineralization is normal. There is no fracture or dislocation. There is mild joint space narrowing. Multiple calcified masses in the pelvis likely represent uterine fibroids. There are vascular calcifications. XR/XR hip LT min 2V IMPRESSION: Mild joint space narrowing. Electronically signed by: Deo Ireland MD 08/12/2024 03:19 PM EDT RP Dictated By: Deo Ireland MD Signed By: <Electronically signed by Deo Ireland MD in OV> 08/12/24 1519 DD/ 1400 TD/TT: 08/12/24 1420 Counter Waitress/Waiter: Caity Brink MD IMG XR PROCEDURES Final Result * ECG 12 lead (08/12/2024 12:03 PM EDT) Only the most recent of2 resultswithin the time period is included. Narrative Caity Gray MD - 08/12/2024 12:03 PM EDT EKG today: NSR,HR 75 , Qtc 414, no ischemic findings Caity Brink MD ECG ORDERABLES F inal Result * (ABNORMAL) POCT HGB A1C (08/12/2024 11:07 AM EDT) Pathologist [facility] Hemoglobin A1C 8.4(A) 4.0 - 6.0 % QC Media Lot # [id number] Lot# Expiration Date Blood 08/12/2024 11:0 7 AM EDT Caity Brink MD POINT OF CARE ISABELLE T ENTER/EDIT ORDERABLES Final Result * (ABNORMAL) POCT Glucose (08/12/2024 11:06 AM EDT) Pathologist [facility] Glucose Blood, POC 240(A) 60 - 200 mg/dL Comment:RANDOM QC Media Lot # [id number] Lot# Expiration Date 167 Blood Capillary blood specimen / Unknown 08/12/2024 11:06 AM EDT Caity Brink MD POINT OF CARE ISABELLE T ENTER/EDIT ORDERABLES Final Result * HPV DNA, Low/High Risk (07/12/2024 3:25 PM EDT) HPV High Risk Negative Negative [facility] HPV Genotype 16 Negative Negative [facility] HPV Genotype 18 Negative Negative [facility] Comment:HPV testing performe d at [facility] (CLIA#[id number]), [address] [place] [phone].Testing for HPV was performed using the Nick BRYCE 6800system. The presence of HPV in the female genital tract isassociated with a number of diseases, including cervicalcarcinoma. The HPV DNA high risk pool tests for HPV 31, 33,35, 39, 45, 51, 52, 56, 58, 59, 66 and 68. The testing forHPV 16 and 18 genotypes has also been performed. A positiveresult indicates detection of nucleic acid sequences fromone or more subtypes, whereas a negative result indicatessuch sequences were not detected. 07/12/2024 3:25 PM EDT 07/13/2024 6:00 AM EDT us Laura Gallardo MD LAB BLOOD ORDERABLES Final Res ult [facility] [address] [place] [phone] * Pap Smear (07/12/2024 3:25 PM EDT) 07/12/2024 3:25 PM EDT 07/13/2024 6:00 AM EDT Narrative [facility] - 07/15/2024 11:08 AM EDT ----- ------- Name: Paty Carey Age/Sex: 63/F : 1960 Unit#: [id number] Attend Dr: Laura Gallardo Re07/12/24 Status: DEP REF Location: HO.HHCLNP Disch: ----- ------- SPEC : [id number] RECD: 07/13/24 STATUS: SEUN LOBO NUM: [id number] CHI: 07/12/[address] [facility] [address]: Laura Gallardo ENTERED: 07/13/24 SP TYPE: Pap Smr OTHR DR: ORDERED: Pap Smear Interpretation Satisfactory for evaluation. Negative for intraepithelial lesion or malignancy. No endocervical cells seen. HPV High Risk: Negative HPV Genotyping 16: Negative HPV Genotyping 18: Negative Clinical Information LMP:Unknown date Previous PAP test: Initial PAP Material Received ThinPrep-Cervical ----- ------- Signed (signature on file) TYLER Tesfaye (ASCP) 07/15/24 1108 ----- ------- END OF REPORT Laura Gallardo MD LAB CYTOLOGY ORDERABLES Final Result [facility] [address] [place] [phone] * (ABNORMAL) Lipid Panel, Standard (07/06/2024 1:27 PM EDT) Triglycerides 127 <150 mg/dL [facility] Comment:Desirable Triglyceri de: less than 150 mg/dLBorderline High Triglyceride 150-199 mg/dLHigh Triglyceride: 200-499 mg/dLVery High Triglyceride: greater than or equal to 5OO mg/dL Cholesterol 228(H) <200 mg/dL [facility] Comment:Desirable Cholestero l: less than 200 mg/dLBorderline High Cholesterol: 200-239 mg/dLHigh Cholesterol: greater than 239 mg/dL LDL Cholesterol Calculated 154(H) <100 mg/dL [facility] Comment:Desirable LDL: less than 100 mg/dLNear Optimal/Above Optimal LDL: 110- 129 mg/dLBorderline High LDL: 130-159 mg/dLHigh LDL: 160-189 mg/dLVery High LDL: greater than or equal to 190 mg/dL HDL Cholesterol 49 >40 mg/dL [facility] Comment:Desirable HDL: great er than 40 mg/dL Note: This HDL assay may give artificially low results in patients with liver disease. 07/06/2024 1:27 PM EDT 07/06/2024 1:27 PM EDT us Generic External Data Provider LAB BLOOD ORDERAB LES Final Result [facility] [address] [place] [phone] * BI Mammogram Diagnostic Tomosynthesis Bilateral (01/12/2024 2:00 PM EST) Anatomical Region Laterality Modality Breast Bilateral Mammography 01/12/2024 2:00 PM EST Narrative 01/12/2024 3:02 PM EST [facility] [address] [place] [address] Mammography Report Signed Patient: Paty Carey MR#: [id number] : 1960 Acct:[id number] Age/Sex: 63 / F ADM Date: 01/12/24 Loc: HO.MAMMO Attending Dr: Caity Brink MD Ordering Physician: Caity Gray MD Re sults: 2Benign Findings Date of Service: 01/12/24 Follow Up: 1 Year From Orig [facility] Mammogram Procedure(s): MM tomosynthesis diagnostic BI Accession Number(s): [id number] cc: Caity Gray MD EXAMINATION: MM DIAGNOSTIC [...] 01/12/24 1459 DD/ 1400 TD/TT: 01/12/24 1422 Counter Waitress/Waiter: Procedure Note Donotuseinterpreter, Image - 01/12/[facility] [address] [place] [address] Mammography Report Signed Patient: Paty CareyMR#: [id number] : 1960cct:[id number] Age/Sex: 63 / FADM Date: 01/12/24 Loc: HO.MAMMO Attending Dr: Caity Brink MD Ordering Physician: Caity Gray sults: 2Benign Findings Date of Service: 01/12/24Follow Up: 1 Year From Orig inal Mammogram Procedure(s): MM tomosynthesis diagnostic BI Accession Number(s): [id number] cc: Caity Gary MD EXAMINATION: MM DIAGNOSTIC DIGITAL BREAST TOMOSYNTHESIS, [...] 01/12/2024 02:59 PM [facility] Dictated By: Tio Gilman MD Signed By: <Electronically signed by Tio Gilman MD in OV> 01/12/24 1459 DD/ 1400 TD/TT: 01/12/24 1422 Counter Waitress/Waiter: us Caity Brink MD IMG BI PROCEDURES Final Result * Hepatitis C Antibody with Reflex to HCV, RNA, Quantitative, Real-Time PCR (12/19/2023 11:05 AM EDT) Hepatitis C Antibody Nonreactive Nonreactive [facility] Comment:Antibodies to HCV no t detected; does not exclude early acuteHCV infection. Blood Venous blood specimen / Unknown 12/19/2023 11:05 AM EDT 12/19/2023 11:42 AM EDT Caity Brink MD LAB BLOOD ORDERAB LES Final Result [facility] [address] [place] [address] [phone] * HIV-1/2 Antigen and Antibodies, Fourth Generation, with Reflexes (12/19/2023 11:05 AM EDT) HIV AB/AG Nonreactive Nonreactive [facility] Comment:HIV-1 p24 Ag and/or HIV-1/HIV-2 Ab not detected.A test result that is nonreactive does not exclude thepossibility of exposure to or infection with HIV-1 and/orHIV-2. Nonreactive results in this assay for individualswith prior exposure to HIV-1 and/or HIV-2 may be due toantigen and antibody levels that are below the limit ofdetection of this assay.The [facility] HIV Ag/Ab Combo assay result andsupplemental assay results should be interpreted inconjunction with the patient's clinical presentation,history and other laboratory results. If the results areinconsistent with clinical evidence, additional testing issuggested to confirm the result. Blood Venous blood specimen / Unknown 12/19/2023 11:05 AM EDT 12/19/2023 11:42 AM EDT Caity Brink MD LAB BLOOD ORDERAB LES Final Result [facility] [address] [place] [phone] * Cologuard?? colon cancer screening (11/18/2023 12:00 AM EDT) Cologuard Result Negative Negative 11/26/19 24 5:47 PM EDT [facility] (CLIA #:[id number]) Comment: NEGATIVE TEST RESULT. A negative Cologuard result indicates a low likelihood that a colorectal cancer (CRC) or advanced adenoma (adenomatous polyps with more advanced pre-malignant features) is present. The chance that a person with a negative Cologuard test has a colorectal cancer is less than 1 in 1500 (negative predictive value >99.9%) or has an advanced adenoma is less than 5.3% (negative predictive value 94.7%). These data are based on a prospective cross-sectional study of 10,000 individuals at average risk for colorectal cancer who were screened with both Cologuard and colonoscopy. (Enmanuel Coy al, N Engl J Med 2014;370(14):6508-9050) The normal value (reference range) for this assay is negative. COLOGUARD RE-SCREENING RECOMMENDATION: Periodic colorectal cancer screening is an important part of preventive healthcare for asymptomatic individuals at average risk for colorectal cancer. Following a negative Cologuard result, the [place] [employer] and U.S. Multi-Society Task Force screening guidelines recommend a Cologuard re-screening interval of 3 years. References: [place] [employer] Guideline for Colorectal Cancer Screening: https://www.cancer.org/cancer/wctcj-fvcrwz-iuurzv/cnvosisjg-wxhursrwi-vmiqpvm/ac s-rec ommendations.html.; [place] DK, Liang CLOUD, Edda AnayaK, Colorectal Cancer Screening: Recommendations for Physicians and Patients from the U.S. Multi-Society Task Force on Colorectal Cancer Screening , Am J Gastroenterology 2017; 112:2805-1340. TEST DESCRIPTION: Composite algorithmic analysis of stool DNA-biomarkers with hemoglobin immunoassay. Quantitative values of individual biomarkers are not [...] (Enmanuel Coy al, N Engl J Med 2014;370(14):9690-4212.) Cologuard may produce a false negative or false positive result (no colorectal cancer or precancerous polyp present at colonoscopy follow up). A negative Cologuard test result does not guarantee the absence of CRC or advanced adenoma (pre-cancer). The current Cologuard screening interval is every 3 years. ([place] [employer] and U.S. Multi-Society Task Force). Cologuard performance data in a 10,000 patient pivotal study using colonoscopy as the reference method can be accessed at the following location: www.[employer]/results. Additional description of the Cologuard test process, warnings and precautions can be found at www.cologuard.com. Stool specimen (specimen) Rectal contents / Unknown 11/18/2023 11/19/2023 2:41 PM EDT Caity Brink MD LAB MOLECULAR PEDRO GNOSTICS ORDERABLES Final Result [facility] (CLIA #:[id number]) [address] [place] [address], from Last 3 Months or Most Recently Relevant to Health Maintenance Insurance [employer] [address] [place] [address] Care Teams Scrap Hooker Relationship Specialty Start Date End Date Caity Gray MD [address] [place] [address] PCP - General Internal Medicine 11/13/22 Vero Pineda Procedures NurseDishtank Operator 03/17/24
--- OUTSIDE RECORDS SUMMARY | 2024-10-25 15:39 | XMS_ITS | Encounter Summary ---
Author Organization [employer] Address [address] [facility] 7t [place] [address] Care Team Providers Care Chief Communications Officer Name Role Phone Caity Gray MD Primary Care Pro vider Reason for Visit * Reason Onset Date Comments Nurse Triage 01/02/2024 Encounter Details Date Type Department Care Team ([facility] st Contact Info) Description 01/02/2024 Telephone [facility] [address] [place], [place] [phone] Caity Gray MD [address] [place] [address] Nurse Triage Social History Tobacco Use Types [...] is your housing situation today? I have kiranamilcar velázquez 12/30/[address] you [...] pt to triage, spoke to pt. through [employer] solar sales specialist. pt states had a minor fall yesterday. [...] Reason: Caller denied all higher acuity questions Greenlandic Speaker (Accepted Cutter V Groove) documented in this encounter Plan of Treatment Upcoming Encounters Date Type Department Care Team (Late st Contact Info) Description 12/23/2024 10:30 AM EDT Office Visit [facility] [address] [place], [place] [phone] Caity Gray MD [address] [place] [phone] documented as of this encounter Visit Diagnoses Not on filedocumented in this encounter Additional Health Concerns Assessment Noted Time PHQ-9 Depression Total Score: 9 02/28/20 23 2:29 PM EST documented as of this encounter Care Teams Chief Communications Officer Relationship Specialty Start Date End Date Caity Gray MD [address] [place] [address] PCP - General Internal Medicine 11/13/22 Vero Pineda Contact Worker LithographyBending Machine Operator 03/17/24 documented as of this encounter
--- OUTSIDE RECORDS SUMMARY | 2024-10-25 15:40 | XMS_ITS | Encounter Summary ---
Author Organization [employer] Address [address] [facility] 7t [place] [address] Care Team Providers Care Solder Making Supervisor Name Role Phone Caity Gray MD Primary Care Pro vider Encounter Details Date Type Department Care Team ([facility] Contact Info) Description 10/25/2024 Orders Only GENERIC EXTERNAL DATA DEPARTMENT Provider, Generic External Data Social History Tobacco Use Types Packs/Day Years [...] Description 12/23/2024 10:30 AM EDT Office Visit [facility] [address] [place], [place] [phone] Caity Gray MD [address] [place], [place] [phone] documented as of this encounter Procedures Procedure Name Priority Date/Time Associated Diagnosis Comments GLUCOSE, WHOLE BLOOD Routine 10/25/2024 2:23 PM EDT documented in this encounter Results * (ABNORMAL) Glucose, Whole Blood (10/25/2024 2:23 PM EDT) Glucose, Whole Blood 148(H) 60 - 115 mg/dL [facility] Comment:METER #: [id number] 0Testing performed in the Endocrinology Department [address] , [address], [facility]. 10/25/2024 2:23 PM EDT 10/25/2024 2:29 PM EDT us Generic External Data Provider LAB BLOOD ORDERAB LES Final Result [facility] [address] [place] [address] [phone] documented in this encounter Visit Diagnoses Not on filedocumented in this encounter Additional Health Concerns Assessment Noted Time PHQ-9 Depression Total Score: 4 08/13/19 25 11:28 AM EDT documented as of this encounter Care Teams Solder Making Supervisor Relationship Specialty Start Date End Date Caity Gray MD [address] [place] [phone] PCP - General Internal Medicine 11/13/22 Vero Pineda Call Or Contact Centre Team LeaderEbd Special Education Teacher 03/17/24 documented as of this encounter
--- OUTSIDE RECORDS SUMMARY | 2024-10-25 15:40 | XMS_ITS | Encounter Summary ---
Author Organization [employer] Address [address] [facility] 7t [place] [address] Care Team Providers Care Line Assembler Name Role Phone Caity Gray MD Primary Care Pro vider Reason for Visit * Reason Comments Med Refill Encounter Details Date Type Department Care Team ([facility] st Contact Info) Description 06/25/2024 Refill [facility] [address] [place] [address] Caity Gray MD [address] [place] [address] Hyperlipidemia, unspecified hyperlipidemia type Social History Tobacco [...] Description 12/23/2024 10:30 AM EDT Office Visit [facility] [address] [place] [phone] Caity Gray MD [address] [place] [address] documented as of this encounter Visit Diagnoses Diagnosis Hyperlipidemia, unspecified hyperlipidemia type documented in this encounter Additional Health Concerns Assessment Noted Time PHQ-9 Depression Total Score: 9 02/28/20 23 2:29 PM EST documented as of this encounter Care Teams Line Assembler Relationship Specialty Start Date End Date Caity Gray MD [address] [place] [address] PCP - General Internal Medicine 11/13/22 Vero Pineda Business Management InternCommercial Review Appraiser 03/17/24 documented as of this encounter
--- OUTSIDE RECORDS SUMMARY | 2024-10-25 15:40 | XMS_ITS | Encounter Summary ---
Author Organization [employer] Address [address] [facility] 7t [place] [address] Care Team Providers Care Hazardous Materials Analyst Name Role Phone Caity Gray MD Primary Care Pro vider Reason for Visit * Reason Comments Med Refill Encounter Details Date Type Department Care Team ([facility] st Contact Info) Description 02/27/2023 Refill [facility] [address] [place] [address] Caity Gray MD [address] [place] [address] Diabetic polyneuropathy associated with type 2 diabetes [...] AM EDT documented as of this encounter Functional Status * Over the past 2 weeks, how often have you been bothered by any of the following problems? Question Answer Date of Assessment Author Patient Health Questionnaire -2 Score 3 02/27/2023 2:29 PM Francoise Young MA * If you checked off any problems on this questionnaire so far, Question Answer Date of Assessment Author How difficult have these problems made it for you to do your work, take care of things at home, or get along with other people? Not difficult at all 02/27/2023 2:29 PM Justino Young MA * Over the last 2 weeks, how often have you been bothered by any of the following problems? Question Answer Date of Assessment Author Feeling nervous, anxious, or on edge 3 02/27/2023 2:29 PM Francoise Yuong MA Not being able to stop or control worrying 3 02/27/2023 2:29 PM Francoise Young MA Worrying too much about different things 3 02/27/2023 2:29 PM Francoise Young MA Trouble relaxing 3 02/27/2023 2:29 PM Justino Lewis MA Being so restless that it is hard to sit still 3 02/27/2023 2:29 PM Francoise Young MA Becoming easily annoyed or irritable 3 02/27/2023 2:29 PM Francoise Young MA Feeling afraid as if somethi ng awful might happen 0 02/27/2023 2:29 PM Francoise Young MA BRIGIDO-7 Total Score 18 02/27/2023 2:29 PM Justino Young MA * Over the past 2 weeks, how often have you been bothered by any of the following problems? Question Answer Date of Assessment Author Little interest or pleasure in doing things More than half the days 02/27/2023 2:29 PM Justino Young MA Feeling down, depressed, or hopeless Several days 02/27/2023 2:29 PM Justino Young MA Trouble falling or staying asleep, or sleeping too much Several days 02/27/2023 2:29 PM Justino Young MA Feeling tired or having little energy Several days 02/27/2023 2:29 PM Justino Young MA Poor appetite or overeating More than half the days 02/27/2023 2:29 PM Justino Young MA Feeling bad about yourself - or that you are a failure or have let yourself or your family down Several days 02/27/2023 2:29 PM Justino Young MA Trouble concentrating on things, such as reading the newspaper or watching television Not at all 02/27/2023 2:29 PM Justino Young MA Moving or speaking so slowly that other people could have noticed? Or the opposite - being so fidgety or restless that you have been moving around a lot more than usual. Several days 02/27/2023 2:29 PM Justino Young MA Thoughts that you would be better off or hurting yourself in some way Not at all 02/27/2023 2:29 PM Justino Young MA Patient Health Questionnaire-9 Score 9 02/27/2023 2:29 PM Justino Young MA documented as of this encounter Miscellaneous Notes * Telephone Encounter - Caity Brink MD - 02/27/2023 6:01 PM EST Med already sent today documented in this encounter Plan of Treatment Upcoming Encounters Date Type Department Care Team (Late st Contact Info) Description 12/23/2024 10:30 AM EDT Office Visit [facility] [address] [place], [place] [phone] Caity Gray MD [address] [place], [place] [phone] documented as of this encounter Visit Diagnoses Diagnosis Diabetic polyneuropathy associated with type 2 diabetes mellitus (CMS/HCC) documented in this encounter Additional Health Concerns Assessment Noted Time PHQ-9 Depression Total Score: 9 02/28/20 23 2:29 PM EST documented as of this encounter Care Teams Hazardous Materials Analyst Relationship Specialty Start Date End Date Caity Gray MD [address] [place] [address] [phone] PCP - General Internal Medicine 11/13/22 Vero Pineda Bait MakerApparatus Operator 03/17/24 documented as of this encounter
--- OUTSIDE RECORDS SUMMARY | 2024-10-25 15:40 | XMS_ITS | Encounter Summary ---
Author Organization [employer] Address [address] [facility] 7t [place] [address] Care Team Providers Care Auto Damage Trainee Name Role Phone Caity Gray MD Primary Care Pro vider Reason for Visit * Reason Onset Date Comments PT-1 09/17/2023 Encounter Details Date Type Department Care Team ([facility] Contact Info) Description 09/17/2023 Telephone [facility] [address] [place], [place] [phone] Caity Gray MD [address] [place] [address] PT-1 Social History Tobacco Use Types Packs/Day [...] Y/N: Yes Provider name or facility name: [facility] Facility Address: [address] [place] [address] Escort needed: Y/N: No Do you have a wheelchair: Y/N: No If yes- Manual or electric: (Uses Cane) Visits: 6 Times yearly Patient calling requesting PT1 Home Address verified: Y/N: Yes Provider name or facility name: [facility] Facility Address: [address] [facility] Escort needed: Y/N: No Do you have a wheelchair: Y/N: No If yes- Manual or electric: Uses cane Visits: 6 times yearly Patient calling requesting PT1 Home Address verified: Y/N: Yes Provider name or facility name: [facility] Facility Address: [address] [place] [address] Escort needed: Y/N: No Do you have a wheelchair: Y/N: No If yes- Manual or electric: Uses Cane Visits: Every 3 months documented in this encounter Plan of Treatment Upcoming Encounters Date Type Department Care Team ([facility] st Contact Info) Description 12/23/2024 10:30 AM EDT Office Visit [facility] [address] [place] [phone] Caity Gray MD [address] [place] [phone] documented as of this encounter Visit Diagnoses Not on filedocumented in this encounter Additional Health Concerns Assessment Noted Time PHQ-9 Depression Total Score: 9 02/28/20 23 2:29 PM EST documented as of this encounter Care Teams Auto Damage Trainee Relationship Specialty Start Date End Date Caity Gray MD [address] [place] [address] PCP - General Internal Medicine 11/13/22 Vero Pineda Metal Door AssemblerSolar Sales Estimator 03/17/24 documented as of this encounter
--- OUTSIDE RECORDS SUMMARY | 2024-10-25 15:40 | XMS_ITS | Encounter Summary ---
Author Organization [employer] Address [address] [facility] 7t [place] [address] Care Team Providers Care Fuse Cup Expander Name Role Phone Caity Gray MD Primary Care Pro vider Reason for Visit * Reason Onset Date Comments PT1 04/10/2023 Encounter Details Date Type Department Care Team ([facility] st Contact Info) Description 04/10/2023 Telephone [facility] [address] [place], [place] [phone] Caity Gray MD [address] [place] [address] PT1 Social History Tobacco Use Types Packs/Day [...] is your housing situation today? I have kiranamilcra velázquez 12/30/[address] you [...] Time: n/a Visits: every 2 months Address: [address] [place] [address] [address] [address] Facility: [facility] Wheel Chair: no Prospecting Driller Needed: no Date: 05/07/23 Time: 1:30 pm Visits: her fist appt and is unsure Address: [address] [place] [address] Dr [address] Floor, [place] [address] Facility: [facility] Wheel Chair: no Prospecting Driller Needed: no Date: 05/08/23 Time: 2:15 pm Visits: yearly Address: [address] [place] [address] Facility: [facility] Wheel Chair: no Prospecting Driller Needed: no documented in this encounter Plan of Treatment Upcoming Encounters Date Type Department Care Team (Late st Contact Info) Description 12/23/2024 10:30 AM EDT Office Visit [facility] [address] [place] [address] Caity Gray MD [address] [place] [phone] documented as of this encounter Visit Diagnoses Not on filedocumented in this encounter Additional Health Concerns Assessment Noted Time PHQ-9 Depression Total Score: 9 02/28/20 23 2:29 PM EST documented as of this encounter Care Teams Fuse Cup Expander Relationship Specialty Start Date End Date Caity Gray MD [address] [place] [address] PCP - General Internal Medicine 11/13/22 Vero Pineda Paper TwisterFirst Line Production Supervisor 03/17/24 documented as of this encounter
--- OUTSIDE RECORDS SUMMARY | 2024-10-25 15:40 | XMS_ITS | Encounter Summary ---
Author Organization [employer] Address [address] [place] [address] 7 [place] [address] Care Team Providers Care Concrete Mixer Operator Helper Name Role Phone Neena Machuca Primary Care Provider Caity Cortez MD Primary Care Pro vider Reason for Visit * Reason Comments Med Refill Encounter Details Date Type Department Care Team (Late Contact Info) Description 05/21/2022 Refill [facility] [address] [place] [phone] Neena Machuca FNP Essential hypertension Social History Tobacco Use Types [...] Upcoming Encounters Date Type Department Care Team ([facility] Contact Info) Description 12/23/2024 10:30 AM EDT Office Visit [facility] [address] [place] [phone] Caity Gray MD [address] [place], [place] [phone] documented as of this encounter Visit Diagnoses Diagnosis Essential hypertension Unspecified essential hypertension documented in this encounter Care Teams Concrete Mixer Operator Helper Relationship Specialty Start Date End Date Neena Machuca FNP PCP - General Family Medicine 10/30/21 11/12/22 Caity Gray MD [address] [place] [address] PCP - General Internal Medicine 11/13/22 Vero Pineda Card MakerHigh School English Teacher 03/17/24 documented as of this encounter
--- OUTSIDE RECORDS SUMMARY | 2024-10-25 15:40 | XMS_ITS | Encounter Summary ---
Author Organization [employer] Address [address] [place] [address] 7t [place] [address] Care Team Providers Care Cognos Bi Developer Name Role Phone Neena Machuca MANUFACTURING COORDINATOR Primary Care Provider Caity Cortez MD Primary Care Pro vider Encounter Details Date Type Department Care Team ([facility] Contact Info) Description 04/30/2022 Telephone [facility] MED[facility]INE [address] [place] [address] [phone] Neena Machuca FNP Social History Tobacco Use Types Packs/Day Years [...] Upcoming Encounters Date Type Department Care Team ([facility] Contact Info) Description 12/23/2024 10:30 AM EDT Office Visit [facility] [address] [place] [address] [phone] Caity Gray MD [address] [place], [place] [phone] documented as of this encounter Visit Diagnoses Not on filedocumented in this encounter Care Teams Cognos Bi Developer Relationship Specialty Start Date End Date Neena Machuca FNP PCP - General Family Medicine 10/30/21 11/12/22 Caity Gray MD [address] [place] [address] PCP - General Internal Medicine 11/13/22 Vero Pineda Hydraulic Jack OperatorLineman Apprentice 03/17/24 documented as of this encounter
--- OUTSIDE RECORDS SUMMARY | 2024-10-25 15:40 | XMS_ITS | Encounter Summary ---
Author Organization [employer] Address [address] [facility] 7 [place] [address] Care Team Providers Care Right Of Way Worker Name Role Phone Caity Gray MD Primary Care Pro vider Reason for Visit * Reason Onset Date Comments Med Refill 10/20/2024 Encounter Details Date Type Department Care Team ([facility] st Contact Info) Description 10/20/2024 Refill [facility] [address] [place] [address] Caity Gray MD [address] [place] [address] Diabetic polyneuropathy associated with type 2 diabetes [...] Telephone Encounter - Claudette Coles LPN - 10/20/2024 10:35 AM EDT SUPERVISOR NUTRITIONAL YEAST checked on 10/20/24. Last seen 08/12/24. All other meds have refills. * Telephone Encounter - Alaina Triana - 10/20/2024 10:25 AM EDT TC from pt requesting medication refill. Medications needing refill : - gabapentin (Neurontin) 600 MG tablet - lisinopril-hydroCHLOROthiazide 10-12.5 MG tablet - metoprolol succinate XL (Toprol-XL) 50 MG 24 hr tablet - ezetimibe (Zetia) 10 MG tablet - atorvastatin (Lipitor) 20 MG tablet - cholecalciferol (Vitamin D3) 25 MCG (1000 UT) tablet To be sent to: - [facility] - [place], [place] - [address] documented in this encounter Plan of Treatment Upcoming Encounters Date Type Department Care Team (Late st Contact Info) Description 12/23/2024 10:30 AM EDT Office Visit [facility] [address] [place] [address] Caity Gray MD [address] [place] [address] documented as of this encounter Visit Diagnoses Diagnosis Diabetic polyneuropathy associated with type 2 diabetes mellitus (CMS/HCC) documented in this encounter Additional Health Concerns Assessment Noted Time PHQ-9 Depression Total Score: 4 08/13/19 25 11:28 AM EDT documented as of this encounter Care Teams Right Of Way Worker Relationship Specialty Start Date End Date Caity Gray MD [address] [place] [address] PCP - General Internal Medicine 11/13/22 Vero Pineda Fur OperatorPie Crust Mixer 03/17/24 documented as of this encounter
--- OUTSIDE RECORDS SUMMARY | 2024-10-25 15:40 | XMS_ITS | Encounter Summary ---
Author Organization [employer] Address [address] [address] 7t [place] [address] Care Team Providers Care Chief Sustainability Officer Name Role Phone Caity Gray MD Primary Care Pro vider Encounter Details Date Type Department Care Team ([facility] Contact Info) Description 04/29/2024 Orders Only [facility] [address] [place], [place] [phone] Mary Haider ANP [address] [place], [place] [phone] Social History Tobacco Use Types Packs/Day Years [...] Description 12/23/2024 10:30 AM EDT Office Visit [facility] [address] [place] [address] Caity Gray MD [address] [place] [address] documented as of this encounter Visit Diagnoses Not on filedocumented in this encounter Additional Health Concerns Assessment Noted Time PHQ-9 Depression Total Score: 9 02/28/20 23 2:29 PM EST documented as of this encounter Care Teams Chief Sustainability Officer Relationship Specialty Start Date End Date Caity Gray MD [address] [place] [address] PCP - General Internal Medicine 11/13/22 Vero Pineda Dairy Bar ManagerCar Sweeper 03/17/24 documented as of this encounter
--- OUTSIDE RECORDS SUMMARY | 2024-10-25 15:40 | XMS_ITS | Encounter Summary ---
Author Organization [employer] Address [address] [facility] 7t [place] [address] Care Team Providers Care Lighting Fixture Installer Name Role Phone Caity Gray MD Primary Care Pro vider Reason for Visit * Reason Onset Date Comments Med Refill 07/24/2023 Encounter Details Date Type Department Care Team ([facility] Contact Info) Description 07/24/2023 Telephone [facility] [address] [place], [place] [phone] Caity Gray MD 230 [place] [address] Med Refill Social History Tobacco Use Types [...] 3:42 PM EDT Medication was sent to [facility] on 07/16/23 with 2 refills. * Telephone Encounter - Eladio Rowe - 07/24/2023 3:40 PM EDT TC from pt requesting medication refill. Medications needing refill : evolocumab (Repatha SureClick) 140 MG/ML injection To be sent to: [facility] [place]-[address] [place] [address] - [address] documented in this encounter Plan of Treatment Upcoming Encounters Date Type Department Care Team (Late st Contact Info) Description 12/23/2024 10:30 AM EDT Office Visit [facility] [address] [place] [address] Caity Gray MD [address] [place] [address] documented as of this encounter Visit Diagnoses Not on filedocumented in this encounter Additional Health Concerns Assessment Noted Time PHQ-9 Depression Total Score: 9 02/28/20 23 2:29 PM EST documented as of this encounter Care Teams Lighting Fixture Installer Relationship Specialty Start Date End Date Caity Gray MD [address] [place] [address] PCP - General Internal Medicine 11/13/22 Vero Pineda Fondant CookerBilling Assistant 03/17/24 documented as of this encounter
--- OUTSIDE RECORDS SUMMARY | 2024-10-25 15:40 | XMS_ITS | Encounter Summary ---
Author Organization [employer] Address [address] [facility] 7 [place] [address] Care Team Providers Care Gaming Director Name Role Phone Caity Gray MD Primary Care Pro vider Reason for Visit * Reason Onset Date Comments Appointment Request 04/07/2023 Encounter Details Date Type Department Care Team ([facility] Contact Info) Description 04/07/2023 Telephone [facility] MED[facility]INE 230 [place], [place] [phone] Caity Gray MD 230 [place] [address] Appointment Request Social History Tobacco Use Types [...] Description 12/23/2024 10:30 AM EDT Office Visit [facility] [address] [place] [address] Caity Gray MD [address] [place] [address] documented as of this encounter Visit Diagnoses Not on filedocumented in this encounter Additional Health Concerns Assessment Noted Time PHQ-9 Depression Total Score: 9 02/28/20 23 2:29 PM EST documented as of this encounter Care Teams Gaming Director Relationship Specialty Start Date End Date Caity Gray MD [address] [place] [address] PCP - General Internal Medicine 11/13/22 Vero Pineda Bistro AttendantHunting Sales Associate 03/17/24 documented as of this encounter
--- OUTSIDE RECORDS SUMMARY | 2024-10-25 15:40 | XMS_ITS | Encounter Summary ---
Author Organization [employer] Address [address] [place] [address] 7 [place] [address] Care Team Providers Care Healthcare Technician Name Role Phone Neena Machuca Primary Care Provider Caity Cortez MD Primary Care Pro vider Reason for Visit * Reason Comments Med Refill Encounter Details Date Type Department Care Team ([facility] Contact Info) Description 06/24/2022 Refill [facility] [address] [place] [address] Neena Machuca FNP Diabetic polyneuropathy associated with [...] Upcoming Encounters Date Type Department Care Team ([facility] Contact Info) Description 12/23/2024 10:30 AM EDT Office Visit [facility] [address] [place] [address] [phone] Caity Gray MD 230 [place], [place] [phone] documented as of this encounter Visit Diagnoses Diagnosis Diabetic polyneuropathy associated with type 2 diabetes mellitus (CMS/HCC) documented in this encounter Care Teams Healthcare Technician Relationship Specialty Start Date End Date Neena Machuca FNP PCP - General Family Medicine 8/30/22 9/12/23 Caity Gray MD [address] [place] [address] PCP - General Internal Medicine 11/13/22 Vero Pineda Guide DelegateHorticultural Specialty Grower Field 03/17/24 documented as of this encounter
== END 2024-10-25 14:43 | disposition home or self-care (01) ==
LOC: HO.ENCR 14:12
PROVIDERS: PCP Student in an Organized Health Care Education/Training Program; Visit Provider Physician Assistant
DX: E11.21 Type 2 diabetes mellitus with diabetic nephropathy (principal); Z79.4 Long term (current) use of insulin; I10 Essential (primary) hypertension

== ENCOUNTER → 2024-10-25 14:12 | Outpatient (BNVA) | payer MEDICAID, SELFPAY | PROVIDERS: PCP Student in an Organized Health Care Education/Training Program; Visit Provider Physician Assistant | DX: E11.21 Type 2 diabetes mellitus with diabetic nephropathy (principal); E11.65 Type 2 diabetes mellitus with hyperglycemia; E11.42 Type 2 diabetes mellitus with diabetic polyneuropathy; E78.5 Hyperlipidemia, unspecified; I10 Essential (primary) hypertension; Z79.4 Long term (current) use of insulin | CPT/HCPCS: 82947; 99212 ==

== ENCOUNTER 2024-10-27 09:25 | Outpatient (REF) | payer MEDICAID, SELFPAY ==
--- OUTSIDE RECORDS SUMMARY | 2024-10-27 10:00 | XMS_ITS | Encounter Summary ---
Author Organization [employer] Address [address] [facility] 7t [place] [address] Care Team Providers Care Curing Supervisor Name Role Phone Caity Gray MD Primary Care Pro vider Reason for Visit * Reason Comments Med Refill Encounter Details Date Type Department Care Team ([facility] st Contact Info) Description 06/25/2024 Refill [facility] [address] [place] [address] Caity Gray MD [address] [place] [address] Hyperlipidemia, unspecified hyperlipidemia type Social History Tobacco [...] Description 12/23/2024 10:30 AM EDT Office Visit [facility] [address] [place] [address] Caity Gray MD [address] [place] [address] documented as of this encounter Visit Diagnoses Diagnosis Hyperlipidemia, unspecified hyperlipidemia type documented in this encounter Additional Health Concerns Assessment Noted Time PHQ-9 Depression Total Score: 9 02/28/20 23 2:29 PM EST documented as of this encounter Care Teams Curing Supervisor Relationship Specialty Start Date End Date Caity Gray MD [address] [place] [address] PCP - General Internal Medicine 11/13/22 Vero Pineda Carbon Paper Machine OperatorStation Engineer 03/17/24 documented as of this encounter
--- OUTSIDE RECORDS SUMMARY | 2024-10-27 10:00 | XMS_ITS | Encounter Summary ---
Author Organization [employer] Address [address] [facility] 7t [place] [address] Care Team Providers Care Breast Puller Name Role Phone Caity Gray MD Primary Care Pro vider Reason for Visit * Reason Onset Date Comments PT1 04/10/2023 Encounter Details Date Type Department Care Team ([facility] st Contact Info) Description 04/10/2023 Telephone [facility] MED[facility]INE 230 [place], [place] [phone] Caity Gray MD 230 [place] [address] PT1 Social History Tobacco Use Types Packs/Day [...] Time: n/a Visits: every 2 months Address: [address] [place] [address] [address], [place] [address] Facility: [facility] Wheel Chair: no Emergency Management Specialist Needed: no Date: 05/07/23 Time: 1:30 pm Visits: her fist appt and is unsure Address: [address] [place] [address] Dr [address] Floor, [place] [address] Facility: [facility] Wheel Chair: no Emergency Management Specialist Needed: no Date: 05/08/23 Time: 2:15 pm Visits: yearly Address: [address] [place] [address] Facility: [facility] Wheel Chair: no Emergency Management Specialist Needed: no documented in this encounter Plan of Treatment Upcoming Encounters Date Type Department Care Team (Late st Contact Info) Description 12/23/2024 10:30 AM EDT Office Visit [facility] [address] [place] [phone] Caity Gray MD [address] [place] [address] documented as of this encounter Visit Diagnoses Not on filedocumented in this encounter Additional Health Concerns Assessment Noted Time PHQ-9 Depression Total Score: 9 02/28/20 23 2:29 PM EST documented as of this encounter Care Teams Breast Puller Relationship Specialty Start Date End Date Caity Gray MD [address] [place] [address] PCP - General Internal Medicine 11/13/22 Vero Pineda Can Machine OperatorCommunication Professor 03/17/24 documented as of this encounter
--- OUTSIDE RECORDS SUMMARY | 2024-10-27 10:00 | XMS_ITS | Encounter Summary ---
Author Organization [employer] Address [address] [facility] 7 [place] [address] Care Team Providers Care Group Account Director Name Role Phone Caity Gray MD Primary Care Pro vider Reason for Visit * Reason Onset Date Comments Appointment Request 04/07/2023 Encounter Details Date Type Department Care Team ([facility] Contact Info) Description 04/07/2023 Telephone [facility] 230 [place], [place] [phone] Caity Gray MD [address] [place] [address] Appointment Request Social History Tobacco Use Types [...] for 2/5 states is not feeling well flex o writer operator didcancel however there was no availability at the moment flex o writer operator did ask if the patient would like a message to be sent to triage but patient refuses. documented in this encounter Plan of Treatment Upcoming Encounters Date Type Department Care Team (Late st Contact Info) Description 12/23/2024 10:30 AM EDT Office Visit [facility] [address] [place] [address] Caity Gray MD [address] [place] [address] documented as of this encounter Visit Diagnoses Not on filedocumented in this encounter Additional Health Concerns Assessment Noted Time PHQ-9 Depression Total Score: 9 02/28/20 23 2:29 PM EST documented as of this encounter Care Teams Group Account Director Relationship Specialty Start Date End Date Caity Gray MD [address] [place] [address] PCP - General Internal Medicine 11/13/22 Vero Pineda Softball UmpireConstruction Craft Laborer 03/17/24 documented as of this encounter
--- OUTSIDE RECORDS SUMMARY | 2024-10-27 10:00 | XMS_ITS | Encounter Summary ---
Author Organization [employer] Address [address] [place] [address] 7t [place] [address] Care Team Providers Care Director Teen Post Name Role Phone Neena Machuca RESEARCH ASSISTANT Primary Care Provider Caity Cortez MD Primary Care Pro vider Encounter Details Date Type Department Care Team ([facility] Contact Info) Description 04/30/2022 Telephone [facility] [address] [place] [address] [phone] Neena Machuca FNP Social History Tobacco Use [...] Upcoming Encounters Date Type Department Care Team ([facility] Contact Info) Description 12/23/2024 10:30 AM EDT Office Visit [facility] [address] [place] [address] [phone] Caity Gray MD 230 [place], [place] [phone] documented as of this encounter Visit Diagnoses Not on filedocumented in this encounter Care Teams Director Teen Post Relationship Specialty Start Date End Date Neena Machuca FNP PCP - General Family Medicine 10/30/21 11/12/22 Caity Gray MD [address] [place] [address] PCP - General Internal Medicine 11/13/22 Vero Pineda Supervisor ReworkClinical Documentation Specialist 03/17/24 documented as of this encounter
--- OUTSIDE RECORDS SUMMARY | 2024-10-27 10:00 | XMS_ITS | Encounter Summary ---
Author Organization [employer] Address [address] [place] [address] 7 [place] [address] Care Team Providers Care Street Car Mechanic Name Role Phone Neena Machuca Primary Care Provider Caity Cortez MD Primary Care Pro vider Reason for Visit * Reason Comments Med Refill Encounter Details Date Type Department Care Team (Late Contact Info) Description 05/21/2022 Refill [facility] MED[facility]INE [address] [place] [phone] Neena Machuca FNP Essential hypertension Social History [...] Upcoming Encounters Date Type Department Care Team ([facility] Contact Info) Description 12/23/2024 10:30 AM EDT Office Visit [facility] MED[facility]INE [address] [place] [address] Caity Gray MD 230 [place], [place] [phone] documented as of this encounter Visit Diagnoses Diagnosis Essential hypertension Unspecified essential hypertension documented in this encounter Care Teams Street Car Mechanic Relationship Specialty Start Date End Date Neena Machuca FNP PCP - General Family Medicine 10/30/21 11/12/22 Caity Gray MD [address] [place] [address] PCP - General Internal Medicine 11/13/22 Vero Pineda Creasing And Cutting Press FeederLobby Concierge 03/17/24 documented as of this encounter
--- OUTSIDE RECORDS SUMMARY | 2024-10-27 10:00 | XMS_ITS | Clinical Summary ---
Author Organization [employer] Address [address] [facility] 7t [place] [address] Care Team Providers Care Dye Colorist Formulator Name Role Phone Caity Gray MD Primary [...] polyneuropathy, with long-term current use of insulin ([facility]) Use 5 times a day when checking [...] nephropathy, with long-term current use of insulin ([facility]) INJECT 1 ML SUBCUTANEOUSLY EVERY 14 DAYS 2 mL 2 Active pen needle 32G x 4 mm misc Use as instructed 100 each 2 Active ezetimibe (Zetia) 10 MG tablet Take 10 mg by mouth Once per day. Active glucose 4 g chewable tablet Chew 4 tablets (16 g) if needed for low blood sugar. 50 tablet 12 025 2025 Active Continuous Glucose Alloy Weigher (FreeStyle Daryn 3 [place]) device 1 each Once per day. Use as directed for CGM 1 each Active Continuous Glucose Sensor (FreeStyle Darny 3 Plus Sensor) misc 1 each every [...] 025 Active Blood Glucose Monitoring Suppl (FreeStyle [place] Lite) w/Device kitIndications:T ype 2 diabetes mellitus with retinopathy, with long-term current use of insulin, macular edema presence unspecified, unspecified laterality, unspecified retinopathy severity ([facility]) Use to test blood sugar 3 times daily 1 kit 025 Active FREESTYLE LITE test stripIndications :Type 2 diabetes mellitus with retinopathy, with long-term current use of insulin, macular edema presence unspecified, unspecified laterality, unspecified retinopathy severity ([facility]/HCC) Use to test blood sugar 3 times daily 100 each 12 025 2025 Active Alcohol Swabs 70 % padsIndications: Type 2 diabetes mellitus with retinopathy, with long-term current use of insulin, macular edema presence unspecified, unspecified laterality, unspecified retinopathy severity ([facility]/HCC) Use to test blood sugar 3 times [...] RN to check on Repatha Rx at [facility] Previous PA approved by insurance Unknown [...] FIT 04/10/22, pending. Will order again for [facility] lab 09/12/22 Lung [...] DEPARTMENT Provider, Generic External Data 10/20/2024 Refill [facility] [address] [place] [phone] Caity Gray MD Diabetic polyneuropathy associated with type 2 diabetes mellitus ([facility]) 10/15/2024 Telephone [facility] [address] [place] [phone] Caity Gray MD No Show 10/14/[address] [address] Caity Gray MD Chart Prep 09/29/[address] [address] Caity Gray MD Type 2 diabetes mellitus with retinopathy, with long-term current use of insulin, macular edema presence unspecified, unspecified laterality, unspecified retinopathy severity (CMS/HCC) 09/29/2024 Results Follow-Up [address] [address] Laura Gallardo MD US Pelvis Transvaginal 09/19/2024 Refill [facility] [address] [place], [place] [phone] Paz Sutherland MD Hyperlipidemia, unspecified hyperlipidemia type 09/17/2024 Orders Only GENERIC EXTERNAL DATA DEPARTMENT Provider, Generic External Data 09/15/2024 Patient Outreach [address] [address] Caity Gray MD Care Coordination (CHW outreach for SDOH PT-1 and food needs-referral completed /) 09/15/[address] [address] Caity Gray MD PT1 08/12/2024 11:15 AM EDT Office Visit [address] [address] Caity Gray MD Foot callus (Primary Dx); Type 2 diabetes mellitus with diabetic nephropathy, with long-term current use of insulin (CMS/HCC); Knee pain, unspecified chronicity, unspecified laterality; Left hip pain; Diabetic polyneuropathy associated with type 2 diabetes mellitus (CMS/HCC); Essential hypertension; History of uterine fibroid; Abdominal pain, unspecified abdominal location; Health care maintenance; Chronic pain of left knee 08/12/2024 Results Follow-Up [address] [phone] Caity Gray MD XR Knee 3 Views Left 08/12/2024 Telephone [facility] [address] [place] [address] Caity Gray MD 08/12/2024 Travel 08/11/2024 Telephone [facility] [address] [place] [address] Eloisa Buchanan MA chart prep 08/09/2024 Refill [facility] [address] [place] [address] Caity Gray MD Type 2 diabetes mellitus without complication, unspecified whether shelter insulin use ([facility]) 07/30/2024 Orders Only [facility] [address] [place] [address] Caity Gray MD from Last 3 Months [...] Description 12/23/2024 10:30 AM EDT Office Visit [facility] [address] [place] [address] Caity Gray MD [address] [place], [place] [phone] Health Maintenance Due Date Last Done Comments [...] nephropathy, with long-term current use of insulin ([facility]) POCT GLYCATED HEMOGLOBIN, TOTAL Routine 08/12/2024 11:07 AM EDT Type 2 diabetes mellitus with diabetic nephropathy, with long-term current use of insulin ([facility]) POCT GLUCOSE Routine 08/12/2024 11:06 AM EDT [...] Whole Blood 148(H) 60 - 115 mg/dL [facility] Comment:METER #: [id number] 0Testing performed in the Endocrinology Department [address] , [address], [place]. 10/25/2024 2:23 PM EDT 10/25/2024 2:29 PM EDT us Generic External Data Provider LAB BLOOD ORDERAB LES Final Result [facility] [address] [place] [phone] * US Pelvis Transvaginal (08/30/2024 12:39 PM EDT) Anatomical Region Laterality Modality Pelvis Ultrasound 08/30/2024 12:3 9 PM EDT Narrative 08/30/2024 1:07 PM EDT [address] [address] Ultrasound Report Signed Patient: Paty Carey MR#: [id number] : 1960 Acct:[id number] Age/Sex: 63 / F ADM Date: 08/30/24 Loc: HO.US Attending Dr: Laura Gallardo MD Ordering Physician: Laura Gallardo Date of Service: 08/30/24 Procedure(s): US pelvic and transvaginal Accession Number(s): [id number] cc: Laura Gallardo EXAMINATION: US PELVIS TRANSABDOMINAL [...] 08/30/24 1304 DD/ 1239 TD/TT: 08/30/24 1242 Diabetes Manager: Procedure Note Donotuseinterpreter, Image - 08/30/[address] [address] Ultrasound Report Signed Patient: aPty CareyMR#: [id number] : 1960cct:[id number] Age/Sex: 63 / FADM Date: 08/30/24 Loc: HO.US Attending Dr: Laura Gallardo MD Ordering Physician: Laura Gallardo Date of Service: 08/30/24 Procedure(s): US pelvic and transvaginal Accession Number(s): [id number] cc: Laura Gallardo EXAMINATION: US PELVIS TRANSABDOMINAL [...] 08/30/24 1304 DD/ 1239 TD/TT: 08/30/24 1242 Diabetes Manager: us Laura Gallardo MD IMG US PROCEDURES Final Result * XR Knee 3 Views Left (08/12/2024 2:03 PM EDT) Anatomical Region Laterality Modality Lower Extremities, Knee Left Radiogra phic Imaging 08/12/2024 2:03 PM EDT Narrative 08/12/2024 3:22 PM EDT [address] [address] XRay Report Signed Patient: Paty Carey MR#: [id number] : 1960 Acct:[id number] Age/Sex: 63 / F ADM Date: 08/12/24 Loc: .HHCX Attending Dr: Caity Brink MD Ordering Physician: Caity Gray MD Date of Service: 08/12/24 Procedure(s): XR knee LT 3V Accession Number(s): [id number] cc: Caity Gray MD EXAMINATION: XR KNEE [...] 08/12/24 1520 DD/ 1403 TD/TT: 08/12/24 1420 Diabetes Manager: Procedure Note Donotuseinterpreter, Image - 08/12/[address] [address] XRay Report Signed Patient: Paty CareyMR#: [id number] : 1960cct:[id number] Age/Sex: 63 / FADM Date: 08/12/24 Loc: HO.CX Attending Dr: Caity Brink MD Ordering Physician: Caity Gray MD Date of Service: 08/12/24 Procedure(s): XR knee LT 3V Accession Number(s): [id number] cc: Caity Gray MD EXAMINATION: XR KNEE [...] 08/12/24 1520 DD/ 1403 TD/TT: 08/12/24 1420 Diabetes Manager: Caity Brink MD IMG XR PROCEDURES Final Result * XR Hip 2 or 3 Views Left (08/12/2024 2:00 PM EDT) Anatomical Region Laterality Modality Lower Extremities, Hip Left Radiograp hic Imaging 08/12/2024 2:00 PM EDT Narrative 08/12/2024 3:21 PM EDT [address] [address] XRay Report Signed Patient: Paty Carey MR#: [id number] : 1960 Acct:[id number] Age/Sex: 63 / F ADM Date: 08/12/24 Loc: HO.HHCX Attending Dr: Caity Brink MD Ordering Physician: Caity Gray MD Date of Service: 08/12/24 Procedure(s): XR hip LT min 2V Accession Number(s): [id number] cc: Caity Gray MD EXAMINATION: XR HIP [...] 08/12/24 1519 DD/ 1400 TD/TT: 08/12/24 1420 Diabetes Manager: Procedure Note Donotuseinterpreter, Image - 08/12/2024 [place] [address] XRay Report Signed Patient: Paty CareyMR#: [id number] : 1960cct:[id number] Age/Sex: 63 / FADM Date: 08/12/24 Loc: HO.HHCX Attending Dr: Caity Brink MD Ordering Physician: Caity Gray MD Date of Service: 08/12/24 Procedure(s): XR hip LT min 2V Accession Number(s): [id number] cc: Caity Gray MD EXAMINATION: XR HIP [...] 08/12/24 1519 DD/ 1400 TD/TT: 08/12/24 1420 Diabetes Manager: Caity Brink MD IMG XR PROCEDURES Final [...] HGB A1C (08/12/2024 11:07 AM EDT) Pathologist [facility] Hemoglobin A1C 8.4(A) 4.0 - 6.0 % QC Media Lot # [id number] Lot# Expiration Date Blood 08/12/2024 11:0 7 AM EDT Caity Brink MD POINT OF CARE ISABELLE T ENTER/EDIT ORDERABLES Final Result * (ABNORMAL) POCT Glucose (08/12/2024 11:06 AM EDT) Pathologist [facility] Glucose Blood, POC 240(A) 60 - 200 mg/dL Comment:RANDOM QC Media Lot # [id number] Lot# Expiration Date 553 Blood Capillary blood specimen / Unknown 08/12/2024 11:06 AM EDT Caity Brink MD POINT OF CARE ISABELLE T ENTER/EDIT ORDERABLES Final Result * HPV DNA, Low/High Risk (07/12/2024 3:25 PM EDT) HPV High Risk Negative Negative [facility] HPV Genotype 16 Negative Negative [facility] HPV Genotype 18 Negative Negative [facility] Comment:HPV testing performe d at [facility] (CLIA#[id number]), [address] [place] [phone].Testing for HPV was performed using the Nick [...] MD LAB BLOOD ORDERABLES Final Res ult [facility] [address] [place] [phone] * Pap Smear (07/12/2024 3:25 PM EDT) 07/12/2024 3:25 PM EDT 07/13/2024 6:00 AM EDT Narrative [facility] - 07/15/2024 11:08 AM EDT ----- ------- Name: Paty Carey Age/Sex: 63/F : 1960 Unit#: [id number] Attend Dr: Laura Gallardo Re07/12/24 Status: DEP REF Location: HO.HHCLNP Disch: ----- ------- SPEC : [id number] RECD: 07/13/24 STATUS: SEUN LOBO NUM: [id number] CHI: 07/12/[address] [facility] [address]: Laura Gallardo ENTERED: 07/13/24 SP TYPE: [...] Gallardo MD LAB CYTOLOGY ORDERABLES Final Result [facility] [address] [place] [phone] * (ABNORMAL) Lipid Panel, Standard (07/06/2024 1:27 PM EDT) Triglycerides 127 <150 mg/dL [facility] Comment:Desirable Triglyceri de: less than 150 mg/dLBorderline High Triglyceride 150-199 mg/dLHigh Triglyceride: 200-499 mg/dLVery High Triglyceride: greater than or equal to 5OO mg/dL Cholesterol 228(H) <200 mg/dL [facility] Comment:Desirable Cholestero l: less than 200 mg/dLBorderline High Cholesterol: 200-239 mg/dLHigh Cholesterol: greater than 239 mg/dL LDL Cholesterol Calculated 154(H) <100 mg/dL [facility] Comment:Desirable LDL: less than 100 mg/dLNear Optimal/Above Optimal LDL: 110- 129 mg/dLBorderline High LDL: 130-159 mg/dLHigh LDL: 160-189 mg/dLVery High LDL: greater than or equal to 190 mg/dL HDL Cholesterol 49 >40 mg/dL [facility] Comment:Desirable HDL: great er than 40 mg/dL Note: This HDL assay may give artificially low results in patients with liver disease. 07/06/2024 1:27 PM EDT 07/06/2024 1:27 PM EDT us Generic External Data Provider LAB BLOOD ORDERAB LES Final Result [facility] [address] [facility] [place] [address] [phone] * BI Mammogram Diagnostic Tomosynthesis Bilateral (01/12/2024 2:00 PM EST) Anatomical Region Laterality Modality Breast Bilateral Mammography 01/12/2024 2:00 PM EST Narrative 01/12/2024 3:02 PM EST [facility] [address] [place] [address] Mammography Report Signed Patient: Paty Carey MR#: [id number] : 1960 Acct:[id number] Age/Sex: 63 / F ADM Date: 01/12/24 Loc: HO.MAMMO Attending Dr: Caity Brink MD Ordering Physician: Caity Gray MD Re sults: 2Benign Findings Date of Service: 01/12/24 Follow Up: 1 Year From Orig [facility] Mammogram Procedure(s): MM tomosynthesis diagnostic BI Accession Number(s): [id number] cc: Caity Gray MD EXAMINATION: MM DIAGNOSTIC [...] 01/12/24 1459 DD/ 1400 TD/TT: 01/12/24 1422 Diabetes Manager: Procedure Note Donotuseinterpreter, Image - [facility]/12/[facility] [address] [place] [address] Mammography Report Signed Patient: Paty CareyMR#: [id number] : 1960cct:[id number] Age/Sex: 63 / FADM Date: 01/12/24 Loc: HO.MAMMO Attending Dr: Caity Brink MD Ordering Physician: Caity Gray sults: 2Benign Findings Date of Service: 01/12/24Follow Up: 1 Year From Orig inal Mammogram Procedure(s): MM tomosynthesis diagnostic BI Accession Number(s): [id number] cc: Caity Gray MD EXAMINATION: MM DIAGNOSTIC [...] by: Tio Gilman MD 01/12/2024 02:59 PM [facility] Dictated By: Tio Gilman MD Signed By: <Electronically signed by Tio Gilman MD in [place]> 01/12/24 1459 DD/ 1400 TD/TT: 01/12/24 1422 Diabetes Manager: us Caity Brink MD IMG BI PROCEDURES Final Result * Hepatitis C Antibody with Reflex to HCV, RNA, Quantitative, Real-Time PCR (12/19/2023 11:05 AM EDT) Hepatitis C Antibody Nonreactive Nonreactive [facility] Comment:Antibodies to HCV no t detected; does not exclude early acuteHCV infection. Blood Venous blood specimen / Unknown 12/19/2023 11:05 AM EDT 12/19/2023 11:42 AM EDT Caity Brink MD LAB BLOOD ORDERAB LES Final Result [facility] [address] [place] [phone] [phone] * HIV-1/2 Antigen and Antibodies, Fourth Generation, with Reflexes (12/19/2023 11:05 AM EDT) HIV AB/AG Nonreactive Nonreactive [facility] Comment:HIV-1 p24 Ag and/or HIV-1/HIV-2 Ab not detected.A test result that is nonreactive does not exclude thepossibility of exposure to or infection with HIV-1 and/orHIV-2. Nonreactive results in this assay for individualswith prior exposure to HIV-1 and/or HIV-2 may be due toantigen and antibody levels that are below the limit ofdetection of this assay.The Viewpoint HIV Ag/Ab Combo assay result andsupplemental assay results should be interpreted inconjunction with the patient's clinical presentation,history and other laboratory results. If the results areinconsistent with clinical evidence, additional testing issuggested to confirm the result. Blood Venous blood specimen / Unknown 12/19/2023 11:05 AM EDT 12/19/2023 11:42 AM EDT Caity Brink MD LAB BLOOD ORDERAB LES Final Result [facility] [address] [place] [phone] * Cologuard?? colon cancer screening (11/18/2023 12:00 AM EDT) Cologuard Result Negative Negative 11/26/19 24 5:47 PM EDT [employer] (CLIA #:[id number]) Comment: NEGATIVE TEST RESULT. A negative Cologuard [...] (Enmanuel Coy al, N Engl J Med 2014;370(14):8027-9809) The normal value (reference range) for this assay is negative. COLOGUARD RE-SCREENING RECOMMENDATION: Periodic colorectal cancer screening is an important part of preventive healthcare for asymptomatic individuals at average risk for colorectal cancer. Following a negative Cologuard result, the [place] Cancer Society and U.S. Multi-Society Task Force screening guidelines recommend a Cologuard re-screening interval of 3 years. References: [employer] Cancer Society Guideline for Colorectal Cancer Screening: https://www.cancer.org/cancer/xwpbg-goampv-gvfdqi/wdkwghtdw-gayypdtat-gcrcvwx/ac s-rec ommendations.html.; [place] DK, Liang CLOUD, Edda AnayaK, Colorectal Cancer Screening: Recommendations for Physicians and Patients from the U.S. Multi-Society Task Force on Colorectal Cancer Screening , Am J Gastroenterology 2017; 112:5107-9397. TEST DESCRIPTION: Composite algorithmic analysis of stool [...] (Enmanuel Coy al, N Engl J Med 2014;370(14):3143-0825.) Cologuard may produce a false negative or false positive result (no colorectal cancer or precancerous polyp present at colonoscopy follow up). A negative Cologuard test result does not guarantee the absence of CRC or advanced adenoma (pre-cancer). The current Cologuard screening interval is every 3 years. ([place] Cancer Society and U.S. Multi-Society Task Force). Cologuard performance data in a 10,000 patient pivotal study using colonoscopy as the reference method can be accessed at the following location: www.Relay.liveBooks/results. Additional description of the Cologuard test process, warnings and precautions can be found at www.cologuard.com. Stool specimen (specimen) Rectal contents / Unknown 11/18/2023 11/19/2023 2:41 PM EDT Caity Brink MD LAB MOLECULAR PEDRO GNOSTICS ORDERABLES Final Result [employer] (CLIA #:[id number]) [address] [place] [address], from Last 3 Months or Most Recently Relevant to Health Maintenance Insurance [employer] [place] [address] Care Teams Dye Colorist Formulator Relationship Specialty Start Date End Date Caity Gray MD [address] [place] [address] PCP - General Internal Medicine 11/13/22 Vero Pineda Printing AssistantHealth Teacher 03/17/24
--- OUTSIDE RECORDS SUMMARY | 2024-10-27 10:00 | XMS_ITS | Encounter Summary ---
Author Organization [employer] Address [address] [facility] 7t [place] [address] Care Team Providers Care Metallurgical Laboratory Assistant Name Role Phone Caity Gray MD Primary Care Pro vider Encounter Details Date Type Department Care Team ([facility] Contact Info) Description 10/25/2024 Orders Only GENERIC [...] Description 12/23/2024 10:30 AM EDT Office Visit [facility] [address] [place], [place] [phone] Caity Gray MD [address] [place], [place] [phone] documented as of this encounter Procedures Procedure Name Priority Date/Time Associated Diagnosis Comments GLUCOSE, WHOLE BLOOD Routine 10/25/2024 2:23 PM EDT documented in this encounter Results * (ABNORMAL) Glucose, Whole Blood (10/25/2024 2:23 PM EDT) Glucose, Whole Blood 148(H) 60 - 115 mg/dL [facility] Comment:METER #: [id number] 0Testing performed in the Endocrinology Department [address] , [address], [facility]. 10/25/2024 2:23 PM EDT 10/25/2024 2:29 PM EDT us Generic External Data Provider LAB BLOOD ORDERAB LES Final Result [facility] [address] [place] [phone] [phone] documented in this encounter Visit Diagnoses Not on filedocumented in this encounter Additional Health Concerns Assessment Noted Time PHQ-9 Depression Total Score: 4 08/13/19 25 11:28 AM EDT documented as of this encounter Care Teams Metallurgical Laboratory Assistant Relationship Specialty Start Date End Date Caity Gray MD [address] [place] [phone] PCP - General Internal Medicine 11/13/22 Vero Pineda Delivery Crew MemberSegment Assembler 03/17/24 documented as of this encounter
--- OUTSIDE RECORDS SUMMARY | 2024-10-27 10:00 | XMS_ITS | Encounter Summary ---
Author Organization [employer] Address [address] [facility] 7t [place] [address] Care Team Providers Care Estate Planning Counselor Name Role Phone Caity Gray MD Primary Care Pro vider Reason for Visit * Reason Onset Date Comments Nurse Triage 01/02/2024 Encounter Details Date Type Department Care Team ([facility] st Contact Info) Description 01/02/2024 Telephone [facility] [address] [place], [place] [phone] Caity Gray MD [address] [place] [address] Nurse Triage Social History Tobacco Use Types [...] pt to triage, spoke to pt. through [employer] medical interpreter. pt states had a minor fall [...] Reason: Caller denied all higher acuity questions Armenian Speaker (Accepted Iron Setter) documented in this encounter Plan of Treatment Upcoming Encounters Date Type Department Care Team (Late st Contact Info) Description 12/23/2024 10:30 AM EDT Office Visit [facility] [address] [place], [place] [phone] Caity Gray MD [address] [place] [phone] documented as of this encounter Visit Diagnoses Not on filedocumented in this encounter Additional Health Concerns Assessment Noted Time PHQ-9 Depression Total Score: 9 02/28/20 23 2:29 PM EST documented as of this encounter Care Teams Estate Planning Counselor Relationship Specialty Start Date End Date Caity Gray MD [address] [place] [phone] PCP - General Internal Medicine 11/13/22 Vero Pineda Fuel Quality TechLog Driver 03/17/24 documented as of this encounter
--- OUTSIDE RECORDS SUMMARY | 2024-10-27 10:00 | XMS_ITS | Encounter Summary ---
Author Organization [employer] Address [address] [place] [address] 7 [place] [address] Care Team Providers Care Store Consultant Name Role Phone Neena Machuca Primary Care Provider Caity Cortez MD Primary Care Pro vider Reason for Visit * Reason Comments Med Refill Encounter Details Date Type Department Care Team ([facility] Contact Info) Description 06/24/2022 Refill [facility] [address] [place] [phone] Neena Machuca FNP Diabetic polyneuropathy associated with [...] Upcoming Encounters Date Type Department Care Team ([facility] Contact Info) Description 12/23/2024 10:30 AM EDT Office Visit [facility] [address] [place] [phone] Caity Gray MD [address] [place], [place] [phone] documented as of this encounter Visit Diagnoses Diagnosis Diabetic polyneuropathy associated with type 2 diabetes mellitus (CMS/HCC) documented in this encounter Care Teams Store Consultant Relationship Specialty Start Date End Date Neena Machuca FNP PCP - General Family Medicine 8/30/22 9/12/23 Caity Gray MD [address] [place] [phone] PCP - General Internal Medicine 11/13/22 Vero Pineda Coordinator Cardiopulmonary ServicesNew Order Clerk 03/17/24 documented as of this encounter
--- OUTSIDE RECORDS SUMMARY | 2024-10-27 10:00 | XMS_ITS | Encounter Summary ---
Author Organization [employer] Address [address] [facility] 7t [place] [address] Care Team Providers Care Bilingual Patient Support Caseworker Name Role Phone Caity Gray MD Primary Care Pro vider Reason for Visit * Reason Onset Date Comments PT-1 09/17/2023 Encounter Details Date Type Department Care Team ([facility] Contact Info) Description 09/17/2023 Telephone [facility] MEDICINE [address] [place], [place] [phone] Caity Gray MD [address] [place] [address] PT-1 Social History Tobacco Use Types Packs/Day [...] Yes Provider name or facility name: [facility] Facility Address: [address] [place] [address] Escort needed: Y/N: No Do you have a wheelchair: Y/N: No If yes- Manual or electric: (Uses Cane) Visits: 6 Times yearly Patient calling requesting PT1 Home Address verified: Y/N: Yes Provider name or facility name: [facility] Facility Address: [address] [facility] Escort needed: Y/N: No Do you have a wheelchair: Y/N: No If yes- Manual or electric: Uses cane Visits: 6 times yearly Patient calling requesting PT1 Home Address verified: Y/N: Yes Provider name or facility name: [facility] Facility Address: [address] [place] [address] Escort needed: Y/N: No Do you have a wheelchair: Y/N: No If yes- Manual or electric: Uses Cane Visits: Every 3 months documented in this encounter Plan of Treatment Upcoming Encounters Date Type Department Care Team ([facility] st Contact Info) Description 12/23/2024 10:30 AM EDT Office Visit [facility] MEDICINE [address] [place] [phone] Caity Gray MD [address] [place] [address] documented as of this encounter Visit Diagnoses Not on filedocumented in this encounter Additional Health Concerns Assessment Noted Time PHQ-9 Depression Total Score: 9 02/28/20 23 2:29 PM EST documented as of this encounter Care Teams Bilingual Patient Support Caseworker Relationship Specialty Start Date End Date Caity Gray MD 230 [place] [address] PCP - General Internal Medicine 11/13/22 Vero Pineda Wool Hat FlangerInstructor Correspondence School 03/17/24 documented as of this encounter
--- OUTSIDE RECORDS SUMMARY | 2024-10-27 10:00 | XMS_ITS | Encounter Summary ---
Author Organization [employer] Address [address] [facility] 7 [place] [address] Care Team Providers Care Research And Development Scientist Name Role Phone Caity Gray MD Primary Care Pro vider Reason for Visit * Reason Onset Date Comments PT1 09/15/2024 Encounter Details Date Type Department Care Team ([facility] Contact Info) Description 09/15/2024 Telephone [facility] MED[facility]INE [address] [place], [place] [phone] Caity Gray MD 230 [place] [address] PT1 Social History Tobacco Use Types Packs/Day [...] Description 12/23/2024 10:30 AM EDT Office Visit [facility] [address] [place] [address] Caity Gray MD [address] [place] [address] documented as of this encounter Visit Diagnoses Not on filedocumented in this encounter Additional Health Concerns Assessment Noted Time PHQ-9 Depression Total Score: 4 08/13/19 25 11:28 AM EDT documented as of this encounter Care Teams Research And Development Scientist Relationship Specialty Start Date End Date Caity Gray MD [address] [place] [phone] PCP - General Internal Medicine 11/13/22 Vero Pineda Commercial Baking TeacherTrain Electronic Technician 03/17/24 documented as of this encounter
--- OUTSIDE RECORDS SUMMARY | 2024-10-27 10:00 | XMS_ITS | Encounter Summary ---
Author Organization [employer] Address [address] [facility] 7t [place] [address] Care Team Providers Care Freelance Director Name Role Phone Caity Gray MD Primary Care Pro vider Reason for Visit * Reason Comments Med Refill Encounter Details Date Type Department Care Team ([facility] st Contact Info) Description 02/27/2023 Refill [facility] MEDICINE 230 [place] [address] Caity Gray MD 230 [place] [address] Diabetic polyneuropathy associated with type 2 diabetes [...] on edge 3 02/27/2023 2:29 PM Francoise Young [place] Not being able to stop or [...] 10:30 AM EDT Office Visit [facility] MEDICINE [address] [place], [place] [phone] Caity Gray MD 230 [place], [place] [phone] documented as of this encounter Visit Diagnoses Diagnosis Diabetic polyneuropathy associated with type 2 diabetes mellitus (CMS/HCC) documented in this encounter Additional Health Concerns Assessment Noted Time PHQ-9 Depression Total Score: 9 02/28/20 23 2:29 PM EST documented as of this encounter Care Teams Freelance Director Relationship Specialty Start Date End Date Caity Gray MD [address] [place] [address] [phone] PCP - General Internal Medicine 11/13/22 Vero Pineda Perinatal TechLifestyle Block Farmer 03/17/24 documented as of this encounter
--- OUTSIDE RECORDS SUMMARY | 2024-10-27 10:00 | XMS_ITS | Encounter Summary ---
Author Organization [employer] Address [address] [place] [address] 7 [place] [address] Care Team Providers Care Pricing Supervisor Name Role Phone Neena Machuca Primary Care Provider Caity Cortez MD Primary Care Pro vider Reason for Visit * Reason Comments Med Refill Encounter Details Date Type Department Care Team ([facility] Contact Info) Description 03/20/2022 Refill [facility] MEDICINE [address] [place] [phone] Neena Machuca FNP Diabetic polyneuropathy associated with [...] [facility] Contact Info) Description 12/23/2024 10:30 AM EDT Office Visit [facility] MEDICINE [address] [place] [address] [phone] Caity Gray MD 230 [place], [place] [phone] documented as of this encounter Visit Diagnoses Diagnosis Diabetic polyneuropathy associated with type 2 diabetes mellitus (CMS/HCC) documented in this encounter Care Teams Pricing Supervisor Relationship Specialty Start Date End Date Neena Machuca FNP PCP - General Family Medicine 8/30/22 9/12/23 Caity Gray MD [address] [place] [address] PCP - General Internal Medicine 11/13/22 Vero Pineda Crude TesterChief Counsel 03/17/24 documented as of this encounter
--- OUTSIDE RECORDS SUMMARY | 2024-10-27 10:00 | XMS_ITS | Encounter Summary ---
Author Organization [employer] Address [address] [facility] 7t [place] [address] Care Team Providers Care Beauty Artist Name Role Phone Caity Gray MD Primary Care Pro vider Reason for Visit * Reason Onset Date Comments Med Refill 07/24/2023 Encounter Details Date Type Department Care Team ([facility] Contact Info) Description 07/24/2023 Telephone [facility] MEDICINE [address] [place], [place] [phone] Caity Gray MD 230 [place] [address] Med Refill Social History Tobacco Use Types [...] 3:42 PM EDT Medication was sent to [facility] on 07/16/23 with 2 refills. * Telephone Encounter - Eladio Rowe - 07/24/2023 3:40 PM EDT TC from pt requesting medication refill. Medications needing refill : evolocumab (Repatha SureClick) 140 MG/ML injection To be sent to: [facility] [place]-[address] [place] [address] - [address] documented in this encounter Plan of Treatment Upcoming Encounters Date Type Department Care Team (Late st Contact Info) Description 12/23/2024 10:30 AM EDT Office Visit [facility] MEDICINE [address] [place] [address] Caity Gray MD [address] [place] [address] documented as of this encounter Visit Diagnoses Not on filedocumented in this encounter Additional Health Concerns Assessment Noted Time PHQ-9 Depression Total Score: 9 02/28/20 23 2:29 PM EST documented as of this encounter Care Teams Beauty Artist Relationship Specialty Start Date End Date Caity Gray MD [address] [place] [address] PCP - General Internal Medicine 11/13/22 Vero Pineda Pond SupervisorThoracic Medicine Physician 03/17/24 documented as of this encounter
--- OUTSIDE RECORDS SUMMARY | 2024-10-27 10:00 | XMS_ITS | Encounter Summary ---
Author Organization [employer] Address [address] [facility] [address] 7t [place] [address] Care Team Providers Care Trawl Net Maker Name Role Phone Caity Gray MD Primary Care Pro vider Encounter Details Date Type Department Care Team ([facility] Contact Info) Description 04/29/2024 Orders Only [facility] MEDICINE 230 [place], [place] [phone] Mary Haider ANP 230 [place], [place] [phone] Social History Tobacco Use Types Packs/Day Years [...] Description 12/23/2024 10:30 AM EDT Office Visit [facility] MEDICINE [address] [place] [address] Caity Gray MD [address] [place] [address] documented as of this encounter Visit Diagnoses Not on filedocumented in this encounter Additional Health Concerns Assessment Noted Time PHQ-9 Depression Total Score: 9 02/28/20 23 2:29 PM EST documented as of this encounter Care Teams Trawl Net Maker Relationship Specialty Start Date End Date Caity Gray MD [address] [place] [address] PCP - General Internal Medicine 11/13/22 Vero Pineda Wet Plant OperatorHome Day Care Provider 03/17/24 documented as of this encounter
[2024-10-27 11:10] LABS: Anion Gap 13 (12-20); Blood Urea Nitrogen 36 mg/dL (9-16); Calcium 9.7 mg/dL (8.4-10.2); Carbon Dioxide 28 mmol/L (22-29); Chloride 107 mmol/L (96-108); Cholesterol 151 mg/dL (<200); Estimated Glomerular Filt Rate 45; HDL Cholesterol 43 mg/dL (>40); Potassium 4.3 mmol/L (3.3-5.1); Sodium 144 mmol/L (135-145); Triglycerides 97 mg/dL (<150)
== END 2024-10-27 09:26 | disposition home or self-care (01) ==
LOC: HO.LAB 09:25
PROVIDERS: Physician Assistant; PCP Student in an Organized Health Care Education/Training Program; Visit Provider Nurse Practitioner Family
DX: E11.42 Type 2 diabetes mellitus with diabetic polyneuropathy (principal); E11.21 Type 2 diabetes mellitus with diabetic nephropathy; E78.5 Hyperlipidemia, unspecified; Z79.4 Long term (current) use of insulin
CPT/HCPCS: 36415; 80048; 80061; 84681; 86341

== ENCOUNTER 2024-11-02 09:14 | Outpatient (AMB) | payer MEDICAID, SELFPAY ==
[2024-11-02 09:25] VITALS: BP 122/82; PULSE 98; BMI 26.8
--- NOTE | 2024-11-02 09:25 | A.OFFVIS_ITS ---
Vital Signs 11/02/24 09:25 Height 5 ft 2 in Weight 146 lb 6.191 oz BMI 26.8 BP 122/82 Blood Pressure Location Lt brachial Position Sitting Pulse 98 Pulse Source Pulse Oximeter Intake Visit Reasons: 3 mth f/up Postal Support Employee Required: Yes Postal Support Employee Name: Chyna Summers [phone] Accompanied by: Self / Same As Patient Allergies No Known Allergies (No Known Allergies*) Allergy (Verified 11/02/24 09:28) Medication List - Last Reconciled 11/02/24 by MARIN Pichardo aripiprazole 2 mg PO BEDTIME aspirin 81 mg PO DAILY atorvastatin 20 mg PO DAILY blood sugar diagnostic (FreeStyle Lite Strips) As directed blood sugar diagnostic (FreeStyle Lite Strips) Use daily As directed to check blood glucose blood-glucose meter (FreeStyle Lite Meter kit) As directed to test blood glucose 4x/day blood-glucose sensor (FreeStyle Daryn 3 Plus Sensor device) Use daily As directed to monitor glucose cholecalciferol (vitamin D3) 50 mcg PO DAILY 30 days clonazepam 1 mg PO BID duloxetine 20 mg PO BID evolocumab (Repatha SureClick) 140 mg subcut Q2W ezetimibe (Zetia) 10 mg PO DAILY gabapentin 600 mg PO TID insulin aspart U-100 (Novolog FlexPen U-100 Insulin aspart) 4 units (0.04 mL) subcut TID insulin glargine (Lantus Solostar U-100 Insulin) 20 units (0.2 mL) subcut QPM lancets (FreeStyle Lancets) As directed lancets (FreeStyle Lancets) use daily as directed to check blood glucose lisinopril 10 mg PO DAILY metoprolol tartrate 100 mg PO ONCE pen needle, diabetic (BD Ultra-Fine Martha Pen Needle) As directed three times a day semaglutide (Ozempic) 0.25 mg (0.368 mL) subcut QWEEK trazodone 100 mg PO BEDTIME HPI HPI 3 mth f/up: Details: Paty is a 63-year-old female with past medical history of hypertension, hyperlipidemia, diabetes, chronic kidney disease, prior evaluation for chest discomfort without cardiac findings who was recently who was referred back to Cardiology for evaluation and treatment of her hyperlipidemia. Recent lipid profile shows values are improving. Today she reports she has been feeling well overall. She has no chest discomfort at rest or with activity. No shortness of breath, palpitations, dizziness, presyncope, syncope, PND, orthopnea or edema. She reports compliance with meds including Repatha, Zetia and atorvastatin. She believes the cholesterol- lowering medications caused issues with her liver in the past. She does not recall having any issues with myalgias or joint discomfort. She goes for walks frequently, which she tolerates well. 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 [facility] Medical History Type 2 diabetes mellitus with hyperglycemia, with long-term current use of insulin Long-term current use of insulin for diabetes mellitus Type 2 diabetes mellitus with diabetic nephropathy Vitamin D deficiency Hyperlipidemia LDL goal <100 Type 2 diabetes mellitus with diabetic polyneuropathy Palpitations Depression with anxiety Surgical History Hx of cataract surgery History of cholecystectomy Family History Father Prostate cancer Diabetes Mother Uterine cancer, sarcoma Brain bleed Diabetes CAD (coronary artery disease) Social History Household Members: None Alcohol intake: current Alcohol intake frequency: does not drink Patient Tobacco Use Status: Never used Tobacco Review of Systems Const All systems reviewed & are unremarkable except as noted in HPI and below Denies daytime sleepiness, Denies difficulty sleeping, Denies snoring, Denies stops breathing during sleep and Denies weakness Card Denies chest pain, Denies rapid heart rate, Denies irregular heart rhythm, Denies claudication, Denies leg edema, Denies lightheadedness, Denies palpitations, Denies dyspnea, Denies dyspnea on exertion, Denies orthopnea, Denies paroxysmal nocturnal dyspnea and Denies slow heart rate Resp Denies cough, Denies dyspnea, Denies dyspnea on exertion and Denies snoring GI Reports no additional complaints, Denies hematochezia, Denies change in stool character and Denies dyspepsia Musc Denies abnormal gait, Denies muscle weakness and Denies numbness Neuro Denies abnormal gait, Denies numbness and Denies weakness Endo Denies palpitations Physical Exam Vital Signs: Last Vital Signs Pulse 98 11/02/24 09:25 BP 122/82 11/02/24 09:25 BMI result Body Mass Index 26.8 Const General: cooperative, healthy appearing, comfortable and no acute distress Orientation/consciousness: patient oriented x3 Neck Neck: Yes normal visual inspection and Yes no JVD Resp Effort & Inspection: normal respiratory effort Auscultation: clear to auscultation bilaterally, no crackles, no rales, no rhonchi and no wheezes Cardio Rate: regular rate Rhythm: regular rhythm Heart sounds: S1 normal heart sound present, S2 normal heart sound present, no murmurs and no rubs Neuro General: patient oriented x3 Extrem General: Yes normal to inspection, No no pedal edema and No calf tenderness Psych Appearance: grossly normal Mental Status: mental status grossly normal Speech and movement: Normal speech and movement present Assessment & Plan Assessment & Plan (1) Hyperlipidemia LDL goal <100: Code(s): E78.5 - Hyperlipidemia, unspecified Category: Medical Plan: [place] LDL goal less than 70 in patient with diabetes. She is currently on atorvastatin 20 mg daily, Zetia 10 mg daily and Repatha injections Q 14 days. Labs done 10/27/2024 shows LDL 89. Labs 07/06/2024 shows AST 28, ALT 23. She recalls having liver issues with cholesterol-lowering pills in the past. I do see mildly elevated values in 2018 and 2019. -unclear if this is related. Will have her increase atorvastatin up to 40 mg daily and continue other agents. W ill check fasting lipids and CMP in 2 months. Reviewed low fat diet, weigth control and staying physically active. Cardiology follow-up 6 months, sooner if needed. (2) Chest pain: Code(s): R07.9 - Chest pain, unspecified Category: Medical Plan: Prior reports of chest discomfort - none recently. Nuclear stress test done for chest discomfort 12/18/2017 shows normal myocardial perfusion imaging with EF 70%. She does have multiple cardiac risk factors of hypertension, hyperlipidemia, diabetes, chronic kidney disease. She has no known history of coronary artery disease. Discussed ongoing cardiac risk factor modification with her. (3) Hypertension: Code(s): I10 - Essential (primary) hypertension Category: Medical Qualifiers: Hypertension type: essential hypertension Qualified Code(s): I10 - Essential (primary) hypertension Plan: BP goal < 130/80. Well controlled at present time. No medication changes made Plan Time spent on chart review, documentation, interview and assessment Orders: Orders Lipid Panel 2 Months E78.5 - Hyperlipidemia, unspecified, R07.9 - Chest pain, unspecified Comprehensive Met. Panel 2 Months E78.5 - Hyperlipidemia, unspecified, R07.9 - Chest pain, unspecified Medications: New atorvastatin (Lipitor) dose increased 40 mg PO BEDTIME 90 tabs 1RF Coding Level of Care Code Est Pt Level 3 (95624) Complex EM visit Add On G2211 Diagnoses Hyperlipidemia LDL goal <100 E78.5 Chest pain R07.9 Essential hypertension I10 Hypertension type: essential hypertension Time Spent (min) 24
--- OUTSIDE RECORDS SUMMARY | 2024-11-02 10:09 | XMS_ITS | Encounter Summary ---
Author Organization [employer] Address [address] [facility] 7t [place] [address] Care Team Providers Care Track Dresser Name Role Phone Caity Gray MD Primary Care Pro vider Reason for Visit * Reason Comments Med Refill Encounter Details Date Type Department Care Team ([facility] st Contact Info) Description 06/25/2024 Refill [facility] MEDICINE 230 [place] [address] Caity Gray MD [address] [place] [address] Hyperlipidemia, unspecified hyperlipidemia type Social History Tobacco [...] [facility] MEDICINE [address] [place] [address] Caity Gray MD [address] [place] [phone] documented as of this encounter Visit Diagnoses Diagnosis Hyperlipidemia, unspecified hyperlipidemia type documented in this encounter Additional Health Concerns Assessment Noted Time PHQ-9 Depression Total Score: 9 02/28/20 23 2:29 PM EST documented as of this encounter Care Teams Track Dresser Relationship Specialty Start Date End Date Caity Gray MD [address] [place] [address] PCP - General Internal Medicine 11/13/22 Vero Pineda Chief OperatorTailer In 03/17/24 documented as of this encounter
--- OUTSIDE RECORDS SUMMARY | 2024-11-02 10:09 | XMS_ITS | Encounter Summary ---
Author Organization [employer] Address [address] [facility] [address] 7t [place] [address] Care Team Providers Care Carbon Furnace Operator Helper Name Role Phone Caity Gray MD Primary Care Pro vider Encounter Details Date Type Department Care Team ([facility] Contact Info) Description 04/29/2024 Orders Only [facility] MEDICINE 230 [place], [place] [phone] Mary Haider ANP 230 [place], [place] [phone] Social History Tobacco Use Types Packs/Day Years [...] Description 12/23/2024 10:30 AM EDT Office Visit [facility] MEDICINE [address] [place] [address] Caity Gray MD [address] [place] [phone] documented as of this encounter Visit Diagnoses Not on filedocumented in this encounter Additional Health Concerns Assessment Noted Time PHQ-9 Depression Total Score: 9 02/28/20 23 2:29 PM EST documented as of this encounter Care Teams Carbon Furnace Operator Helper Relationship Specialty Start Date End Date Caity Gray MD [address] [place] [address] PCP - General Internal Medicine 11/13/22 Vero Pineda Rehab Department ManagerRoll Form Operator 03/17/24 documented as of this encounter
--- OUTSIDE RECORDS SUMMARY | 2024-11-02 10:09 | XMS_ITS | Encounter Summary ---
Author Organization [employer] Address [address] [place] [address] 7 [place] [address] Care Team Providers Care Cavalry Scout Name Role Phone Neena Machuca Primary Care Provider Caity Cortez MD Primary Care Pro vider Reason for Visit * Reason Comments Med Refill Encounter Details Date Type Department Care Team ([facility] Contact Info) Description 06/24/2022 Refill [facility] MEDICINE [address] [place] [phone] Neena Machuca FNP Diabetic polyneuropathy associated with [...] Upcoming Encounters Date Type Department Care Team ([facility] Contact Info) Description 12/23/2024 10:30 AM EDT Office Visit [facility] MEDICINE [address] [place] [address] [phone] Caity Gray MD 230 [place], [place] [phone] documented as of this encounter Visit Diagnoses Diagnosis Diabetic polyneuropathy associated with type 2 diabetes mellitus (CMS/HCC) documented in this encounter Care Teams Cavalry Scout Relationship Specialty Start Date End Date Neena Machuca FNP PCP - General Family Medicine 8/30/22 9/12/23 Caity Gray MD [address] [place] [address] PCP - General Internal Medicine 11/13/22 Vero Pineda Interstate PlannerCase Resource Manager 03/17/24 documented as of this encounter
--- OUTSIDE RECORDS SUMMARY | 2024-11-02 10:09 | XMS_ITS | Encounter Summary ---
Author Organization [employer] Address 75 [facility] 7t [place] [address] Care Team Providers Care Draw Hand Name Role Phone Caity Gray MD Primary Care Pro vider Reason for Visit * Reason Onset Date Comments Nurse Triage 01/02/2024 Encounter Details Date Type Department Care Team ([facility] st Contact Info) Description 01/02/2024 Telephone [facility] MEDICINE 230 [place], [place] [phone] Caity Gray MD 230 [place] [address] Nurse Triage Social History Tobacco Use Types [...] pt to triage, spoke to pt. through [facility] general maintenance technician. pt states had a minor fall [...] Reason: Caller denied all higher acuity questions Tamazight Speaker (Accepted Shuttlecock Feather Trimmer) documented in this encounter Plan of Treatment Upcoming Encounters Date Type Department Care Team (Late st Contact Info) Description 12/23/2024 10:30 AM EDT Office Visit [facility] MEDICINE 230 [place], [place] [phone] Caity Gray MD [address] [place] [address] documented as of this encounter Visit Diagnoses Not on filedocumented in this encounter Additional Health Concerns Assessment Noted Time PHQ-9 Depression Total Score: 9 02/28/20 23 2:29 PM EST documented as of this encounter Care Teams Draw Hand Relationship Specialty Start Date End Date Caity Gray MD [address] [place] [address] PCP - General Internal Medicine 11/13/22 Vero Pineda ForgesmithSuperintendent Pier 03/17/24 documented as of this encounter
--- OUTSIDE RECORDS SUMMARY | 2024-11-02 10:09 | XMS_ITS | Encounter Summary ---
Author Organization [employer] Address 75 [facility] 7 [place] [address] Care Team Providers Care First Breaker Feeder Name Role Phone Caity Gray MD Primary Care Pro vider Reason for Visit * Reason Onset Date Comments Appointment Request 04/07/2023 Encounter Details Date Type Department Care Team ([facility] Contact Info) Description 04/07/2023 Telephone [facility] MEDICINE 230 [place], [place] [phone] Caity Gray MD 230 [place], [place] [phone] Appointment Request Social History Tobacco Use Types [...] for 2/5 states is not feeling well remote mortgage underwriter didcancel however there was no availability at the moment remote mortgage underwriter did ask if the patient would like a message to be sent to triage but patient refuses. documented in this encounter Plan of Treatment Upcoming Encounters Date Type Department Care Team (Late st Contact Info) Description 12/23/2024 10:30 AM EDT Office Visit [facility] MEDICINE [address] [place] [phone] Caity Gray MD [address] [place] [phone] documented as of this encounter Visit Diagnoses Not on filedocumented in this encounter Additional Health Concerns Assessment Noted Time PHQ-9 Depression Total Score: 9 02/28/20 23 2:29 PM EST documented as of this encounter Care Teams First Breaker Feeder Relationship Specialty Start Date End Date Caity Gray MD [address] [place] [address] PCP - General Internal Medicine 11/13/22 Vero Pineda Business DeanFloor Tiling Professional 03/17/24 documented as of this encounter
--- OUTSIDE RECORDS SUMMARY | 2024-11-02 10:09 | XMS_ITS | Encounter Summary ---
Author Organization [employer] Address [address] [place] [address] 7 [place] [address] Care Team Providers Care Gyro Compass Tester Name Role Phone Neena Machuca Primary Care Provider Caity Cortez MD Primary Care Pro vider Reason for Visit * Reason Comments Med Refill Encounter Details Date Type Department Care Team ([facility] Contact Info) Description 03/20/2022 Refill [facility] [address] [place] [phone] Neena Machuca FNP Diabetic polyneuropathy associated with [...] Upcoming Encounters Date Type Department Care Team ([facility] Contact Info) Description 12/23/2024 10:30 AM EDT Office Visit [facility] [address] [place] [address] [phone] Caity Gray MD [address] [place], [place] [phone] documented as of this encounter Visit Diagnoses Diagnosis Diabetic polyneuropathy associated with type 2 diabetes mellitus (CMS/HCC) documented in this encounter Care Teams Gyro Compass Tester Relationship Specialty Start Date End Date Neena Machuca FNP PCP - General Family Medicine 8/30/22 9/12/23 Caity Gray MD [address] [place] [phone] PCP - General Internal Medicine 11/13/22 Vero Pineda Congressional AideMedical Interpreter 03/17/24 documented as of this encounter
--- OUTSIDE RECORDS SUMMARY | 2024-11-02 10:09 | XMS_ITS | Encounter Summary ---
Author Organization [employer] Address [address] [place] [address] [address]t [place] [address] Care Team Providers Care Superintendent Circus Name Role Phone Neena Machuca OVERLOCK OPERATOR Primary Care Provider Caity Cortez MD Primary Care Pro vider Encounter Details Date Type Department Care Team ([facility] Contact Info) Description 04/30/2022 Telephone [facility] [address] [place] [address] [phone] Neena Machuca FNP Social History Tobacco Use [...] Encounters Date Type Department Care Team ([facility] Contact Info) Description 12/23/2024 10:30 AM EDT Office Visit [facility] [address] [place] [address] [phone] Caity Gray MD [address] [place], [place] [phone] documented as of this encounter Visit Diagnoses Not on filedocumented in this encounter Care Teams Superintendent Circus Relationship Specialty Start Date End Date Neena Machuca FNP PCP - General Family Medicine 10/30/21 11/12/22 Caity Gray MD [address] [place] [id number] PCP - General Internal Medicine 11/13/22 Vero Pineda Metal Pickling Equipment OperatorWarehouse Trainer 03/17/24 documented as of this encounter
--- OUTSIDE RECORDS SUMMARY | 2024-11-02 10:09 | XMS_ITS | Encounter Summary ---
Author Organization [employer] Address [address] [facility] 7t [place] [address] Care Team Providers Care Maintenance Aide Name Role Phone Caity Gray MD Primary Care Pro vider Encounter Details Date Type Department Care Team ([facility] Contact Info) Description 10/27/2024 Orders Only GENERIC EXTERNAL DATA DEPARTMENT Provider, [...] Description 12/23/2024 10:30 AM EDT Office Visit [facility] [address] [place] [phone] aCity Gray MD [address] [place] [phone] Pending Results Name Type Priority Associated Diagnoses Date /Time C-Peptide Lab Routine 10/27/2024 9:4 7 AM EDT documented as of this encounter Procedures Procedure Name Priority Date/Time Associated Diagnosis Comments C-PEPTIDE Routine 10/27/2024 9:47 AM EDT documented in this encounter Visit Diagnoses Not on filedocumented in this encounter Additional Health Concerns Assessment Noted Time PHQ-9 Depression Total Score: 4 08/13/19 25 11:28 AM EDT documented as of this encounter Care Teams Maintenance Aide Relationship Specialty Start Date End Date Caity Gray MD [address] [place] [phone] PCP - General Internal Medicine 11/13/22 Vero Pineda Riverine Ass[employer] Craft CrewmanTax Manager 03/17/24 documented as of this encounter
--- OUTSIDE RECORDS SUMMARY | 2024-11-02 10:09 | XMS_ITS | Encounter Summary ---
Author Organization [employer] Address [address] [facility] 7t [place] [address] Care Team Providers Care Programmer Business Name Role Phone Caity Gray MD Primary Care Pro vider Reason for Visit * Reason Onset Date Comments PT-1 09/17/2023 Encounter Details Date Type Department Care Team ([facility] Contact Info) Description 09/17/2023 Telephone [facility] [address] [place], [place] [phone] Caity Gray MD [address] [place] [address] PT-1 Social History Tobacco Use Types Packs/Day [...] Y/N: Yes Provider name or facility name: [facility] Facility Address: [address] [place] [address] Escort needed: Y/N: No Do you have a wheelchair: Y/N: No If yes- Manual or electric: (Uses Cane) Visits: 6 Times yearly Patient calling requesting PT1 Home Address verified: Y/N: Yes Provider name or facility name: [facility] Facility Address: [address] [facility] Escort needed: Y/N: No Do you have a wheelchair: Y/N: No If yes- Manual or electric: Uses cane Visits: 6 times yearly Patient calling requesting PT1 Home Address verified: Y/N: Yes Provider name or facility name: [facility] Facility Address: [address] [place] [address] Escort needed: Y/N: No Do you have a wheelchair: Y/N: No If yes- Manual or electric: Uses Cane Visits: Every 3 months documented in this encounter Plan of Treatment Upcoming Encounters Date Type Department Care Team ([facility] Contact Info) Description 12/23/2024 10:30 AM EDT Office Visit [facility] [address] [place] [phone] Caity Gray MD [address] [place] [address] documented as of this encounter Visit Diagnoses Not on filedocumented in this encounter Additional Health Concerns Assessment Noted Time PHQ-9 Depression Total Score: 9 02/28/20 23 2:29 PM EST documented as of this encounter Care Teams Programmer Business Relationship Specialty Start Date End Date Caity Gray MD [address] [place] [address] PCP - General Internal Medicine 11/13/22 Vero Pineda Cook Cashier Food PrepPainter Ordnance 03/17/24 documented as of this encounter
--- OUTSIDE RECORDS SUMMARY | 2024-11-02 10:09 | XMS_ITS | Encounter Summary ---
Author Organization [employer] Address [address] [facility] 7 [place] [address] Care Team Providers Care Odd Ticket Clerk Name Role Phone Caity Gray MD Primary Care Pro vider Reason for Visit * Reason Onset Date Comments PT1 09/15/2024 Encounter Details Date Type Department Care Team ([facility] Contact Info) Description 09/15/2024 Telephone [facility] [address] [place], [place] [phone] Caity Gray MD [address] [place] [address] PT1 Social History Tobacco Use Types Packs/Day [...] Description 12/23/2024 10:30 AM EDT Office Visit [facility] [address] [place] [address] Caity Gray MD [address] [place] [address] documented as of this encounter Visit Diagnoses Not on filedocumented in this encounter Additional Health Concerns Assessment Noted Time PHQ-9 Depression Total Score: 4 08/13/19 25 11:28 AM EDT documented as of this encounter Care Teams Odd Ticket Clerk Relationship Specialty Start Date End Date Caity Gray MD [address] [place] [phone] PCP - General Internal Medicine 11/13/22 Vero Pineda Graphics Software EngineerCream Tester 03/17/24 documented as of this encounter
--- OUTSIDE RECORDS SUMMARY | 2024-11-02 10:09 | XMS_ITS | Clinical Summary ---
Author Organization [employer] Address [address] [facility] 7t [place] [address] Care Team Providers Care Management Retail Intern Name Role Phone Caity Gray MD Primary [...] polyneuropathy, with long-term current use of insulin ([facility]) Use 5 times a day when checking [...] nephropathy, with long-term current use of insulin ([facility]) INJECT 1 ML SUBCUTANEOUSLY EVERY 14 [...] tablet 12 025 2025 Active Continuous Glucose Library Associate (FreeStyle Daryn 3 [place]) device 1 each Once per day. Use [...] 025 Active Blood Glucose Monitoring Suppl (FreeStyle [place] Lite) w/Device kitIndications:T ype 2 diabetes mellitus with retinopathy, with long-term current use of insulin, macular edema presence unspecified, unspecified laterality, unspecified retinopathy severity ([facility]) Use to test blood sugar 3 times daily 1 kit 025 Active FREESTYLE LITE test stripIndications :Type 2 diabetes mellitus with retinopathy, with long-term current use of insulin, macular edema presence unspecified, unspecified laterality, unspecified retinopathy severity ([facility]/HCC) Use to test blood sugar 3 times daily 100 each 12 025 2025 Active Alcohol Swabs 70 % padsIndications: Type 2 diabetes mellitus with retinopathy, with long-term current use of insulin, macular edema presence unspecified, unspecified laterality, unspecified retinopathy severity ([facility]/HCC) Use to test blood sugar 3 times [...] RN to check on Repatha Rx at [place] [facility] Previous PA approved by insurance Unknown [...] FIT 04/10/22, pending. Will order again for [facility] lab 09/12/22 Lung cancer: Never smoker, no [...] Encounters Date Type Department Care Team Description 10/27/2024 Orders Only GENERIC EXTERNAL DATA DEPARTMENT Provider, Generic External Data 10/25/2024 Orders Only GENERIC EXTERNAL DATA DEPARTMENT Provider, Generic External Data 10/20/2024 Refill [facility] [address] [place] [address] Caity Gray MD Diabetic polyneuropathy associated with type 2 diabetes mellitus ([facility]) 10/15/[address] [address] Caity Gray MD No Show 10/14/[address] [address] Caity Gray MD Chart Prep 09/29/[address] [address] Caity Gray MD Type 2 diabetes mellitus with retinopathy, with long-term current use of insulin, macular edema presence unspecified, unspecified laterality, unspecified retinopathy severity (CMS/HCC) 09/29/2024 Results Follow-Up [address] [address] Laura Gallardo MD US Pelvis Transvaginal 09/19/2024 Refill [facility] [address] [place], [place] [phone] Paz Sutherland MD Hyperlipidemia, unspecified hyperlipidemia type 09/17/2024 Orders Only GENERIC EXTERNAL DATA DEPARTMENT Provider, Generic External Data 09/15/2024 Patient Outreach [address] [address] Caity Gray MD Care Coordination (CHW outreach for SDOH PT-1 and food needs-referral completed /) 09/15/[address] [address] Caity Gray MD PT1 08/12/2024 11:15 AM EDT Office Visit [address] [address] Caity Gray MD Foot callus (Primary Dx); Type 2 diabetes mellitus with diabetic nephropathy, with long-term current use of insulin (CMS/HCC); Knee pain, unspecified chronicity, unspecified laterality; Left hip pain; Diabetic polyneuropathy associated with type 2 diabetes mellitus (CMS/HCC); Essential hypertension; History of uterine fibroid; Abdominal pain, unspecified abdominal location; Health care maintenance; Chronic pain of left knee 08/12/2024 Results Follow-Up [address] [place] [address] Caity Gray MD XR Knee 3 Views Left 08/12/2024 Telephone [facility] [address] [place] [address] Caity Gray MD 08/12/2024 Travel 08/11/2024 Telephone [facility] [address] [place] [address] Eloisa Buchanan MA chart prep 08/09/2024 Refill [facility] [address] [place] [address] Caity Gray MD Type 2 diabetes mellitus without complication, unspecified whether intermediate manager insulin use ([facility]) from Last 3 Months Immunizations Immunization Administration [...] your housing situation today? I have kiran sing 08/12/[address] you li [...] 12/23/2024 10:30 AM EDT Office Visit [facility] [address] [place] [address] Caity Gray MD [address] [place] [phone] Health Maintenance Due Date Last Done Comments [...] Comments C-PEPTIDE Routine 10/27/2024 9:47 AM EDT GLUCOSE, WHOLE BLOOD Routine 10/25/2024 2:23 PM [...] nephropathy, with long-term current use of insulin ([facility]) POCT GLYCATED HEMOGLOBIN, TOTAL Routine 08/12/2024 11:07 AM EDT Type 2 diabetes mellitus with diabetic nephropathy, with long-term current use of insulin (CMS/[facility]) POCT GLUCOSE Routine 08/12/2024 11:06 AM EDT [...] Whole Blood 148(H) 60 - 115 mg/dL [facility] Comment:METER #: [id number] 0Testing performed in the Endocrinology Department [address] , [address], [facility]. 10/25/2024 2:23 PM EDT 10/25/2024 2:29 PM EDT us Generic External Data Provider LAB BLOOD ORDERAB LES Final Result [facility] [address] [place] [phone] * US Pelvis Transvaginal (08/30/2024 12:39 PM EDT) Anatomical Region Laterality Modality Pelvis Ultrasound 08/30/2024 12:3 9 PM EDT Narrative 08/30/2024 1:07 PM EDT [address] [address] Ultrasound Report Signed Patient: Paty Carey MR#: [id number] : 1960 Acct:[id number] Age/Sex: 63 / F ADM Date: 08/30/24 Loc: HO.US Attending Dr: Laura Gallardo MD Ordering Physician: Laura Gallardo Date of Service: 08/30/24 Procedure(s): US pelvic and transvaginal Accession Number(s): [id number] cc: Laura Gallardo EXAMINATION: US PELVIS TRANSABDOMINAL [...] 08/30/24 1304 DD/ 1239 TD/TT: 08/30/24 1242 Appeals Nurse: Procedure Note Donotuseinterpreter, Image - 08/30/[address] [address] Ultrasound Report Signed Patient: Paty CareyMR#: [id number] : 1960cct:[id number] Age/Sex: 63 / FADM Date: 08/30/24 Loc: HO.US Attending Dr: Laura Gallardo MD Ordering Physician: Laura Gallardo Date of Service: 08/30/24 Procedure(s): US pelvic and transvaginal Accession Number(s): [id number] cc: Laura Gallardo EXAMINATION: US PELVIS TRANSABDOMINAL [...] 08/30/24 1304 DD/ 1239 TD/TT: 08/30/24 1242 Appeals Nurse: us Laura Gallardo MD IMG US PROCEDURES Final Result * XR Knee 3 Views Left (08/12/2024 2:03 PM EDT) Anatomical Region Laterality Modality Lower Extremities, Knee Left Radiogra phic Imaging 08/12/2024 2:03 PM EDT Narrative 08/12/2024 3:22 PM EDT [address] [address] XRay Report Signed Patient: Paty Carey MR#: [id number] : 1960 Acct:[id number] Age/Sex: 63 / F ADM Date: 08/12/24 [facility]: Caity Brink MD Ordering Physician: Caity Gray MD Date of Service: 08/12/24 Procedure(s): XR knee LT 3V Accession Number(s): [id number] cc: Caity Gray MD EXAMINATION: XR KNEE [...] 08/12/24 1520 DD/ 1403 TD/TT: 08/12/24 1420 Appeals Nurse: Procedure Note Donedininterpreter, Image - 08/12/[address] [address] XRay Report Signed Patient: Paty CareyMR#: [id number] : 1960cct:[id number] Age/Sex: 63 / FADM Date: 08/12/24 [facility]: Caity Brink MD Ordering Physician: Caity Gray MD Date of Service: 08/12/24 Procedure(s): XR knee LT 3V Accession Number(s): [id number] cc: Caity Gray MD EXAMINATION: XR KNEE [...] 08/12/24 1520 DD/ 1403 TD/TT: 08/12/24 1420 Appeals Nurse: Caity Brink MD IMG XR PROCEDURES Final Result * XR Hip 2 or 3 Views Left (08/12/2024 2:00 PM EDT) Anatomical Region Laterality Modality Lower Extremities, Hip Left Radiograp hic Imaging 08/12/2024 2:00 PM EDT Narrative 08/12/2024 3:21 PM EDT [address] [address] XRay Report Signed Patient: Paty Carey MR#: [id number] : 1960 Acct:[id number] Age/Sex: 63 / F ADM Date: 08/12/24 Loc: HO.CX Attending Dr: Caity Brink MD Ordering Physician: Caity Gray MD Date of Service: 08/12/24 Procedure(s): XR hip LT min 2V Accession Number(s): [id number] cc: Caity Gray MD EXAMINATION: XR HIP [...] 08/12/24 1519 DD/ 1400 TD/TT: 08/12/24 1420 Appeals Nurse: Procedure Note Donotuseinterpreter, Image - 08/12/2024 [place] [address] XRay Report Signed Patient: Paty CareyMR#: [id number] : 1960cct:[id number] Age/Sex: 63 / FADM Date: 08/12/24 Loc: HO.[facility] Attending Dr: Caity Brink MD Ordering Physician: Caity Gray MD Date of Service: 08/12/24 Procedure(s): XR hip LT min 2V Accession Number(s): [id number] cc: Caity Gray MD EXAMINATION: XR HIP [...] 03:19 PM EDT RP Dictated By: Deo Ireladn MD Signed By: <Electronically signed by Deo Ireland MD in OV> 08/12/24 1519 DD/ 1400 TD/TT: 08/12/24 1420 Appeals Nurse: Caity Brink MD IMG XR PROCEDURES Final Result * ECG 12 lead (08/12/2024 12:03 PM EDT) Only the most recent of2 resultswithin the time period is included. Narrative Caity Gray MD - 08/12/2024 12:03 PM EDT EKG today: NSR,HR 75 , Qtc 414, no ischemic findings Caity Brink MD ECG ORDERABLES F inal Result * (ABNORMAL) POCT HGB A1C (08/12/2024 11:07 AM EDT) [facility] Hemoglobin A1C 8.4(A) 4.0 - 6.0 % QC Media Lot # [id number] Lot# Expiration Date Blood 08/12/2024 11:0 7 AM EDT Caity Brink MD POINT OF CARE ISABELLE T ENTER/EDIT ORDERABLES Final Result * (ABNORMAL) POCT Glucose (08/12/2024 11:06 AM EDT) [facility] Glucose Blood, POC 240(A) 60 - 200 mg/dL Comment:RANDOM QC Media Lot # [id number] Lot# Expiration Date 618 Blood Capillary blood specimen / Unknown 08/12/2024 11:06 AM EDT Caity Brink MD POINT OF CARE ISABELLE T ENTER/EDIT ORDERABLES Final Result * HPV DNA, Low/High Risk (07/12/2024 3:25 PM EDT) [facility] HPV High Risk Negative Negative [facility] HPV Genotype 16 Negative Negative [facility] HPV Genotype 18 Negative Negative [facility] Comment:HPV testing performe d at [facility] (CLIA#[id number]), [address] [place] [phone].Testing for HPV was performed using the Nick [...] MD LAB BLOOD ORDERABLES Final Res ult [facility] [address] [place] [phone] * Pap Smear (07/12/2024 3:25 PM EDT) 07/12/2024 3:25 PM EDT 07/13/2024 6:00 AM EDT Narrative [facility] - 07/15/2024 11:08 AM EDT ----- ------- Name: Paty Carey Age/Sex: 63/F : 1960 Unit#: [id number] Attend Dr: Laura Gallardo Re07/12/24 Status: DEP REF Location: [facility] Disch: ----- ------- SPEC : [id number] RECD: 07/13/24 STATUS: SEUN LOBO NUM: [id number] CHI: 07/12/[address] [facility] [address]: Laura Gallardo ENTERED: 07/13/24 SP [...] 07/15/24 1108 ----- ------- END OF REPORT us Laura Gallardo MD LAB CYTOLOGY ORDERABLES Final Result [facility] [address] [place] [phone] * (ABNORMAL) Lipid Panel, Standard (07/06/2024 1:27 PM EDT) Triglycerides 127 <150 mg/dL [facility] Comment:Desirable Triglyceri de: less than 150 mg/dLBorderline High Triglyceride 150-199 mg/dLHigh Triglyceride: 200-499 mg/dLVery High Triglyceride: greater than or equal to 5OO mg/dL Cholesterol 228(H) <200 mg/dL [facility] Comment:Desirable Cholestero l: less than 200 mg/dLBorderline High Cholesterol: 200-239 mg/dLHigh Cholesterol: greater than 239 mg/dL LDL Cholesterol Calculated 154(H) <100 mg/dL [facility] Comment:Desirable LDL: less than 100 mg/dLNear Optimal/Above Optimal LDL: 110- 129 mg/dLBorderline High LDL: 130-159 mg/dLHigh LDL: 160-189 mg/dLVery High LDL: greater than or equal to 190 mg/dL HDL Cholesterol 49 >40 mg/dL [facility] Comment:Desirable HDL: great er than 40 mg/dL Note: This HDL assay may give artificially low results in patients with liver disease. 07/06/2024 1:27 PM EDT 07/06/2024 1:27 PM EDT us Generic External Data Provider LAB BLOOD ORDERAB LES Final Result [facility] [address] [place] [address] [phone] * BI Mammogram Diagnostic Tomosynthesis Bilateral (01/12/2024 2:00 PM EST) Anatomical Region Laterality Modality Breast Bilateral Mammography 01/12/2024 2:00 PM EST Narrative 01/12/2024 3:02 PM EST [facility] [address] [place] [address] Mammography Report Signed Patient: Paty Carey MR#: [id number] : 1960 Acct:[id number] Age/Sex: 63 / F ADM Date: 01/12/24 Loc: HO.MAMMO Attending Dr: Caity Brink MD Ordering Physician: Caity Gray MD Re sults: 2Benign Findings Date of Service: 01/12/24 Follow Up: 1 Year From Orig ina Mammogram Procedure(s): MM tomosynthesis diagnostic BI Accession Number(s): [id number] cc: Caity Gray MD EXAMINATION: MM DIAGNOSTIC [...] 01/12/24 1459 DD/ 1400 TD/TT: 01/12/24 1422 Appeals Nurse: Procedure Note Donotuseinterpreter, Image - [facility]/12/[facility] [address] [place] [address] Mammography Report Signed Patient: Paty CareyMR#: [id number] : 1960cct:[id number] Age/Sex: 63 / FADM Date: 01/12/24 Loc: HO.MAMMO Attending Dr: Caity Brink MD Ordering Physician: Caity Gray sults: 2Benign Findings Date of Service: 01/12/24Follow Up: 1 Year From Orig ina Mammogram Procedure(s): MM tomosynthesis diagnostic BI Accession Number(s): [id number] cc: Caity Gray MD EXAMINATION: MM DIAGNOSTIC [...] by: Tio Gilman MD 01/12/2024 02:59 PM [facility] Dictated By: Tio Gilman MD Signed By: <Electronically signed by Tio Gilman MD in OV> 01/12/24 1459 DD/ 1400 TD/TT: 01/12/24 1422 Appeals Nurse: us Caity Brink MD IMG BI PROCEDURES Final Result * Hepatitis C Antibody with Reflex to HCV, RNA, Quantitative, Real-Time PCR (12/19/2023 11:05 AM EDT) Pathologist [facility] Hepatitis C Antibody Nonreactive Nonreactive [facility] Comment:Antibodies to HCV no t detected; does not exclude early acuteHCV infection. Blood Venous blood specimen / Unknown 12/19/2023 11:05 AM EDT 12/19/2023 11:42 AM EDT us Caity Brink MD LAB BLOOD ORDERAB LES Final Result [facility] [address] [place] [address] [phone] * HIV-1/2 Antigen and Antibodies, Fourth Generation, with Reflexes (12/19/2023 11:05 AM EDT) HIV AB/AG Nonreactive Nonreactive [facility] Comment:HIV-1 p24 Ag and/or HIV-1/HIV-2 Ab not detected.A test result that is nonreactive does not exclude thepossibility of exposure to or infection with HIV-1 and/orHIV-2. Nonreactive results in this assay for individualswith prior exposure to HIV-1 and/or HIV-2 may be due toantigen and antibody levels that are below the limit ofdetection of this assay.The [employer] HIV Ag/Ab Combo assay result andsupplemental assay results should be interpreted inconjunction with the patient's clinical presentation,history and other laboratory results. If the results areinconsistent with clinical evidence, additional testing issuggested to confirm the result. Blood Venous blood specimen / Unknown 12/19/2023 11:05 AM EDT 12/19/2023 11:42 AM EDT Caity Brink MD LAB BLOOD ORDERAB LES Final Result [facility] [address] [place] [phone] * Cologuard?? colon cancer screening (11/18/2023 12:00 AM EDT) Pathologist [facility] Cologuard Result Negative Negative 11/26/19 5:47 PM EDT [facility] (CLIA #:[id number]) Comment: NEGATIVE TEST RESULT. A negative Cologuard [...] (Enmanuel Coy al, N Engl J Med 2014;370(14):5746-1816) The normal value (reference range) for this [...] Cancer Society Guideline for Colorectal Cancer Screening: https://www.cancer.org/cancer/xsgie-ykteye-uuqnmz/wwjeratcs-csfmrgpzj-fvjfvqx/ac s-rec ommendations.html.; [place] DK, Liang CLOUD, Edda AnayaK, Colorectal Cancer Screening: Recommendations for Physicians and Patients from the U.S. Multi-Society Task Force on Colorectal Cancer Screening , Am J Gastroenterology 2017; 112:9539-5304. TEST DESCRIPTION: Composite algorithmic analysis of stool [...] (Enmanuel Coy al, N Engl J Med 2014;370(14):2952-2295.) Cologuard may produce a false negative or [...] can be accessed at the following location: www.[facility].Appsembler/results. Additional description of the Cologuard test process, warnings and precautions can be found at www.cologuard.com. Stool specimen (specimen) Rectal contents / Unknown 11/18/2023 11/19/2023 2:41 PM EDT us Caity Brink MD LAB MOLECULAR PEDRO GNOSTICS ORDERABLES Final Result [facility] (CLIA #:[id number]) [address] [place] [address], [place] [phone] from Last 3 Months or Most Recently Relevant to Health Maintenance Insurance [employer] Care Teams Management Retail Intern Relationship Specialty Start Date End Date Caity Gray MD [address] [place] [phone] PCP - General Internal Medicine 11/13/22 Vero Pineda Manager FinanceTraining Representative 03/17/24
--- OUTSIDE RECORDS SUMMARY | 2024-11-02 10:09 | XMS_ITS | Encounter Summary ---
Author Organization [employer] Address [address] [place] [address] 7 [place] [address] Care Team Providers Care Gunstock Spray Unit Feeder Name Role Phone Neena Machuca Primary Care Provider Caity Cortez MD Primary Care Pro vider Reason for Visit * Reason Comments Med Refill Encounter Details Date Type Department Care Team (Late Contact Info) Description 05/21/2022 Refill [facility] [address] [place] [phone] Neena Machuca FNP Essential hypertension Social History [...] Upcoming Encounters Date Type Department Care Team ([facility] Contact Info) Description 12/23/2024 10:30 AM EDT Office Visit [facility] [address] [place] [address] Caity Gray MD [address] [place], [place] [phone] documented as of this encounter Visit Diagnoses Diagnosis Essential hypertension Unspecified essential hypertension documented in this encounter Care Teams Gunstock Spray Unit Feeder Relationship Specialty Start Date End Date Neena Machuca FNP PCP - General Family Medicine 10/30/21 11/12/22 Caity Gray MD [address] [place] [phone] PCP - General Internal Medicine 11/13/22 Vero Pineda Social Service ManagerBuckle Stringer 03/17/24 documented as of this encounter
--- OUTSIDE RECORDS SUMMARY | 2024-11-02 10:09 | XMS_ITS | Encounter Summary ---
Author Organization [employer] Address [address] [facility] 7t [place] [address] Care Team Providers Care Paring Machine Operator Name Role Phone aCity Gray MD Primary Care Pro vider Reason for Visit * Reason Comments Med Refill Encounter Details Date Type Department Care Team ([facility] st Contact Info) Description 02/27/2023 Refill [facility] [address] [place] [address] Caity Gray MD [address] [place] [address] Diabetic polyneuropathy associated with type 2 diabetes [...] BRIGIDO-7 Total Score 18 02/27/2023 2:29 PM Jusitno Young [place] * Over the past 2 [...] Description 12/23/2024 10:30 AM EDT Office Visit [facility] [address] [place], [place] [phone] Caity Gray MD [address] [place], [place] [phone] documented as of this encounter Visit Diagnoses Diagnosis Diabetic polyneuropathy associated with type 2 diabetes mellitus (CMS/HCC) documented in this encounter Additional Health Concerns Assessment Noted Time PHQ-9 Depression Total Score: 9 02/28/20 23 2:29 PM EST documented as of this encounter Care Teams Paring Machine Operator Relationship Specialty Start Date End Date Caity Gray MD [address] [place] [address] [phone] PCP - General Internal Medicine 11/13/22 Vero Pineda Wrapper OperatorCustomer Service Teller 03/17/24 documented as of this encounter
--- OUTSIDE RECORDS SUMMARY | 2024-11-02 10:09 | XMS_ITS | Encounter Summary ---
Author Organization [employer] Address [address] [facility] 7t [place] [address] Care Team Providers Care Power Tong Operator Name Role Phone Caity Gray MD Primary Care Pro vider Reason for Visit * Reason Onset Date Comments Med Refill 07/24/2023 Encounter Details Date Type Department Care Team ([facility] Contact Info) Description 07/24/2023 Telephone [facility] [address] [place], [place] [phone] Caity Gray MD [address] [place] [address] Med Refill Social History Tobacco Use Types [...] 3:42 PM EDT Medication was sent to [facility] on 07/16/23 with 2 refills. * Telephone Encounter - Eladio Rowe - 07/24/2023 3:40 PM EDT TC from pt requesting medication refill. Medications needing refill : evolocumab (Repatha SureClick) 140 MG/ML injection To be sent to: [facility] [place] [address] - [phone] documented in this encounter Plan of Treatment Upcoming Encounters Date Type Department Care Team (Late st Contact Info) Description 12/23/2024 10:30 AM EDT Office Visit [facility] [address] [place] [address] Caity Gray MD [address] [place] [address] documented as of this encounter Visit Diagnoses Not on filedocumented in this encounter Additional Health Concerns Assessment Noted Time PHQ-9 Depression Total Score: 9 02/28/20 23 2:29 PM EST documented as of this encounter Care Teams Power Tong Operator Relationship Specialty Start Date End Date Caity Gray MD [address] [place] [phone] PCP - General Internal Medicine 11/13/22 Vero Pineda Surgical CorsetierCrt 03/17/24 documented as of this encounter
--- OUTSIDE RECORDS SUMMARY | 2024-11-02 10:09 | XMS_ITS | Encounter Summary ---
Author Organization [employer] Address [address] [facility] 7t [place] [address] Care Team Providers Care Claims Service Adjustor Name Role Phone Caity Gray MD Primary Care Pro vider Reason for Visit * Reason Onset Date Comments PT1 04/10/2023 Encounter Details Date Type Department Care Team ([facility] st Contact Info) Description 04/10/2023 Telephone [facility] [address] [place], [place] [phone] Caity Gray MD [address] [place] [address] PT1 Social History Tobacco Use Types Packs/Day [...] Time: n/a Visits: every 2 months Address: [address] [place] [address] [address] [address] Facility: [facility] Wheel Chair: no Auxiliary Powerplant Operator Needed: no Date: 05/07/23 Time: 1:30 pm Visits: her fist appt and is unsure Address: [address] [place] [address] Dr [address] Floor, [place] [address] Facility: [facility] Gastroenterology Wheel Chair: no Auxiliary Powerplant Operator Needed: no Date: 05/08/23 Time: 2:15 pm Visits: yearly Address: [address] [place] [address] Facility: [facility] Wheel Chair: no Auxiliary Powerplant Operator Needed: no documented in this encounter Plan of Treatment Upcoming Encounters Date Type Department Care Team (Late st Contact Info) Description 12/23/2024 10:30 AM EDT Office Visit [facility] [address] [place] [phone] Caity Gray MD [address] [place] [address] documented as of this encounter Visit Diagnoses Not on filedocumented in this encounter Additional Health Concerns Assessment Noted Time PHQ-9 Depression Total Score: 9 02/28/20 23 2:29 PM EST documented as of this encounter Care Teams Claims Service Adjustor Relationship Specialty Start Date End Date Caity Gray MD [address] [place] [phone] PCP - General Internal Medicine 11/13/22 Vero Pineda RehabilitatorResearch Worker Encyclopedia 03/17/24 documented as of this encounter
== END 2024-11-02 10:00 | disposition home or self-care (01) ==
LOC: HO.HCS 09:15
PROVIDERS: PCP Student in an Organized Health Care Education/Training Program; Visit Provider Nurse Practitioner Family
DX: E78.5 Hyperlipidemia, unspecified (principal); R07.9 Chest pain, unspecified; I10 Essential (primary) hypertension
CPT/HCPCS: 99213

== ENCOUNTER → 2024-11-02 09:14 | Outpatient (BNVA) | payer MEDICAID, SELFPAY | PROVIDERS: PCP Student in an Organized Health Care Education/Training Program; Visit Provider Nurse Practitioner Family | DX: I10 Essential (primary) hypertension (principal); E78.5 Hyperlipidemia, unspecified; E11.9 Type 2 diabetes mellitus without complications | CPT/HCPCS: 99212 ==

== ENCOUNTER 2024-11-24 13:38 | Outpatient (AMB) | payer MEDICAID, SELFPAY ==
[2024-11-24 13:46] VITALS: BMI 26.7
--- NOTE | 2024-11-24 13:46 | MHC.OFFVIS ---
Vital Signs 11/24/24 13:46 Height 5 ft 2 in Weight 146 lb BMI 26.7 Intake Visit Reasons: Type 2 diabetes mellitus with Hyperglycemia Intake Note: Paty is a 63 year old female who presents today as a new patient for a diabetic foot exam. She states that her glucose is currently at 153. Pt reports she feels bilateral numbness due to her neuropathy and diabetes but no tingling in her feet Account Services Representative Required: Yes Account Services Representative Services: Account Services Representative Present Account Services Representative Name: [id number] Allergies No Known Allergies (No Known Allergies*) Allergy (Verified 11/24/24 13:51) HPI Comments Details: The patient is a 63-year-old female with a past medical history as seen below presenting for diabetic foot exam. Patient states she experiences numbness and tingling to the feet bilaterally. Patient states she experiences pain to the feet due to thickened lesions noted bilaterally. Patient states her blood glucose today was approximately 150. She denies any pedal injuries. Patient states she is compliant with her medications. She denies any current nausea, vomiting, fever, or chills. [facility] Medical History (Updated 11/24/24 @ 14:09 by Ngozi Richardson DPM) Left foot pain Other specified epidermal thickening Intractable plantar keratosis Type 2 diabetes mellitus with hyperglycemia, with long-term current use of insulin Long-term current use of insulin for diabetes mellitus Type 2 diabetes mellitus with diabetic nephropathy Vitamin D deficiency Hyperlipidemia LDL goal <100 Type 2 diabetes mellitus with diabetic polyneuropathy Palpitations Depression with anxiety Surgical History Hx of cataract surgery History of cholecystectomy Family History Father Prostate cancer Diabetes Mother Uterine cancer, sarcoma Brain bleed Diabetes CAD (coronary artery disease) Social History Household Members: None Alcohol intake: current Alcohol intake frequency: does not drink Patient Tobacco Use Status: Never used Tobacco Review of Systems Const Details: Neurological: Reports numbness and tingling in hands, legs, and feet. All systems reviewed & are unremarkable except as noted in HPI and below Physical Exam Vital Signs: BMI result Body Mass Index 26.7 Extrem Other: Bilateral lower extremity focused physical exam: Derm: Presence of hyperkeratotic lesions noted bilaterally (noted to the plantar aspect of the left foot in the submetatarsal 1 and submetatarsal 5 areas; noted to the dorsal aspect of the right foot in the area of the IPJ of the 5th toe). Toenails X 10 noted to be within normal length. No open lesions abrasions or wounds noted. No ecchymosis or erythema noted. No clinical signs of infection. Vascular: DP/PT pulses palpable. Capillary refill time less than 3 seconds. Temperature gradient warm to warm. Pedal hair absent. No varicosities noted. Neuro: Significantly decreased protective sensations noted bilaterally to light touch and monofilament test. MSK: Pain on palpation to the hyperkeratotic lesions noted bilaterally. Range of motion of the forefoot, hindfoot, and ankles within normal limits and without pain. No crepitus noted. Mild hammertoes noted bilaterally. Nonantalgic gait unassisted noted. Class A & C Findings noted. Office Procedures AMB Debridement/Avulsion Podia Details: Debrided hyperkeratotic lesions noted to bilateral feet x3 using a 15. Blade with no incidents. 24853-Fxivbcruqdk of Callus (2-4) Procedure code (CPT) selection complete Diabetic Foot Exam G9226 - Diabetic Foot Exam Results Reviewed Results Reviewed: Laboratory Tests 09/17/24 14:57 Hgb A1c (Clinic) 8.0 H Assessment & Plan Assessment & Plan (1) Left foot pain: Code(s): M79.672 - Pain in left foot Category: Medical (2) Other specified epidermal thickening: Code(s): L85.8 - Other specified epidermal thickening Category: Medical (3) Intractable plantar keratosis: Code(s): L84 - Corns and callosities Category: Medical (4) Type 2 diabetes mellitus with diabetic polyneuropathy: Code(s): E11.42 - Type 2 diabetes mellitus with diabetic polyneuropathy Category: Medical Qualifiers: Diabetes mellitus longwall shearer operator insulin use: with longwall shearer operator use Qualified Code(s): E11.42 - Type 2 diabetes mellitus with diabetic polyneuropathy; Z79.4 - terminal worker (current) use of insulin (5) Type 2 diabetes mellitus with diabetic nephropathy: Code(s): E11.21 - Type 2 diabetes mellitus with diabetic nephropathy Category: Medical Qualifiers: Diabetes mellitus longwall shearer operator insulin use: with longwall shearer operator use Qualified Code(s): E11.21 - Type 2 diabetes mellitus with diabetic nephropathy; Z79.4 - halfway (current) use of insulin (6) Type 2 diabetes mellitus with hyperglycemia, with long-term current use of insulin: Code(s): E11.65 - Type 2 diabetes mellitus with hyperglycemia; Z79.4 - halfway (current) use of insulin Category: Medical Plan Patient was informed and verbally consented to the use of an ambient scribe for clinic note documentation during this visit. I discussed the importance of wearing proper footwear to prevent injuries due to decreased sensation from diabetic neuropathy. We also talked about the need to monitor blood glucose levels to prevent further nerve damage. I explained the procedure of shaving calluses and the importance of regular foot care to the patient. 1. Diabetic foot exam: - Continue regular foot care and monitoring to prevent complications from diabetic neuropathy. - Wear supportive shoe gear and avoid barefoot walking. - Continue taking medications as directed. - Continue monitoring blood glucose daily. 2. IPKs/Calluses - Debrided hyperkeratotic lesions using a 15. Blade with no incidents. - Apply CeraVe cream/emollient to reduce the rate of reoccurrence. - Wear supportive shoe gear to reduce rate of reoccurrence. Patient is to return to the office in 9 weeks for routine diabetic nail and callus care. Orders: Orders AMB Debridement/Avulsion Podiatry Today L84 - Corns and callosities, L85.8 - Other specified epidermal thickening, M79.672 - Pain in left foot Coding Level of Care Code New Pt Level 4 (99727) Diagnoses Left foot pain M79.672 Other specified epidermal thickening L85.8 Intractable plantar keratosis L84 Type 2 diabetes mellitus with diabetic polyneuropathy, with long-term current use of insulin E11.42; Z79.4 Diabetes mellitus mcc insulin use: with longwall shearer operator use Type 2 diabetes mellitus with diabetic nephropathy, with long-term current use of insulin E11.21; Z79.4 Diabetes mellitus longwall shearer operator insulin use: with mcc use Type 2 diabetes mellitus with hyperglycemia, with long-term current use of insulin E11.65; Z79.4 CPT Codes Skin Debridement - CPT: 60960-Bgqzbahptzh of Callus (2-4) ([id number]) Diabetic Foot Exam - CPT: G9226 - Diabetic Foot Exam ([id number]) Time Spent (min) 60
== END 2024-11-24 14:19 | disposition home or self-care (01) ==
LOC: HO.HPODS 13:38
PROVIDERS: PCP Student in an Organized Health Care Education/Training Program; Visit Provider Student in an Organized Health Care Education/Training Program
DX: E11.42 Type 2 diabetes mellitus with diabetic polyneuropathy (principal); E11.21 Type 2 diabetes mellitus with diabetic nephropathy; Z79.4 Long term (current) use of insulin; M79.672 Pain in left foot; L85.8 Other specified epidermal thickening; E11.65 Type 2 diabetes mellitus with hyperglycemia; L84 Corns and callosities
CPT/HCPCS: 11056; 99204; G9226

== ENCOUNTER → 2024-11-24 13:38 | Outpatient (BNVA) | payer MEDICAID, SELFPAY | PROVIDERS: PCP Student in an Organized Health Care Education/Training Program; Visit Provider Student in an Organized Health Care Education/Training Program | DX: L84 Corns and callosities (principal); L85.8 Other specified epidermal thickening; M79.672 Pain in left foot; E11.42 Type 2 diabetes mellitus with diabetic polyneuropathy; E11.21 Type 2 diabetes mellitus with diabetic nephropathy; E11.65 Type 2 diabetes mellitus with hyperglycemia; Z79.4 Long term (current) use of insulin | CPT/HCPCS: 11056; 99202 ==

== ENCOUNTER 2024-11-26 09:36 | Outpatient (REF) | payer MEDICAID, SELFPAY ==
--- NOTE | ~2024-11-26 | XR_ITS ---
EXAMINATION: XR HAND, RIGHT CLINICAL INFORMATION: Patient with right hand pain over the 5th metacarpal area s/p fall COMPARISON: None available. TECHNIQUE: PA, lateral, and oblique views of the right hand. FINDINGS: There is loss of PIP and DIP joint space without periarticular spurring or bony erosive changes. There is mild the extra-articular osteopenia. No abnormal soft tissue swelling seen. XR/XR hand RT min 3V IMPRESSION: No acute fracture or dislocation. Mild degenerative arthritic changes right hand. Electronically signed by: Artemio Bee MD 11/26/2024 10:19 AM EDT
--- OUTSIDE RECORDS SUMMARY | 2024-11-26 09:00 | XMS_ITS | Encounter Summary ---
Author Organization [employer] Address [address] [facility] [address] [place] [address] Care Team Providers Care Tank Operator Name Role Phone Caity Gray MD Primary Care Pro vider Reason for Visit * Reason Comments Hand Pain Encounter Details Date Type Department Care Team ([facility] Contact Info) Description 11/26/2024 9:00 AM EDT Office Visit [facility] [address] [place] [address] Perry Lo MD [address] [place] [address] Right hand pain (Primary Dx); Tendinitis of extensor tendon of right hand Social History Tobacco Use Types Packs/Day Years [...] Sign Reading Time Taken Comments Blood Pressure 106/71 11/26/2024 8:47 AM EDT Pulse 80 11/26/2024 8:47 AM EDT Temperature 36.7 C (98 F) 11/26/2024 8:47 AM EDT Respiratory Rate 17 11/26/2024 8:47 AM EDT Oxygen Saturation 96% 11/26/2024 8:47 AM EDT Inhaled Oxygen Concentration - - Weight 65.5 kg (144 lb 6.4 oz) 11/26/2024 8:47 AM EDT Height - - Body Mass Index 25.58 08/12/2024 11:05 AM EDT documented in this encounter Progress Notes * Perry Lo MD - 11/26/2024 9:00 AM EDT Subjective History was provided by the patient. Paty Carey is a 63 y.o. female who presents for evaluation of right hand pain after a fall 1 month ago. Had a mechanical fall in her bathroom by slipping on an area rug. Landed on an outstretched right hand. Initially developed swelling, which has improved. Still with persistent pain on thedorsal aspect of her 5th metacarpal. Pain most noticeable with extension of proximal phalanx. Denies any numbness or tingling. No open wound. Did not have a head injury. Objective Vitals: 11/26/24 0847 BP: 106/71 BP Location: Right arm Patient Position: Sitting BP Cuff Size: Adult Pulse: 80 Resp: 17 Temp: 98 ??F (36.7 ??C) TempSrc: Temporal SpO2: 96% Weight: 144 lb 6.4 oz (65.5 kg) Physical Exam Constitutional: General: She is not in acute distress. Appearance: Normal appearance. She is not ill-appearing, toxic-appearing or diaphoretic. HENT: Right Ear: External ear normal. Left Ear: External ear normal. Mouth/Throat: Mouth: Mucous membranes are moist. Pharynx: Oropharynx is clear. Eyes: Extraocular Movements: Extraocular movements intact. Conjunctiva/sclera: Conjunctivae normal. Pulmonary: Effort: Pulmonary effort is normal. Musculoskeletal: General: Tenderness present. No swelling or deformity. Normal range of motion. Cervical back: Neck supple. Comments: Right hand pain over the dorsal aspect of 5th metacarpal; no deformity noted; no edema; has full flexion/extension ROM at MCP/PIP/DIP joints, but increased tenderness with extension at MCP joint of the 5th finger. Skin: General: Skin is warm and dry. Neurological: General: No focal deficit present. Mental Status: She is alert and oriented to person, place, and time. Psychiatric: Mood and Affect: Mood normal. Behavior: Behavior normal. Paty was seen today for hand pain. Diagnoses and all orders for this visit: Right hand pain (Primary) - XR Hand 3+ Views Right; Future - Diclofenac Sodium 1 % gel; Apply 1 Application topically if needed in the morning, at noon, in the evening, and at bedtime (right hand pain) for up to 10 days. Tendinitis of extensor tendon of right hand Patient with right hand pain over the 5th metacarpal area s/p mechanical fall Pain is not at MCP joint, but worse with extension at MCP over the metacarpal area of the 5th digit Suspect extensor tendinitis No deformity on exam; no edema Will check X-ray of right hand Rx Diclofenac topical Potential adverse effects of the medication reviewed Hand/wrist brace dispensed in the clinic Indications for UC/ER use reviewed Advised to contact the clinic if persistent or worsening symptoms documented in this encounter Plan of Treatment Upcoming Encounters Date Type Department Care Team (Late st Contact Info) Description 12/23/2024 10:30 AM EDT Office Visit [facility] [address] [place] [phone] Caity Gray MD [address] [place] [address] documented as of this encounter Procedures Procedure Name Priority Date/Time Associated Diagnosis Comments XR HAND 3+ VIEWS RIGHT Routine 11/26/2024 10:13 AM EDT Right hand pain documented in this encounter Results * XR Hand 3+ Views Right (11/26/2024 10:13 AM EDT) Anatomical Region Laterality Modality Upper Extremities, Hand Right Radiogra phic Imaging 11/26/2024 10:1 3 AM EDT Narrative 11/26/2024 10:22 AM EDT [address] [address] XRay Report Signed Patient: Paty Carey MR#: [id number] : 1960 Acct:[id number] Age/Sex: 63 / F ADM Date: 11/26/24 Loc: .HHX Attending Dr: Perry Lo MD Ordering Physician: Perry Lo MD Date of Service: 11/26/24 Procedure(s): XR hand RT min 3V Accession Number(s): [id number] cc: Perry Lo MD Reason for Exam: Patient with right hand pain over the 5th metacarpal area s/p fall EXAMINATION: XR HAND, RIGHT CLINICAL INFORMATION: Patient with right hand pain over the 5th metacarpal area s/p fall COMPARISON: None available. TECHNIQUE: PA, lateral, and oblique views of the right hand. FINDINGS: There is loss of PIP and DIP joint space without periarticular spurring or bony erosive changes. There is mild the extra-articular osteopenia. No abnormal soft tissue swelling seen. XR/XR hand RT min 3V IMPRESSION: No acute fracture or dislocation. Mild degenerative arthritic changes right hand. Electronically signed by: Artemio Bee MD 11/26/2024 10:19 AM EDT RP Dictated By: Artemio Bee MD Signed By: <Electronically signed by Artemio Bee MD in OV> 11/26/24 1019 DD/ 1013 TD/TT: 11/26/24 1014 Seed Cone Picker: [facility] Procedure Note Donotuseinterpreter, Image - 11/26/2024 [facility] [address] [place] [address] XRay Report Signed Patient: Paty CareyMR#: [id number] : 1960cct:[id number] Age/Sex: 63 / FADM Date: 11/26/24 Loc: HO.HHCX Attending Dr: Perry Lo MD Ordering Physician: Perry Lo MD Date of Service: 11/26/24 Procedure(s): XR hand RT min 3V Accession Number(s): [id number] cc: Perry Lo MD Reason for Exam: Patient with right hand pain over the 5th metacarpalarea s/p fall EXAMINATION: XR HAND, RIGHT CLINICAL INFORMATION: Patient with right hand pain over the 5th metacarpal area s/p fall COMPARISON: None available. TECHNIQUE: PA, lateral, and oblique views of the right hand. FINDINGS: There is loss of PIP and DIP joint space without periarticular spurring or bony erosive changes. There is mild the extra-articular osteopenia. No abnormal soft tissue swelling seen. XR/XR hand RT min 3V IMPRESSION: No acute fracture or dislocation. Mild degenerative arthritic changes right hand. Electronically signed by: Artemio Bee MD 11/26/2024 10:19 AM EDT RP Dictated By: Artemio Bee MD Signed By: <Electronically signed by Artemio Bee MD in OV> 11/26/24 1019 DD/ 1013 TD/TT: 11/26/24 1014 Seed Cone Picker: [facility] Perry Lo MD IMG XR PROCEDURES Final Result documented in this encounter Visit Diagnoses Diagnosis Right hand pain- Primary Pain in soft tissues of limb Tendinitis of extensor tendon of right hand documented in this encounter Additional Health Concerns Assessment Noted Time PHQ-9 Depression Total Score: 4 08/13/19 25 11:28 AM EDT documented as of this encounter Care Teams Tank Operator Relationship Specialty Start Date End Date Caity Gray MD [address] [place] [id number] PCP - General Internal Medicine 11/13/22 Vero Pineda Paying TellerSweet Potato Disintegrator 03/17/24 documented as of this encounter
--- OUTSIDE RECORDS SUMMARY | 2024-11-26 10:31 | XMS_ITS | Encounter Summary ---
Author Organization [employer] Address [address] [facility] [address] [place] [address] Care Team Providers Care Medical Records Supervisor Name Role Phone Caity Gray MD Primary Care Pro vider Reason for Visit * Reason Onset Date Comments PT1 09/15/2024 Encounter Details Date Type Department Care Team ([facility] Contact Info) Description 09/15/2024 Telephone [facility] [address] [place], [place] [phone] Caity Gray MD [address] [place] [address] PT1 Social History Tobacco Use Types Packs/Day [...] Description 12/23/2024 10:30 AM EDT Office Visit [facility] [address] [place] [address] Caity Gray MD [address] [place] [address] documented as of this encounter Visit Diagnoses Not on filedocumented in this encounter Additional Health Concerns Assessment Noted Time PHQ-9 Depression Total Score: 4 08/13/19 25 11:28 AM EDT documented as of this encounter Care Teams Medical Records Supervisor Relationship Specialty Start Date End Date Caity Gray MD [address] [place] [id number] PCP - General Internal Medicine 11/13/22 Vero Pineda Booster AssemblerAir Conditioning Installer 03/17/24 documented as of this encounter
--- OUTSIDE RECORDS SUMMARY | 2024-11-26 10:32 | XMS_ITS | Clinical Summary ---
Author Organization [employer] Address [address] [facility] 7t [place] [address] Care Team Providers Care Hotel Yardperson Name Role Phone Caity Gray MD Primary [...] polyneuropathy, with long-term current use of insulin ([facility]) Use 5 times [...] mouth Once per day. 90 tablet 1 025 Active Repatha SureClick 140 MG/ML injectionIndicat ions:Type 2 diabetes mellitus with diabetic nephropathy, with long-term current use of insulin ([facility]) INJECT 1 ML SUBCUTANEOUSLY EVERY 14 DAYS 2 mL 2 Active pen needle 32G x 4 mm misc Use as instructed 100 each 2 Active ezetimibe (Zetia) 10 MG tablet Take 10 mg by mouth Once per day. Active glucose 4 g chewable tablet Chew 4 tablets (16 g) if needed for low blood sugar. 50 tablet 12 025 2025 Active Continuous Glucose Head Charrer (FreeStyle Daryn 3 Register) device 1 each Once per day. Use as directed for CGM 1 each 025 Active Continuous Glucose Sensor (FreeStyle Daryn 3 Plus Sensor) misc 1 each every 15 days. Apply 1 every 15 days as directed for CGM 2 each Active insulin aspart FlexPen (NovoLOG) 100 UNIT/ML penIndications:D iabetic polyneuropathy associated with type 2 diabetes mellitus ([facility]) INJECT 10 UNITS SUBCUTANEOUSLY WITH Breakfast AND 6 UNITS AT NIGHT 15 mL 3 025 Active insulin glargine (Lantus SoloStar) 100 UNIT/ML penIndications:D iabetic polyneuropathy associated with type 2 diabetes mellitus ([facility]/HCC) INJECT 14 UNITS SUBCUTANEOUSLY EVERY NIGHT 15 mL 5 025 Active atorvastatin (Lipitor) 20 MG tabletIndication s:Hyperlipidemia , unspecified hyperlipidemia type TAKE 1 TABLET BY MOUTH EVERY DAY 90 tablet 1 025 Active Blood Glucose Monitoring Suppl (FreeStyle [place] Lite) w/Device kitIndications:T ype 2 diabetes mellitus with retinopathy, with long-term current use of insulin, macular edema presence unspecified, unspecified laterality, unspecified retinopathy severity ([facility]/HCC) Use to test blood sugar 3 times daily 1 kit 025 Active FREESTYLE LITE test stripIndications :Type 2 diabetes mellitus with retinopathy, with long-term current use of insulin, macular edema presence unspecified, unspecified laterality, unspecified retinopathy severity ([facility]/HCC) Use to test blood sugar 3 times daily 100 each 12 025 2025 Active Alcohol Swabs 70 % padsIndications: Type 2 diabetes mellitus with retinopathy, with long-term current use of insulin, macular edema presence unspecified, unspecified laterality, unspecified retinopathy severity ([facility]/HCC) Use to test blood sugar 3 times daily 100 each 025 Active Lancets miscIndications: Type 2 diabetes mellitus with retinopathy, with long-term current use of insulin, macular edema presence unspecified, unspecified laterality, unspecified retinopathy severity ([facility]/HCC) Use to test blood sugar 3 times daily 100 each 025 Active gabapentin (Neurontin) 600 MG tabletIndication s:Diabetic polyneuropathy associated with type 2 diabetes mellitus (CMS/HCC) TAKE 1 TABLET BY MOUTH THREE TIMES A DAY 90 tablet 2 025 Active metoprolol succinate XL (Toprol-XL) 50 MG 24 hr tabletIndication s:Essential hypertension TAKE 1 TABLET BY MOUTH EVERY MORNING 90 tablet 025 Active Diclofenac Sodium 1 % gelIndications:R ight hand pain Apply 1 Application topically if needed in the morning, at noon, in the evening, and at bedtime (right hand pain) for up to 10 days. 100 g 025 2024 Active Diclofenac Sodium 1 % gel Apply 1 Application topically if needed each day (knee pain). 50 g 025 2024 Discontinued(R eorder (will not trigger notification to Pharmacy)) metoprolol succinate XL (Toprol-XL) 50 MG 24 hr tabletIndication s:Essential hypertension Take 1 tablet (50 mg) by mouth in the morning. 90 tablet 025 2024 Discontinued Active Problems Problem Noted [...] RN to check on Repatha Rx at [place] pharmacy Previous PA approved by insurance Unknown [...] FIT 04/10/22, pending. Will order again for [facility] lab 09/12/22 Lung cancer: Never smoker, no [...] Encounters Date Type Department Care Team Description 11/26/2024 9:00 AM EDT Office Visit [facility] [place] [address] [place] [address] Perry Lo MD Right hand pain (Primary Dx); Tendinitis of extensor tendon of right hand 11/26/2024 Travel 11/10/2024 Patient Outreach [facility] [address] [place] [address] Caity Gray MD Care Coordination (CHW outreach for SDOH PT-1 and food needs-referral completed /) 11/10/2024 Refill [facility] [address] [facility] [place] [address] Caity Gray MD Essential hypertension 11/10/2024 Telephone [facility] [address] [facility] [place] [address] Caity Gray MD PT1 11/03/2024 Refill [facility] [address] [facility] [place] [address] Caity Gray MD 10/27/2024 Orders Only GENERIC EXTERNAL DATA DEPARTMENT Provider, Generic External Data 10/25/2024 Orders Only GENERIC EXTERNAL DATA DEPARTMENT Provider, Generic External Data 10/20/2024 Refill [facility] [address] [facility] [place] [address] Caity Gray MD Diabetic polyneuropathy associated with type 2 diabetes mellitus (CMS/HCC) 10/15/2024 Telephone [facility] [address] [facility] [place] [address] Caity Gray MD No Show 10/14/2024 Telephone [facility] [address] [facility] [place] [address] Caity Gray MD Chart Prep 09/29/2024 Refill [facility] [address] [facility] [place] [address] Caity Gray MD Type 2 diabetes mellitus with retinopathy, with long-term current use of insulin, macular edema presence unspecified, unspecified laterality, unspecified retinopathy severity (CMS/HCC) 09/29/2024 Results Follow-Up [facility] [address] [facility] [place] [address] Laura Gallardo MD US Pelvis Transvaginal 09/19/2024 Refill [facility] [address] [place] [address] Paz Sutherland MD Hyperlipidemia, unspecified hyperlipidemia type 09/17/2024 Orders Only GENERIC EXTERNAL DATA DEPARTMENT Provider, Generic External Data 09/15/2024 Patient Outreach [facility] [address] [place] [address] Caity Gray MD Care Coordination (CHW outreach for SDOH PT-1 and food needs-referral completed /) 09/15/2024 Telephone [facility] [address] [place] [address] Caity Gray MD PT1 from Last 3 Months Immunizations Immunization Administration [...] kg (144 lb 6.4 oz) 11/26/2024 8:47 A M EDT Height 160 cm (5' 3 ) 08/12/2024 11:05 AM EDT Body Mass Index 25.58 08/12/2024 11:05 AM EDT Plan of Treatment Upcoming Encounters Date Type Department Care Team (Late st Contact Info) Description 12/23/2024 10:30 AM EDT Office Visit [facility] [address] [place] [phone] Caity Gray MD [address] [place] [phone] Health Maintenance Due Date Last Done Comments CT Colonography 1960 Colonoscopy 1960 FIT 1960 Sigmoidoscopy 1960 Disability Screening 1960 Diabetes: Foot Exam 1970 Eye Exam 1970 DTaP/Tdap/Td Vaccines (1 - Tdap) 08/11/2021 08/10/2021 Mammogram 07/11/2024 01/12/2024, 11/02, 02/19/2022, Additional history exists Influenza Vaccine (#1) 2024 , 01/08/2023, 01/08/2021, Additional history exists Diabetes: Hemoglobin A1C 11/12/2024 025, 12/19/2023, 01/08/2023, Additional history exists FOBT 11/17/2024 11/18/2023 Lipid Panel 07/06/2025 07/06/2024, 12/01, 09/12/2022, Additional [...] Comments XR HAND 3+ VIEWS RIGHT Routine 10:13 AM EDT Right hand pain C-PEPTIDE Routine 10/27/2024 9:47 AM EDT GLUCOSE, WHOLE BLOOD Routine 10/25/2024 2:23 PM EDT GLUCOSE, WHOLE BLOOD Routine 09/17/2024 3:03 PM EDT US PELVIS TRANSVAGINAL Routine 12:39 PM EDT Abdominal pain, unspecified abdominal location POCT GLYCATED HEMOGLOBIN, TOTAL Routine 08/12/2024 11:07 AM EDT Type 2 diabetes mellitus with diabetic nephropathy, with long-term current use of insulin ([facility]) HPV DNA, LOW/HIGH RISK Routine 5 3:25 PM EDT PAP SMEAR Routine 07/12/2024 [...] Relevant to Health Maintenance Results * XR Hand 3+ Views Right (11/26/2024 10:13 AM EDT) Anatomical Region Laterality Modality Upper Extremities, Hand Right Radiogra phic Imaging 11/26/2024 10:1 3 AM EDT Narrative 11/26/2024 10:22 [place] [address] XRay Report Signed Patient: Paty Carey MR#: [id number] : 1960 Acct:[id number] Age/Sex: 63 / F ADM Date: 11/26/24 Loc: HO.HHCX Attending Dr: Perry Lo MD Ordering Physician: Perry Lo MD Date of Service: 11/26/24 Procedure(s): XR hand RT min 3V Accession Number(s): [id number] cc: Perry Lo MD Reason for Exam: [...] 11/26/24 1019 DD/ 1013 TD/TT: 11/26/24 1014 Supervisor Char House: JULIUS Procedure Note Donotuseinterpreter, Image - 11/26/[address] [address] XRay Report Signed Patient: Paty CareyMR#: [id number] : 1960cct:[id number] Age/Sex: 63 / FADM Date: 11/26/24 Loc: .HHCX Attending Dr: Prery Lo MD Ordering Physician: Perry Lo MD Date of Service: 11/26/24 Procedure(s): XR hand RT min 3V Accession Number(s): [id number] cc: Perry Lo MD Reason for Exam: [...] 11/26/24 1019 DD/ 1013 TD/TT: 11/26/24 1014 Supervisor Char House: JULIUS Perry Lo MD IMG XR PROCEDURES Final Result * (ABNORMAL) Glucose, Whole Blood (10/25/2024 2:23 PM EDT) Only the most recent of2 resultswithin the time period is included. Glucose, Whole Blood 148(H) 60 - 115 mg/dL [facility] Comment:METER #: [id number] 0Testing performed in the Endocrinology Department [address] , [address], [facility]. 10/25/2024 2:23 PM EDT 10/25/2024 2:29 PM EDT us Generic External Data Provider LAB BLOOD ORDERAB LES Final Result Performing Organization Address City/State/[facility] Co de Phone Number [facility] [address] [place] [phone] * US Pelvis Transvaginal (08/30/2024 12:39 PM EDT) Anatomical Region Laterality Modality Pelvis Ultrasound 08/30/2024 12:3 9 PM EDT Narrative 08/30/2024 1:07 PM EDT [address] [address] Ultrasound Report Signed Patient: Paty Carey MR#: [id number] : 1960 Acct:[id number] Age/Sex: 63 / F ADM Date: 08/30/24 Loc: .US Attending Dr: Laura Gallardo MD Ordering Physician: Laura Gallardo Date of Service: 08/30/24 Procedure(s): US pelvic and transvaginal Accession Number(s): [id number] cc: Laura Gallardo EXAMINATION: US PELVIS TRANSABDOMINAL [...] Deo Ireland MD 08/30/2024 01:04 PM EDT RP Dictated By: Deo Ireland MD Signed By: <Electronically signed by Deo Ireland MD in OV> 08/30/24 1304 DD/ 1239 TD/TT: 08/30/24 1242 Supervisor Char House: Procedure Note Donotuseinterpreter, Image - 08/30/2024 [place] [address] Ultrasound Report Signed Patient: Ana Carey#: [id number] : 1960cct:[id number] Age/Sex: 63 / FADM Date: 08/30/24 Loc: HO.US Attending Dr: Laura Gallardo MD Ordering Physician: Laura Gallardo Date of Service: 08/30/24 Procedure(s): US pelvic and transvaginal Accession Number(s): [id number] cc: Laura Gallardo EXAMINATION: US PELVIS TRANSABDOMINAL [...] Deo Ireland MD 08/30/2024 01:04 PM EDT RP Dictated By: Deo Ireland MD Signed By: <Electronically signed by Deo Ireland MD in OV> 08/30/24 1304 DD/ 1239 TD/TT: 08/30/24 1242 Supervisor Char House: us Laura Gallardo MD IM US PROCEDURES Final Result * (ABNORMAL) POCT HGB A1C (08/12/2024 11:07 AM EDT) Hemoglobin A1C 8.4(A) 4.0 - 6.0 % QC Media Lot # [id number] Lot# Expiration Date [id number] Blood 08/12/2024 11:0 7 AM EDT Caity Brink MD POINT OF CARE ISABELLE T ENTER/EDIT ORDERABLES Final Result * HPV DNA, Low/High Risk (07/12/2024 3:25 PM EDT) HPV High Risk Negative Negative [facility] HPV Genotype 16 Negative Negative [facility] HPV Genotype 18 Negative Negative [facility] Comment:HPV testing performe d at [facility] (CLIA#[id number]), [address] [place] [address].Testing for HPV was performed using the [employer] Smart Panel0system. The presence of HPV in the female [...] MD LAB BLOOD ORDERABLES Final Res ult [facility] [address] [place] [phone] * Pap Smear (07/12/2024 3:25 PM EDT) 07/12/2024 3:25 PM EDT 07/13/2024 6:00 AM EDT Qasim [facility] - 07/15/2024 11:08 AM EDT ----- ------- Name: Paty Carey Age/Sex: 63/F : 1960 Unit#: [id number] Attend Dr: Laura Gallardo Re07/12/24 Status: NICOLE REF Location: HO.HHCLNP Disch: ----- ------- SPEC : [id number] RECD: 07/13/24-599 STATUS: SEUN LOBO NUM: [id number] CHI: 07/12/24-[address] [facility] [address]: Laura Gallardo ENTERED: 07/13/24 SP TYPE: Pap Smr OTHR : ORDERED: Pap Smear Interpretation Satisfactory for evaluation. [...] Gallardo MD LAB CYTOLOGY ORDERABLES Final Result [facility] [address] [place] [address] [phone] * (ABNORMAL) Lipid Panel, Standard (07/06/2024 1:27 PM EDT) Triglycerides 127 <150 mg/dL [facility] Comment:Desirable Triglyceri de: less than 150 mg/dLBorderline High Triglyceride 150-199 mg/dLHigh Triglyceride: 200-499 mg/dLVery High Triglyceride: greater than or equal to 5OO mg/dL Cholesterol 228(H) <200 mg/dL [facility] Comment:Desirable Cholestero l: less than 200 mg/dLBorderline High Cholesterol: 200-239 mg/dLHigh Cholesterol: greater than 239 mg/dL LDL Cholesterol Calculated 154(H) <100 mg/dL [facility] Comment:Desirable LDL: less than 100 mg/dLNear Optimal/Above Optimal LDL: 110- 129 mg/dLBorderline High LDL: 130-159 mg/dLHigh LDL: 160-189 mg/dLVery High LDL: greater than or equal to 190 mg/dL HDL Cholesterol 49 >40 mg/dL [facility] Comment:Desirable HDL: great er than 40 mg/dL Note: This HDL assay may give artificially low results in patients with liver disease. 07/06/2024 1:27 PM EDT 07/06/2024 1:27 PM EDT us Generic External Data Provider LAB BLOOD ORDERAB LES Final Result Performing Organization Address City/State/[facility] Co de Phone Number [facility] [address] [place] [phone] * BI Mammogram Diagnostic Tomosynthesis Bilateral (01/12/2024 2:00 PM EST) Anatomical Region Laterality Modality Breast Bilateral Mammography 01/12/2024 2:00 PM EST Narrative 01/12/2024 3:02 PM EST [facility] [address] [place] [address] Mammography Report Signed Patient: Paty Carey MR#: [id number] : 1960 Acct:[id number] Age/Sex: 63 / F ADM Date: 01/12/24 Loc: HO.MAMMO Attending Dr: Caity Brink MD Ordering Physician: Caity Gray MD Re sults: 2Benign Findings Date of Service: 01/12/24 Follow Up: 1 Year From Orig inal Mammogram Procedure(s): MM tomosynthesis diagnostic BI Accession Number(s): [id number] cc: Caity Gray MD EXAMINATION: MM DIAGNOSTIC [...] by: Tio Gilman MD 01/12/2024 02:59 PM [facility] Dictated By: Tio Gilman MD Signed By: <Electronically signed by Tio Gilman MD in OV> 01/12/24 9149 DD/ 1400 TD/TT: 01/12/24 1422 Supervisor Char House: Procedure Note Donotuseinterpreter, Image - 01/12/2024 [facility] [address] [place] [address] Mammography Report Signed Patient: Paty CareyMR#: [id number] : 1Acct:[id number] Age/Sex: 63 / FADM Date: 01/12/24 Loc: HO.MAMMO Attending Dr: Caity Brink MD Ordering Physician: Caity Gray sults: 2Benign Findings Date of Service: 01/12/24Follow Up: 1 Year From Orig inal Mammogram Procedure(s): MM tomosynthesis diagnostic BI Accession Number(s): [id number] cc: Caity Gray MD EXAMINATION: MM DIAGNOSTIC [...] 01/12/24 1459 DD/ 1400 TD/TT: 01/12/24 1422 Supervisor Char House: us Caity Brink MD IMG BI PROCEDURES Final Result * Hepatitis C Antibody with Reflex to HCV, RNA, Quantitative, Real-Time PCR (12/19/2023 11:05 AM EDT) Pathologist [facility] Hepatitis C Antibody Nonreactive Nonreactive [facility] Comment:Antibodies to HCV no t detected; does not exclude early acuteHCV infection. Blood Venous blood specimen / Unknown 12/19/2023 11:05 AM EDT 12/19/2023 11:42 AM EDT us Caity Brink MD LAB BLOOD ORDERAB LES Final Result [facility] [address] [place] [phone] * HIV-1/2 Antigen and Antibodies, Fourth Generation, with Reflexes (12/19/2023 11:05 AM EDT) Pathologist [facility] HIV AB/AG Nonreactive Nonreactive [facility] Comment:HIV-1 p24 Ag and/or HIV-1/HIV-2 Ab not detected.A test result that is nonreactive does not exclude thepossibility of exposure to or infection with HIV-1 and/orHIV-2. Nonreactive results in this assay for individualswith prior exposure to HIV-1 and/or HIV-2 may be due toantigen and antibody levels that are below the limit ofdetection of this assay.The [employer] HIV Ag/Ab Combo assay result andsupplemental assay results should be interpreted inconjunction with the patient's clinical presentation,history and other laboratory results. If the results areinconsistent with clinical evidence, additional testing issuggested to confirm the result. Blood Venous blood specimen / Unknown 12/19/2023 11:05 AM EDT 12/19/2023 11:42 AM EDT Caity Brink MD LAB BLOOD ORDERAB LES Final Result [facility] [address] [place] [phone] * Cologuard?? colon cancer screening (11/18/2023 12:00 AM EDT) Cologuard Result Negative Negative 11/26/19 5:47 PM EDT [facility] (CLIA #:[id number]) Comment: NEGATIVE TEST RESULT. A negative Cologuard [...] Seymour et al, N Engl J Med 2014;370(14):7743-5191) The normal value (reference range) for this assay is negative. COLOGUARD RE-SCREENING RECOMMENDATION: Periodic colorectal cancer screening is an important part of preventive healthcare for asymptomatic individuals at average risk for colorectal cancer. Following a negative Cologuard result, the [place] [employer] and U.S. Multi-Society Task Force screening guidelines recommend a Cologuard re-screening interval of 3 years. References: [place] [employer] Guideline for Colorectal Cancer Screening: https://www.cancer.org/cancer/wjakt-afqtux-gdggtk/wjljmbuok-vjqltnivg-yxsgebc/ac s-rec ommendations.html.; London DK, Liang CR, Edda AnayaK, Colorectal Cancer Screening: Recommendations for Physicians and Patients from the U.S. Multi-Society Task Force on Colorectal Cancer Screening , Am J Gastroenterology 2017; 112:0132-7518. TEST DESCRIPTION: Composite algorithmic analysis of stool [...] (Enmanuel Coy al, N Engl J Med 2014;370(14):7053-1537.) Cologuard may produce a false negative or false positive result (no colorectal cancer or precancerous polyp present at colonoscopy follow up). A negative Cologuard test result does not guarantee the absence of CRC or advanced adenoma (pre-cancer). The current Cologuard screening interval is every 3 years. ([place] [employer] and U.S. Multi-Society Task Force). Cologuard performance data in a 10,000 patient pivotal study using colonoscopy as the reference method can be accessed at the following location: [email or web address].[employer].com/results. Additional description of the Cologuard test process, warnings and precautions can be found at [email or web address].[email or web address].com. Stool specimen (specimen) Rectal contents / Unknown 11/18/2023 11/19/2023 2:41 PM EDT Caity Brink MD LAB MOLECULAR PEDRO GNOSTICS ORDERABLES Final Result [facility] (CLIA #:[id number]) [place] [address], [place] [phone] from Last 3 Months or Most Recently Relevant to Health Maintenance Insurance [employer] C3 Care Teams Hotel Yardperson Relationship Specialty Start Date End Date Caity Gray MD [address] [place] [phone] PCP - General Internal Medicine 11/13/22 Vero Pineda Dampener OperatorAutomation/Controls Manager 03/17/24
--- OUTSIDE RECORDS SUMMARY | 2024-11-26 10:32 | XMS_ITS | Encounter Summary ---
Author Organization [employer] Address [address] [facility] [address] [place] [address] Care Team Providers Care Job Tracer Name Role Phone Caity Gray MD Primary Care Pro vider Encounter Details Date Type Department Care Team ([facility] Contact Info) Description 04/29/2024 Orders Only [facility] [address] [place], [place] [phone] Mary Haider ANP [address] [place], [place] [phone] Social History Tobacco Use Types Packs/Day Years [...] Description 12/23/2024 10:30 AM EDT Office Visit [facility] [address] [place] [phone] Caity Gray MD [address] [place] [phone] documented as of this encounter Visit Diagnoses Not on filedocumented in this encounter Additional Health Concerns Assessment Noted Time PHQ-9 Depression Total Score: 9 02/28/20 23 2:29 PM EST documented as of this encounter Care Teams Job Tracer Relationship Specialty Start Date End Date Caity Gray MD [address] [place] [phone] PCP - General Internal Medicine 11/13/22 Vero Pineda UnderwriterFresh Foods Clerk 03/17/24 documented as of this encounter
--- OUTSIDE RECORDS SUMMARY | 2024-11-26 10:32 | XMS_ITS | Encounter Summary ---
Author Organization [employer] Address [address] [facility] [address] [place] [address] Care Team Providers Care Magician Helper Name Role Phone Caity Gray MD Primary Care Pro vider Reason for Visit * Reason Onset Date Comments Appointment Request 04/07/2023 Encounter Details Date Type Department Care Team ([facility] Contact Info) Description 04/07/2023 Telephone [facility] [address] [place], [place] [phone] Caity Gray MD [address] [place] [address] Appointment Request Social History Tobacco Use Types [...] for 2/5 states is not feeling well communications writer didcancel however there was no availability at the moment communications writer did ask if the patient would like a message to be sent to triage but patient refuses. documented in this encounter Plan of Treatment Upcoming Encounters Date Type Department Care Team (Late st Contact Info) Description 12/23/2024 10:30 AM EDT Office Visit [facility] [address] [place] [phone] Caity Gray MD [address] [place] [address] documented as of this encounter Visit Diagnoses Not on filedocumented in this encounter Additional Health Concerns Assessment Noted Time PHQ-9 Depression Total Score: 9 02/28/20 23 2:29 PM EST documented as of this encounter Care Teams Magician Helper Relationship Specialty Start Date End Date Caity Gray MD [address] [place] [phone] PCP - General Internal Medicine 11/13/22 Vero Pineda Color WorkerSeo Manager 03/17/24 documented as of this encounter
--- OUTSIDE RECORDS SUMMARY | 2024-11-26 10:32 | XMS_ITS | Encounter Summary ---
Author Organization [employer] Address 75 [facility] 7t [place] [address] Care Team Providers Care Commutator Assembler Name Role Phone Caity Gray MD Primary Care Pro vider Reason for Visit * Reason Onset Date Comments PT1 04/10/2023 Encounter Details Date Type Department Care Team ([facility] st Contact Info) Description 04/10/2023 Telephone [facility] [address] [place], [place] [phone] Caity Gray MD 230 [place] [address] PT1 Social History Tobacco Use Types Packs/Day [...] Time: n/a Visits: every 2 months Address: [address] [place] [address] [address], [place] [address] Facility: [facility] Wheel Chair: no Oracle Forms Developer Needed: no Date: 05/07/23 Time: 1:30 pm Visits: her fist appt and is unsure Address: [address] [place] [address] Dr [address] Floor, [place] [address] Facility: [facility] Wheel Chair: no Oracle Forms Developer Needed: no Date: 05/08/23 Time: 2:15 pm Visits: yearly Address: [address] [place] [address] Facility: [facility] Wheel Chair: no Oracle Forms Developer Needed: no documented in this encounter Plan of Treatment Upcoming Encounters Date Type Department Care Team (Late st Contact Info) Description 12/23/2024 10:30 AM EDT Office Visit [facility] [address] [place] [phone] Caity Gray MD [address] [place] [address] documented as of this encounter Visit Diagnoses Not on filedocumented in this encounter Additional Health Concerns Assessment Noted Time PHQ-9 Depression Total Score: 9 02/28/20 23 2:29 PM EST documented as of this encounter Care Teams Commutator Assembler Relationship Specialty Start Date End Date Caity Gray MD [address] [place] [address] PCP - General Internal Medicine 11/13/22 Vero Pineda Custodial EngineerMachine Printer 03/17/24 documented as of this encounter
--- OUTSIDE RECORDS SUMMARY | 2024-11-26 10:32 | XMS_ITS | Encounter Summary ---
Author Organization [employer] Address [address] [place] [address] 7 [place] [address] Care Team Providers Care Timber Framer Helper Name Role Phone Neena Machuca Primary Care Provider Caity Cortez MD Primary Care Pro vider Reason for Visit * Reason Comments Med Refill Encounter Details Date Type Department Care Team ([facility] Contact Info) Description 06/24/2022 Refill [facility] [address] [place] [phone] Neena Machuca FNP Diabetic polyneuropathy associated with [...] Upcoming Encounters Date Type Department Care Team ([facility] Contact Info) Description 12/23/2024 10:30 AM EDT Office Visit [facility] [address] [place] [address] [phone] Caity Gray MD 230 [place], [place] [phone] documented as of this encounter Visit Diagnoses Diagnosis Diabetic polyneuropathy associated with type 2 diabetes mellitus (CMS/HCC) documented in this encounter Care Teams Timber Framer Helper Relationship Specialty Start Date End Date Neena Machuca FNP PCP - General Family Medicine 8/30/22 9/12/23 Caity Gray MD [address] [place] [address] PCP - General Internal Medicine 11/13/22 Vero Pineda Seo ProfessionalDental Hygiene Professor 03/17/24 documented as of this encounter
--- OUTSIDE RECORDS SUMMARY | 2024-11-26 10:32 | XMS_ITS | Encounter Summary ---
Author Organization [employer] Address 75 [facility] 7t [place] [address] Care Team Providers Care Cause Analyst Name Role Phone Caity Gray MD Primary Care Pro vider Reason for Visit * Reason Comments Med Refill Encounter Details Date Type Department Care Team ([facility] st Contact Info) Description 02/27/2023 Refill [facility] 230 [place] [address] Caity Gray MD 230 [place] [address] Diabetic polyneuropathy associated with type 2 diabetes [...] AM EDT Office Visit [facility] 230 [place], [place] [phone] Caity Gray MD 230 [place], [place] [phone] documented as of this encounter Visit Diagnoses Diagnosis Diabetic polyneuropathy associated with type 2 diabetes mellitus (CMS/HCC) documented in this encounter Additional Health Concerns Assessment Noted Time PHQ-9 Depression Total Score: 9 02/28/20 23 2:29 PM EST documented as of this encounter Care Teams Cause Analyst Relationship Specialty Start Date End Date Caity Gray MD [address] [place] [address] [phone] PCP - General Internal Medicine 11/13/22 Vero Pineda Almond Paste MolderSenior Asic Engineer 03/17/24 documented as of this encounter
--- OUTSIDE RECORDS SUMMARY | 2024-11-26 10:32 | XMS_ITS | Encounter Summary ---
Author Organization [employer] Address 75 [facility] 7t [place] [address] Care Team Providers Care Outside Sales Inspector Name Role Phone Caity Gray MD Primary Care Pro vider Reason for Visit * Reason Onset Date Comments Med Refill 07/24/2023 Encounter Details Date Type Department Care Team ([facility] Contact Info) Description 07/24/2023 Telephone [facility] 230 [place], [place] [phone] Caity Gray MD 230 [place] [address] Med Refill Social History Tobacco Use Types [...] 3:42 PM EDT Medication was sent to [facility] on 07/16/23 with 2 refills. * Telephone Encounter - Eladio Rowe - 07/24/2023 3:40 PM EDT TC from pt requesting medication refill. Medications needing refill : evolocumab (Repatha SureClick) 140 MG/ML injection To be sent to: [facility] [place]-[address] [place] [address] - [address] documented in this encounter Plan of Treatment Upcoming Encounters Date Type Department Care Team (Late st Contact Info) Description 12/23/2024 10:30 AM EDT Office Visit [facility] [address] [place] [address] Caity Gray MD 230 [place] [address] documented as of this encounter Visit Diagnoses Not on filedocumented in this encounter Additional Health Concerns Assessment Noted Time PHQ-9 Depression Total Score: 9 02/28/20 23 2:29 PM EST documented as of this encounter Care Teams Outside Sales Inspector Relationship Specialty Start Date End Date Caity Gray MD [address] [place] [address] PCP - General Internal Medicine 11/13/22 Vero Pineda Pharmacy AncillaryAnthropology Instructor 03/17/24 documented as of this encounter
--- OUTSIDE RECORDS SUMMARY | 2024-11-26 10:32 | XMS_ITS | Encounter Summary ---
Author Organization [employer] Address 75 [facility] 7t [place] [address] Care Team Providers Care Bellmaker Name Role Phone Caity Gray MD Primary Care Pro vider Reason for Visit * Reason Comments Med Refill Encounter Details Date Type Department Care Team ([facility] st Contact Info) Description 06/25/2024 Refill [facility] 230 [place] [address] Caity Gray MD 230 [place] [address] Hyperlipidemia, unspecified hyperlipidemia type Social History Tobacco [...] Description 12/23/2024 10:30 AM EDT Office Visit [facility] [address] [place] [address] Caity Gray MD [address] [place] [address] documented as of this encounter Visit Diagnoses Diagnosis Hyperlipidemia, unspecified hyperlipidemia type documented in this encounter Additional Health Concerns Assessment Noted Time PHQ-9 Depression Total Score: 9 02/28/20 23 2:29 PM EST documented as of this encounter Care Teams Bellmaker Relationship Specialty Start Date End Date Caity Gray MD [address] [place] [address] PCP - General Internal Medicine 11/13/22 Vero Pineda Inside Sales RepresentativeMarine Scientist 03/17/24 documented as of this encounter
--- OUTSIDE RECORDS SUMMARY | 2024-11-26 10:32 | XMS_ITS | Encounter Summary ---
Author Organization [employer] Address 75 [facility] 7t [place] [address] Care Team Providers Care Dry Can Tender Name Role Phone Caity Gray MD Primary Care Pro vider Reason for Visit * Reason Onset Date Comments PT-1 09/17/2023 Encounter Details Date Type Department Care Team ([facility] Contact Info) Description 09/17/2023 Telephone [facility] 230 [place], [place] [phone] Caity Gray MD 230 [place] [address] PT-1 Social History Tobacco Use Types Packs/Day [...] Y/N: Yes Provider name or facility name: [facility] Facility Address: [address] [place] [address] Escort needed: Y/N: No Do you have a wheelchair: Y/N: No If yes- Manual or electric: (Uses Cane) Visits: 6 Times yearly Patient calling requesting PT1 Home Address verified: Y/N: Yes Provider name or facility name: [facility] Facility Address: [address] [facility] Escort needed: Y/N: No Do you have a wheelchair: Y/N: No If yes- Manual or electric: Uses cane Visits: 6 times yearly Patient calling requesting PT1 Home Address verified: Y/N: Yes Provider name or facility name: [facility] Facility Address: [address] [place] [address] Escort needed: Y/N: No Do you have a wheelchair: Y/N: No If yes- Manual or electric: Uses Cane Visits: Every 3 months documented in this encounter Plan of Treatment Upcoming Encounters Date Type Department Care Team ([facility] st Contact Info) Description 12/23/2024 10:30 AM EDT Office Visit [facility] [address] [place] [address] Caity Gray MD 230 [place] [address] documented as of this encounter Visit Diagnoses Not on filedocumented in this encounter Additional Health Concerns Assessment Noted Time PHQ-9 Depression Total Score: 9 02/28/20 23 2:29 PM EST documented as of this encounter Care Teams Dry Can Tender Relationship Specialty Start Date End Date Caity Gray MD 230 [place] [address] PCP - General Internal Medicine 11/13/22 Vero Pineda Belt FixerCorrectional Facility Psychiatrist 03/17/24 documented as of this encounter
--- OUTSIDE RECORDS SUMMARY | 2024-11-26 10:32 | XMS_ITS | Encounter Summary ---
Author Organization [employer] Address [address] [facility] 7t [place] [address] Care Team Providers Care Sales Representative Jewelry Name Role Phone Caity Gray MD Primary Care Pro vider Reason for Visit * Reason Onset Date Comments Nurse Triage 01/02/2024 Encounter Details Date Type Department Care Team ([facility] st Contact Info) Description 01/02/2024 Telephone [facility] 230 [place], [place] [phone] Caity Gray MD 230 [place] [address] Nurse Triage Social History Tobacco Use Types [...] pt to triage, spoke to pt. through [employer] per diem interpreter. pt states had a minor fall [...] Reason: Caller denied all higher acuity questions Cuban Speaker (Accepted Cold Rolling Coordinator) documented in this encounter Plan of Treatment Upcoming Encounters Date Type Department Care Team (Late st Contact Info) Description 12/23/2024 10:30 AM EDT Office Visit [facility] 230 [place], [place] [phone] Caity Gray MD [address] [place] [phone] documented as of this encounter Visit Diagnoses Not on filedocumented in this encounter Additional Health Concerns Assessment Noted Time PHQ-9 Depression Total Score: 9 02/28/20 23 2:29 PM EST documented as of this encounter Care Teams Sales Representative Jewelry Relationship Specialty Start Date End Date Caity Gray MD [address] [place] [address] PCP - General Internal Medicine 11/13/22 Vero Pineda National Insurance OfficerProgram Management Analyst 03/17/24 documented as of this encounter
--- OUTSIDE RECORDS SUMMARY | 2024-11-26 10:32 | XMS_ITS | Encounter Summary ---
Author Organization [employer] Address 75 [facility] 7t [place] [address] Care Team Providers Care Armament Repairer Name Role Phone Caity Gray MD Primary Care Pro vider Encounter Details Date Type Department Care Team (Latest Contact Info) Description 11/26/2024 Travel Social History Tobacco Use Types Packs/Day Years [...] Description 12/23/2024 10:30 AM EDT Office Visit [facility] 230 [place] [address] Caity Gray MD [address] [place] [phone] documented as of this encounter Visit Diagnoses Not on filedocumented in this encounter Additional Health Concerns Assessment Noted Time PHQ-9 Depression Total Score: 4 08/13/19 25 11:28 AM EDT documented as of this encounter Care Teams Armament Repairer Relationship Specialty Start Date End Date Caity Gray MD [address] [place] [address] PCP - General Internal Medicine 11/13/22 Vero Pineda Cash Posting ClerkBleach Liquor Maker 03/17/24 documented as of this encounter
--- OUTSIDE RECORDS SUMMARY | 2024-11-26 10:32 | XMS_ITS | Encounter Summary ---
Author Organization [employer] Address [address] [place] [address] 7 [place] [address] Care Team Providers Care Professor Of Genetics Name Role Phone Neena Machuca Primary Care Provider Caity Cortez MD Primary Care Pro vider Reason for Visit * Reason Comments Med Refill Encounter Details Date Type Department Care Team ([facility] Contact Info) Description 03/20/2022 Refill [facility] [address] [place] [phone] Neena Machuca FNP Diabetic polyneuropathy associated with [...] [facility] Description 12/23/2024 10:30 AM EDT Office Visit [facility] [address] [place] [address] [phone] Caity Gray MD 230 [place], [place] [phone] documented as of this encounter Visit Diagnoses Diagnosis Diabetic polyneuropathy associated with type 2 diabetes mellitus (CMS/HCC) documented in this encounter Care Teams Professor Of Genetics Relationship Specialty Start Date End Date Neena Machuca FNP PCP - General Family Medicine 8/30/22 9/12/23 Caity Gray MD [address] [place] [address] PCP - General Internal Medicine 11/13/22 Vero Pineda Bird TrapperMold Carpenter 03/17/24 documented as of this encounter
--- OUTSIDE RECORDS SUMMARY | 2024-11-26 10:33 | XMS_ITS | Encounter Summary ---
Author Organization [employer] Address [address] [place] [address] 7t [place] [address] Care Team Providers Care Dental Biller Name Role Phone Neena Machuca NEUROLOGY TEACHER Primary Care Provider Caity Cortez MD Primary Care Pro vider Encounter Details Date Type Department Care Team ([facility] Contact Info) Description 04/30/2022 Telephone [facility] [address] [place] [address] [phone] Neena Machuca FNP Social History Tobacco Use [...] Upcoming Encounters Date Type Department Care Team ([facility] Contact Info) Description 12/23/2024 10:30 AM EDT Office Visit [facility] [address] [place] [address] [phone] Caity Gray MD 230 [place], [place] [phone] documented as of this encounter Visit Diagnoses Not on filedocumented in this encounter Care Teams Dental Biller Relationship Specialty Start Date End Date Neena Machuca FNP PCP - General Family Medicine 10/30/21 11/12/22 Caity Gray MD [address] [place] [address] PCP - General Internal Medicine 11/13/22 Vero Pineda Metal MachinistLocomotive Engineer Electric 03/17/24 documented as of this encounter
--- OUTSIDE RECORDS SUMMARY | 2024-11-26 10:33 | XMS_ITS | Encounter Summary ---
Author Organization [employer] Address 75 [facility] 7 [place] [address] Care Team Providers Care Records Management Coordinator Name Role Phone Caity Gray MD Primary Care Pro vider Reason for Visit * Reason Onset Date Comments PT1 11/10/2024 Encounter Details Date Type Department Care Team ([facility] Contact Info) Description 11/10/2024 Telephone [facility] 230 [place] [address] Caity Grya MD 230 [place] [address] PT1 Social History Tobacco Use Types Packs/Day [...] * Telephone Encounter - Mark Roberts - 11/10/2024 9:55 AM EDT Patient calling requesting PT1 Home Address verified: Y/N: Yes Provider name or facility name: [address] [place] [address] Escort needed: Y/N: No Do you have a wheelchair: Y/N: No If yes- Manual or electric: N/A Visits: (2x month) documented in this encounter Plan of Treatment Upcoming Encounters Date Type Department Care Team (Late st Contact Info) Description 12/23/2024 10:30 AM EDT Office Visit [facility] [address] [place] [address] Caity Gray MD [address] [place] [address] documented as of this encounter Visit Diagnoses Not on filedocumented in this encounter Additional Health Concerns Assessment Noted Time PHQ-9 Depression Total Score: 4 08/13/19 25 11:28 AM EDT documented as of this encounter Care Teams Records Management Coordinator Relationship Specialty Start Date End Date Caity Gray MD [address] [place] [address] PCP - General Internal Medicine 11/13/22 Vero Pineda Neonatal Icu CoordinatorLine Fisher 03/17/24 documented as of this encounter
--- OUTSIDE RECORDS SUMMARY | 2024-11-26 10:33 | XMS_ITS | Encounter Summary ---
Author Organization [employer] Address [address] [place] [address] 7 [place] [address] Care Team Providers Care Smoke And Flame Specialist Name Role Phone Neena Machuca Primary Care Provider Caity Cortez MD Primary Care Pro vider Reason for Visit * Reason Comments Med Refill Encounter Details Date Type Department Care Team (Late Contact Info) Description 05/21/2022 Refill [facility] [address] [place] [phone] Neena Machuca FNP Essential hypertension Social History [...] Upcoming Encounters Date Type Department Care Team ([facility] Contact Info) Description 12/23/2024 10:30 AM EDT Office Visit [facility] [address] [place] [phone] Caity Gray MD 230 [place], [place] [phone] documented as of this encounter Visit Diagnoses Diagnosis Essential hypertension Unspecified essential hypertension documented in this encounter Care Teams Smoke And Flame Specialist Relationship Specialty Start Date End Date Neena Machuca FNP PCP - General Family Medicine 10/30/21 11/12/22 Caity Gray MD [address] [place] [address] PCP - General Internal Medicine 11/13/22 Vero Pineda Supervisor Inventory MerchandisingWiring Inspector 03/17/24 documented as of this encounter
== END 2024-11-26 09:37 | disposition home or self-care (01) ==
LOC: HO.HHCX 09:36
PROVIDERS: Visit Provider Family Medicine
DX: M79.641 Pain in right hand (principal)
CPT/HCPCS: 73130

== ENCOUNTER → 2024-11-26 09:36 | Outpatient (BNV) | payer MEDICAID, SELFPAY | PROVIDERS: Visit Provider Radiology Diagnostic Radiology | DX: M79.641 Pain in right hand (principal) | CPT/HCPCS: 73130 ==

== ENCOUNTER 2024-12-07 13:40 | Outpatient (AMB) | payer MEDICAID, SELFPAY ==
[2024-12-07 13:48] VITALS: BP 130/74; PULSE 87; O2SAT 97; BMI 26.6
--- NOTE | 2024-12-07 13:48 | A.OFFVIS_ITS ---
Vital Signs 3 12/07/24 13:48 Height 5 ft 2 in Weight 145 lb 8.081 oz BMI 26.6 BP 130/74 Blood Pressure Location Rt brachial Position Sitting Pulse 87 Pulse Source Pulse Oximeter Pulse Oximetry (%) 97 Oxygen Delivery Method Room Air Intake Visit Reasons: T2DM Intake Note: Patient presents today for a follow-up on Type 2 Diabetes Mellitus: Last seen by IRVIN Justin. Last Diabetic eye exam was on: 10/18/2024 Last Podiatry exam was on: Patient does not see a Plant Electrical Engineer Most recent HbA1c: 7.9%, 12/07/2024 Random Glucose: 182 mg/dL L Blood Bank Supervisor Required: Yes Blood Bank Supervisor Language: Spiral Gear Generator Services: Blood Bank Supervisor Offered & Declined (DR. Cuenca Speak Fluent Djiboutian) Accompanied by: Self / Same As Patient Allergies No Known Allergies (No Known Allergies*) Allergy (Verified 11/24/24 13:51) HPI Comments Details: Patient is a 63-year-old female with a significant past medical history of type 2 diabetes, hyperlipidemia, hypertension, polyneuropathy and nephropathy presenting today For management of her diabetes. Last seen by Carol Reyes PA-C on 10/25/24. This is the 1st time I see this patient. States that most of her family members are diabetics. She has a couple type 2 diabetics but most of them are type 1 diabetics. Was diagnosed with diabetes 40 years ago. Currently Lantus 20 units, NovoLog 4 units 3 times a day, and Mounjaro 2.5 mg weekly started about a week ago in the past treated with metformin but it caused a lot of GI discomfort. She does not like taking the Trulicity as it does cause some nausea. She states that her diet is overall very balanced. She denies history of CVA, CAD or PVD She does have a history of microalbuminuria, diabetic retinopathy, ports tingling numbness in the feet and hand concerning for diabetic neuropathy She was last seen by Ophthalmology around 2 month ago She was last seen by Podiatry about 4 months ago for a callus She reports episode of hypoglycemia that seems to be related to activity or happening late at night (around 22:00) Patient injects insulin in her arms Physical exam: General: Well appearing. NAD. Neck/Thyroid: Thyroid not palpable, no nodules. CV: RRR, no murmur. No edema. Unable to palpate peripheral pulses. Resp:Lungs clear to auscultation bilaterally Abdomen: Soft, nontender. nondistended. Extremities/Neuro: No weakness or tremor of outstretched hands. Insulin injection site without evidence of lipodystrophy Diabetic Foot Exam: Decreased sensation to monofilament exam bilaterally in lower extremities Labs: Laboratory Tests 12/07/24 12/07/24 13:53 13:55 Glucose (Clinic) 182 H Hgb A1c (Clinic) 7.9 H 02/03/20 01/16/21 04/17/21 09:39 01:41 Unknown Hgb 12.7 Sodium Potassium Creatinine Estimated GFR Hgb A1c (Clinic) Triglycerides Cholesterol LDL Cholesterol, Calc HDL Cholesterol Microalb/Creat Ratio 46.3 182.2 12/19/23 01/07/24 07/06/24 11:05 10:12 13:27 Hgb 12.4 Sodium 140 141 Potassium 3.8 4.2 Creatinine 0.95 1.18 Estimated GFR 59 46 Hgb A1c (Clinic) Triglycerides Cholesterol LDL Cholesterol, Calc HDL Cholesterol Microalb/Creat Ratio 09/17/24 10/27/24 14:57 09:47 Hgb Sodium 144 Potassium 4.3 Creatinine 1.21 Estimated GFR 45 Hgb A1c (Clinic) 8.0 H Triglycerides 97 Cholesterol 151 LDL Cholesterol, Calc 89 HDL Cholesterol 43 Microalb/Creat Ratio CGM data: Interpretation: Overall reasonable diabetic control with postprandial and overnight hyperglycemia on occasion. No hypoglycemia evident. [facility] Medical History Left foot pain Other specified epidermal thickening Intractable plantar keratosis Type 2 diabetes mellitus with hyperglycemia, with long-term current use of insulin Long-term current use of insulin for diabetes mellitus Type 2 diabetes mellitus with diabetic nephropathy Vitamin D deficiency Hyperlipidemia LDL goal <100 Type 2 diabetes mellitus with diabetic polyneuropathy Palpitations Depression with anxiety Surgical History Hx of cataract surgery History of cholecystectomy Family History Father Prostate cancer Diabetes Mother Uterine cancer, sarcoma Brain bleed Diabetes CAD (coronary artery disease) Social History Household Members: None Alcohol intake: current Alcohol intake frequency: does not drink Patient Tobacco Use Status: Never used Tobacco Physical Exam Vital Signs: Last Vital Signs Pulse 87 12/07/24 13:48 BP 130/74 12/07/24 13:48 Pulse Ox 97 12/07/24 13:48 Oxygen Delivery Method Room Air 12/07/24 13:48 BMI result Body Mass Index 26.6 Office Procedures Glucose Monitoring Details Details: See HPI 03016 - Glucose Monitoring, continuous Procedure code (CPT) selection complete Results AMB Hemoglobin A1c 2 AMB Hemoglobin A1c 7.9 % Last Edit by NICHOLE Hdez on 12/07/24 14:04 Results Reviewed Results Reviewed: Laboratory Last Values Glucose (Clinic) 182 mg/dL (60-115) H 12/07/24 13:53 Hgb A1c (Clinic) 7.9 % (4.0-6.0) H 12/07/24 13:55 Assessment & Plan Assessment & Plan (1) Type 2 diabetes mellitus with diabetic polyneuropathy: Code(s): E11.42 - Type 2 diabetes mellitus with diabetic polyneuropathy Category: Medical Qualifiers: Diabetes mellitus snf insulin use: with long term care pharmacist use Qualified Code(s): E11.42 - Type 2 diabetes mellitus with diabetic polyneuropathy; Z79.4 - care home (current) use of insulin Plan Type 2 diabetes with long-term insulin use, diabetic retinopathy and diabetic neuropathy. Patient had multiple complications from uncontrolled type 2 diabetes. Upon review of her chart, it is noticed that her A1c has always been in the range of 7.9-8%. Given the big discrepancy between GMI 7.1% an A1c 7.9%, and considering that A1c is higher than GMI, and that she wore her CGM about 96% of the time, she does not have any evidence of CKD, we will reconsider that her A1c may be overestimating her real glucose control, I will use the average glucose of 159- which is approximately equivalent to an A1c of 7.2%- as the most accurate measurement of her diabetes control. I do have some concerns about her reported low glucose at late night or in the middle of the night, and I will decrease her long-acting insulin. Plan Encourage consistent meal patterns: breakfast, lunch, and dinner, with insulin adjusted based on meal size. Continue monitoring blood glucose closely, especially post-prandial levels. Foot care education provided to prevent complications from diabetic neuropathy. Decrease Lantus to 18 units daily Use insulin based on newly provided sliding scale Continue Mounjaro 2.5 mg, increased to 5 mg in 3 more weeks if no side effects Given patient's persistent proteinuria despite lisinopril 10 mg, we will increase lisinopril to 20 mg daily next advised the patient to monitor her blood pressure Advised the patient to call the office if she had persistent hyper or hypoglycemia Orders: Orders 2 US MOIRA complete Today E11.42 - Type 2 diabetes mellitus with diabetic polyneuropathy, Z79.4 - laborer marine terminal (current) use of insulin AMB Glucose Monitoring Today E11.42 - Type 2 diabetes mellitus with diabetic polyneuropathy, Z79.4 - laborer marine terminal (current) use of insulin AMB Hemoglobin A1c Today E11.42 - Type 2 diabetes mellitus with diabetic polyneuropathy, Z79.4 - laborer marine terminal (current) use of insulin Medications: Changed 2 From insulin aspart U-100 (Novolog FlexPen U-100 Insulin aspart) 4 units (0.04 mL) subcut TID 15 mL 4RF E11.65 - Type 2 diabetes mellitus with hyperglycemia, Z79.4 - care home (current) use of insulin To insulin aspart U-100 (Novolog FlexPen U-100 Insulin aspart) 8 units (0.08 mL) subcut TID 20 mL 4RF E11.65 - Type 2 diabetes mellitus with hyperglycemia, Z79.4 - care home (current) use of insulin Patient Instructions: Disminuya Lantus a 18 unidades diarias Aumente Lisinopril a 20 mg/day Use la insulina de accion corta basada en la escala que se muestra abajo: Dosis de Insulina (unidades) ? [place] 10?15 minutos antes de las comidas Niveles de glucosa (mg/dl) Comida?Pequena (bajo carb carb <30g ensalada, huevos con carne) Comida Normal Meal?(30?60g sandwich, juan ramon fritas) Comida Oni?(>60g pizza, lasagna, comida china, comida + postre) <100 0 1 2 101?150 1 2 4 151?200 2 4 6 201?250 3 6 8 251?300 4 8 10 301?350 5 10 12 351?400 6 12 14 >400 8 14 16 Por favor avisenos en los casos siguientes: [place] azucar de forma reiterada (mas de 1 vez por brenden) Azucar ebenezer de forma persistente por encima de [address] Coding Level of Care Code Est Pt Level 3 (47748) Complex EM visit Add On G2211 Diagnoses Type 2 diabetes mellitus with diabetic polyneuropathy, with long-term current use of insulin E11.42; Z79.4 Diabetes mellitus long term care pharmacist insulin use: with long term care pharmacist use CPT Codes Details - CPT: 69517 - Glucose Monitoring, continuous ([id number]) Time Spent (min) 55 Comment Time spent on review of previous records, history, exam/plan and patient education.
[2024-12-07 13:58] LABS: Glucose, Whole Blood 182 mg/dL (60-115)
--- OUTSIDE RECORDS SUMMARY | 2024-12-07 16:52 | XMS_ITS | Encounter Summary ---
Author Organization [employer] Address [address] 7[address] [place] [address] Care Team Providers Care Material Handler 2Nd Shift Name Role Phone Caity Gray MD Primary Care Pro vider Encounter Details Date Type Department Care Team ([facility] Contact Info) Description 11/26/2024 Results Follow-Up [facility] [address] [place] [address] Perry Lo MD [address] [place] [address] XR Hand 3+ Views Right Social History Tobacco Use Types Packs/Day Years [...] Office Visit [facility] [address] [place] [address] Caity Gray MD [address] [place] [address] documented as of this encounter Visit Diagnoses Not on filedocumented in this encounter Additional Health Concerns Assessment Noted Time PHQ-9 Depression Total Score: 4 08/13/19 25 11:28 AM EDT documented as of this encounter Care Teams Material Handler 2Nd Shift Relationship Specialty Start Date End Date Caity Gray MD [address] [place] [address] PCP - General Internal Medicine 11/13/22 Vero Pineda Imaging AnalystCarpenter Streetcar 03/17/24 documented as of this encounter
--- OUTSIDE RECORDS SUMMARY | 2024-12-07 16:52 | XMS_ITS | Encounter Summary ---
Author Organization [employer] Address [address] [place] [address] 7 [place] [address] Care Team Providers Care Re Recording Mixer Name Role Phone Neena Machuca DIRECTOR OF MATERIALS Primary Care Provider Caity Cortez MD Primary Care Pro vider Reason for Visit * Reason Comments Med Refill Encounter Details Date Type Department Care Team ([facility] Contact Info) Description 03/20/2022 Refill [facility] MED[facility]INE [address] [place] [address] [phone] Neena Machuca FNP Diabetic polyneuropathy associated with [...] Upcoming Encounters Date Type Department Care Team ([facility] Contact Info) Description 12/23/2024 10:30 AM EDT Office Visit [facility] MED[facility]INE [address] [place] [address] [phone] Caity Gray MD [address] [place] [address] [phone] documented as of this encounter Visit Diagnoses Diagnosis Diabetic polyneuropathy associated with type 2 diabetes mellitus (HCC) documented in this encounter Care Teams Re Recording Mixer Relationship Specialty Start Date End Date Neena Machuca FNP PCP - General Family Medicine 10/30/21 11/12/22 Caity Gray MD [address] [place] [address] PCP - General Internal Medicine 11/13/22 Vero Pineda Cigar Head PerforatorKey Carrier 03/17/24 documented as of this encounter
--- OUTSIDE RECORDS SUMMARY | 2024-12-07 16:52 | XMS_ITS | Encounter Summary ---
Author Organization [employer] Address [address] [facility] 7 [place] [address] Care Team Providers Care Residential Energy Auditor Name Role Phone Caity Gray MD Primary Care Pro vider Reason for Visit * Reason Onset Date Comments PT1 09/15/2024 Encounter Details Date Type Department Care Team ([facility] Contact Info) Description 09/15/2024 Telephone [facility] [address] [place], [place] [phone] Caity Gray MD [address] [place] [address] PT1 Social History Tobacco Use Types Packs/Day [...] Description 12/23/2024 10:30 AM EDT Office Visit [facility] [address] [place] [address] Caity Gray MD [address] [place] [address] documented as of this encounter Visit Diagnoses Not on filedocumented in this encounter Additional Health Concerns Assessment Noted Time PHQ-9 Depression Total Score: 4 08/13/19 25 11:28 AM EDT documented as of this encounter Care Teams Residential Energy Auditor Relationship Specialty Start Date End Date Caity Gray MD [address] [place] [address] PCP - General Internal Medicine 11/13/22 Vero Pineda Commanding Officer GarageSoftware Application Tester 03/17/24 documented as of this encounter
--- OUTSIDE RECORDS SUMMARY | 2024-12-07 16:52 | XMS_ITS | Encounter Summary ---
Author Organization [employer] Address [address] [facility] 7 [place] [address] Care Team Providers Care Shaft Headman Name Role Phone Caity Gray MD Primary Care Pro vider Reason for Visit * Reason Onset Date Comments Care Coordination 12/06/2024 ICP Care Plan Encounter Details Date Type Department Care Team ([facility] Contact Info) Description 12/06/2024 Telephone [facility] [address] [place] [address] Caity Gray MD [address] [place] [address] Care Coordination (ICP Care Plan) Social History [...] encounter Miscellaneous Notes * Telephone Encounter - Kalie Brink - 12/06/2024 3:03 PM EDT PCP Designee has received and reviewed Care Plan from [facility] Partners: Bone Drier: Vero Pineda Contact Information: [phone] Care Plan scanned into patient???s EHR and notification sent to PCP. documented in this encounter Plan of Treatment Upcoming Encounters Date Type Department Care Team (Late st Contact Info) Description 12/23/2024 10:30 AM EDT Office Visit [facility] [address] [place] [address] Caity Gray MD [address] [place] [address] documented as of this encounter Visit Diagnoses Not on filedocumented in this encounter Additional Health Concerns Assessment Noted Time PHQ-9 Depression Total Score: 4 08/13/19 25 11:28 AM EDT documented as of this encounter Care Teams Shaft Headman Relationship Specialty Start Date End Date Caity Gray MD [address] [place] [address] PCP - General Internal Medicine 11/13/22 Vero Pineda Furniture RemovalistScrapper 03/17/24 documented as of this encounter
--- OUTSIDE RECORDS SUMMARY | 2024-12-07 16:53 | XMS_ITS | Encounter Summary ---
Author Organization [employer] Address [address] [place] [address] 7 [place] [address] Care Team Providers Care Chipper Name Role Phone Neena Machuca Primary Care Provider Caity Cortez MD Primary Care Pro vider Reason for Visit * Reason Comments Med Refill Encounter Details Date Type Department Care Team (Late Contact Info) Description 05/21/2022 Refill [facility] MEDICINE [address] [place] [phone] Neena Machuca FNP Essential hypertension Social History [...] Upcoming Encounters Date Type Department Care Team ([facility] Contact Info) Description 12/23/2024 10:30 AM EDT Office Visit [facility] [address] [place] [address] Caity Gray MD [address] [place], [place] [phone] documented as of this encounter Visit Diagnoses Diagnosis Essential hypertension Unspecified essential hypertension documented in this encounter Care Teams Chipper Relationship Specialty Start Date End Date Neena Machuca FNP PCP - General Family Medicine 10/30/21 11/12/22 Caity Gray MD [address] [place] [address] PCP - General Internal Medicine 11/13/22 Vero Pineda Drain TechnicianChemical Maker 03/17/24 documented as of this encounter
--- OUTSIDE RECORDS SUMMARY | 2024-12-07 16:53 | XMS_ITS | Encounter Summary ---
Author Organization [employer] Address [address] [facility] 7 [place] [address] Care Team Providers Care Animal Pathologist Name Role Phone Caity Gray MD Primary Care Pro vider Reason for Visit * Reason Onset Date Comments PT1 11/10/2024 Encounter Details Date Type Department Care Team ([facility] st Contact Info) Description 11/10/2024 Telephone [facility] [address] [place] [address] Caity Gray MD [address] [place] [address] PT1 Social History Tobacco Use Types Packs/Day [...] Y/N: Yes Provider name or facility name: [address] [place] [address] Escort needed: Y/N: No Do you have a wheelchair: Y/N: No If yes- Manual or electric: N/A Visits: (2x month) documented in this encounter Plan of Treatment Upcoming Encounters Date Type Department Care Team (Late st Contact Info) Description 12/23/2024 10:30 AM EDT Office Visit [facility] [address] [place] [address] Caity Gray MD [address] [place] [address] documented as of this encounter Visit Diagnoses Not on filedocumented in this encounter Additional Health Concerns Assessment Noted Time PHQ-9 Depression Total Score: 4 08/13/19 25 11:28 AM EDT documented as of this encounter Care Teams Animal Pathologist Relationship Specialty Start Date End Date Caity Gray MD [address] [place] [phone] PCP - General Internal Medicine 11/13/22 Vero Pineda Dowel InspectorExploration Driller 03/17/24 documented as of this encounter
--- OUTSIDE RECORDS SUMMARY | 2024-12-07 16:53 | XMS_ITS | Encounter Summary ---
Author Organization [employer] Address [address] [facility] 7 [place] [address] Care Team Providers Care Strip Catcher Name Role Phone Caity Gray MD Primary Care Pro vider Reason for Visit * Reason Onset Date Comments Appointment Request 04/07/2023 Encounter Details Date Type Department Care Team ([facility] Contact Info) Description 04/07/2023 Telephone [facility] [address] [place], [place] [phone] Caity Gray MD [address] [place] [address] Appointment Request Social History Tobacco Use Types [...] for 2/5 states is not feeling well fiction writer didcancel however there was no availability at the moment fiction writer did ask if the patient would like a message to be sent to triage but patient refuses. documented in this encounter Plan of Treatment Upcoming Encounters Date Type Department Care Team (Late st Contact Info) Description 12/23/2024 10:30 AM EDT Office Visit [facility] [address] [place] [address] Caity Gray MD [address] [place] [address] documented as of this encounter Visit Diagnoses Not on filedocumented in this encounter Additional Health Concerns Assessment Noted Time PHQ-9 Depression Total Score: 9 02/28/20 23 2:29 PM EST documented as of this encounter Care Teams Strip Catcher Relationship Specialty Start Date End Date Caity Gray MD [address] [place] [address] PCP - General Internal Medicine 11/13/22 Vero Pineda Wafer Fabrication TechnicianGrain Oilseed Or Pasture Farm Worker 03/17/24 documented as of this encounter
--- OUTSIDE RECORDS SUMMARY | 2024-12-07 16:53 | XMS_ITS | Encounter Summary ---
Author Organization [employer] Address [address] [place] [address] 7 [place] [address] Care Team Providers Care Licensed Physical Therapist Assistant Name Role Phone Neena Machuca IN SERVICE EDUCATION TEACHER Primary Care Provider Caity Cortez MD Primary Care Pro vider Reason for Visit * Reason Comments Med Refill Encounter Details Date Type Department Care Team (Late Contact Info) Description 06/24/2022 Refill [facility] [address] [place] [address] [phone] Neena Machuca FNP Diabetic polyneuropathy associated with [...] Upcoming Encounters Date Type Department Care Team ([facility] Contact Info) Description 12/23/2024 10:30 AM EDT Office Visit [facility] [address] [place] [address] [phone] Caity Gray MD [address] [place] [address] [phone] documented as of this encounter Visit Diagnoses Diagnosis Diabetic polyneuropathy associated with type 2 diabetes mellitus (HCC) documented in this encounter Care Teams Licensed Physical Therapist Assistant Relationship Specialty Start Date End Date Neena Machuca FNP PCP - General Family Medicine 10/30/21 11/12/22 Caity Gray MD [address] [place] [address] PCP - General Internal Medicine 11/13/22 Vero Pineda PatternatorCook Helper Pastry 03/17/24 documented as of this encounter
--- OUTSIDE RECORDS SUMMARY | 2024-12-07 16:53 | XMS_ITS | Encounter Summary ---
Author Organization [employer] Address [address] [facility] 7t [place] [address] Care Team Providers Care Gas System Operator Name Role Phone Caity Gray MD Primary Care Pro vider Reason for Visit * Reason Onset Date Comments Med Refill 07/24/2023 Encounter Details Date Type Department Care Team ([facility] Contact Info) Description 07/24/2023 Telephone [facility] [address] [place], [place] [phone] Caity Gray MD [address] [place] [address] Med Refill Social History Tobacco Use Types [...] 3:42 PM EDT Medication was sent to [facility] on 07/16/23 with 2 refills. * Telephone Encounter - Eladio Rowe - 07/24/2023 3:40 PM EDT TC from pt requesting medication refill. Medications needing refill : evolocumab (Repatha SureClick) 140 MG/ML injection To be sent to: [facility] [place] [address] - [address] documented in this encounter Plan of Treatment Upcoming Encounters Date Type Department Care Team (Late st Contact Info) Description 12/23/2024 10:30 AM EDT Office Visit [facility] [address] [place] [address] Caity Gray MD [address] [place] [address] documented as of this encounter Visit Diagnoses Not on filedocumented in this encounter Additional Health Concerns Assessment Noted Time PHQ-9 Depression Total Score: 9 02/28/20 23 2:29 PM EST documented as of this encounter Care Teams Gas System Operator Relationship Specialty Start Date End Date Caity Gray MD [address] [place] [address] PCP - General Internal Medicine 11/13/22 Vero Pineda Operations LeadPhotographic Process Screen Maker 03/17/24 documented as of this encounter
--- OUTSIDE RECORDS SUMMARY | 2024-12-07 16:53 | XMS_ITS | Encounter Summary ---
Author Organization [employer] Address [address] [facility] [address] 7t [place] [address] Care Team Providers Care Commercial Director Name Role Phone Caity Gray MD Primary Care Pro vider Encounter Details Date Type Department Care Team ([facility] Contact Info) Description 04/29/2024 Orders Only [facility] [address] [place], [place] [phone] Mary Haider ANP 230 [place], [place] [phone] Social History Tobacco Use Types Packs/Day Years [...] Description 12/23/2024 10:30 AM EDT Office Visit [facility] [address] [place] [phone] Caity Gray MD [address] [place] [address] documented as of this encounter Visit Diagnoses Not on filedocumented in this encounter Additional Health Concerns Assessment Noted Time PHQ-9 Depression Total Score: 9 02/28/20 23 2:29 PM EST documented as of this encounter Care Teams Commercial Director Relationship Specialty Start Date End Date Caity Gray MD [address] [place] [address] PCP - General Internal Medicine 11/13/22 Vero Pineda Cable Engineer Outside PlantCan Filling And Closing Machine Tender 03/17/24 documented as of this encounter
--- OUTSIDE RECORDS SUMMARY | 2024-12-07 16:53 | XMS_ITS | Encounter Summary ---
Author Organization [employer] Address [address] [facility] 7t [place] [address] Care Team Providers Care Lead Trainer Name Role Phone Caity Gray MD Primary Care Pro vider Reason for Visit * Reason Comments Med Refill Encounter Details Date Type Department Care Team ([facility] st Contact Info) Description 02/27/2023 Refill [facility] [address] [place] [address] Caity Gray MD [address] [place] [address] Diabetic polyneuropathy associated with type 2 diabetes [...] AM EDT Office Visit [facility] [address] [place], [place] [phone] Caity Gray MD [address] [place], [place] [phone] documented as of this encounter Visit Diagnoses Diagnosis Diabetic polyneuropathy associated with type 2 diabetes mellitus (HCC) documented in this encounter Additional Health Concerns Assessment Noted Time PHQ-9 Depression Total Score: 9 02/28/20 23 2:29 PM EST documented as of this encounter Care Teams Lead Trainer Relationship Specialty Start Date End Date Caity Gray MD [address] [place] [address] [phone] PCP - General Internal Medicine 11/13/22 Vero Pineda Shoe Repair CobblerGrommet Machine Operator 03/17/24 documented as of this encounter
--- OUTSIDE RECORDS SUMMARY | 2024-12-07 16:53 | XMS_ITS | Encounter Summary ---
Author Organization [employer] Address 75 [facility] 7t [place] [address] Care Team Providers Care Internet Database Specialist Name Role Phone Caity Gray MD Primary Care Pro vider Reason for Visit * Reason Comments Med Refill Encounter Details Date Type Department Care Team ([facility] st Contact Info) Description 06/25/[address] [facility]INE [address] [place] [address] Caity Gray MD 230 [place] [address] Hyperlipidemia, unspecified hyperlipidemia type Social History Tobacco [...] 10:30 AM EDT Office Visit [facility] MED[facility]INE [address] [place] [phone] Caity Gray MD [address] [place] [phone] documented as of this encounter Visit Diagnoses Diagnosis Hyperlipidemia, unspecified hyperlipidemia type documented in this encounter Additional Health Concerns Assessment Noted Time PHQ-9 Depression Total Score: 9 02/28/20 23 2:29 PM EST documented as of this encounter Care Teams Internet Database Specialist Relationship Specialty Start Date End Date Caity Gray MD [address] [place] [phone] PCP - General Internal Medicine 11/13/22 Vero Pineda Television Maintenance ManPickup Driver 03/17/24 documented as of this encounter
--- OUTSIDE RECORDS SUMMARY | 2024-12-07 16:53 | XMS_ITS | Encounter Summary ---
Author Organization [employer] Address 75 [facility] 7 [place] [address] Care Team Providers Care Dough Panner Name Role Phone Caity Gray MD Primary Care Pro vider Reason for Visit * Reason Onset Date Comments PT1 04/10/2023 Encounter Details Date Type Department Care Team ([facility] st Contact Info) Description 04/10/2023 Telephone [facility] [address] [place], [place] [phone] Caity Gray MD [address] [place] [address] PT1 Social History Tobacco Use Types Packs/Day [...] Time: n/a Visits: every 2 months Address: [address] [place] [address] [address] [address] Facility: [facility] Wheel Chair: no Business Economist Needed: no Date: 05/07/23 Time: 1:30 pm Visits: her fist appt and is unsure Address: [address] [place] [address] Dr [address] Floor, [place] [address] Facility: [facility] Wheel Chair: no Business Economist Needed: no Date: 05/08/23 Time: 2:15 pm Visits: yearly Address: [address] [place] [address] Facility: [facility] Wheel Chair: no Business Economist Needed: no documented in this encounter Plan of Treatment Upcoming Encounters Date Type Department Care Team (Late st Contact Info) Description 12/23/2024 10:30 AM EDT Office Visit [facility] [address] [place] [phone] Caity Gray MD [address] [place] [address] documented as of this encounter Visit Diagnoses Not on filedocumented in this encounter Additional Health Concerns Assessment Noted Time PHQ-9 Depression Total Score: 9 02/28/20 23 2:29 PM EST documented as of this encounter Care Teams Dough Panner Relationship Specialty Start Date End Date Caity Gray MD [address] [place] [id number] PCP - General Internal Medicine 11/13/22 Vero Pineda OtologistHighway Research Engineer 03/17/24 documented as of this encounter
--- OUTSIDE RECORDS SUMMARY | 2024-12-07 16:53 | XMS_ITS | Encounter Summary ---
Author Organization [employer] Address [address] [facility] 7t [place] [address] Care Team Providers Care Treasurer [employer] Name Role Phone Caity Gray MD Primary Care Pro vider Reason for Visit * Reason Onset Date Comments PT-1 09/17/2023 Encounter Details Date Type Department Care Team ([facility] Contact Info) Description 09/17/2023 Telephone [facility] [address] [place], [place] [phone] Caity Gray MD [address] [place] [address] PT-1 Social History Tobacco Use Types Packs/Day [...] Y/N: Yes Provider name or facility name: [facility] Facility Address: [address] [place] [address] Escort needed: Y/N: No Do you have a wheelchair: Y/N: No If yes- Manual or electric: (Uses Cane) Visits: 6 Times yearly Patient calling requesting PT1 Home Address verified: Y/N: Yes Provider name or facility name: [facility] Facility Address: [address] [facility] Escort needed: Y/N: No Do you have a wheelchair: Y/N: No If yes- Manual or electric: Uses cane Visits: 6 times yearly Patient calling requesting PT1 Home Address verified: Y/N: Yes Provider name or facility name: [facility] Facility Address: [address] [place] [address] Escort needed: Y/N: No Do you have a wheelchair: Y/N: No If yes- Manual or electric: Uses Cane Visits: Every 3 months documented in this encounter Plan of Treatment Upcoming Encounters Date Type Department Care Team ([facility] st Contact Info) Description 12/23/2024 10:30 AM EDT Office Visit [facility] [address] [place] [phone] Caity Gray MD [address] [place] [address] documented as of this encounter Visit Diagnoses Not on filedocumented in this encounter Additional Health Concerns Assessment Noted Time PHQ-9 Depression Total Score: 9 02/28/20 23 2:29 PM EST documented as of this encounter Care Teams Treasurer [employer] Relationship Specialty Start Date End Date Caity Gray MD [address] [place] [address] PCP - General Internal Medicine 11/13/22 Vero Pineda Home Health CnaSchool Supervisor 03/17/24 documented as of this encounter
--- OUTSIDE RECORDS SUMMARY | 2024-12-07 16:53 | XMS_ITS | Encounter Summary ---
Author Organization [employer] Address 75 [facility] 7t [place] [address] Care Team Providers Care Talent Acquisition Manager Name Role Phone Caity Gray MD Primary Care Pro vider Reason for Visit * Reason Onset Date Comments Nurse Triage 01/02/2024 Encounter Details Date Type Department Care Team ([facility] st Contact Info) Description 01/02/2024 Telephone [facility] MEDICINE [address] [place], [place] [phone] Caity Gray MD [address] [place] [address] Nurse Triage Social History Tobacco Use Types [...] pt to triage, spoke to pt. through [employer] multimedia sales. pt states had a minor fall yesterday. [...] Reason: Caller denied all higher acuity questions Croatian Speaker (Accepted Automotive Worker) documented in this encounter Plan of Treatment Upcoming Encounters Date Type Department Care Team (Late st Contact Info) Description 12/23/2024 10:30 AM EDT Office Visit [facility] MEDICINE [address] [place], [place] [phone] Caity Gray MD [address] [place] [address] documented as of this encounter Visit Diagnoses Not on filedocumented in this encounter Additional Health Concerns Assessment Noted Time PHQ-9 Depression Total Score: 9 02/28/20 23 2:29 PM EST documented as of this encounter Care Teams Talent Acquisition Manager Relationship Specialty Start Date End Date Caity Gray MD [address] [place] [address] PCP - General Internal Medicine 11/13/22 Vero Pineda Equity ManagerGeneral Maintenance Engineer 03/17/24 documented as of this encounter
--- OUTSIDE RECORDS SUMMARY | 2024-12-07 16:53 | XMS_ITS | Encounter Summary ---
Author Organization [employer] Address [address] [place] [address] 7t [place] [address] Care Team Providers Care Orthopedic Nurse Practitioner Name Role Phone Neena Machuca POLICE CAPTAIN SENIOR Primary Care Provider Caity Cortez MD Primary Care Pro vider Encounter Details Date Type Department Care Team ([facility] Contact Info) Description 04/30/2022 Telephone [facility] [address] [place] [address] [phone] Neena Machuca FNP Social History Tobacco Use [...] Upcoming Encounters Date Type Department Care Team ([facility] Contact Info) Description 12/23/2024 10:30 AM EDT Office Visit [facility] [address] [place] [address] [phone] Caity Gray MD 230 [place], [place] [phone] documented as of this encounter Visit Diagnoses Not on filedocumented in this encounter Care Teams Orthopedic Nurse Practitioner Relationship Specialty Start Date End Date Neena Machuca FNP PCP - General Family Medicine 10/30/21 11/12/22 Caity Gray MD [address] [place] [phone] PCP - General Internal Medicine 11/13/22 Vero Pineda Admissions ClinicianShovel Mechanic 03/17/24 documented as of this encounter
--- OUTSIDE RECORDS SUMMARY | 2024-12-07 16:53 | XMS_ITS | Clinical Summary ---
Author Organization [employer] Address [address] [facility] [address] [place] [address] Care Team Providers Care Pin Setter Name Role Phone Caity Gray MD Primary [...] polyneuropathy, with long-term current use of insulin (HCC) Use 5 times a day when checking [...] nephropathy, with long-term current use of insulin (HCC) INJECT 1 ML SUBCUTANEOUSLY EVERY 14 DAYS 2 mL 2 Active pen needle 32G x 4 mm misc Use as instructed 100 each 2 Active ezetimibe (Zetia) 10 MG tablet Take 10 mg by mouth Once per day. Active glucose 4 g chewable tablet Chew 4 tablets (16 g) if needed for low blood sugar. 50 tablet 12 025 2025 Active Continuous Glucose Tar Boiler (FreeStyle Daryn 3 Cayuta) device 1 each Once per day. Use as directed for CGM 1 each Active Continuous Glucose Sensor (FreeStyle Daryn 3 Plus Sensor) misc 1 each every 15 days. Apply 1 every 15 days as directed for CGM 2 each Active insulin aspart FlexPen (NovoLOG) 100 UNIT/ML penIndications:D iabetic polyneuropathy associated with type 2 diabetes mellitus (HCC) INJECT 10 UNITS SUBCUTANEOUSLY WITH Breakfast AND 6 UNITS AT NIGHT 15 mL 3 025 Active insulin glargine (Lantus SoloStar) 100 UNIT/ML penIndications:D iabetic polyneuropathy associated with type 2 diabetes mellitus (HCC) INJECT 14 UNITS SUBCUTANEOUSLY EVERY NIGHT 15 mL 5 025 Active atorvastatin (Lipitor) 20 MG tabletIndication s:Hyperlipidemia , unspecified hyperlipidemia type TAKE 1 TABLET BY MOUTH EVERY DAY 90 tablet 1 025 Active Blood Glucose Monitoring Suppl (FreeStyle [place] Lite) w/Device kitIndications:T ype 2 diabetes mellitus with retinopathy, with long-term current use of insulin, macular edema presence unspecified, unspecified laterality, unspecified retinopathy severity (HCC) Use to test blood sugar 3 times daily 1 kit 025 Active FREESTYLE LITE test stripIndications :Type 2 diabetes mellitus with retinopathy, with long-term current use of insulin, macular edema presence unspecified, unspecified laterality, unspecified retinopathy severity (HCC) Use to test blood sugar 3 times daily 100 each 12 025 2025 Active Alcohol Swabs 70 % padsIndications: Type 2 diabetes mellitus with retinopathy, with long-term current use of insulin, macular edema presence unspecified, unspecified laterality, unspecified retinopathy severity (HCC) Use to test blood sugar 3 times daily 100 each 025 Active Lancets miscIndications: Type 2 diabetes mellitus with retinopathy, with long-term current use of insulin, macular edema presence unspecified, unspecified laterality, unspecified retinopathy severity (HCC) Use to test blood sugar 3 times daily 100 each 025 Active gabapentin (Neurontin) 600 MG tabletIndication s:Diabetic polyneuropathy associated with type 2 diabetes mellitus (HCC) TAKE 1 TABLET BY MOUTH THREE TIMES A DAY 90 tablet 2 025 Active metoprolol succinate XL (Toprol-XL) 50 MG 24 hr tabletIndication s:Essential hypertension TAKE 1 TABLET BY MOUTH EVERY MORNING 90 tablet 025 Active Diclofenac Sodium 1 % gel Apply 1 Application topically if needed each day (knee pain). 50 g 025 2024 Discontinued(R eorder (will not trigger notification to Pharmacy)) metoprolol succinate XL (Toprol-XL) 50 MG 24 hr tabletIndication s:Essential hypertension Take 1 tablet (50 mg) by mouth in the morning. 90 tablet 025 2024 Discontinued Diclofenac Sodium 1 % gelIndications:R ight hand pain Apply 1 Application topically if needed in the morning, at noon, in the evening, and at bedtime (right hand pain) for up to 10 days. 100 g 025 2024 Active Problems Problem Noted Date Diagnosed Date [...] RN to check on [facility] at [facility] Previous PA approved by insurance Unknown [...] FIT 04/10/22, pending. Will order again [place] [facility] [place]12[place]22 Lung cancer: Never smoker, no [...] Encounters Date Type Department Care Team Description 12/06/2024 Telephone [facility] [address] [place] [address] Caity Gray MD Care Coordination (ICP Care Plan) 11/26/2024 9:00 AM EDT Office Visit [facility] [address] [place] [phone] Perry Lo MD Right hand pain (Primary Dx); Tendinitis of extensor tendon of right hand 11/26/2024 Results Follow-Up [facility] [address] [place] [phone] Perry Lo MD XR Hand 3+ Views Right 11/26/2024 Travel 11/10/2024 Patient Outreach [facility] [address] [place] [phone] Caity Gray MD Care Coordination (CH[facility] outreach for SDOH PT-1 and food needs-referral completed /) 11/10/2024 Refill [facility] [address] [place] [phone] Caity Gray MD Essential hypertension 11/10/[address] [address] Caity Gray MD PT1 11/03/2024 Refill [facility] [address] [place] [phone] Caity Gray MD 10/27/2024 Orders Only GENERIC EXTERNAL DATA DEPARTMENT Provider, Generic External Data 10/25/2024 Orders Only GENERIC EXTERNAL DATA DEPARTMENT Provider, Generic External Data 10/20/2024 Refill [facility] [address] [place] [phone] Caity Gray MD Diabetic polyneuropathy associated with type 2 diabetes mellitus ([facility]) 10/15/2024 Telephone [facility] [address] [place] [phone] Caity Gray MD No Show 10/14/2024 Telephone [facility] [address] [place] [phone] Caity Gray MD Chart Prep 09/29/2024 Refill [facility] [address] [place] [phone] Caity Gray MD Type 2 diabetes mellitus with retinopathy, with long-term current use of insulin, macular edema presence unspecified, unspecified laterality, unspecified retinopathy severity (CMS/HCC) 09/29/2024 Results Follow-Up [facility] [address] [place] [address] Laura Gallardo MD US Pelvis Transvaginal 09/19/2024 Refill [facility] [address] [place], [place] [phone] Paz Sutherland MD Hyperlipidemia, unspecified hyperlipidemia type 09/17/2024 Orders Only GENERIC EXTERNAL DATA DEPARTMENT Provider, Generic External Data 09/15/2024 Patient Outreach [facility] [address] [place] [address] Caity Gray MD Care Coordination (CHW outreach for SDOH PT-1 and food needs-referral completed /) 09/15/2024 Telephone [facility] [address] [place] [address] Caity Gray MD PT1 from Last 3 [...] Description 12/23/2024 10:30 AM EDT Office Visit [facility] [address] [place] [address] Caity Gray MD [address] [place] [address] Health Maintenance Due Date Last Done Comments [...] WHOLE BLOOD Routine 09/17/2024 3:03 PM EDT POCT GLYCATED HEMOGLOBIN, TOTAL Routine 08/12/2024 11:07 AM EDT Type 2 diabetes mellitus with diabetic nephropathy, with long-term current use of insulin ([facility]) HPV DNA, LOW/HIGH RISK Routine 3:25 PM [...] AM EDT Narrative 11/26/2024 10:22 AM EDT [address] [address] XRay Report Signed Patient: Paty Carey MR#: [id number] : 1960 Acct:[id number] Age/Sex: 63 / F ADM Date: 11/26/24 Loc: HO.HHCX Attending Dr: Perry Lo MD Ordering Physician: Perry Lo MD Date of Service: 11/26/24 Procedure(s): XR hand RT min 3V Accession Number(s): [id number] cc: Perry Lo MD Reason for Exam: [...] 11/26/24 1019 DD/ 1013 TD/TT: 11/26/24 1014 Oxygen Tank Filler: JULIUS Procedure Note Donotuseinterpreter, Image - 11/26/[address] [address] XRay Report Signed Patient: Paty CareyMR#: [id number] : 1960cct:[id number] Age/Sex: 63 / FADM Date: 11/26/24 Loc: HO.HHCX Attending Dr: Perry Lo MD Ordering Physician: Perry Lo MD Date of Service: 11/26/24 Procedure(s): XR hand RT min 3V Accession Number(s): [id number] cc: Perry Lo MD Reason for Exam: [...] 11/26/24 1019 DD/ 1013 TD/TT: 11/26/24 1014 Oxygen Tank Filler: [facility] Perry Lo MD IMG XR PROCEDURES Final Result * (ABNORMAL) Glucose, Whole Blood (10/25/2024 2:23 PM EDT) Only the most recent of2 resultswithin the time period is included. Glucose, Whole Blood 148(H) 60 - 115 mg/dL [facility] Comment:METER #: [id number] 0Testing performed in the Endocrinology Department [address] , [address], [facility]. 10/25/2024 2:23 PM EDT 10/25/2024 2:29 PM EDT Generic External Data Provider LAB BLOOD ORDERAB LES Final Result [facility] [address] [place] [phone] * (ABNORMAL) POCT HGB A1C (08/12/2024 11:07 AM EDT) Pathologist [facility] Hemoglobin A1C 8.4(A) 4.0 - 6.0 % QC Media Lot # [id number] Lot# Expiration Date ,258,[id number] Blood 08/12/2024 11:0 7 AM EDT Caity Brink MD POINT OF CARE ISABELLE T ENTER/EDIT ORDERABLES Final Result * HPV DNA, Low/High Risk (07/12/2024 3:25 PM EDT) Pathologist [facility] HPV High Risk Negative Negative [facility] HPV Genotype 16 Negative Negative [facility] HPV Genotype 18 Negative Negative [facility] Comment:HPV testing performe d at [facility] (CLIA#[id number]), [address] [place] [phone].Testing for HPV was performed using the [employer]system. The presence of HPV in the female [...] MD LAB BLOOD ORDERABLES Final Res ult [facility] [address] [place] [phone] * Pap Smear (07/12/2024 3:25 PM EDT) 07/12/2024 3:25 PM EDT 07/13/2024 6:00 AM EDT Qasim [facility] - 07/15/2024 11:08 AM EDT ----- ------- Name: Paty Carye Age/Sex: 63/F : 1960 Unit#: [id number] Attend Dr: Laura Gallardo Re07/12/24 Status: DEP REF Location: HO.HHCLNP Disch: ----- ------- SPEC : [id number] RECD: 07/13/24 STATUS: SEUN LOBO NUM: [id number] CHI: 07/12/[address] [facility] [address]: Laura Gallardo ENTERED: 07/13/24 SP TYPE: Pap Smr OT DR: ORDERED: Pap Smear Interpretation Satisfactory for [...] Gallardo MD LAB CYTOLOGY ORDERABLES Final Result [facility] [address] [place] [phone] * (ABNORMAL) Lipid Panel, Standard (07/06/2024 1:27 PM EDT) Triglycerides 127 <150 mg/dL [facility] Comment:Desirable Triglyceri de: less than 150 mg/dLBorderline High Triglyceride 150-199 mg/dLHigh Triglyceride: 200-499 mg/dLVery High Triglyceride: greater than or equal to 5OO mg/dL Cholesterol 228(H) <200 mg/dL [facility] Comment:Desirable Cholestero l: less than 200 mg/dLBorderline High Cholesterol: 200-239 mg/dLHigh Cholesterol: greater than 239 mg/dL LDL Cholesterol Calculated 154(H) <100 mg/dL [facility] Comment:Desirable LDL: less than 100 mg/dLNear Optimal/Above Optimal LDL: 110- 129 mg/dLBorderline High LDL: 130-159 mg/dLHigh LDL: 160-189 mg/dLVery High LDL: greater than or equal to 190 mg/dL HDL Cholesterol 49 >40 mg/dL [facility] Comment:Desirable HDL: great er than 40 mg/dL Note: This HDL assay may give artificially low results in patients with liver disease. 07/06/2024 1:27 PM EDT 07/06/2024 1:27 PM EDT us Generic External Data Provider LAB BLOOD ORDERAB LES Final Result [facility] [address] [place] [phone] * BI Mammogram Diagnostic Tomosynthesis Bilateral (01/12/2024 2:00 PM EST) Anatomical Region Laterality Modality Breast Bilateral Mammography 01/12/2024 2:00 PM EST Narrative 01/12/2024 3:02 PM EST [facility] [address] [place] [address] [place] [address] Mammography Report Signed Patient: Paty Carey MR#: [id number] : 1960 Acct:[id number] Age/Sex: 63 / F ADM Date: 01/12/24 Loc: HO.MAMMO Attending Dr: Caity Brink MD Ordering Physician: Caity Gray MD Re sults: 2Benign Findings Date of Service: 01/12/24 Follow Up: 1 Year From Orig inal Mammogram Procedure(s): MM tomosynthesis diagnostic BI Accession Number(s): [id number] cc: Caity Gray MD EXAMINATION: MM DIAGNOSTIC [...] by: Tio Gilman MD 01/12/2024 02:59 PM [facility] Dictated By: Tio Gilman MD Signed By: <Electronically signed by Tio Gilman MD in OV> 01/12/24 1459 DD/ 1400 TD/TT: 01/12/24 1422 Oxygen Tank Filler: Procedure Note Donotuseinterpreter, Image - 01/12/2024 [facility] [address] [place] [address] Mammography Report Signed Patient: Paty CareyMR#: [id number] : 1Acct:[id number] Age/Sex: 63 / FADM Date: 01/12/24 Loc: HO.MAMMO Attending Dr: Caity Brink MD Ordering Physician: Caity Gray sults: 2Benign Findings Date of Service: 01/12/24Follow Up: 1 Year From Orig ina Mammogram Procedure(s): MM tomosynthesis diagnostic BI Accession Number(s): [id number] cc: Caity Gray MD EXAMINATION: MM DIAGNOSTIC [...] by: Tio Gilman MD 01/12/2024 02:59 PM [facility] Dictated By: Tio Gilman MD Signed By: <Electronically signed by Tio Gilman MD in OV> 01/12/24 1459 DD/ 1400 TD/TT: 01/12/24 1422 Oxygen Tank Filler: Caity Brink MD IMG BI PROCEDURES Final Result * Hepatitis C Antibody with Reflex to HCV, RNA, Quantitative, Real-Time PCR (12/19/2023 11:05 AM EDT) Hepatitis C Antibody Nonreactive Nonreactive [facility] Comment:Antibodies to HCV no t detected; does not exclude early acuteHCV infection. Blood Venous blood specimen / Unknown 12/19/2023 11:05 AM EDT 12/19/2023 11:42 AM EDT us Caity Brink MD LAB BLOOD ORDERAB LES Final Result [facility] [address] [place] [phone] * HIV-1/2 Antigen and Antibodies, Fourth Generation, with Reflexes (12/19/2023 11:05 AM EDT) HIV AB/AG Nonreactive Nonreactive [facility] Comment:HIV-1 p24 Ag and/or HIV-1/HIV-2 Ab not detected.A test result that is nonreactive does not exclude thepossibility of exposure to or infection with HIV-1 and/orHIV-2. Nonreactive results in this assay for individualswith prior exposure to HIV-1 and/or HIV-2 may be due toantigen and antibody levels that are below the limit ofdetection of this assay.The BackplaneniIEV HIV Ag/Ab Combo assay result andsupplemental assay results should be interpreted inconjunction with the patient's clinical presentation,history and other laboratory results. If the results areinconsistent with clinical evidence, additional testing issuggested to confirm the result. Blood Venous blood specimen / Unknown 12/19/2023 11:05 AM EDT 12/19/2023 11:42 AM EDT us Caity Brink MD LAB BLOOD ORDERAB LES Final Result [facility] [address] [place] [phone] * Cologuard?? colon cancer screening (11/18/2023 12:00 AM EDT) Cologuard Result Negative Negative 11/26/19 5:47 PM EDT [employer] (CLIA #:[id number]) Comment: NEGATIVE TEST RESULT. A negative Cologuard [...] (Enmanuel Coy al, N Engl J Med 2014;370(14):8012-6710) The normal value (reference range) for this assay is negative. COLOGUARD RE-SCREENING RECOMMENDATION: Periodic colorectal cancer screening is an important part of preventive healthcare for asymptomatic individuals at average risk for colorectal cancer. Following a negative Cologuard result, the [place] [employer] and U.S. Multi-Society Task Force screening guidelines recommend a Cologuard re-screening interval of 3 years. References: [employer] Guideline for Colorectal Cancer Screening: https://www.cancer.org/cancer/niphi-grtjav-nmuopn/gqnwpsehv-znbtektvk-azpmgxm/ac s-rec ommendations.html.; [place] WATT, Liang CLOUD, Edda AnayaK, Colorectal Cancer Screening: Recommendations for Physicians and Patients from the U.S. Multi-Society Task Force on Colorectal Cancer Screening , Am J Gastroenterology 2017; 112:5557-6591. TEST DESCRIPTION: Composite algorithmic analysis of stool [...] Seymour et al, N Engl J Med 2014;370(14):7854-4218.) Cologuard may produce a false negative or false positive result (no colorectal cancer or precancerous polyp present at colonoscopy follow up). A negative Cologuard test result does not guarantee the absence of CRC or advanced adenoma (pre-cancer). The current Cologuard screening interval is every 3 years. ([place] and U.S. Multi-Society Task Force). Cologuard performance data in a 10,000 patient pivotal study using colonoscopy as the reference method can be accessed at the following location: www.[email or web address]/results. Additional description of the Cologuard test process, warnings and precautions can be found at www.[email or web address]. Stool specimen (specimen) Rectal contents / Unknown 11/18/2023 11/19/2023 2:41 PM EDT Caity Brink MD LAB MOLECULAR PEDRO GNOSTICS ORDERABLES Final Result [employer] (CLIA #:[id number]) [place] [address] [address], from Last 3 Months or Most Recently Relevant to Health Maintenance Insurance [employer] C[employer] Care Teams Pin Setter Relationship Specialty Start Date End Date Caity Gray MD [address] [place] [phone] PCP - General Internal Medicine 11/13/22 Vero Pineda Recording ClerkCustomer Supply Chain Analyst 03/17/24
== END 2024-12-07 14:35 | disposition home or self-care (01) ==
LOC: HO.ENCR 13:41
PROVIDERS: PCP Student in an Organized Health Care Education/Training Program; Referring Provider Student in an Organized Health Care Education/Training Program; Visit Provider Student in an Organized Health Care Education/Training Program
DX: E11.42 Type 2 diabetes mellitus with diabetic polyneuropathy (principal); Z79.4 Long term (current) use of insulin
CPT/HCPCS: 99213

== ENCOUNTER → 2024-12-07 13:40 | Outpatient (BNVA) | payer MEDICAID, SELFPAY | PROVIDERS: Visit Provider Student in an Organized Health Care Education/Training Program | DX: E11.42 Type 2 diabetes mellitus with diabetic polyneuropathy (principal); Z79.4 Long term (current) use of insulin | CPT/HCPCS: 82947; 83036; 95250; 99212 ==

== ENCOUNTER 2025-01-17 13:10 | Outpatient (REF) | payer MEDICAID, SELFPAY ==
--- NOTE | ~2025-01-17 | MM_ITS ---
EXAMINATION: MM SCREENING DIGITAL BREAST TOMOSYNTHESIS, BILATERAL CLINICAL INFORMATION: Screening. Asymptomatic. COMPARISON: Comparison made to multiple prior, most recent January 12, 2024, and most remote July 06, 2021. TECHNIQUE: Digital breast tomosynthesis is performed in mediolateral oblique and craniocaudal views along with computer-aided detection (CAD). Synthesized 2D images are generated from the tomosynthesis. FINDINGS: BREAST COMPOSITION: There are scattered areas of fibroglandular density. BILATERAL BREASTS: No significant masses, suspicious calcifications or other abnormalities are seen in either breast. MM/MM tomosynthesis screening BI IMPRESSION: BILATERAL BREASTS: Negative, no mammographic evidence of malignancy. Normal interval follow-up is recommended in 12 months. ASSESSMENT: BI-RADS: Category 1: Negative RECOMMENDATION: Routine annual mammography screening. FOLLOW-UP: 1 year F/U This examination should not preclude the clinical evaluation of a suspicious palpable abnormality. This patient's information was entered into a reminder system with a target due date for their next mammogram. Electronically signed by: Rocael Messina MD 01/19/2025 05:05 PM [facility]
== END 2025-01-17 13:11 | disposition home or self-care (01) ==
LOC: HO.MAMMO 13:10
PROVIDERS: PCP Student in an Organized Health Care Education/Training Program; Visit Provider Student in an Organized Health Care Education/Training Program
DX: Z12.31 Encounter for screening mammogram for malignant neoplasm of breast (principal)
CPT/HCPCS: 77063; 77067

== ENCOUNTER → 2025-01-17 13:30 | Outpatient (BNV) | payer MEDICAID, SELFPAY | PROVIDERS: PCP Student in an Organized Health Care Education/Training Program; Visit Provider Radiology Body Imaging | DX: Z12.31 Encounter for screening mammogram for malignant neoplasm of breast (principal) | CPT/HCPCS: 77063; 77067 ==